=== PATIENT | male | born 1945 | race Caucasian/White ===

== ENCOUNTER 2018-08-16 18:28 | Inpatient (IN) | payer MEDICARE, BC ==
[~2018-08-16] VITALS: Ht 177.8 cm; Wt 47.7 kg
[2018-08-16 22:49] VITALS: PULSE 107
[2018-08-16 23:08] VITALS: Ht 177.8 cm; Wt 47.7 kg
[2018-08-16 23:15] VITALS: BP 132/74; PULSE 96; RESP 18
--- NOTE | 2018-08-16 23:42 | NUR ---
Direct admit from [facility], by ambulance. Pt a/a/ox3, Agitated and anxious. c/o B legs pain. VS stable, afebrile. Skin intact picture taken. call light within reach. Continue to monitor.
[2018-08-17] VITALS (10 sets, daily range): BP systolic 120–129; BP diastolic 70–77; PULSE 73–111; RESP 18–20
[2018-08-17] MEDS ORDERED: morphine SULFATE/PF (2 MG/2 ML) SYG IV PRN (00:40)
[2018-08-17] MEDS ORDERED: ONDANSETRON 4 MG INJ IV PRN (01:00)
[2018-08-17] MEDS ORDERED: MAGNESIUM HYDROXIDE 30ML CUP PO PRN (01:00)
[2018-08-17] MEDS ORDERED: SENNA TAB PO PRN (01:00)
[2018-08-17] MEDS ORDERED: POLYETHYLENE GLYCOL 17 GM PACKET PO PRN (01:00)
[2018-08-17] MEDS ORDERED: ACETAMINOPHEN 325 MG TAB PO PRN (01:00)
[2018-08-17] MEDS: SOD CHLORIDE 0.9% 1,000 ML IV SCH ×3 (01:17→21:23)
[2018-08-17] MEDS: PANTOPRAZOLE (EC) 40 MG TAB PO SCH (05:48)
--- NOTE | 2018-08-17 06:27 | NUR ---
Pt has belonging 2 bags he refused the nurse to checked them out.
--- NOTE | 2018-08-17 07:10 | NUR ---
Pt a/a/ox3 agitated, VS stable, afebrile. Hemoglobin 6.4, Dr Do was notified, awaiting he call back. Pt has BM x2 dark color, . Refused to sign the paper for belonging and did not want to be checked his bags. Report to incoming nurse Rosi. Continue to monitor.
[2018-08-17] MEDS: FERROUS SULFATE (EC) 325 MG TAB PO SCH ×3 (09:50→21:03)
[2018-08-17] MEDS: THIAMINE 100 MG TAB PO SCH (09:50)
[2018-08-17] MEDS: METOPROLOL 50 MG TAB PO SCH ×2 (09:51→21:03)
[2018-08-17] MEDS: FAMOTIDINE 20 MG TAB PO SCH (09:51)
[2018-08-17] MEDS: MULTIVITAMINS/MINERALS TAB PO SCH (09:51)
[2018-08-17] MEDS: FOLIC ACID 1 MG TAB PO SCH (09:51)
[2018-08-17] MEDS: [UNRECOGNIZED DRUG - OTHER] XX SCH ×2 (09:52→16:00)
--- NOTE | 2018-08-17 13:57 | CONS ---
Date/Time of Note Date/Time of Note DATE: 08/17/18 TIME: 13:52 Assessment/Plan Assessment/Plan Assessment/Plan 72 yo transferred from [facility] with widely metastatic disease to bones and lung as well as RP LAD at this point highest on my list is that this is met prostate ca recommend checking PSA also recommend checking AFP, bhcg and CEA. will ideally need tissue diagnosis, recommend IR to biopsy most amenable site -transfuse to keep hgb >7 Result Diagram: 08/17/18 0605 08/17/18 0605 Results 24hrs Laboratory Tests Test 08/17/18 06:05 White Blood Count 5.8 Red Blood Count 2.21 L Hemoglobin 6.4 *L Hematocrit 20.2 L Mean Corpuscular Volume 91.4 Mean Corpuscular Hemoglobin 29.0 Mean Corpuscular Hemoglobin Concent 31.7 L Red Cell Distribution Width 16.7 H Platelet Count 149 Mean Platelet Volume 10.3 Immature Granulocytes % 2.200 H Neutrophils % 64.9 Segmented Neutrophils % (Manual) 69 Band Neutrophils % (Manual) 2 Lymphocytes % 22.5 Lymphocytes % (Manual) 25 Monocytes % 9.5 Monocytes % (Manual) 3 Eosinophils % 0.7 Basophils % 0.2 Myelocytes % (Manual) 1 H Nucleated Red Blood Cells % 1 H Immature Granulocytes # 0.130 H Neutrophils # 3.8 Neutrophils # (Manual) 4.0 Band Neutrophils # 0.1 Lymphocytes (Manual) 1.4 Lymphocytes # 1.3 Monocytes # 0.6 Monocytes # (Manual) 0.1 L Eosinophils # 0.0 Basophils # 0.0 Myelocytes # 0.0 Nucleated Red Blood Cells # 0.0 Pathologist Review (Hematology) YES Platelet Estimate NORMAL Giant Platelets 1 H Polychromasia 1+ Poikilocytosis 2+ Anisocytosis 2+ Microcytosis 2+ Ovalocytes 1+ Sodium Level 138 Potassium Level 4.5 Chloride Level 106 Carbon Dioxide Level 25 Anion Gap 7 Blood Urea Nitrogen 28 H Creatinine 1.49 H Est Glomerular Filtrat Rate mL/min 47 L Glucose Level 124 Calcium Level 8.7 Total Bilirubin 0.0 L Direct Bilirubin 0.00 Indirect Bilirubin 0.0 Aspartate Amino Transf (AST/SGOT) 51 H Alanine Aminotransferase (ALT/SGPT) 9 L Alkaline Phosphatase 268 H Total Protein 6.5 Albumin 3.2 L Globulin 3.30 H Albumin/Globulin Ratio 0.96 Consultation Date/Type/Reason Admit Date/Time Aug 16, 2018 at 22:30 Hx of Present Illness 72 yo poor historian, multiple med problems including Hep C, htn, prostate ca. Transferred from [facility] to [facility] for further w/u. Presented to [facility] with weight loss and fatigue, anemic with hgb 7.5Imaging there thshowed diffuse thoracic osseous mes in spine, no cord compression.Ct AP w/o contrast: pulm mets, mild left hydro, promenent retroperitoneal and bilateral iliac LAD CT head w/o: BETH Pt is a very poor historian, unable to tell me if he has had PSA checked in the past or colonoscopy Constitutional: poor po Eyes: no complaints ENT: no complaints Respiratory: no complaints Cardiovascular: no complaints Gastrointestinal: no complaints Genitourinary: no complaints Musculoskeletal: back pain, bone/joint pain Past Medical History Medications Current Medications Pantoprazole (Protonix Tab) 40 mg DAILY@06 PO Last administered on 08/17/18at 05:48; Admin Dose 40 MG; Start 08/17/18 at 06:00 Morphine Sulfate (morphine SULFATE (PF)) 2 mg Q4H PRN IV SEVERE PAIN LEVEL 7-10 Last administered on 08/17/18at 01:18; Admin Dose 2 MG; Start 08/17/18 at 00:40 Sodium Chloride 1,000 ml @ 75 mls/hr [id number] IV Last administered on 08/17/18at 01:17; Admin Dose 75 MLS/HR; Start 08/17/18 at 00:50 Oxycodone/ Acetaminophen (Percocet (5/ 325)) 2 tab Q6H PRN PO PAIN LEVEL 6-10; Start 08/17/18 at 01:00 Oxycodone/ Acetaminophen (Percocet (5/ 325)) 1 tab Q6H PRN PO MODERATE PAIN LEVEL 4-6; Start 08/17/18 at 01:00 Folic Acid (Folic Acid) 1 mg DAILY PO Last administered on 08/17/18at 09:51; Admin Dose 1 MG; Start 08/17/18 at 09:00 Multivitamins/ Minerals (Theragran-M) 1 tab DAILY PO Last administered on 08/17/18at 09:51; Admin Dose 1 TAB; Start 08/17/18 at 09:00 Thiamine HCl (Vitamin B1) 100 mg DAILY PO Last administered on 08/17/18at 09:50; Admin Dose 100 MG; Start 08/17/18 at 09:00 Polyethylene Glycol (Miralax) 17 gm DAILY PRN PO CONSTIPATION; Start 08/17/18 at 01:00 Metoprolol Tartrate (Lopressor) 50 mg BID PO Last administered on 08/17/18at 09: 51; Admin Dose 50 MG; Start 08/17/18 at 09:00 Ferrous Sulfate (Ferrous Sulfate (Ec)) 325 mg TID PO Last administered on 08/17/18at 13:19; Admin Dose 325 MG; Start 08/17/18 at 09:00 Hydralazine HCl (Apresoline) 25 mg TID PO Last administered on 08/17/18at 09:51; Admin Dose 25 MG; Start 08/17/18 at 09:00 Tamsulosin HCl (Flomax) 0.4 mg HS PO ; Start 08/17/18 at 21:00 Famotidine (Pepcid) 20 mg DAILY PO Last administered on 08/17/18at 09:51; Admin Dose 20 MG; Start 08/17/18 at 09:00 Magnesium Hydroxide (Milk Of Mag) 30 ml DAILY PRN PO CONSTIPATION; Start 08/17/18 at 01:00 Acetaminophen (Tylenol Tab) 650 mg Q6H PRN PO MILD PAIN(1-3)OR ELEVATED TEMP; Start 08/17/18 at 01:00 Ondansetron HCl (Zofran Inj) 4 mg Q8 PRN IV NAUSEA AND/OR VOMITING; Start 08/17/18 at 01:00 Senna (Senokot) 2 tab BID PRN PO CONSTIPATION; Start 08/17/18 at 01:00 Zolpidem Tartrate (Ambien) 5 mg HS PRN PO INSOMNIA; Start 08/17/18 at 01:00 Tramadol HCl (Ultram) 50 mg TID PRN PO PAIN LEVEL 1-5; Start 08/17/18 at 01:00 Miscellaneous Information Patients own medicat... BID@1000,1600 XX ; Start 08/17/18 at 10:00 Allergies: Coded Allergies: No Known Allergy (Unverified , 08/17/18) Social History Smoking Status: Never smoker Exam/Review of Systems Vital Signs Vitals Vital Signs Date Temp Pulse Resp B/P (MAP) Pulse Ox O2 O2 Flow FiO2 Time Delivery Rate 08/17/18 98 12:02 08/17/18 98.3 20 120/70 100 11:16 (87) 08/17/18 Nasal 2.0 08:30 Cannula Intake and Output 08/16/18 08/16/18 08/17/18 1515:00 23:00 07:00 IntakeIntake Total 1100 ml OutputOutput Total 400 ml BalanceBalance 700 ml Exam Constitutional: alert, oriented, well developed, frail Head: normocephalic, atraumatic Eyes: nl conjunctiva, EOMI, nl lids, nl sclera, PERRL Musculoskeletal: nl extremities to inspection, nl gait and stance Medications Medications Current Medications Pantoprazole (Protonix Tab) 40 mg DAILY@06 PO Last administered on 08/17/18at 05:48; Admin Dose 40 MG; Start 08/17/18 at 06:00 Morphine Sulfate (morphine SULFATE (PF)) 2 mg Q4H PRN IV SEVERE PAIN LEVEL 7-10 Last administered on 08/17/18at 01:18; Admin Dose 2 MG; Start 08/17/18 at 00:40 Sodium Chloride 1,000 ml @ 75 mls/hr [id number] IV Last administered on 08/17/18at 01:17; Admin Dose 75 MLS/HR; Start 08/17/18 at 00:50 Oxycodone/ Acetaminophen (Percocet (5/ 325)) 2 tab Q6H PRN PO PAIN LEVEL 6-10; Start 08/17/18 at 01:00 Oxycodone/ Acetaminophen (Percocet (5/ 325)) 1 tab Q6H PRN PO MODERATE PAIN LEVEL 4-6; Start 08/17/18 at 01:00 Folic Acid (Folic Acid) 1 mg DAILY PO Last administered on 08/17/18at 09:51; Admin Dose 1 MG; Start 08/17/18 at 09:00 Multivitamins/ Minerals (Theragran-M) 1 tab DAILY PO Last administered on 08/17/18at 09:51; Admin Dose 1 TAB; Start 08/17/18 at 09:00 Thiamine HCl (Vitamin B1) 100 mg DAILY PO Last administered on 08/17/18at 09:50; Admin Dose 100 MG; Start 08/17/18 at 09:00 Polyethylene Glycol (Miralax) 17 gm DAILY PRN PO CONSTIPATION; Start 08/17/18 at 01:00 Metoprolol Tartrate (Lopressor) 50 mg BID PO Last administered on 08/17/18at 09:51; Admin Dose 50 MG; Start 08/17/18 at 09:00 Ferrous Sulfate (Ferrous Sulfate (Ec)) 325 mg TID PO Last administered on 08/17/18at 13:19; Admin Dose 325 MG; Start 08/17/18 at 09:00 Hydralazine HCl (Apresoline) 25 mg TID PO Last administered on 08/17/18at 09:51; Admin Dose 25 MG; Start 08/17/18 at 09:00 Tamsulosin HCl (Flomax) 0.4 mg HS PO ; Start 08/17/18 at 21:00 Famotidine (Pepcid) 20 mg DAILY PO Last administered on 08/17/18at 09:51; Admin Dose 20 MG; Start 08/17/18 at 09:00 Magnesium Hydroxide (Milk Of Mag) 30 ml DAILY PRN PO CONSTIPATION; Start 08/17/18 at 01:00 Acetaminophen (Tylenol Tab) 650 mg Q6H PRN PO MILD PAIN(1-3)OR ELEVATED TEMP; Start 08/17/18 at 01:00 Ondansetron HCl (Zofran Inj) 4 mg Q8 PRN IV NAUSEA AND/OR VOMITING; Start 08/07 08/25 at 01:00 Senna (Senokot) 2 tab BID PRN PO CONSTIPATION; Start 08/17/18 at 01:00 Zolpidem Tartrate (Ambien) 5 mg HS PRN PO INSOMNIA; Start 08/17/18 at 01:00 Tramadol HCl (Ultram) 50 mg TID PRN PO PAIN LEVEL 1-5; Start 08/17/18 at 01:00 Miscellaneous Information Patients own medicat... BID@1000,1600 XX ; Start 08/17/18 at 10:00 WENDY SIMS Aug 17, 2018 13:57
--- NOTE | 2018-08-17 16:11 | HP ---
Date/Time of Note Date/Time of Note DATE: 08/17/18 TIME: 16:06 Assessment/Plan VTE [place]axis [place] [facility] [place]: 2 [place]CD applied [place] [facility] [place] SCD contraindicated: patient refusal Pharmacological prophylaxis: NA/contraindicated Pharm contraindication: blood coag disorder Lines/Catheters IV Catheter Type (from [facility] Peripheral IV Urinary Cath still in place: No Assessment/Plan Hospital Course 1. AMS, metabolic encephalopathy 2. Lymphadenopathy concerning for malignancy unknown primary source. 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 Acute kidney injury 4. Severe anemia 5. Recent weight loss 6. Severe malnourishment 7. Thrombocytopenia 8. History of subdural hematoma 9. History of hepatitis C 10. History of alcoholism 11. Hypertension 12. Mild left hydronephrosis with obstructing distal left ureteral calculus Assessment/Plan -Blood transfusion in process -DVT prophylaxis SCD -GI prophylaxis -Dr. Pardo/Ildefonso from oncology consult is appreciated -Biopsy is pending -Palliative care - tumor markers are pending s -pt has difficulties to urinate so bladder scanner as needed -PSA -MEdsurg Result Diagram: 08/17/18 0605 08/17/18 0605 Results 24hrs Laboratory Tests Test 08/17/18 06:05 White Blood Count 5.8 Red Blood Count 2.21 L Hemoglobin 6.4 *L Hematocrit 20.2 L Mean Corpuscular Volume 91.4 Mean Corpuscular Hemoglobin 29.0 Mean Corpuscular Hemoglobin Concent 31.7 L Red Cell Distribution Width 16.7 H Platelet Count 149 Mean Platelet Volume 10.3 Immature Granulocytes % 2.200 H Neutrophils % 64.9 Segmented Neutrophils % (Manual) 69 Band Neutrophils % (Manual) 2 Lymphocytes % 22.5 Lymphocytes % (Manual) 25 Monocytes % 9.5 Monocytes % (Manual) 3 Eosinophils % 0.7 Basophils % 0.2 Myelocytes % (Manual) 1 H Nucleated Red Blood Cells % 1 H Immature Granulocytes # 0.130 H Neutrophils # 3.8 Neutrophils # (Manual) 4.0 Band Neutrophils # 0.1 Lymphocytes (Manual) 1.4 Lymphocytes # 1.3 Monocytes # 0.6 Monocytes # (Manual) 0.1 L Eosinophils # 0.0 Basophils # 0.0 Myelocytes # 0.0 Nucleated Red Blood Cells # 0.0 Pathologist Review (Hematology) YES Platelet Estimate NORMAL Giant Platelets 1 H Polychromasia 1+ Poikilocytosis 2+ Anisocytosis 2+ Microcytosis 2+ Ovalocytes 1+ Sodium Level 138 Potassium Level 4.5 Chloride Level 106 Carbon Dioxide Level 25 Anion Gap 7 Blood Urea Nitrogen 28 H Creatinine 1.49 H Est Glomerular Filtrat Rate mL/min 47 L Glucose Level 124 Calcium Level 8.7 Total Bilirubin 0.0 L Direct Bilirubin 0.00 Indirect Bilirubin 0.0 Aspartate Amino Transf (AST/SGOT) 51 H Alanine Aminotransferase (ALT/SGPT) 9 L Alkaline Phosphatase 268 H Total Protein 6.5 Albumin 3.2 L Globulin 3.30 H Albumin/Globulin Ratio 0.96 HPI/ROS Admit Date/Time Admit Date/Time Aug 16, 2018 at 22:30 Hx of Present Illness This 74-year-old frail gentleman was brought from [facility] with history of hypertension subdural hematoma alcoholism anemia with the concern of metastatic disease with metastasis to bones and lungs. He is prior to source is unknown. Patient has no capacity to make decisions for himself, his brother is making decision there will need to find for the consult but they did not sign. Dr. Fregoso oncologist for the patient. Patient is a poor historian ROS Cardiovascular: no complaints Gastrointestinal: pain Musculoskeletal: back pain, bone/joint pain PMH/Family/Social Past Medical History Medical History: hypertension Medications Current Medications Pantoprazole (Protonix Tab) 40 mg DAILY@06 PO Last administered on 08/17/18at 05:48; Admin Dose 40 MG; Start 08/17/18 at 06:00 Morphine Sulfate (morphine SULFATE (PF)) 2 mg Q4H PRN IV SEVERE PAIN LEVEL 7-10 Last administered on 08/17/18at 01:18; Admin Dose 2 MG; Start 08/17/18 at 00:40 Sodium Chloride 1,000 ml @ 75 mls/hr [id number] IV Last administered on 08/17/18at 01:17; Admin Dose 75 MLS/HR; Start 08/17/18 at 00:50 Oxycodone/ Acetaminophen (Percocet (5/ 325)) 2 tab Q6H PRN PO PAIN LEVEL 6-10; Start 08/17/18 at 01:00 Oxycodone/ Acetaminophen (Percocet (5/ 325)) 1 tab Q6H PRN PO MODERATE PAIN LEVEL 4-6; Start 08/17/18 at 01:00 Folic Acid (Folic Acid) 1 mg DAILY PO Last administered on 08/17/18 09:51; Admin Dose 1 MG; Start 08/17/18 at 09:00 Multivitamins/ Minerals (Theragran-M) 1 tab DAILY PO Last administered on 08/17/18 09:51; Admin Dose 1 TAB; Start 08/17/18 at 09:00 Thiamine HCl (Vitamin B1) 100 mg DAILY PO Last administered on 08/17/18at 09:50; Admin Dose 100 MG; Start 08/17/18 at 09:00 Polyethylene Glycol (Miralax) 17 gm DAILY PRN PO CONSTIPATION; Start 08/17/18 at 01:00 Metoprolol Tartrate (Lopressor) 50 mg BID PO Last administered on 08/17/18 09:51; Admin Dose 50 MG; Start 08/17/18 at 09:00 Ferrous Sulfate (Ferrous Sulfate (Ec)) 325 mg TID PO Last administered on 08/17/18at 13:19; Admin Dose 325 MG; Start 08/17/18 at 09:00 Hydralazine HCl (Apresoline) 25 mg TID PO Last administered on 08/17/18 09:51; Admin Dose 25 MG; Start 08/17/18 at 09:00 Tamsulosin HCl (Flomax) 0.4 mg HS PO ; Start 08/17/18 at 21:00 Famotidine (Pepcid) 20 mg DAILY PO Last administered on 08/17/18 09:51; Admin Dose 20 MG; Start 08/17/18 at 09:00 Magnesium Hydroxide (Milk Of Mag) 30 ml DAILY PRN PO CONSTIPATION; Start 08/17/18 at 01:00 Acetaminophen (Tylenol Tab) 650 mg Q6H PRN PO MILD PAIN(1-3)OR ELEVATED TEMP; Start 08/17/18 at 01:00 Ondansetron HCl (Zofran Inj) 4 mg Q8 PRN IV NAUSEA AND/OR VOMITING; Start 08/17/18 at 01:00 Senna (Senokot) 2 tab BID PRN PO CONSTIPATION; Start 08/17/18 at 01:00 Zolpidem Tartrate (Ambien) 5 mg HS PRN PO INSOMNIA; Start 08/17/18 at 01:00 Tramadol HCl (Ultram) 50 mg TID PRN PO PAIN LEVEL 1-5; Start 08/17/18 at 01:00 Miscellaneous Information Patients own medicat... BID@1000,1600 XX ; Start 08/17/18 at 10:00 Coded Allergies: No Known Allergy (Unverified , 08/17/18) Past Surgical History Past Surgical Hx: other (unknown) Social History Alcohol Use: occasionally Smoking Status: Never smoker Exam/Review of Systems Vital Signs Vitals Vital Signs Date Temp Pulse Resp B/P (MAP) Pulse Ox O2 O2 Flow FiO2 Time Delivery Rate 08/17/18 98.3 76 20 129/72 96 15:44 (91) 08/17/18 Nasal 2.0 08:30 Cannula Intake and Output 08/16/18 08/16/18 08/17/18 1515:00 23:00 07:00 IntakeIntake Total 1100 ml OutputOutput Total 400 ml BalanceBalance 700 ml Exam Head: normocephalic ENMT: nl external ears & nose Neck: supple Respiratory: crackles/rales, diminished breath sounds Cardiovascular: regular rate and rhythm Gastrointestinal: soft Musculoskeletal: muscle weakness Neurological: confused DENNIS YOON Aug 17, 2018 16:11
--- NOTE | 2018-08-17 17:00 | NUR ---
RN NOTES: Report given to Ines HUTCHINSON in 2E. Called and arranged transport as well.
--- NOTE | 2018-08-17 18:09 | QN ---
Documentation Comment SEEN AND EXAMINED WITH BLIND EYELETTER CHART REVIEWED METS TO BONE/LAD AND PULM> LIKLEY PROSTATE CA, WILL NEED TISSUE IR FO BIOPSY ? LAD 1 UNIT PRBC VALDO HERNANDEZ MD Aug 17, 2018 18:09
--- NOTE | 2018-08-17 18:40 | NUR ---
RN NOTES: EOSS Pt s/p 1 unit PRBC, labs ordered in the AM. VS stable. Pt a/o x 2-3, agitated, confused at times. Report given to 2E. Transported via bed with all personal belongings. Care relinquished.
--- NOTE | 2018-08-17 19:17 | NUR ---
RN Notes: Received pt around 1850 from [facility] via bed, pt alert and verbally responsive, breathing even and unlabored. Endorsed to next shift for skin assessment, transfer assessment and continuity of care.
[2018-08-17] MEDS: TAMSULOSIN (SR) 0.4 MG CAP PO SCH (21:03)
[2018-08-18] MEDS: traMADol 50 MG TAB PO PRN (02:30)
[2018-08-18] MEDS: PANTOPRAZOLE (EC) 40 MG TAB PO SCH ×2 (06:00→06:39)
--- NOTE | 2018-08-18 07:28 | NUR ---
pt alert,oriented x4,forgetful. no sob, w/ complaint of gen body pain one time during the shift, tramadol tab given as ordered. pt refused skin assessment, repositioning.refused 0200 vital signs.Reinforced teaching . charge nurse, alec Angulo. at 0645 pt allowed pipe and tank fabricator and nurse to change and clean him
[2018-08-18 07:30] VITALS: BP 120/68; PULSE 67; RESP 18
[2018-08-18] MEDS: MULTIVITAMINS/MINERALS TAB PO SCH (08:38)
[2018-08-18] MEDS: METOPROLOL 50 MG TAB PO SCH ×2 (08:38→21:30)
[2018-08-18] MEDS: FERROUS SULFATE (EC) 325 MG TAB PO SCH ×3 (08:38→21:29)
[2018-08-18] MEDS: THIAMINE 100 MG TAB PO SCH (08:38)
[2018-08-18] MEDS: FAMOTIDINE 20 MG TAB PO SCH (08:38)
[2018-08-18] MEDS: FOLIC ACID 1 MG TAB PO SCH (08:38)
[2018-08-18] MEDS: [UNRECOGNIZED DRUG - OTHER] XX SCH ×2 (09:51→16:00)
[2018-08-18] MEDS: SOD CHLORIDE 0.9% 1,000 ML IV SCH (10:22)
[2018-08-18 14:15] VITALS: BP 112/66; PULSE 67; RESP 16
--- NOTE | 2018-08-18 14:52 | PN ---
Date/Time of Note Date/Time of Note DATE: 08/18/18 TIME: 14:50 Assessment/Plan VTE Prophylaxis Risk [place] [facility] [place] risk: 4 SCD applied [place] [facility] [place] No SCD contraindicated: patient refusal Pharmacological prophylaxis: NA/contraindicated Pharm contraindication: bleeding Lines/Catheters IV [facility]ter Type (from [facility]): Peripheral IV Urinary Cath still in place: No Assessment/Plan Hospital Course 1. AMS, metabolic encephalopathy 2. Lymphadenopathy concerning for malignancy unknown primary source, more likely prostate cancer, PSA 1000. 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 Acute kidney injury, better 4. Severe anemia 5. Recent weight loss 6. Severe malnourishment 7. Thrombocytopenia 8. History of subdural hematoma 9. History of hepatitis C 10. History of alcoholism 11. Hypertension 12. Mild left hydronephrosis with obstructing distal left ureteral calculus Assessment/Plan -monitor H and H -DVT prophylaxis SCD, pt refused -GI prophylaxis -Dr. Pardo/Ildefonso from oncology consult is appreciated -dr Vora seen, no note is present per nursing refused colonoscopy -Biopsy is pending -advance diet -Palliative care - tumor markers are pending s -pt has difficulties to urinate so bladder scanner as needed -PSA is very high -Medsurg -Start Casodex 50 mg po daily Result Diagram: 08/18/18 0441 08/18/18 0441 Results 24hrs Laboratory Tests Test 08/18/18 04:41 White Blood Count 6.2 Red Blood Count 2.59 L Hemoglobin 7.5 L Hematocrit 23.7 L Mean Corpuscular Volume 91.5 Mean Corpuscular Hemoglobin 29.0 Mean Corpuscular Hemoglobin Concent 31.6 L Red Cell Distribution Width 15.9 H Platelet Count 154 Mean Platelet Volume 9.7 Immature Granulocytes % 2.900 H Neutrophils % 66.1 Lymphocytes % 19.7 Monocytes % 10.0 Eosinophils % 1.0 Basophils % 0.3 Nucleated Red Blood Cells % 0.3 H Immature Granulocytes # 0.180 H Neutrophils # 4.1 Lymphocytes # 1.2 Monocytes # 0.6 Eosinophils # 0.1 Basophils # 0.0 Nucleated Red Blood Cells # 0.0 Sodium Level 139 Potassium Level 4.2 Chloride Level 104 Carbon Dioxide Level 24 Anion Gap 11 Blood Urea Nitrogen 21 H Creatinine 1.27 H Est Glomerular Filtrat Rate mL/min 56 L Glucose Level 107 Calcium Level 8.6 Subjective 24 Hr Interval Summary Respiratory: no complaints Genitourinary: dysuria Exam/Review of Systems Vital Signs Vitals Vital Signs Date Temp Pulse Resp B/P (MAP) Pulse Ox O2 O2 Flow FiO2 Time Delivery Rate 08/18/18 97.8 67 18 120/68 99 Room Air 07:30 (85) 08/17/18 2.0 08:30 Intake and Output 08/17/18 08/17/18 08/18/18 1515:00 23:00 07:00 IntakeIntake Total 1450 ml 815 ml OutputOutput Total 900 ml 1000 ml BalanceBalance 550 ml -185 ml Exam Eyes: nl conjunctiva Neck: supple Cardiovascular: regular rate and rhythm Gastrointestinal: soft Medications Medications Current Medications Pantoprazole (Protonix Tab) 40 mg DAILY@06 PO Last administered on 08/18/18at 06:39; Admin Dose 40 MG; Start 08/17/18 at 06:00 Morphine Sulfate (morphine SULFATE (PF)) 2 mg Q4H PRN IV SEVERE PAIN LEVEL 7-10 Last administered on 08/17/18at 01:18; Admin Dose 2 MG; Start 08/17/18 at 00:40 Sodium Chloride 1,000 ml @ 75 mls/hr [id number] IV Last administered on 08/18/18at 10:22; Admin Dose 75 MLS/HR; Start 08/17/18 at 00:50 Oxycodone/ Acetaminophen (Percocet (5/ 325)) 2 tab Q6H PRN PO PAIN LEVEL 6-10; Start 08/17/18 at 01:00 Oxycodone/ Acetaminophen (Percocet (5/ 325)) 1 tab Q6H PRN PO MODERATE PAIN LEVEL 4-6; Start 08/17/18 at 01:00 Folic Acid (Folic Acid) 1 mg DAILY PO Last administered on 08/18/18at 08:38; Admin Dose 1 MG; Start 08/17/18 at 09:00 Multivitamins/ Minerals (Theragran-M) 1 tab DAILY PO Last administered on 08/18/18at 08:38; Admin Dose 1 TAB; Start 08/17/18 at 09:00 Thiamine HCl (Vitamin B1) 100 mg DAILY PO Last administered on 08/18/18at 08:38; Admin Dose 100 MG; Start 08/17/18 at 09:00 Polyethylene Glycol (Miralax) 17 gm DAILY PRN PO CONSTIPATION; Start 08/17/18 at 01:00 Metoprolol Tartrate (Lopressor) 50 mg BID PO Last administered on 08/18/18at 08:38; Admin Dose 50 MG; Start 08/17/18 at 09:00 Ferrous Sulfate (Ferrous Sulfate (Ec)) 325 mg TID PO Last administered on 08/18/18 12:37; Admin Dose 325 MG; Start 08/17/18 at 09:00 Hydralazine HCl (Apresoline) 25 mg TID PO Last administered on 08/18/18 12:37; Admin Dose 25 MG; Start 08/17/18 at 09:00 Tamsulosin HCl (Flomax) 0.4 mg HS PO Last administered on 08/17/18at 21:03; Admin Dose 0.4 MG; Start 08/17/18 at 21:00 Famotidine (Pepcid) 20 mg DAILY PO Last administered on 08/18/18 08:38; Admin Dose 20 MG; Start 08/17/18 at 09:00 Magnesium Hydroxide (Milk Of Mag) 30 ml DAILY PRN PO CONSTIPATION; Start 08/17/18 at 01:00 Acetaminophen (Tylenol Tab) 650 mg Q6H PRN PO MILD PAIN(1-3)OR ELEVATED TEMP; Start 08/17/18 at 01:00 Ondansetron HCl (Zofran Inj) 4 mg Q8 PRN IV NAUSEA AND/OR VOMITING; Start 08/17/18 at 01:00 Senna (Senokot) 2 tab BID PRN PO CONSTIPATION; Start 08/17/18 at 01:00 Zolpidem Tartrate (Ambien) 5 mg HS PRN PO INSOMNIA; Start 08/17/18 at 01:00 Tramadol HCl (Ultram) 50 mg TID PRN PO PAIN LEVEL 1-5 Last administered on 08/18/18at 02:30; Admin Dose 50 MG; Start 08/17/18 at 01:00 Miscellaneous Information Patients own medicat... BID@1000,1600 XX ; Start 08/17/18 at 10:00 DENNIS YOON Aug 18, 2018 14:52
--- NOTE | 2018-08-18 15:28 | NUR ---
RN Notes: Patient remains alert and oriented, afebrile, breathing even and unlabored, no c/o pain/discomfort. Pt agreed for skin assessment on his back and bilateral feet, skin clean and intact noted with skin pigmentation on both heels. Offered pt to get out of bed and to try his balance/mobility but pt refused per pt he feel weak cause it's not been eating solid food for the few days and requested to upgrade his diet and said once he started to eat regular food maybe he will have strength to try to get out of bed for mobility. Dr. Vora came and see pt per MD pt refusing to do some procedure. Anat CHIEF EXECUTIVE OFFICER came made aware regarding pt's request and upgraded pt's diet. Pt aware and happy about the order. Pt voiding well, able to use urinal with clear yellow urine output. Hourly rounding done, call light within reach, bed alarm on. Will continue to monitor until the end of the shift. Addendum: 08/18/18 at 1749 by JUAN CHISHOLM RN pt was seen by DR. Nguyen and received order for Xray of Pelvis and Spine Lumbar, NM Bone Whole Body Scan Panel and to start pt on Casodex. Noted that Casodex was Chemo med and initial dose need to be adm by chemo nurse, called 4w spoke to Jade FISH made aware regarding initial dose for Casodex said she will look onto pt's chart and will come to our unit to adm medication. Addendum: 08/18/18 at 1919 by JUAN CHISHOLM RN Anat VASQUEZ aware regarding Hemoglobin level of 7.5.
--- NOTE | 2018-08-18 16:22 | CONS ---
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 The josiah flores himself is not a good historian he is confused and sometimes agitated at the [facility] they attempted to have MRI of the spine to evaluate metastatic disease and evaluate for vertebral instability but the patient was confused and agitated and they were not able to do the MRI the patient is known to have had subdural hematoma status post evacuation at [facility] in February 2018 the patient also was found to have lymphadenopathy and bony metastases he also is known to have a history of hypertension and anemia. CT scan of the abdomen and pelvis without contrast at [facility] done on 08/13/2018 showed lung bases: Extensive pleural nodularity and pulmonary nodules bilaterally bilateral left greater than right small pleural effusions and bibasilar atelectasis liver: Unremarkable, gallbladder and bile ducts: Contracted likely containing gallstones ,spleen unremarkable,pancreas unremarkable, adrenals mildly thickened left greater than right adrenal glands, kidneys and ureters: Bilateral low-density lesions mostly fluid density but incompletely characterized measuring up to 6.2 cm on the right kidney, mild left hydronephrosis likely due to an obstructing 6 mm stone in the distal left ureter. Bowels nondilated bowel loops moderate stool burden. Bladder diffuse circumferential wall thickening. Reproductive organs: Prostatomegaly with median lobe hypertrophy. Lymph node: Likely prominent retroperitoneal and bilateral iliac chain lymph nodes although overall poorly delineated due to lack of intravenous contrast. Peritoneum: Small volume ascites. Vessels: Moderate atherosclerotic calcification. Abdominal wall: Mild body wall edema. Bones: Mixed lytic ,sclerotic bone lesions involving the entire axial and appendicular skeleton with areas of vertebral body height loss for example in the L3 vertebral body and marked areas of cortical destruction for example on the left inferior pubic ramus. Impression: Most likely this patient does have metastatic prostate cancer. Plan: Lumbosacral spine x-rays, pelvic x-rays. Bone scan and we will start him on Casodex 50 mg daily. He will need to have biopsy to confirm the diagnosis and then he will need to be placed on Lupron Depo injections. Result Diagram: 08/18/18 0441 08/18/18 0441 Results 24hrs Laboratory Tests Test 08/18/18 04:41 White Blood Count 6.2 Red Blood Count 2.59 L Hemoglobin 7.5 L Hematocrit 23.7 L Mean Corpuscular Volume 91.5 Mean Corpuscular Hemoglobin 29.0 Mean Corpuscular Hemoglobin Concent 31.6 L Red Cell Distribution Width 15.9 H Platelet Count 154 Mean Platelet Volume 9.7 Immature Granulocytes % 2.900 H Neutrophils % 66.1 Lymphocytes % 19.7 Monocytes % 10.0 Eosinophils % 1.0 Basophils % 0.3 Nucleated Red Blood Cells % 0.3 H Immature Granulocytes # 0.180 H Neutrophils # 4.1 Lymphocytes # 1.2 Monocytes # 0.6 Eosinophils # 0.1 Basophils # 0.0 Nucleated Red Blood Cells # 0.0 Sodium Level 139 Potassium Level 4.2 Chloride Level 104 Carbon Dioxide Level 24 Anion Gap 11 Blood Urea Nitrogen 21 H Creatinine 1.27 H Est Glomerular Filtrat Rate mL/min 56 L Glucose Level 107 Calcium Level 8.6 Consultation Date/Type/Reason Admit Date/Time Aug 16, 2018 at 22:30 Date of Consultation: Aug 18, 2018 Type of Consult Urology Reason for Consultation Metastatic prostate cancer Requesting Provider: MILLY LABOY of Present Illness 72-year-old -[place] male was transferred from [facility] to [facility] patient was found to have 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 The patient himself is not a good historian he is confused and sometimes agitated at the [facility] they attempted to have MRI of the spine to evaluate metastatic disease and evaluate for vertebral instability but the patient was confused and agitated and they were not able to do the MRI the patient is known to have had subdural hematoma status post evacuation at [facility] in February 2018 the patient also was found to have lymphadenopathy and bony metastases he also is known to have a history of hypertension and anemia. CT scan of the abdomen and pelvis without contrast at [facility] done on 08/13/2018 showed lung bases: Extensive pleural nodularity and pulmonary nodules bilaterally bilateral left greater than right small pleural effusions and bibasilar atelectasis liver: Unremarkable, gallbladder and bile ducts: Contracted likely containing gallstones ,spleen unremarkable,pancreas unremarkable, adrenals mildly thickened left greater than right adrenal glands, kidneys and ureters: Bilateral low-density lesions mostly fluid density but incompletely characterized measuring up to 6.2 cm on the right kidney, mild left hydronephrosis likely due to an obstructing 6 mm stone in the distal left ur eter. Bowels nondilated bowel loops moderate stool burden. Bladder diffuse circumferential wall thickening. Reproductive organs: Prostatomegaly with median lobe hypertrophy. Lymph node: Likely prominent retroperitoneal and bilateral iliac chain lymph nodes although overall poorly delineated due to lack of intravenous contrast. Peritoneum: Small volume ascites. Vessels: Moderate atherosclerotic calcification. Abdominal wall: Mild body wall edema. Bones: Mixed lytic ,sclerotic bone lesions involving the entire axial and appendicular skeleton with areas of vertebral body height loss for example in the L3 vertebral body and marked areas of cortical destruction for example on the left inferior pubic ramus. Constitutional: other (Frail) Eyes: no complaints ENT: no complaints Respiratory: No shortness of breath Cardiovascular: no complaints Gastrointestinal: no complaints Genitourinary: hematuria (He states he did have hematuria a few weeks ago but now his urine is clear. He denies any dysuria) Musculoskeletal: no complaints Skin: no complaints Neurologic: confusion Endocrine: no complaints Lymphatic: adenopathy Psychological: confusion Past Medical History Medical History: cancer (Prostatic), hypertension, other (Hepatitis C, weight loss and anemia, encephalopathy) Medications Current Medications Pantoprazole (Protonix Tab) 40 mg DAILY@06 PO Last administered on 08/18/18at 06:39; Admin Dose 40 MG; Start 08/17/18 at 06:00 Morphine Sulfate (morphine SULFATE (PF)) 2 mg Q4H PRN IV SEVERE PAIN LEVEL 7-10 Last administered on 08/17/18at 01:18; Admin Dose 2 MG; Start 08/17/18 at 00:40 Sodium Chloride 1,000 ml @ 40 mls/hr Q24H IV Last administered on 08/18/18at 10:22; Admin Dose 75 MLS/HR; Start 08/17/18 at 00:50 Oxycodone/ Acetaminophen (Percocet (5/ 325)) 2 tab Q6H PRN PO PAIN LEVEL 6-10; Start 08/17/18 at 01:00 Oxycodone/ Acetaminophen (Percocet (5/ 325)) 1 tab Q6H PRN PO MODERATE PAIN LEVEL 4-6; Start 08/17/18 at 01:00 Folic Acid (Folic Acid) 1 mg DAILY PO Last administered on 08/18/18 08:38; Admin Dose 1 MG; Start 08/17/18 at 09:00 Multivitamins/ Minerals (Theragran-M) 1 tab DAILY PO Last administered on 08/18/18 08:38; Admin Dose 1 TAB; Start 08/17/18 at 09:00 Thiamine HCl (Vitamin B1) 100 mg DAILY PO Last administered on 08/18/18 08:38; Admin Dose 100 MG; Start 08/17/18 at 09:00 Polyethylene Glycol (Miralax) 17 gm DAILY PRN PO CONSTIPATION; Start 08/17/18 at 01:00 Metoprolol Tartrate (Lopressor) 50 mg BID PO Last administered on 08/18/18 08:38; Admin Dose 50 MG; Start 08/17/18 at 09:00 Ferrous Sulfate (Ferrous Sulfate (Ec)) 325 mg TID PO Last administered on 08/18/18 12:37; Admin Dose 325 MG; Start 08/17/18 at 09:00 Hydralazine HCl (Apresoline) 25 mg TID PO Last administered on 08/18/18 12:37; Admin Dose 25 MG; Start 08/17/18 at 09:00 Tamsulosin HCl (Flomax) 0.4 mg HS PO Last administered on 08/17/18at 21:03; Admin Dose 0.4 MG; Start 08/17/18 at 21:00 Famotidine (Pepcid) 20 mg DAILY PO Last administered on 08/18/18 08:38; Admin Dose 20 MG; Start 08/17/18 at 09:00 Magnesium Hydroxide (Milk Of Mag) 30 ml DAILY PRN PO CONSTIPATION; Start 08/17/18 at 01:00 Acetaminophen (Tylenol Tab) 650 mg Q6H PRN PO MILD PAIN(1-3)OR ELEVATED TEMP; Start 08/17/18 at 01:00 Ondansetron HCl (Zofran Inj) 4 mg Q8 PRN IV NAUSEA AND/OR VOMITING; Start 08/17/18 at 01:00 Senna (Senokot) 2 tab BID PRN PO CONSTIPATION; Start 08/17/18 at 01:00 Zolpidem Tartrate (Ambien) 5 mg HS PRN PO INSOMNIA; Start 08/17/18 at 01:00 Tramadol HCl (Ultram) 50 mg TID PRN PO PAIN LEVEL 1-5 Last administered on 08/18/18at 02:30; Admin Dose 50 MG; Start 08/17/18 at 01:00 Miscellaneous Information Patients own medicat... BID@1000,1600 XX ; Start 08/17/18 at 10:00 Bicalutamide (Casodex) 50 mg DAILY PO ; Start 08/18/18 at 16:30 Allergies: Coded Allergies: No Known Allergy (Unverified , 08/17/18) Past Surgical History Past Surgical Hx: other (Evacuation of subdural hematoma he had 2 craniotomies) Social History Alcohol Use: other (History of alcoholism) Smoking Status: Never smoker Exam/Review of Systems Vital Signs Vitals Vital Signs Date Temp Pulse Resp B/P (MAP) Pulse Ox O2 O2 Flow FiO2 Time Delivery Rate 08/18/18 98.7 67 16 112/66 99 Room Air 14:15 (81) 08/17/18 2.0 08:30 Intake and Output 08/17/18 08/17/18 08/18/18 1515:00 23:00 07:00 IntakeIntake Total 1450 ml 815 ml OutputOutput Total 900 ml 1000 ml BalanceBalance 550 ml -185 ml Exam Constitutional: alert, frail Psych: confusion Head: normocephalic Eyes: nl conjunctiva ENMT: nl external ears & nose Neck: supple Respiratory: normal air movement; No wheezing Cardiovascular: No jugular venous distention (JVD) Gastrointestinal: soft Genitourinary - Male: other (Rectal exam: Prostate hard but it is not bulging into the rectum) Extremities: other (He moves all extremities); No calf tenderness Neurological: confused; No numbness Skin: nl turgor Medications Medications Current Medications Pantoprazole (Protonix Tab) 40 mg DAILY@06 PO Last administered on 08/18/18at 06:39; Admin Dose 40 MG; Start 08/17/18 at 06:00 Morphine Sulfate (morphine SULFATE (PF)) 2 mg Q4H PRN IV SEVERE PAIN LEVEL 7-10 Last administered on 1/11/19at 01:18; Admin Dose 2 MG; Start 08/17/18 at 00:40 Sodium Chloride 1,000 ml @ 40 mls/hr Q24H IV Last administered on 08/18/18 10:22; Admin Dose 75 MLS/HR; Start 08/17/18 at 00:50 Oxycodone/ Acetaminophen (Percocet (5/ 325)) 2 tab Q6H PRN PO PAIN LEVEL 6-10; Start 08/17/18 at 01:00 Oxycodone/ Acetaminophen (Percocet (5/ 325)) 1 tab Q6H PRN PO MODERATE PAIN LEVEL 4-6; Start 08/17/18 at 01:00 Folic Acid (Folic Acid) 1 mg DAILY PO Last administered on 08/18/18 08:38; Admin Dose 1 MG; Start 08/17/18 at 09:00 Multivitamins/ Minerals (Theragran-M) 1 tab DAILY PO Last administered on 08/18/18 08:38; Admin Dose 1 TAB; Start 08/17/18 at 09:00 Thiamine HCl (Vitamin B1) 100 mg DAILY PO Last administered on 08/18/18 08:38; Admin Dose 100 MG; Start 08/17/18 at 09:00 Polyethylene Glycol (Miralax) 17 gm DAILY PRN PO CONSTIPATION; Start 08/17/18 at 01:00 Metoprolol Tartrate (Lopressor) 50 mg BID PO Last administered on 08/18/18 08:38; Admin Dose 50 MG; Start 08/17/18 at 09:00 Ferrous Sulfate (Ferrous Sulfate (Ec)) 325 mg TID PO Last administered on 08/18/18 12:37; Admin Dose 325 MG; Start 08/17/18 at 09:00 Hydralazine HCl (Apresoline) 25 mg TID PO Last administered on 08/18/18 12:37; Admin Dose 25 MG; Start 08/17/18 at 09:00 Tamsulosin HCl (Flomax) 0.4 mg HS PO Last administered on 08/17/18 21:03; Admin Dose 0.4 MG; Start 08/17/18 at 21:00 Famotidine (Pepcid) 20 mg DAILY PO Last administered on 08/18/18 08:38; Admin Dose 20 MG; Start 08/17/18 at 09:00 Magnesium Hydroxide (Milk Of Mag) 30 ml DAILY PRN PO CONSTIPATION; Start 08/17/18 at 01:00 Acetaminophen (Tylenol Tab) 650 mg Q6H PRN PO MILD PAIN(1-3)OR ELEVATED TEMP; Start 08/17/18 at 01:00 Ondansetron HCl (Zofran Inj) 4 mg Q8 PRN IV NAUSEA AND/OR VOMITING; Start 08/17/18 at 01:00 Senna (Senokot) 2 tab BID PRN PO CONSTIPATION; Start 08/17/18 at 01:00 Zolpidem Tartrate (Ambien) 5 mg HS PRN PO INSOMNIA; Start 08/17/18 at 01:00 Tramadol HCl (Ultram) 50 mg TID PRN PO PAIN LEVEL 1-5 Last administered on 08/18/18at 02:30; Admin Dose 50 MG; Start 08/17/18 at 01:00 Miscellaneous Information Patients own medicat... BID@1000,1600 XX ; Start 08/17/18 at 10:00 Bicalutamide (Casodex) 50 mg DAILY PO ; Start 08/18/18 at 16:30 Imaging Imaging Renal ultrasound: The kidneys are well visualized. The right kidney measures 12.4 cm. The left kidney measures 9.2 cm. There are several simple cyst seen in the right kidney. The largest measures 6.2 x 5.4 x 4.9 cm. The adjacent cyst measures 1.7 x 1.9 x 2.7 cm. There is no evidence of right-sided hydronephrosis. There is mild left hydronephrosis. Several cysts are seen in the mid left kidney. The largest measures 1.7 cm. There is an isoechoic mass in the central bladder. This mass has some internal vascularity. This mass measures 2.4 x 1.7 cm. Bilateral ureteral jets are present I looked at the ultrasound and the reported mass is a median lobe of the prostate. MAVIS MAI MD Aug 18, 2018 16:12
--- NOTE | 2018-08-18 16:24 | DS ---
Date/Time of Note Date/Time of Note DATE: 08/18/18 TIME: 16:23 Discharge Summary Admission/Discharge Info Admit Date/Time Aug 16, 2018 at 22:30 Discharge Date/Time Patient Condition: Stable Hx of Present Illness This 74-year-old frail gentleman was brought from [facility] with history of hypertension subdural hematoma alcoholism anemia with the con cern of metastatic disease with metastasis to bones and lungs. He is prior to source is unknown. Patient has no capacity to make decisions for himself, his brother is making decision there will need to find for the consult but they did not sign. Dr. Fregoso oncologist for the patient. Patient is a poor historian Hospital Course 1. AMS, metabolic encephalopathy 2. Lymphadenopathy concerning for malignancy unknown primary source, more likely prostate cancer, PSA 1000. 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 Acute kidney injury, better 4. Severe anemia 5. Recent weight loss 6. Severe malnourishment 7. Thrombocytopenia 8. History of subdural hematoma 9. History of hepatitis C 10. History of alcoholism 11. Hypertension 12. Mild left hydronephrosis with obstructing distal left ureteral calculus Primary Care Provider Care Physician No Primary Pending Labs Laboratory Tests Test 08/18/18 04:41 White Blood Count 6.2 10^3/ul (4.8-10.8) Red Blood Count 2.59 10^6/ul (4.70-6.10) Hemoglobin 7.5 g/dl (14.0-18.0) Hematocrit 23.7 % (42.0-52.0) Mean Corpuscular Volume 91.5 fl (82.0-101.0) Mean Corpuscular Hemoglobin 29.0 pg (29.0-33.0) Mean Corpuscular Hemoglobin Concent 31.6 g/dl (32.0-37.0) Red Cell Distribution Width 15.9 % (11.5-14.5) Platelet Count 154 10^3/UL (140-415) Mean Platelet Volume 9.7 fl (7.4-10.4) Immature Granulocytes % 2.900 % (0.001-0.429) Neutrophils % 66.1 % (39.0-77.0) Lymphocytes % 19.7 % (15.0-51.0) Monocytes % 10.0 % (0.0-11.0) Eosinophils % 1.0 % (0.0-7.0) Basophils % 0.3 % (0.0-2.0) Nucleated Red Blood Cells % 0.3 /100WBC (0.0-0.0) Immature Granulocytes # 0.180 10^3/ul (0.0-0.031) Neutrophils # 4.1 10^3/ul (1.6-7.5) Lymphocytes # 1.2 10^3/ul (0.8-2.9) Monocytes # 0.6 10^3/ul (0.3-0.9) Eosinophils # 0.1 10^3/ul (0.0-0.5) Basophils # 0.0 10^3/ul (0.0-0.1) Nucleated Red Blood Cells # 0.0 10^3/ul (0.0-0.0) Sodium Level 139 mmol/L (135-144) Potassium Level 4.2 mmol/L (3.5-5.1) Chloride Level 104 mmol/L (97-110) Carbon Dioxide Level 24 mmol/L (21-31) Anion Gap 11 (5-13) Blood Urea Nitrogen 21 mg/dl (7-20) Creatinine 1.27 mg/dl (0.61-1.24) Est Glomerular Filtrat Rate mL/min 56 mL/min (>60) Glucose Level 107 mg/dl (70-220) Calcium Level 8.6 mg/dl (8.4-10.2) DENNIS YOON Aug 18, 2018 16:24
--- NOTE | 2018-08-18 16:30 | CONS ---
DATE OF ADMISSION: 08/16/2018 DATE OF CONSULTATION: HISTORY OF PRESENT ILLNESS: The patient is a 72-year-old male who was originally admitted to [facility] for hypertension, subdural hematoma, alcoholism and metastatic bone disease, sub sequently transferred to this facility for further management. The patient denies any GI bleeding. He said he had black stools two weeks ago. No nausea, no vomiting, no abdominal pain. He is hungry, he wants solid food. 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 PAST MEDICAL HISTORY: History of hypertension, history of alcoholism, hepatitis C, subdural hematoma , weight loss. ALLERGIES: None. PHYSICAL EXAMINATION: GENERAL: Alert, awake, not in distress. VITAL SIGNS: Stable. HEENT: Unremarkable. NECK: Supple, no thyromegaly, no lymphadenopathy. CARDIOVASCULAR: No murmur, gallop or click. LUNGS: Clear. EXTREMITIES: No edema. CENTRAL NERVOUS SYSTEM: Grossly within normal limits. LABORATORY DATA: His PSA is greater than 1000. Creatinine is 1.27, BUN is 21. LFTs all within norm al limits. Hematocrit was 20 and now 23.2. Platelet count is 154. He got 1 unit of packed cell RBC transfusion. IMPRESSION: 1. Anemia, which is a combination of metastasis to the bone and also gastrointestinal bleed. 2. Renal insufficiency. 3. Malnutrition. 4. Metastatic to the bone, most probably from prostate given the high PSA of greater than 1000. 5. Hypertension. 6. Hepatitis C. 7. Alcoholism. PLAN: The patient at this point has declined EGD. We will give him a regular diet. Start him on PP I. We will discuss with the family, if he agrees, then will proceed with EGD. Given the history of hepatitis C and alcoholism, esophageal varicose vein needs to be ruled out. Dictated By: ARIANA MINOR/NTS Conf#: [id number] DID#: [id number] CC: MILLY LABOY MD;*EndCC*
[2018-08-18] MEDS: BICALUTAMIDE 50 MG TAB PO SCH (18:16)
--- NOTE | 2018-08-18 18:23 | NUR ---
RN Notes: Jade, Chemo nurse came, went to pt room and explained the Casodex meds per pt Anat, PERSONAL TRAINER told him about this medication explained the indication of this medication and he agreed to take it, pt signed consent and agreed to give the medication aware and understand the possible S/E. Jade initiated the first dose of Casodex. Precaution initiated, signed post on the pt's door/room. Tried to call Nuclear Medicine regarding the NM Scan order but they only open Monday-Monday. Will continue to monitor and will endorse for continuity of care.
--- NOTE | 2018-08-18 18:23 | NUR ---
CALLED BY JUAN HUTCHINSON TO WITNESS NEW ORDER OF CHEMO MEDS CASODEX 50MG PO DAILY .PATIENT SEEN IN RM [id number] LYING IN BED AWAKE,ALERT,ORIENTED X3.HE VERBALIZES HE WAS INFORMED BY CHRISTINA GRECO ABOUT THIS NEW MEDICATION FOR HIS PROSTATE.PATIENT SIGNED CONSENT FOR THE MEDICATION AND DISCUSSED/EDUCATED PATIENT ON POSSIBLE SIDE EFFECTS AND HE WAS VERY IMPATIENT,NOT INTERESTED TO HEAR THE INFORMATION.PATIENT WAS PROVIDED WITH PRINTED DRUG INFO AND SIDE EFFECTS .PATIENT WAS ALSO INFORMED ABOUT HANDWASHING,DOUBLE FLUSHING THE TOILET TO PREVENT CONTAMINATION. HAZARDOUS CHEMO ALERTS WAS POSTED IN PATIENTS ROOM AND CHEMO YELLOW BIN TO DISPOSE CHEMO RELATED WASTE.
[2018-08-18 20:00] VITALS: BP 136/78; PULSE 68; RESP 17
--- NOTE | 2018-08-18 21:00 | NUR ---
pt alert,oriented x4, no sob, denies pain. pt appears pleasant and calm at this time but refusing skin assessment . Offered to clean the pt but according to the pt he is fine and not wet. Asked pt if ok to help reposition him every 2 hours, but pt refused stating that he could do it by himself. reinforced teaching regarding safety and prevention of wound/injury. charge nurse made aware. pt requested not to disturb him for 0200 vital signs despite explaining to pt it is for his safety.
[2018-08-18] MEDS: TAMSULOSIN (SR) 0.4 MG CAP PO SCH (21:29)
--- NOTE | 2018-08-19 04:30 | NUR ---
offered to clean pt and he agreed. primary nurse and rides attendant able to clean the pt and change the linens. skin intact. noted w/ dark skin pigmentation on perianal area. allevyn placed for protection. offered to reposition pt but he refused. allowed nurse to elevate heels using pillows. complained of gen body pain, tramadol given as prescribed,effective.
[2018-08-19 04:38] VITALS: BP 142/68; PULSE 68; RESP 17
[2018-08-19] MEDS: traMADol 50 MG TAB PO PRN (04:40)
[2018-08-19] MEDS: PANTOPRAZOLE (EC) 40 MG TAB PO SCH (05:15)
[2018-08-19 08:16] VITALS: BP 105/65; PULSE 75; RESP 20
--- NOTE | 2018-08-19 08:17 | NUR ---
Cigarettes were found in patient's jacket, instructed patient cigarettes will be kept in charge nurse desk and will be returned upon discharge.
[2018-08-19] MEDS: MULTIVITAMINS/MINERALS TAB PO SCH (08:20)
[2018-08-19] MEDS: THIAMINE 100 MG TAB PO SCH (08:20)
[2018-08-19] MEDS: FERROUS SULFATE (EC) 325 MG TAB PO SCH ×3 (08:21→21:00)
[2018-08-19] MEDS: FOLIC ACID 1 MG TAB PO SCH (08:21)
[2018-08-19] MEDS: METOPROLOL 50 MG TAB PO SCH ×2 (08:21→21:03)
[2018-08-19] MEDS: FAMOTIDINE 20 MG TAB PO SCH (08:21)
[2018-08-19] MEDS: BICALUTAMIDE 50 MG TAB PO SCH (08:23)
--- NOTE | 2018-08-19 08:28 | NUR ---
Am meds given. Ate 100% of breakfast. Went over plan of care for today and tomorrow. Pt. says he has no pain and no questions. Refusing assessment at this time. "You talk too much". Says he needs nothing else at this time. Will try to assess later.
[2018-08-19] MEDS: [UNRECOGNIZED DRUG - OTHER] XX SCH ×2 (10:00→16:00)
[2018-08-19] MEDS: SOD CHLORIDE 0.9% 1,000 ML IV SCH (10:28)
--- NOTE | 2018-08-19 13:38 | PN ---
Date/Time of Note Date/Time of Note DATE: 08/19/18 TIME: 13:37 Assessment/Plan VTE Prophylaxis Risk score (from [facility] [place])>0 risk: 6 SCD applied (from [facility] [place]): Yes SCD contraindicated: other Pharmacological prophylaxis: other Lines/Catheters IV Catheter Type (from [place]): Peripheral IV Urinary Cath still in place: No Assessment/Plan Hospital Course 1. AMS, metabolic encephalopathy better 2. Lymphadenopathy concerning for malignancy unknown primary source, more likely prostate cancer, PSA 1000. 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 Acute kidney injury, better 4. Severe anemia 5. Recent weight loss 6. Severe malnourishment 7. Thrombocytopenia 8. History of subdural hematoma 9. History of hepatitis C 10. History of alcoholism 11. Hypertension 12. Mild left hydronephrosis with obstructing distal left ureteral calculus plan per dr bermeo Result Diagram: 08/19/18 0513 08/19/18 0513 Results 24hrs Laboratory Tests Test 08/19/18 05:13 White Blood Count 5.7 Red Blood Count 2.78 L Hemoglobin 8.1 L Hematocrit 25.8 L Mean Corpuscular Volume 92.8 Mean Corpuscular Hemoglobin 29.1 Mean Corpuscular Hemoglobin Concent 31.4 L Red Cell Distribution Width 15.8 H Platelet Count 174 Mean Platelet Volume 10.5 H Immature Granulocytes % 1.800 H Neutrophils % 68.6 Lymphocytes % 19.8 Monocytes % 8.3 Eosinophils % 1.1 Basophils % 0.4 Nucleated Red Blood Cells % 0.0 Immature Granulocytes # 0.100 H Neutrophils # 3.9 Lymphocytes # 1.1 Monocytes # 0.5 Eosinophils # 0.1 Basophils # 0.0 Nucleated Red Blood Cells # 0.0 Sodium Level 141 Potassium Level 4.5 Chloride Level 106 Carbon Dioxide Level 23 Anion Gap 12 Blood Urea Nitrogen 20 Creatinine 1.28 H Est Glomerular Filtrat Rate mL/min 56 L Glucose Level 142 Calcium Level 8.7 Subjective 24 Hr Interval Summary Cardiovascular: no complaints Gastrointestinal: no complaints Genitourinary: no complaints Exam/Review of Systems Vital Signs Vitals Vital Signs Date Temp Pulse Resp B/P (MAP) Pulse Ox O2 O2 Flow FiO2 Time Delivery Rate 08/19/18 97.4 75 20 105/65 100 08:16 (78) 08/18/18 Room Air 14:15 08/17/18 2.0 08:30 Intake and Output 08/18/18 08/18/18 08/19/18 1515:00 23:00 07:00 IntakeIntake Total 1305 ml 735 ml 730 ml OutputOutput Total 680 ml 600 ml 700 ml BalanceBalance 625 ml 135 ml 30 ml Exam Neck: supple Respiratory: clear to auscultation Cardiovascular: regular rate and rhythm Gastrointestinal: soft, bowel sounds Extremities: calf tenderness Medications Medications Current Medications Pantoprazole (Protonix Tab) 40 mg DAILY@06 PO Last administered on 08/19/18 05:15; Admin Dose 40 MG; Start 08/17/18 at 06:00 Morphine Sulfate (morphine SULFATE (PF)) 2 mg Q4H PRN IV SEVERE PAIN LEVEL 7-10 Last administered on 08/17/18 01:18; Admin Dose 2 MG; Start 08/17/18 at 00:40 Sodium Chloride 1,000 ml @ 40 mls/hr Q24H IV Last administered on 08/19/18 10:28; Admin Dose 40 MLS/HR; Start 08/17/18 at 00:50 Oxycodone/ Acetaminophen (Percocet (5/ 325)) 2 tab Q6H PRN PO PAIN LEVEL 6-10; Start 08/17/18 at 01:00 Oxycodone/ Acetaminophen (Percocet (5/ 325)) 1 tab Q6H PRN PO MODERATE PAIN LEVEL 4-6; Start 08/17/18 at 01:00 Folic Acid (Folic Acid) 1 mg DAILY PO Last administered on 08/19/18 08:21; Admin Dose 1 MG; Start 08/17/18 at 09:00 Multivitamins/ Minerals (Theragran-M) 1 tab DAILY PO Last administered on 08/19/18 08:20; Admin Dose 1 TAB; Start 08/17/18 at 09:00 Thiamine HCl (Vitamin B1) 100 mg DAILY PO Last administered on 08/19/18 08:20; Admin Dose 100 MG; Start 08/17/18 at 09:00 Polyethylene Glycol (Miralax) 17 gm DAILY PRN PO CONSTIPATION; Start 08/17/18 at 01:00 Metoprolol Tartrate (Lopressor) 50 mg BID PO Last administered on 08/19/18 08:21; Admin Dose 50 MG; Start 08/17/18 at 09:00 Ferrous Sulfate (Ferrous Sulfate (Ec)) 325 mg TID PO Last administered on 08/19/18 08:21; Admin Dose 325 MG; Start 08/17/18 at 09:00 Hydralazine HCl (Apresoline) 25 mg TID PO Last administered on 08/19/18 08:21; Admin Dose 25 MG; Start 08/17/18 at 09:00 Tamsulosin HCl (Flomax) 0.4 mg HS PO Last administered on 08/18/18at 21:29; Admin Dose 0.4 MG; Start 08/17/18 at 21:00 Famotidine (Pepcid) 20 mg DAILY PO Last administered on 08/19/18 08:21; Admin Dose 20 MG; Start 08/17/18 at 09:00 Magnesium Hydroxide (Milk Of Mag) 30 ml DAILY PRN PO CONSTIPATION; Start 08/17/18 at 01:00 Acetaminophen (Tylenol Tab) 650 mg Q6H PRN PO MILD PAIN(1-3)OR ELEVATED TEMP; Start 08/17/18 at 01:00 Ondansetron HCl (Zofran Inj) 4 mg Q8 PRN IV NAUSEA AND/OR VOMITING; Start 08/17/18 at 01:00 Senna (Senokot) 2 tab BID PRN PO CONSTIPATION; Start 08/17/18 at 01:00 Zolpidem Tartrate (Ambien) 5 mg HS PRN PO INSOMNIA; Start 08/17/18 at 01:00 Tramadol HCl (Ultram) 50 mg TID PRN PO PAIN LEVEL 1-5 Last administered on 08/19/18at 04:40; Admin Dose 50 MG; Start 08/17/18 at 01:00 Miscellaneous Information Patients own medicat... BID@1000,1600 XX ; Start 08/17/18 at 10:00 Bicalutamide (Casodex) 50 mg DAILY PO Last administered on 08/19/18 08:23; Admin Dose 50 MG; Start 08/18/18 at 16:30 MILLY LABOY MD Aug 19, 2018 13:38
[2018-08-19 15:24] VITALS: BP 111/57; PULSE 74; RESP 19
--- NOTE | 2018-08-19 16:58 | CONS ---
Date/Time of Note Date/Time of Note DATE: 08/19/18 TIME: 16:53 Consult Date/Type/Reason Admit Date/Time Aug 16, 2018 at 22:30 Initial Consult Date 08/18/18 Type of Consultation: Urology Reason for Consultation Metastatic prostate cancer Requesting Provider: MILLY LABOY MD Subjective Patient denies any pain. He states he is fine and has no problems Objective Vital Signs Date Temp Pulse Resp B/P (MAP) Pulse Ox O2 O2 Flow FiO2 Time Delivery Rate 08/19/18 98.3 74 19 111/57 98 15:24 (75) 08/18/18 Room Air 14:15 08/17/18 2.0 08:30 Intake and Output 08/18/18 08/18/18 08/19/18 1515:00 23:00 07:00 IntakeIntake Total 1305 ml 735 ml 730 ml OutputOutput Total 680 ml 600 ml 700 ml BalanceBalance 625 ml 135 ml 30 ml Exam He is voiding clear urine. X-rays of the lumbosacral spine and pelvis shows metastatic osteoblastic lesions most consistent with metastatic prostate cancer Results/Medications Result Diagram: 08/19/18 0513 08/19/18 0513 Results 24 hrs Laboratory Tests Test 08/19/18 05:13 White Blood Count 5.7 Red Blood Count 2.78 L Hemoglobin 8.1 L Hematocrit 25.8 L Mean Corpuscular Volume 92.8 Mean Corpuscular Hemoglobin 29.1 Mean Corpuscular Hemoglobin Concent 31.4 L Red Cell Distribution Width 15.8 H Platelet Count 174 Mean Platelet Volume 10.5 H Immature Granulocytes % 1.800 H Neutrophils % 68.6 Lymphocytes % 19.8 Monocytes % 8.3 Eosinophils % 1.1 Basophils % 0.4 Nucleated Red Blood Cells % 0.0 Immature Granulocytes # 0.100 H Neutrophils # 3.9 Lymphocytes # 1.1 Monocytes # 0.5 Eosinophils # 0.1 Basophils # 0.0 Nucleated Red Blood Cells # 0.0 Sodium Level 141 Potassium Level 4.5 Chloride Level 106 Carbon Dioxide Level 23 Anion Gap 12 Blood Urea Nitrogen 20 Creatinine 1.28 H Est Glomerular Filtrat Rate mL/min 56 L Glucose Level 142 Calcium Level 8.7 Medications Current Medications Pantoprazole (Protonix Tab) 40 mg DAILY@06 PO Last administered on 08/19/18at 05:15; Admin Dose 40 MG; Start 08/17/18 at 06:00 Morphine Sulfate (morphine SULFATE (PF)) 2 mg Q4H PRN IV SEVERE PAIN LEVEL 7-10 Last administered on 08/17/18 01:18; Admin Dose 2 MG; Start 08/17/18 at 00:40 Sodium Chloride 1,000 ml @ 40 mls/hr Q24H IV Last administered on 08/19/18 10:28; Admin Dose 40 MLS/HR; Start 08/17/18 at 00:50 Oxycodone/ Acetaminophen (Percocet (5/ 325)) 2 tab Q6H PRN PO PAIN LEVEL 6-10; Start 08/17/18 at 01:00 Oxycodone/ Acetaminophen (Percocet (5/ 325)) 1 tab Q6H PRN PO MODERATE PAIN LEVEL 4-6; Start 08/17/18 at 01:00 Folic Acid (Folic Acid) 1 mg DAILY PO Last administered on 08/19/18 08:21; Admin Dose 1 MG; Start 08/17/18 at 09:00 Multivitamins/ Minerals (Theragran-M) 1 tab DAILY PO Last administered on 08/19/18 08:20; Admin Dose 1 TAB; Start 08/17/18 at 09:00 Thiamine HCl (Vitamin B1) 100 mg DAILY PO Last administered on 08/19/18 08:20; Admin Dose 100 MG; Start 08/17/18 at 09:00 Polyethylene Glycol (Miralax) 17 gm DAILY PRN PO CONSTIPATION; Start 08/17/18 at 01:00 Metoprolol Tartrate (Lopressor) 50 mg BID PO Last administered on 08/19/18 08:21; Admin Dose 50 MG; Start 08/17/18 at 09:00 Ferrous Sulfate (Ferrous Sulfate (Ec)) 325 mg TID PO Last administered on 08/19/18 14:46; Admin Dose 325 MG; Start 08/17/18 at 09:00 Hydralazine HCl (Apresoline) 25 mg TID PO Last administered on 08/19/18 14:46; Admin Dose 25 MG; Start 08/17/18 at 09:00 Tamsulosin HCl (Flomax) 0.4 mg HS PO Last administered on 08/18/18 21:29; Admin Dose 0.4 MG; Start 08/17/18 at 21:00 Famotidine (Pepcid) 20 mg DAILY PO Last administered on 08/19/18at 08:21; Admin Dose 20 MG; Start 08/17/18 at 09:00 Magnesium Hydroxide (Milk Of Mag) 30 ml DAILY PRN PO CONSTIPATION; Start 08/17/18 at 01:00 Acetaminophen (Tylenol Tab) 650 mg Q6H PRN PO MILD PAIN(1-3)OR ELEVATED TEMP; Start 08/17/18 at 01:00 Ondansetron HCl (Zofran Inj) 4 mg Q8 PRN IV NAUSEA AND/OR VOMITING; Start 08/17/18 at 01:00 Senna (Senokot) 2 tab BID PRN PO CONSTIPATION; Start 08/17/18 at 01:00 Zolpidem Tartrate (Ambien) 5 mg HS PRN PO INSOMNIA; Start 08/17/18 at 01:00 Tramadol HCl (Ultram) 50 mg TID PRN PO PAIN LEVEL 1-5 Last administered on 08/19/18at 04:40; Admin Dose 50 MG; Start 08/17/18 at 01:00 Miscellaneous Information Patients own medicat... BID@1000,1600 XX ; Start 08/17/18 at 10:00 Bicalutamide (Casodex) 50 mg DAILY PO Last administered on 08/19/18at 08:23; Admin Dose 50 MG; Start 08/18/18 at 16:30 Assessment/Plan Chief Complaint/Hosp Course 72-year-old -[place] male was transferred from [facility] to [facility] patient was found to have metastatic cancer to the lungs and his bones and upon admission here at [facility] his PSA was over 1000 therefore a urological consultation was requested. The patient himself is not a good historian he is confused and sometimes agitated at the [facility] [place] they attempted to have MRI of the spine to evaluate metastatic disease and evaluate for vertebral instability but the patient was confused and agitated and they were not able to do the MRI the patient is known to have had subdural hematoma status post evacuation at [facility] in February 2018 the patient also was found to have lymphadenopathy and bony metastases he also is known to have a history of hypertension and anemia. CT scan of the abdomen and pelvis without contrast at [facility] [place] done on 08/13/2018 showed lung bases: Extensive pleural nodularity and pulmonary nodules bilaterally bilateral left greater than right small pleural effusions and bibasilar atelectasis liver: Unremarkable, gallbladder and bile ducts: Contracted likely containing gallstones ,spleen unremarkable,pancreas unremarkable, adrenals mildly thickened left greater than right adrenal glands, kidneys and ureters: Bilateral low-density lesions mostly fluid density but incompletely characterized measuring up to 6.2 cm on the right kidney, mild left hydronephrosis likely due to an obstructing 6 mm stone in the distal left ureter. Bowels nondilated bowel loops moderate stool burden. Bladder diffuse circumferential wall thickening. Reproductive organs: Prostatomegaly with median lobe hypertrophy. Lymph node: Likely prominent retroperitoneal and bilateral iliac chain lymph nodes although overall poorly delineated due to lack of intravenous contrast. Peritoneum: Small volume ascites. Vessels: Moderate atherosclerotic calcification. Abdominal wall: Mild body wall edema. Bones: Mixed lytic ,sclerotic bone lesions involving the entire axial and appendicular skeleton with areas of vertebral body height loss for example in the L3 vertebral body and marked areas of cortical destruction for example on the left inferior pubic ramus The lumbosacral spine x-rays and pelvic x-rays showed osteoblastic lesions consistent with metastasis most likely from the prostate. The patient is voiding well. He also does have a distal left ureteral stone but he denies having any pain. We will strain his urine and do a KUB to see if the stone is visible and is radiopaque. Since his PSA is over his thousand I will also empirically put him on Lupron Depo injections 7.5 mg IM monthly. MAVIS MAI MD Aug 19, 2018 16:58
[2018-08-19] MEDS ORDERED: LUPRON DEPOT XX ONE (17:00)
--- NOTE | 2018-08-19 17:04 | CONS ---
Date/Time of Note Date/Time of Note DATE: 08/19/18 TIME: 17:03 Assessment/Plan Assessment/Plan Assessment/Plan 1. Anemia, which is a combination of metastasis to the bone and also gastrointestinal bleed. 2. Renal insufficiency. 3. Malnutrition. 4. Metastatic to the bone, most probably from prostate given the high PSA of greater than 1000. 5. Hypertension. 6. Hepatitis C. 7. Alcoholism. Plan Continue PPI Patient agreed for EGD to determine the cause of his GI bleeding especially given the history of hepatitis C and alcoholism Result Diagram: 08/19/1813 08/19/18512 Results 24hrs Laboratory Tests Test 08/19/18 05:13 White Blood Count 5.7 Red Blood Count 2.78 L Hemoglobin 8.1 L Hematocrit 25.8 L Mean Corpuscular Volume 92.8 Mean Corpuscular Hemoglobin 29.1 Mean Corpuscular Hemoglobin Concent 31.4 L Red Cell Distribution Width 15.8 H Platelet Count 174 Mean Platelet Volume 10.5 H Immature Granulocytes % 1.800 H Neutrophils % 68.6 Lymphocytes % 19.8 Monocytes % 8.3 Eosinophils % 1.1 Basophils % 0.4 Nucleated Red Blood Cells % 0.0 Immature Granulocytes # 0.100 H Neutrophils # 3.9 Lymphocytes # 1.1 Monocytes # 0.5 Eosinophils # 0.1 Basophils # 0.0 Nucleated Red Blood Cells # 0.0 Sodium Level 141 Potassium Level 4.5 Chloride Level 106 Carbon Dioxide Level 23 Anion Gap 12 Blood Urea Nitrogen 20 Creatinine 1.28 H Est Glomerular Filtrat Rate mL/min 56 L Glucose Level 142 Calcium Level 8.7 Consultation Date/Type/Reason Admit Date/Time Aug 16, 2018 at 22:30 Initial Consult Date 08/18/18 Requesting Provider: MILLY LABOY MD 24 HR Interval Summary Constitutional: no complaints, improved Exam/Review of Systems Vital Signs Vitals Vital Signs Date Temp Pulse Resp B/P (MAP) Pulse Ox O2 O2 Flow FiO2 Time Delivery Rate 08/19/18 98.3 74 19 111/57 98 15:24 (75) 08/18/18 Room Air 14:15 08/17/18 2.0 08:30 Intake and Output 08/18/18 08/18/18 08/19/18 1515:00 23:00 07:00 IntakeIntake Total 1305 ml 735 ml 730 ml OutputOutput Total 680 ml 600 ml 700 ml BalanceBalance 625 ml 135 ml 30 ml Exam Constitutional: alert, oriented, well developed Psych: no complaints, nl mood/affect Head: normocephalic, atraumatic Eyes: nl conjunctiva, EOMI, nl lids, nl sclera, PERRL ENMT: nl external ears & nose, nl lips & teeth, nl nasal mucosa & septum Neck: supple, non-tender Respiratory: clear to auscultation, normal air movement Cardiovascular: regular rate and rhythm, nl pulses Gastrointestinal: soft, nl liver, spleen, non-tender Musculoskeletal: nl extremities to inspection, nl gait and stance Extremities: normal pulses Neurological: BRIDGE MECHANIC II-XII intact, nl mental status, nl speech, nl strength Skin: nl turgor; No rash or lesions Lymph: nl lymph nodes Medications Medications Current Medications Pantoprazole (Protonix Tab) 40 mg DAILY@06 PO Last administered on 08/19/18at 05:15; Admin Dose 40 MG; Start 08/17/18 at 06:00 Morphine Sulfate (morphine SULFATE (PF)) 2 mg Q4H PRN IV SEVERE PAIN LEVEL 7-10 Last administered on 08/17/18at 01:18; Admin Dose 2 MG; Start 08/17/18 at 00:40 Sodium Chloride 1,000 ml @ 40 mls/hr Q24H IV Last administered on 08/19/18at 10:28; Admin Dose 40 MLS/HR; Start 08/17/18 at 00:50 Oxycodone/ Acetaminophen (Percocet (5/ 325)) 2 tab Q6H PRN PO PAIN LEVEL 6-10; Start 08/17/18 at 01:00 Oxycodone/ Acetaminophen (Percocet (5/ 325)) 1 tab Q6H PRN PO MODERATE PAIN LEVEL 4-6; Start 08/17/18 at 01:00 Folic Acid (Folic Acid) 1 mg DAILY PO Last administered on 08/19/18at 08:21; Admin Dose 1 MG; Start 08/17/18 at 09:00 Multivitamins/ Minerals (Theragran-M) 1 tab DAILY PO Last administered on 08/19/18at 08:20; Admin Dose 1 TAB; Start 08/17/18 at 09:00 Thiamine HCl (Vitamin B1) 100 mg DAILY PO Last administered on 08/19/18 08:20; Admin Dose 100 MG; Start 08/17/18 at 09:00 Polyethylene Glycol (Miralax) 17 gm DAILY PRN PO CONSTIPATION; Start 08/17/18 at 01:00 Metoprolol Tartrate (Lopressor) 50 mg BID PO Last administered on 08/19/18 08:21; Admin Dose 50 MG; Start 08/17/18 at 09:00 Ferrous Sulfate (Ferrous Sulfate (Ec)) 325 mg TID PO Last administered on 08/19/18 14:46; Admin Dose 325 MG; Start 08/17/18 at 09:00 Hydralazine HCl (Apresoline) 25 mg TID PO Last administered on 08/19/18 14:46; Admin Dose 25 MG; Start 08/17/18 at 09:00 Tamsulosin HCl (Flomax) 0.4 mg HS PO Last administered on 08/18/18 21:29; Admin Dose 0.4 MG; Start 08/17/18 at 21:00 Famotidine (Pepcid) 20 mg DAILY PO Last administered on 08/19/18 08:21; Admin Dose 20 MG; Start 08/17/18 at 09:00 Magnesium Hydroxide (Milk Of Mag) 30 ml DAILY PRN PO CONSTIPATION; Start 08/17/18 at 01:00 Acetaminophen (Tylenol Tab) 650 mg Q6H PRN PO MILD PAIN(1-3)OR ELEVATED TEMP; Start 08/17/18 at 01:00 Ondansetron HCl (Zofran Inj) 4 mg Q8 PRN IV NAUSEA AND/OR VOMITING; Start 08/17/18 at 01:00 Senna (Senokot) 2 tab BID PRN PO CONSTIPATION; Start 08/17/18 at 01:00 Zolpidem Tartrate (Ambien) 5 mg HS PRN PO INSOMNIA; Start 08/17/18 at 01:00 Tramadol HCl (Ultram) 50 mg TID PRN PO PAIN LEVEL 1-5 Last administered on 08/19at 04:40; Admin Dose 50 MG; Start 08/17/18 at 01:00 Miscellaneous Information Patients own medicat... BID@1000,1600 XX ; Start 08/17/18 at 10:00 Bicalutamide (Casodex) 50 mg DAILY PO Last administered on 1/13/19at 08:23; Admin Dose 50 MG; Start 08/18/18 at 16:30 ARIANA JORDAN MD Aug 19, 2018 17:04
--- NOTE | 2018-08-19 17:30 | NUR ---
End of shift- No active bleeding observed or complaints of pain this shift. Refused skin assessment until 1630 when I was able to talk him into it. Refused repositioning or to float his heels all shift. "I'm fine the way I am". Ate 100% of all meals.
--- NOTE | 2018-08-19 17:44 | NUR ---
Lupron is non-formulary. Dr. Culp advised and told that per Pharmacy, Elsa he needed to fill out out a specific form. Our litigation secretary retrieved the form from pharmacy and gave it to Dr. Culp on [address]- said he would take care of it.
[2018-08-19] MEDS: OXYCODONE/ACETAMINOPHEN (5/325) TAB PO PRN (18:40)
[2018-08-19 20:01] VITALS: BP 107/59; PULSE 75; RESP 20
[2018-08-19 20:55] VITALS: BP 123/63; PULSE 80
[2018-08-19] MEDS: TAMSULOSIN (SR) 0.4 MG CAP PO SCH (20:59)
[2018-08-19] MEDS: ZOLPIDEM 5 MG TAB PO PRN (21:04)
--- NOTE | 2018-08-19 23:12 | NUR ---
NURSING NOTE: PATIENT PULLED OUT HIS IV BY ACCIDENT WHEN HE GOT IT CAUGHT ON THE BED RAIL. RN ATTEMPTED TO PLACE IV BUT THE PATIENT IS REFUSING AT THIS TIME AND STATED THEY CAN DO IT IN THE MORNING. WILL ENDORSE TO AM RN, CHARGE NURSE IS AWARE.
[2018-08-20] VITALS (13 sets, daily range): BP systolic 98–133; BP diastolic 61–84; PULSE 60–75; RESP 11–29
--- NOTE | 2018-08-20 01:00 | NUR ---
NURSING NOTE: PATIENT REFUSING TO WEAR SCD'S. RISKS AND BENEFITS EXPLAINED. WILL CONTINUE TO MONITOR.
[2018-08-20] MEDS: PANTOPRAZOLE (EC) 40 MG TAB PO SCH (05:25)
--- NOTE | 2018-08-20 06:29 | NUR ---
END OF SHIFT SUMMARY: PATIENT RESTING COMFORTABLY. V/S STABLE, AFEBRILE. NO ACUTE CHANGES NOTED THIS SHIFT. PATIENT ALLOWED SCD'S TO BE PUT BACK ON. VOIDING WELL, AND URINE STRAINED THROUGHOUT SHIFT ORDERED. PATIENT ENCOURAGED TO REPOSITION THROUGHOUT SHIFT. NPO SINCE MIDNIGHT. PATIENT SCHEDULED FOR EGD TODAY, CONSENT SIGNED AND PLACED IN CHART. PATIENT TO ALSO UNDERGO KUB AND BONE SCAN TODAY. PATIENT IS CURRENTLY RECEIVING PO CHEMO DAILY, CHEMO PRECAUTIONS MAINTAINED THROUGHOUT SHIFT. PATIENT CHECKED FOR INCONTINENCE THROUGHOUT SHIFT. CALL LIGHT AND PHONE IN PLACE. INSTRUCTED PATIENT TO CALL FOR ASSISTANCE. BED ALARM SET. WILL ENDORSE PLAN OF CARE TO AM RN. Addendum: 08/20/18 at 0634 by LUCA GARCIA RN PATIENT DOES NOT HAVE IV ACCESS AT THIS TIME, AND IS REQUESTING A NEW ONE BE PLACED LATER THIS AM. CHARGE NURSE AND MD ARE BOTH AWARE. WILL ENDORSE TO AM EVANGELINA.
[2018-08-20] MEDS: MULTIVITAMINS/MINERALS TAB PO SCH (09:01)
[2018-08-20] MEDS: FOLIC ACID 1 MG TAB PO SCH (09:01)
[2018-08-20] MEDS: FERROUS SULFATE (EC) 325 MG TAB PO SCH ×3 (09:02→21:49)
[2018-08-20] MEDS: THIAMINE 100 MG TAB PO SCH (09:02)
[2018-08-20] MEDS: METOPROLOL 50 MG TAB PO SCH ×2 (09:02→21:50)
[2018-08-20] MEDS: FAMOTIDINE 20 MG TAB PO SCH (09:02)
[2018-08-20] MEDS: BICALUTAMIDE 50 MG TAB PO SCH (09:03)
--- NOTE | 2018-08-20 09:13 | NUR ---
RN Notes: Received a call from Nuclear Medicine c/o Ryan, said that they received the order and will to do the procedure around 1130 to inject the medication and will scan pt around 1430, informed Ryan that pt has EGD procedure today also but at this time no time of schedule yet, called GI lab c/o Milagros said she will coordinate with Ryan regarding this matter. Pt remains NPO keeps asking for food but explained to him that he has procedure that need to keep him Nothing by mouth until the procedure was done. Will continue to monitor. Addendum: 08/20/18 at 1150 by JUAN CHISHOLM RN Around 1115 pt off unit for EGD procedure under Dr. Vora and per Milagrso, GI, EVANGELINA Davis from Nuclear medicine will adm meds in GI lab and will do Scan around 1430.
[2018-08-20] MEDS: [UNRECOGNIZED DRUG - OTHER] XX SCH ×2 (10:00→16:00)
--- NOTE | 2018-08-20 11:52 | NUR ---
RE: non-formulary medication request Discussed with Taxation Consultant. Non-formulary request for Lupron Depot not approved for inpatient use. Discussed with Dr. Nguyen and requested MD can provide medication and we can re-label as patient's own medication
--- NOTE | 2018-08-20 12:11 | PREAC ---
Date/Time of Note Date/Time of Note DATE: 08/20/18 TIME: 12:09 Anesthesia Eval and Record Evaluation Time Pre-Procedure Interview DATE: 08/20/18 TIME: 12:09 Age 72 Sex male NPO: 8 hrs Preoperative diagnosis GI bleeding Planned procedure EGD Past Medical History Past Medical History: Includes Cardio: HTN Neuro: Other (encephalopathy) Renal: EVA Heme: Other (prostate ca) Infection(s): Hep C Surgery & Anesthesia Issues No known issue Meds Anticoagulation: No Beta Ольга within 24 hr: No Reason Beta Ольга not given: Pt. not on B-Ольга Current Medications Pantoprazole (Protonix Tab) 40 mg DAILY@06 PO Last administered on 08/19/18at 05 :15; Admin Dose 40 MG; Start 08/17/18 at 06:00 Morphine Sulfate (morphine SULFATE (PF)) 2 mg Q4H PRN IV SEVERE PAIN LEVEL 7-10 Last administered on 08/17/18at 01:18; Admin Dose 2 MG; Start 08/17/18 at 00:40 Sodium Chloride 1,000 ml @ 40 mls/hr Q24H IV Last administered on 08/19/18at 10:28; Admin Dose 40 MLS/HR; Start 08/17/18 at 00:50 Oxycodone/ Acetaminophen (Percocet (5/ 325)) 2 tab Q6H PRN PO PAIN LEVEL 6-10 Last administered on 08/19/18at 18:40; Admin Dose 2 TAB; Start 08/17/18 at 01:00 Oxycodone/ Acetaminophen (Percocet (5/ 325)) 1 tab Q6H PRN PO MODERATE PAIN LEVEL 4-6; Start 08/17/18 at 01:00 Folic Acid (Folic Acid) 1 mg DAILY PO Last administered on 08/20/18at 09:01; Admin Dose 1 MG; Start 08/17/18 at 09:00 Multivitamins/ Minerals (Theragran-M) 1 tab DAILY PO Last administered on 08/20/18at 09:01; Admin Dose 1 TAB; Start 08/17/18 at 09:00 Thiamine HCl (Vitamin B1) 100 mg DAILY PO Last administered on 08/20/18at 09:02; Admin Dose 100 MG; Start 08/17/18 at 09:00 Polyethylene Glycol (Miralax) 17 gm DAILY PRN PO CONSTIPATION; Start 08/17/18 at 01:00 Metoprolol Tartrate (Lopressor) 50 mg BID PO Last administered on 08/20/18 09:02; Admin Dose 50 MG; Start 08/17/18 at 09:00 Ferrous Sulfate (Ferrous Sulfate (Ec)) 325 mg TID PO Last administered on 08/20/18 09:02; Admin Dose 325 MG; Start 08/17/18 at 09:00 Hydralazine HCl (Apresoline) 25 mg TID PO Last administered on 08/20/18 09:02; Admin Dose 25 MG; Start 08/17/18 at 09:00 Tamsulosin HCl (Flomax) 0.4 mg HS PO Last administered on 08/19/18 20:59; Admin Dose 0.4 MG; Start 08/17/18 at 21:00 Famotidine (Pepcid) 20 mg DAILY PO Last administered on 08/20/18 09:02; Admin Dose 20 MG; Start 08/17/18 at 09:00 Magnesium Hydroxide (Milk Of Mag) 30 ml DAILY PRN PO CONSTIPATION; Start 08/17/18 at 01:00 Acetaminophen (Tylenol Tab) 650 mg Q6H PRN PO MILD PAIN(1-3)OR ELEVATED TEMP; Start 08/17/18 at 01:00 Ondansetron HCl (Zofran Inj) 4 mg Q8 PRN IV NAUSEA AND/OR VOMITING; Start 08/17/18 at 01:00 Senna (Senokot) 2 tab BID PRN PO CONSTIPATION; Start 08/17/18 at 01:00 Zolpidem Tartrate (Ambien) 5 mg HS PRN PO INSOMNIA Last administered on 08/19/18at 21:04; Admin Dose 5 MG; Start 08/17/18 at 01:00 Tramadol HCl (Ultram) 50 mg TID PRN PO PAIN LEVEL 1-5 Last administered on 08/19/18at 04:40; Admin Dose 50 MG; Start 08/17/18 at 01:00 Miscellaneous Information Patients own medicat... BID@1000,1600 XX ; Start 08/17/18 at 10:00 Bicalutamide (Casodex) 50 mg DAILY PO Last administered on 08/20/18 09:03; Admin Dose 50 MG; Start 08/18/18 at 16:30 Miscellaneous Information 7.5 mg ONCE ONCE XX ; Start 08/19/18 at 17:00; Stop 08/19/18 at 17:01; Status UNV Meds reviewed: Yes Allergies Coded Allergies: No Known Allergy (Unverified , 08/17/18) Allergies Reviewed: Yes Labs/Studies Labs Reviewed: Reviewed by anesthesiologist Result Diagram: 08/19/1851208/19/18512 test: N/A Studies: ECG (sr) Pre-procedure Exam Last vitals Vital Signs Date Temp Pulse Resp B/P (MAP) Pulse Ox O2 O2 Flow FiO2 Time Delivery Rate 08/20/18 98.0 60 11 129/79 100 Room Air 11:38 (96) 08/17/18 2.0 08:30 Airway: Adequate mouth opening Mallampati: Mallampati I Teeth: Abnormal Lung: Normal Heart: Normal ASA Physical Status ASA physical status: 2 Emergency: None Planned Anesthetic General/MAC: MAC Pre-operative Attestations Prior to commencing anesthesia and surgery, the patient was re-evaluated, there was verification of: *The patient's identity *The results of appropriate recent lab work and preoperative vital signs *The above evaluation not changing prior to induction *Anesthetic plan, risk benefits, alternative and complications discussed with patient/family; questions answered; patient/family understands, accepts and wishes to proceed. ELLIOT SANCHEZ MD Aug 20, 2018 12:11
[2018-08-20] MEDS ORDERED: PROPOFOL 20 ML ONE (12:12)
[2018-08-20] MEDS ORDERED: FENTAnyl 50 MCG/ML VIAL ONE (12:12)
[2018-08-20] MEDS ORDERED: ONDANSETRON 4 MG INJ IV PRN (12:30)
[2018-08-20] MEDS ORDERED: FENTAnyl 50 MCG/ML VIAL IV PRN (12:30)
--- NOTE | 2018-08-20 12:54 | NUR ---
AWAKE,ALERT. FOLLOWS COMMAND. COMFORTABLE. DENIES PAIN/DISCOMFORT
--- NOTE | 2018-08-20 13:17 | NUR ---
PACU PT ALERT AWKE NO ACTIVE BLEEDING VS STABLE NO RESP DISTRESS NO C/O PAIN OUT OF PACU AT 131
--- NOTE | 2018-08-20 13:34 | CONS ---
Date/Time of Note Date/Time of Note DATE: 08/20/18 TIME: 13:34 Assessment/Plan Assessment/Plan Hospital Course 72 yo transferred from [facility] with widely metastatic disease to bones and lung as well as RP LAD w/u shows PSA >1000 this is very consistent with met prostate ca at this point highest on my list is that this is met prostate ca recommend initiation of casodex- ideally would get tissue biopsy for confirmation of diagnosis, spoke to Dr Wong last week to arrange for this met prostate ca is treated with androgen deprivation therapy I recommended to start Casodex 50 mgd aily x 10 days then can start Lupron as out pt also ideally would get Xgeva or zometa for bony mets I discussed the above with the patient and he denied that he has cancer. he said " you are saying that so you can do treatments and make money like everyone else here" I tried to explain to him otherwise. At this point, pt does not seem to have mental capacity to makde decisions nor does he have understanding into his several serious health issues recommend Psych eval await psych eval before initiating any treatment Result Diagram: 08/19/1851208/19/18512 Consultation Date/Type/Reason Admit Date/Time Aug 16, 2018 at 22:30 Initial Consult Date 08/18/18 Requesting Provider: MILLY LABOY MD 24 HR Interval Summary Free Text/Dictation for EGD by Dr Vora to better eval GI bleed PSA this admission >1000 Exam/Review of Systems Vital Signs Vitals Vital Signs Date Temp Pulse Resp B/P (MAP) Pulse Ox O2 O2 Flow FiO2 Time Delivery Rate 08/20/18 15 120/71 99 Room Air 13:00 (87) 08/20/18 64 12:55 08/20/18 98.6 12:35 08/17/18 2.0 08:30 Intake and Output 08/19/18 08/19/18 08/20/18 1515:00 23:00 07:00 IntakeIntake Total 220 ml 1230 ml 600 ml OutputOutput Total 500 ml 1100 ml 1600 ml BalanceBalance -280 ml 130 ml -1000 ml Exam Constitutional: frail Psych: confusion Medications Medications Current Medications Pantoprazole (Protonix Tab) 40 mg DAILY@06 PO Last administered on 08/19/18at 05:15; Admin Dose 40 MG; Start 08/17/18 at 06:00 Morphine Sulfate (morphine SULFATE (PF)) 2 mg Q4H PRN IV SEVERE PAIN LEVEL 7-10 Last administered on 08/17/18 01:18; Admin Dose 2 MG; Start 08/17/18 at 00:40 Sodium Chloride 1,000 ml @ 40 mls/hr Q24H IV Last administered on 08/19/18 10 :28; Admin Dose 40 MLS/HR; Start 08/17/18 at 00:50 Oxycodone/ Acetaminophen (Percocet (5/ 325)) 2 tab Q6H PRN PO PAIN LEVEL 6-10 Last administered on 08/19/18 18:40; Admin Dose 2 TAB; Start 08/17/18 at 01:00 Oxycodone/ Acetaminophen (Percocet (5/ 325)) 1 tab Q6H PRN PO MODERATE PAIN LEVEL 4-6; Start 08/17/18 at 01:00 Folic Acid (Folic Acid) 1 mg DAILY PO Last administered on 08/20/18 09:01; A dmin Dose 1 MG; Start 08/17/18 at 09:00 Multivitamins/ Minerals (Theragran-M) 1 tab DAILY PO Last administered on 08/20/18 09:01; Admin Dose 1 TAB; Start 08/17/18 at 09:00 Thiamine HCl (Vitamin B1) 100 mg DAILY PO Last administered on 08/20/18 09:02; Admin Dose 100 MG; Start 08/17/18 at 09:00 Polyethylene Glycol (Miralax) 17 gm DAILY PRN PO CONSTIPATION; Start 08/17/18 at 01:00 Metoprolol Tartrate (Lopressor) 50 mg BID PO Last administered on 08/20/18 09:02; Admin Dose 50 MG; Start 08/17/18 at 09:00 Ferrous Sulfate (Ferrous Sulfate (Ec)) 325 mg TID PO Last administered on 08/20/18 09:02; Admin Dose 325 MG; Start 08/17/18 at 09:00 Hydralazine HCl (Apresoline) 25 mg TID PO Last administered on 08/20/18 09:02; Admin Dose 25 MG; Start 08/17/18 at 09:00 Tamsulosin HCl (Flomax) 0.4 mg HS PO Last administered on 1/13/19at 20:59; Admin Dose 0.4 MG; Start 08/17/18 at 21:00 Famotidine (Pepcid) 20 mg DAILY PO Last administered on 08/20/18at 09:02; Admin Dose 20 MG; Start 08/17/18 at 09:00 Magnesium Hydroxide (Milk Of Mag) 30 ml DAILY PRN PO CONSTIPATION; Start 08/17/18 at 01:00 Acetaminophen (Tylenol Tab) 650 mg Q6H PRN PO MILD PAIN(1-3)OR ELEVATED TEMP; Start 08/17/18 at 01:00 Ondansetron HCl (Zofran Inj) 4 mg Q8 PRN IV NAUSEA AND/OR VOMITING; Start 08/17/18 at 01:00 Senna (Senokot) 2 tab BID PRN PO CONSTIPATION; Start 08/17/18 at 01:00 Zolpidem Tartrate (Ambien) 5 mg HS PRN PO INSOMNIA Last administered on 08/19/18at 21:04; Admin Dose 5 MG; Start 08/17/18 at 01:00 Tramadol HCl (Ultram) 50 mg TID PRN PO PAIN LEVEL 1-5 Last administered on 08/19/18at 04:40; Admin Dose 50 MG; Start 08/17/18 at 01:00 Miscellaneous Information Patients own medicat... BID@1000,1600 XX ; Start 08/17/18 at 10:00 Bicalutamide (Casodex) 50 mg DAILY PO Last administered on 08/20/18at 09:03; Admin Dose 50 MG; Start 08/18/18 at 16:30 Fentanyl (Sublimaze) 25 mcg PACU ORDER PRN IV MILD PAIN LEVEL 1-3; Start 08/20/18 at 12:30; Stop 08/20/18 at 17:00 Ondansetron HCl (Zofran Inj) 4 mg PACU ORDER PRN IV NAUSEA AND/OR VOMITING; Start 08/20/18 at 12:30; Stop 08/20/18 at 17:00 WENDY SIMS Aug 20, 2018 13:34
--- NOTE | 2018-08-20 13:38 | PN ---
Date/Time of Note Date/Time of Note DATE: 08/20/18 TIME: 13:38 Assessment/Plan VTE Prophylaxis Risk score (from Ns)>0 risk: 8 SCD applied (from Ns): Yes Pharmacological prophylaxis: NA/contraindicated Pharm contraindication: low risk/ambulating Lines/Catheters IV [facility]ter Type (from [facility] Peripheral IV Urinary Cath still in place: No Assessment/Plan Hospital Course 72 y/o with 1. AMS, metabolic encephalopathy ? 2. Lymphadenopathy concerning for malignancy unknown primary source, more likely prostate cancer, PSA 1000. 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 Acute kidney injury, better 4. Severe anemia 5. Recent weight loss 6. Severe malnourishment 7. Thrombocytopenia 8. History of subdural hematoma 9. History of hepatitis C 10. History of alcoholism 11. Hypertension 12. Mild left hydronephrosis with obstructing distal left ureteral calculus 13 Chronic gastritis s/p EGD Plan - will call pscy to determine if pt has capacity - SW consult - started on casodex - ? bIopsy - cw PPI - s/p EGD today with chronic gastritis - CW Flomax - Bone scan pending Result Diagram: 08/19/1813 08/19/18 05 Subjective 24 Hr Interval Summary Free Text/Dictation s/p EGD today with chronic gastritis Pt was informed about possibility of prostate cance but he says that we are telling him these things as we can make money by doing things to him Exam/Review of Systems Vital Signs Vitals Vital Signs Date Temp Pulse Resp B/P (MAP) Pulse Ox O2 O2 Flow FiO2 Time Delivery Rate 08/20/18 62 14 115/71 97 Room Air 13:10 (86) 08/20/18 98.6 12:35 08/17/18 2.0 08:30 Intake and Output 08/19/18 08/19/18 08/20/18 1414:59 22:59 06:59 IntakeIntake Total 220 ml 1230 ml 600 ml OutputOutput Total 500 ml 1100 ml 1600 ml BalanceBalance -280 ml 130 ml -1000 ml Exam Neck: supple Respiratory: clear to auscultation Cardiovascular: regular rate and rhythm Gastrointestinal: soft, bowel sounds Extremities: calf tenderness Medications Medications Current Medications Pantoprazole (Protonix Tab) 40 mg DAILY@06 PO Last administered on 08/19/18at 05:15; Admin Dose 40 MG; Start 08/17/18 at 06:00 Morphine Sulfate (morphine SULFATE (PF)) 2 mg Q4H PRN IV SEVERE PAIN LEVEL 7-10 Last administered on 08/17/18 01:18; Admin Dose 2 MG; Start 08/17/18 at 00:40 Sodium Chloride 1,000 ml @ 40 mls/hr Q24H IV Last administered on 08/19/18 10:28; Admin Dose 40 MLS/HR; Start 08/17/18 at 00:50 Oxycodone/ Acetaminophen (Percocet (5/ 325)) 2 tab Q6H PRN PO PAIN LEVEL 6-10 Last administered on 08/19/18 18:40; Admin Dose 2 TAB; Start 08/17/18 at 01:00 Oxycodone/ Acetaminophen (Percocet (5/ 325)) 1 tab Q6H PRN PO MODERATE PAIN LEVEL 4-6; Start 08/17/18 at 01:00 Folic Acid (Folic Acid) 1 mg DAILY PO Last administered on 08/20/18 09:01; Admin Dose 1 MG; Start 08/17/18 at 09:00 Multivitamins/ Minerals (Theragran-M) 1 tab DAILY PO Last administered on 08/20/18 09:01; Admin Dose 1 TAB; Start 08/17/18 at 09:00 Thiamine HCl (Vitamin B1) 100 mg DAILY PO Last administered on 08/20/18 09:02; Admin Dose 100 MG; Start 08/17/18 at 09:00 Polyethylene Glycol (Miralax) 17 gm DAILY PRN PO CONSTIPATION; Start 08/17/18 at 01:00 Metoprolol Tartrate (Lopressor) 50 mg BID PO Last administered on 08/20/18 09:02; Admin Dose 50 MG; Start 08/17/18 at 09:00 Ferrous Sulfate (Ferrous Sulfate (Ec)) 325 mg TID PO Last administered on 08/20 09:02; Admin Dose 325 MG; Start 08/17/18 at 09:00 Hydralazine HCl (Apresoline) 25 mg TID PO Last administered on 08/20/18 09:02; Admin Dose 25 MG; Start 08/17/18 at 09:00 Tamsulosin HCl (Flomax) 0.4 mg HS PO Last administered on 1/13/19at 20:59; Admin Dose 0.4 MG; Start 08/17/18 at 21:00 Famotidine (Pepcid) 20 mg DAILY PO Last administered on 08/20/18at 09:02; Admin Dose 20 MG; Start 08/17/18 at 09:00 Magnesium Hydroxide (Milk Of Mag) 30 ml DAILY PRN PO CONSTIPATION; Start 08/17/18 at 01:00 Acetaminophen (Tylenol Tab) 650 mg Q6H PRN PO MILD PAIN(1-3)OR ELEVATED TEMP; Start 08/17/18 at 01:00 Ondansetron HCl (Zofran Inj) 4 mg Q8 PRN IV NAUSEA AND/OR VOMITING; Start 08/17/18 at 01:00 Senna (Senokot) 2 tab BID PRN PO CONSTIPATION; Start 08/17/18 at 01:00 Zolpidem Tartrate (Ambien) 5 mg HS PRN PO INSOMNIA Last administered on 08/19/18at 21:04; Admin Dose 5 MG; Start 08/17/18 at 01:00 Tramadol HCl (Ultram) 50 mg TID PRN PO PAIN LEVEL 1-5 Last administered on 08/19/18at 04:40; Admin Dose 50 MG; Start 08/17/18 at 01:00 Miscellaneous Information Patients own medicat... BID@1000,1600 XX ; Start 08/17/18 at 10:00 Bicalutamide (Casodex) 50 mg DAILY PO Last administered on 08/20/18at 09:03; Admin Dose 50 MG; Start 08/18/18 at 16:30 Fentanyl (Sublimaze) 25 mcg PACU ORDER PRN IV MILD PAIN LEVEL 1-3; Start 08/20/18 at 12:30; Stop 08/20/18 at 17:00 Ondansetron HCl (Zofran Inj) 4 mg PACU ORDER PRN IV NAUSEA AND/OR VOMITING; Start 08/20/18 at 12:30; Stop 08/20/18 at 17:00 VALDO HERNANDEZ MD Aug 20, 2018 13:38
--- NOTE | 2018-08-20 14:57 | NUR ---
RN Notes: Patient remains alert and oriented with period of forgetful and being grumpy with staff despite of providing and explaining the care and treatment. Had EGD procedure today under DR. Vora tolerated well, resume his diet to soft, able to eat, no n/v noted, denies abdominal pain/discomfort, breathing even and unlabored, no sob noted. Hourly rounding done, strained urine as ordered, call light within reach, bed alarm on. Will continue to monitor until the end of the shift. Addendum: 08/20/18 at 1935 by JUAN CHISHOLM RN Pt refused Bone Scan today said it's too much for procedure today and said its ok to do it tomorrow, Dr. Wendy michael and Ryan from Nuclear medicine said he will do it tomorrow. Endorse to next shift for continuity of care
[2018-08-20] MEDS: SOD CHLORIDE 0.9% 1,000 ML IV SCH ×2 (16:50→23:36)
--- NOTE | 2018-08-20 20:48 | CONS ---
Date/Time of Note Date/Time of Note DATE: 08/20/18 TIME: 20:44 Consult Date/Type/Reason Admit Date/Time Aug 16, 2018 at 22:30 Initial Consult Date 08/18/18 Type of Consultation: Urology Reason for Consultation Metastatic prostate cancer Requesting Provider: MILLY LABOY MD Subjective Patient refused a bone scan today. Objective Vital Signs Date Temp Pulse Resp B/P (MAP) Pulse Ox O2 O2 Flow FiO2 Time Delivery Rate 08/20/18 98.0 75 16 133/80 95 15:29 (97) 08/20/18 Room Air 13:10 08/17/18 2.0 08:30 Intake and Output 08/19/18 08/19/18 08/20/18 1515:00 23:00 07:00 IntakeIntake Total 220 ml 1230 ml 600 ml OutputOutput Total 500 ml 1100 ml 1600 ml BalanceBalance -280 ml 130 ml -1000 ml Exam He is resting comfortable in bed. Complains of not being able to walk. He is able to move his extremities. Results/Medications Result Diagram: 08/19/1851208/19/18 0513 Medications Current Medications Pantoprazole (Protonix Tab) 40 mg DAILY@06 PO Last administered on 08/19/18at 05:15; Admin Dose 40 MG; Start 08/17/18 at 06:00 Morphine Sulfate (morphine SULFATE (PF)) 2 mg Q4H PRN IV SEVERE PAIN LEVEL 7-10 Last administered on 08/17/18at 01:18; Admin Dose 2 MG; Start 08/17/18 at 00:40 Sodium Chloride 1,000 ml @ 40 mls/hr Q24H IV Last administered on 08/19/18at 10:28; Admin Dose 40 MLS/HR; Start 08/17/18 at 00:50 Oxycodone/ Acetaminophen (Percocet (5/ 325)) 2 tab Q6H PRN PO PAIN LEVEL 6-10 Last administered on 08/19/18at 18:40; Admin Dose 2 TAB; Start 08/17/18 at 01:00 Oxycodone/ Acetaminophen (Percocet (5/ 325)) 1 tab Q6H PRN PO MODERATE PAIN LEVEL 4-6; Start 08/17/18 at 01:00 Folic Acid (Folic Acid) 1 mg DAILY PO Last administered on 08/20/18 09:01; Admin Dose 1 MG; Start 08/17/18 at 09:00 Multivitamins/ Minerals (Theragran-M) 1 tab DAILY PO Last administered on 08/20/18 09:01; Admin Dose 1 TAB; Start 08/17/18 at 09:00 Thiamine HCl (Vitamin B1) 100 mg DAILY PO Last administered on 08/20/18 09:02; Admin Dose 100 MG; Start 08/17/18 at 09:00 Polyethylene Glycol (Miralax) 17 gm DAILY PRN PO CONSTIPATION; Start 08/17/18 at 01:00 Metoprolol Tartrate (Lopressor) 50 mg BID PO Last administered on 08/20/18 09:02; Admin Dose 50 MG; Start 08/17/18 at 09:00 Ferrous Sulfate (Ferrous Sulfate (Ec)) 325 mg TID PO Last administered on 08/20/18 14:12; Admin Dose 325 MG; Start 08/17/18 at 09:00 Hydralazine HCl (Apresoline) 25 mg TID PO Last administered on 08/20/18 14:13; Admin Dose 25 MG; Start 08/17/18 at 09:00 Tamsulosin HCl (Flomax) 0.4 mg HS PO Last administered on 08/19/18 20:59; Admin Dose 0.4 MG; Start 08/17/18 at 21:00 Famotidine (Pepcid) 20 mg DAILY PO Last administered on 08/20/18 09:02; Admin Dose 20 MG; Start 08/17/18 at 09:00 Magnesium Hydroxide (Milk Of Mag) 30 ml DAILY PRN PO CONSTIPATION; Start 08/07 08/25 at 01:00 Acetaminophen (Tylenol Tab) 650 mg Q6H PRN PO MILD PAIN(1-3)OR ELEVATED TEMP; Start 08/17/18 at 01:00 Ondansetron HCl (Zofran Inj) 4 mg Q8 PRN IV NAUSEA AND/OR VOMITING; Start 08/17/18 at 01:00 Senna (Senokot) 2 tab BID PRN PO CONSTIPATION; Start 08/17/18 at 01:00 Zolpidem Tartrate (Ambien) 5 mg HS PRN PO INSOMNIA Last administered on 08/19/18 21:04; Admin Dose 5 MG; Start 08/17/18 at 01:00 Tramadol HCl (Ultram) 50 mg TID PRN PO PAIN LEVEL 1-5 Last administered on 08/19/18at 04:40; Admin Dose 50 MG; Start 08/17/18 at 01:00 Miscellaneous Information Patients own medicat... BID@1000,1600 XX ; Start 08/17/18 at 10:00 Bicalutamide (Casodex) 50 mg DAILY PO Last administered on 08/20/18at 09:03; Admin Dose 50 MG; Start 08/18/18 at 16:30 Assessment/Plan Chief Complaint/Hosp Course 72-year-old -[place] male was transferred from [facility] to [facility] patient was found to have metastatic cancer to the lungs and his bones and upon admission here at [facility] his PSA was over 1000 therefore a urological consultation was requested. The patient himself is not a good historian he is confused and sometimes agitated at the [facility] they attempted to have MRI of the spine to evaluate m etastatic disease and evaluate for vertebral instability but the patient was confused and agitated and they were not able to do the MRI the patient is known to have had subdural hematoma status post evacuation at [facility] in February 2018 the patient also was found to have lymphadenopathy and bony metastases he also is known to have a history of hypertension and anemia. CT scan of the abdomen and pelvis without contrast at [facility] done on 08/13/2018 showed lung bases: Extensive pleural nodularity and pulmonary nodules bilaterally bilateral left greater than right small pleural effusions and bibasilar atelectasis liver: Unremarkable, gallbladder and bile ducts: Contracted likely containing gallstones ,spleen unremarkable,pancreas unremarkable, adrenals mildly thickened left greater than right adrenal glands, kidneys and ureters: Bilateral low-density lesions mostly fluid density but incompletely characterized measuring up to 6.2 cm on the right kidney, mild left hydronephrosis likely due to an obstructing 6 mm stone in the distal left ureter. Bowels nondilated bowel loops moderate stool burden. Bladder diffuse circumferential wall thickening. Reproductive organs: Prostatomegaly with median lobe hypertrophy. Lymph node: Likely prominent retroperitoneal and bila teral iliac chain lymph nodes although overall poorly delineated due to lack of intravenous contrast. Peritoneum: Small volume ascites. Vessels: Moderate atherosclerotic calcification. Abdominal wall: Mild body wall edema. Bones: Mixed lytic ,sclerotic bone lesions involving the entire axial and appendicular skeleton with areas of vertebral body height loss for example in the L3 vertebral body and marked areas of cortical destruction for example on the left inferior pubic ramus The lumbosacral spine x-rays and pelvic x-rays showed osteoblastic lesions consistent with metastasis most likely from the prostate. The patient is voiding well. He also does have a distal left ureteral stone but he denies having any pain. We will strain his urine and do a KUB to see if the stone is visible and is radiopaque. Since his PSA is over his thousand I wanted to add Lupron Depot to his treatment in addition to the Casodex. The Lupron is not on the formulary of the hospital. I requested that the certified pharmacy technician did not approve it stating that this should be done as an outpatient. My concern is this patient is not the type that we will follow-up as an outpatient and his cancer is very advanced and would benefit from at least a 1 month injection. Since he refused to have the bone scan today he will have it tomorrow then recommendation would be to discharge him and have him come to the office where he could be treated and started on Lupron Depot. He could also follow up with the oncologist for additional treatment. MAVIS MAI MD Aug 20, 2018 20:48
--- NOTE | 2018-08-20 21:40 | PAC ---
Date/Time of Note Date/Time of Note DATE: 08/20/18 TIME: 21:40 Post-Anesthesia Notes Post-Anesthesia Note Last documented vital signs Vital Signs Date Temp Pulse Resp B/P (MAP) Pulse Ox O2 O2 Flow FiO2 Time Delivery Rate 08/20/18 98.3 73 18 111/69 99 19:32 (83) 08/20/18 Room Air 13:10 08/17/18 2.0 08:30 Activity: WNL Respiratory function: WNL Cardiovascular function: WNL Mental status: Baseline Pain reasonably controlled: Yes Hydration appropriate: Yes Nausea/Vomiting absent: No ELLIOT SANCHEZ MD Aug 20, 2018 21:40
[2018-08-20] MEDS: ZOLPIDEM 5 MG TAB PO PRN (21:49)
[2018-08-20] MEDS: TAMSULOSIN (SR) 0.4 MG CAP PO SCH (21:49)
[2018-08-20] MEDS: OXYCODONE/ACETAMINOPHEN (5/325) TAB PO PRN (23:35)
[2018-08-21 02:00] VITALS: BP 107/53; PULSE 60; RESP 17
[2018-08-21] MEDS: PANTOPRAZOLE (EC) 40 MG TAB PO SCH (05:28)
[2018-08-21 08:02] VITALS: BP 113/67; PULSE 60; RESP 18
[2018-08-21] MEDS: FERROUS SULFATE (EC) 325 MG TAB PO SCH ×3 (08:50→20:31)
[2018-08-21] MEDS: FAMOTIDINE 20 MG TAB PO SCH (08:50)
[2018-08-21] MEDS: MULTIVITAMINS/MINERALS TAB PO SCH (08:50)
[2018-08-21] MEDS: FOLIC ACID 1 MG TAB PO SCH (08:50)
[2018-08-21] MEDS: THIAMINE 100 MG TAB PO SCH (08:50)
[2018-08-21] MEDS: METOPROLOL 50 MG TAB PO SCH ×2 (08:51→20:32)
[2018-08-21] MEDS: BICALUTAMIDE 50 MG TAB PO SCH (08:52)
[2018-08-21] MEDS: [UNRECOGNIZED DRUG - OTHER] XX SCH ×2 (08:53→15:02)
--- NOTE | 2018-08-21 09:46 | PN ---
Date/Time of Note Date/Time of Note DATE: 08/21/18 TIME: 09:44 Assessment/Plan VTE Prophylaxis Risk score (from Ns)>0 risk: 5 SCD applied (from Ns): Yes Pharmacological prophylaxis: NA/contraindicated Pharm contraindication: low risk/ambulating Lines/Catheters IV C[facility] Type (from [facility]): Peripheral IV Urinary Cath still in place: No Assessment/Plan Hospital Course 72 yo male 1. Anemia, which is a combination of metastasis to the bone and also gastrointestinal bleed. 2. Renal insufficiency. 3. Malnutrition. 4. Metastatic to the bone, most probably from prostate given the high PSA of greater than 1000. 5. Hypertension. 6. Hepatitis C. 7. Alcoholism. 8. Gastritis 9. S/P EGD 10. Transaminitis 11. Weight loss of 80 lbs over 3 months Plan Continue PPI Bone scan pending Monitor LFTs CEA, CA 19-9, AFP US of upper abd Pending psych eval Pt examined and plan of care discussed with Dr. Vora Result Diagram: 08/21/1843908/21/180 Results 24hrs Laboratory Tests Test 08/21/18 04:40 White Blood Count 5.8 Red Blood Count 2.60 L Hemoglobin 7.6 L Hematocrit 23.8 L Mean Corpuscular Volume 91.5 Mean Corpuscular Hemoglobin 29.2 Mean Corpuscular Hemoglobin Concent 31.9 L Red Cell Distribution Width 15.9 H Platelet Count 208 Mean Platelet Volume 10.3 Immature Granulocytes % 1.900 H Neutrophils % 59.2 Lymphocytes % 27.7 Monocytes % 9.0 Eosinophils % 1.9 Basophils % 0.3 Nucleated Red Blood Cells % 0.0 Immature Granulocytes # 0.110 H Neutrophils # 3.4 Lymphocytes # 1.6 Monocytes # 0.5 Eosinophils # 0.1 Basophils # 0.0 Nucleated Red Blood Cells # 0.0 Sodium Level 138 Potassium Level 4.2 Chloride Level 108 Carbon Dioxide Level 22 Anion Gap 8 Blood Urea Nitrogen 26 H Creatinine 1.46 H Est Glomerular Filtrat Rate mL/min 48 L Glucose Level 101 # Calcium Level 8.8 Phosphorus Level 4.3 Magnesium Level 1.9 Subjective 24 Hr Interval Summary Free Text/Dictation Pt c/o bone aches in lower back and BLE. No N/V. No abd pain. NO evidence of GI bleeding noted by RN or patient. HGb dropped from 8.1->7.6 Exam/Review of Systems Vital Signs Vitals Vital Signs Date Temp Pulse Resp B/P (MAP) Pulse Ox O2 O2 Flow FiO2 Time Delivery Rate 08/21/18 97.8 60 18 113/67 99 Room Air 08:02 (82) 08/17/18 2.0 08:30 Intake and Output 08/20/18 08/20/18 08/21/18 1515:00 23:00 07:00 IntakeIntake Total 240 ml 640 ml 830 ml OutputOutput Total 350 ml 350 ml 600 ml BalanceBalance -110 ml 290 ml 230 ml Exam Constitutional: alert, oriented Psych: no complaints Head: normocephalic Eyes: nl sclera, PERRL ENMT: mucosa pink and moist Respiratory: clear to auscultation Cardiovascular: regular rate and rhythm Gastrointestinal: soft, non-tender Musculoskeletal: nl extremities to inspection Extremities: normal pulses Neurological: nl mental status Medications Medications Current Medications Pantoprazole (Protonix Tab) 40 mg DAILY@06 PO Last administered on 08/21/18at 05:28; Admin Dose 40 MG; Start 08/17/18 at 06:00 Morphine Sulfate (morphine SULFATE (PF)) 2 mg Q4H PRN IV SEVERE PAIN LEVEL 7-10 Last administered on 08/17/18at 01:18; Admin Dose 2 MG; Start 08/17/18 at 00:40 Sodium Chloride 1,000 ml @ 40 mls/hr Q24H IV Last administered on 08/20/18at 23:36; Admin Dose 40 MLS/HR; Start 08/17/18 at 00:50 Oxycodone/ Acetaminophen (Percocet (5/ 325)) 2 tab Q6H PRN PO PAIN LEVEL 6-10 Last administered on 08/20/18at 23:35; Admin Dose 2 TAB; Start 08/17/18 at 01:00 Oxycodone/ Acetaminophen (Percocet (5/ 325)) 1 tab Q6H PRN PO MODERATE PAIN LEVEL 4-6; Start 08/17/18 at 01:00 Folic Acid (Folic Acid) 1 mg DAILY PO Last administered on 08/21/18at 08:50; Admin Dose 1 MG; Start 08/17/18 at 09:00 Multivitamins/ Minerals (Theragran-M) 1 tab DAILY PO Last administered on 08/21/18 08:50; Admin Dose 1 TAB; Start 08/17/18 at 09:00 Thiamine HCl (Vitamin B1) 100 mg DAILY PO Last administered on 08/21/18 08:50; Admin Dose 100 MG; Start 08/17/18 at 09:00 Polyethylene Glycol (Miralax) 17 gm DAILY PRN PO CONSTIPATION; Start 08/17/18 at 01:00 Metoprolol Tartrate (Lopressor) 50 mg BID PO Last administered on 08/21/18 08:51; Admin Dose 50 MG; Start 08/17/18 at 09:00 Ferrous Sulfate (Ferrous Sulfate (Ec)) 325 mg TID PO Last administered on 08/21/18 08:50; Admin Dose 325 MG; Start 08/17/18 at 09:00 Hydralazine HCl (Apresoline) 25 mg TID PO Last administered on 08/21/18 08:51; Admin Dose 25 MG; Start 08/17/18 at 09:00 Tamsulosin HCl (Flomax) 0.4 mg HS PO Last administered on 08/20/18 21:49; Admin Dose 0.4 MG; Start 08/17/18 at 21:00 Famotidine (Pepcid) 20 mg DAILY PO Last administered on 08/21/18 08:50; Admin Dose 20 MG; Start 08/17/18 at 09:00 Magnesium Hydroxide (Milk Of Mag) 30 ml DAILY PRN PO CONSTIPATION; Start 08/17/18 at 01:00 Acetaminophen (Tylenol Tab) 650 mg Q6H PRN PO MILD PAIN(1-3)OR ELEVATED TEMP; Start 08/17/18 at 01:00 Ondansetron HCl (Zofran Inj) 4 mg Q8 PRN IV NAUSEA AND/OR VOMITING; Start 08/17/18 at 01:00 Senna (Senokot) 2 tab BID PRN PO CONSTIPATION; Start 08/17/18 at 01:00 Zolpidem Tartrate (Ambien) 5 mg HS PRN PO INSOMNIA Last administered on 08/20/18 21:49; Admin Dose 5 MG; Start 08/17/18 at 01:00 Tramadol HCl (Ultram) 50 mg TID PRN PO PAIN LEVEL 1-5 Last administered on 08/19/18 04:40; Admin Dose 50 MG; Start 08/17/18 at 01:00 Miscellaneous Information Patients own medicat... BID@1000,1600 XX ; Start 08/17/18 at 10:00 Bicalutamide (Casodex) 50 mg DAILY PO Last administered on 08/21/18at 08:52; Admin Dose 50 MG; Start 08/18/18 at 16:30 DAXA BURCH Aug 21, 2018 09:46
[2018-08-21 14:00] VITALS: BP 118/62; PULSE 66; RESP 18
[2018-08-21 14:07] VITALS: BP 126/70; PULSE 71
--- NOTE | 2018-08-21 14:52 | PN ---
Date/Time of Note Date/Time of Note DATE: 08/21/18 TIME: 14:52 Assessment/Plan VTE Prophylaxis Risk score (from Ns)>0 risk: 5 SCD applied (from Ns): Yes Pharmacological prophylaxis: NA/contraindicated Pharm contraindication: low risk/ambulating Lines/Catheters IV C[facility] Type (from [facility]): Peripheral IV Urinary Cath still in place: No Assessment/Plan Hospital Course 72 y/o with 1. AMS, metabolic encephalopathy ? 2. Lymphadenopathy concerning for malignancy unknown primary source, more likely prostate cancer, PSA 1000. 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 Acute kidney injury, better 4. Severe anemia 5. Recent weight loss 6. Severe malnourishment 7. Thrombocytopenia 8. History of subdural hematoma 9. History of hepatitis C 10. History of alcoholism 11. Hypertension 12. Mild left hydronephrosis with obstructing distal left ureteral calculus 13 Chronic gastritis s/p EGD Plan - will call pscy to determine if pt has capacity - SW consult - started on casodex ? available - ? bIopsy , will ask Dr Fregoso - cw PPI - s/p EGD today with chronic gastritis - CW Flomax - Bone scan pending Result Diagram: 08/21/18 0440 08/21/18 0440 Results 24hrs Laboratory Tests Test 08/21/18 04:36 08/21/18 04:40 Alpha Fetoprotein 1.97 Carcinoembryonic Antigen 7.0 H CA 19-9 Antigen < 1.4 White Blood Count 5.8 Red Blood Count 2.60 L Hemoglobin 7.6 L Hematocrit 23.8 L Mean Corpuscular Volume 91.5 Mean Corpuscular Hemoglobin 29.2 Mean Corpuscular Hemoglobin Concent 31.9 L Red Cell Distribution Width 15.9 H Platelet Count 208 Mean Platelet Volume 10.3 Immature Granulocytes % 1.900 H Neutrophils % 59.2 Lymphocytes % 27.7 Monocytes % 9.0 Eosinophils % 1.9 Basophils % 0.3 Nucleated Red Blood Cells % 0.0 Immature Granulocytes # 0.110 H Neutrophils # 3.4 Lymphocytes # 1.6 Monocytes # 0.5 Eosinophils # 0.1 Basophils # 0.0 Nucleated Red Blood Cells # 0.0 Sodium Level 138 Potassium Level 4.2 Chloride Level 108 Carbon Dioxide Level 22 Anion Gap 8 Blood Urea Nitrogen 26 H Creatinine 1.46 H Est Glomerular Filtrat Rate mL/min 48 L Glucose Level 101 # Calcium Level 8.8 Phosphorus Level 4.3 Magnesium Level 1.9 Subjective 24 Hr Interval Summary Free Text/Dictation Pt was seen in nuclear scan Wants me to but frito for him bone scan today Exam/Review of Systems Vital Signs Vitals Vital Signs Date Temp Pulse Resp B/P (MAP) Pulse Ox O2 O2 Flow FiO2 Time Delivery Rate 08/21/18 71 126/70 14:07 (88) 08/21/18 97.8 18 99 Room Air 08:02 08/17/18 2.0 08:30 Intake and Output 08/20/18 08/20/18 08/21/18 1414:59 22:59 06:59 IntakeIntake Total 240 ml 640 ml 830 ml OutputOutput Total 350 ml 350 ml 600 ml BalanceBalance -110 ml 290 ml 230 ml Exam Exam Neck: supple Respiratory: clear to auscultation Cardiovascular: regular rate and rhythm Gastrointestinal: soft, bowel sounds Extremities: calf tenderness Medications Medications Current Medications Pantoprazole (Protonix Tab) 40 mg DAILY@06 PO Last administered on 08/21/18at 05:28; Admin Dose 40 MG; Start 08/17/18 at 06:00 Morphine Sulfate (morphine SULFATE (PF)) 2 mg Q4H PRN IV SEVERE PAIN LEVEL 7-10 Last administered on 08/17/18at 01:18; Admin Dose 2 MG; Start 08/17/18 at 00:40 Sodium Chloride 1,000 ml @ 40 mls/hr Q24H IV Last administered on 08/20/18at 23:36; Admin Dose 40 MLS/HR; Start 08/17/18 at 00:50 Oxycodone/ Acetaminophen (Percocet (5/ 325)) 2 tab Q6H PRN PO PAIN LEVEL 6-10 Last administered on 08/20/18at 23:35; Admin Dose 2 TAB; Start 08/17/18 at 01:00 Oxycodone/ Acetaminophen (Percocet (5/ 325)) 1 tab Q6H PRN PO MODERATE PAIN LEVEL 4-6; Start 08/17/18 at 01:00 Folic Acid (Folic Acid) 1 mg DAILY PO Last administered on 08/21/18at 08:50; Admin Dose 1 MG; Start 08/17/18 at 09:00 Multivitamins/ Minerals (Theragran-M) 1 tab DAILY PO Last administered on 08/21/18 08:50; Admin Dose 1 TAB; Start 08/17/18 at 09:00 Thiamine HCl (Vitamin B1) 100 mg DAILY PO Last administered on 08/21/18 08:50; Admin Dose 100 MG; Start 08/17/18 at 09:00 Polyethylene Glycol (Miralax) 17 gm DAILY PRN PO CONSTIPATION; Start 08/17/18 at 01:00 Metoprolol Tartrate (Lopressor) 50 mg BID PO Last administered on 08/21/18 08:51; Admin Dose 50 MG; Start 08/17/18 at 09:00 Ferrous Sulfate (Ferrous Sulfate (Ec)) 325 mg TID PO Last administered on 08/21/18 14:04; Admin Dose 325 MG; Start 08/17/18 at 09:00 Hydralazine HCl (Apresoline) 25 mg TID PO Last administered on 08/21/18 14:04; Admin Dose 25 MG; Start 08/17/18 at 09:00 Tamsulosin HCl (Flomax) 0.4 mg HS PO Last administered on 08/20/18 21:49; Admin Dose 0.4 MG; Start 08/17/18 at 21:00 Famotidine (Pepcid) 20 mg DAILY PO Last administered on 08/21/18 08:50; Admin Dose 20 MG; Start 08/17/18 at 09:00 Magnesium Hydroxide (Milk Of Mag) 30 ml DAILY PRN PO CONSTIPATION; Start 08/17/18 at 01:00 Acetaminophen (Tylenol Tab) 650 mg Q6H PRN PO MILD PAIN(1-3)OR ELEVATED TEMP; Start 08/17/18 at 01:00 Ondansetron HCl (Zofran Inj) 4 mg Q8 PRN IV NAUSEA AND/OR VOMITING; Start 08/17/18 at 01:00 Senna (Senokot) 2 tab BID PRN PO CONSTIPATION; Start 08/17/18 at 01:00 Zolpidem Tartrate (Ambien) 5 mg HS PRN PO INSOMNIA Last administered on 08/20/18 21:49; Admin Dose 5 MG; Start 08/17/18 at 01:00 Tramadol HCl (Ultram) 50 mg TID PRN PO PAIN LEVEL 1-5 Last administered on 08/19/18 04:40; Admin Dose 50 MG; Start 08/17/18 at 01:00 Miscellaneous Information Patients own medicat... BID@1000,1600 XX ; Start 08/17/18 at 10:00 Bicalutamide (Casodex) 50 mg DAILY PO Last administered on 08/21/18at 08:52; Admin Dose 50 MG; Start 08/18/18 at 16:30 VALDO HERNANDEZ MD Aug 21, 2018 14:52
--- NOTE | 2018-08-21 15:00 | CONS ---
Date/Time of Note Date/Time of Note DATE: 08/21/18 TIME: 13:06 Assessment/Plan Assessment/Plan Assessment/Plan A 72 yo transferred from [facility] hospital with #1 Prostate Cancer - presumed given bPSA >1000 - scans from [facility] demonstrates widely metastatic disease to bones and lung as well as RP LAD - continue Casodex 50 mgd aily x 10 days then can start Lupron as out pt - met prostate ca is treated with androgen deprivation therapy - will start Xgeva or zometa for bony mets as an outpatient -08/20/18- Bone Scan - will fu result and perform biopsy appropriately # 3 Anemia -- Hg 7.6 -likely anemia of chronic inflammation. iron studies are ok but elevated ferritin noted -hold on transfusion for now - s/p EGD - with chronic gastritis # 4 Acute Kidney injury- trended up today Cr 1.46 - management per PMD A total of 50 minutes of face to face time was spent speaking with the patient of which greater than 50% was spent in counseling and coordination of care and the detailed question and answer session. Dw staff Patient seen in collaboration with Dr Pardo Result Diagram: 08/21/18 0440 08/21/18 0440 Results 24hrs Laboratory Tests Test 08/21/18 04:40 White Blood Count 5.8 Red Blood Count 2.60 L Hemoglobin 7.6 L Hematocrit 23.8 L Mean Corpuscular Volume 91.5 Mean Corpuscular Hemoglobin 29.2 Mean Corpuscular Hemoglobin Concent 31.9 L Red Cell Distribution Width 15.9 H Platelet Count 208 Mean Platelet Volume 10.3 Immature Granulocytes % 1.900 H Neutrophils % 59.2 Lymphocytes % 27.7 Monocytes % 9.0 Eosinophils % 1.9 Basophils % 0.3 Nucleated Red Blood Cells % 0.0 Immature Granulocytes # 0.110 H Neutrophils # 3.4 Lymphocytes # 1.6 Monocytes # 0.5 Eosinophils # 0.1 Basophils # 0.0 Nucleated Red Blood Cells # 0.0 Sodium Level 138 Potassium Level 4.2 Chloride Level 108 Carbon Dioxide Level 22 Anion Gap 8 Blood Urea Nitrogen 26 H Creatinine 1.46 H Est Glomerular Filtrat Rate mL/min 48 L Glucose Level 101 # Calcium Level 8.8 Phosphorus Level 4.3 Magnesium Level 1.9 Consultation Date/Type/Reason Admit Date/Time Aug 16, 2018 at 10:30 pm Initial Consult Date 08/18/18 Requesting Provider: MILLY LABOY MD 24 HR Interval Summary Free Text/Dictation Afebrile 08/20/18- Bone Scan - will fu result and perform biopsy appropriately Exam/Review of Systems Vital Signs Vitals Vital Signs Date Temp Pulse Resp B/P (MAP) Pulse Ox O2 O2 Flow FiO2 Time Delivery Rate 08/21/18 97.8 60 18 113/67 99 Room Air 08:02 (82) 08/17/18 2.0 08:30 Intake and Output 08/20/18 08/20/18 08/21/18 1515:00 23:00 07:00 IntakeIntake Total 240 ml 640 ml 830 ml OutputOutput Total 350 ml 350 ml 600 ml BalanceBalance -110 ml 290 ml 230 ml Exam Constitutional: alert, well developed Psych: nl mood/affect Head: atraumatic Eyes: nl conjunctiva, EOMI, nl lids ENMT: nl external ears & nose Neck: non-tender Respiratory: diminished breath sounds (at bases bilaterally) Cardiovascular: nl pulses Gastrointestinal: soft, non-tender Musculoskeletal: nl extremities to inspection Extremities: normal pulses Neurological: nl speech, other (alert/awake) Skin: nl turgor Medications Medications Current Medications Pantoprazole (Protonix Tab) 40 mg DAILY@06 PO Last administered on 08/21/18at 05:28; Admin Dose 40 MG; Start 08/17/18 at 06:00 Morphine Sulfate (morphine SULFATE (PF)) 2 mg Q4H PRN IV SEVERE PAIN LEVEL 7-10 Last administered on 08/17/18at 01:18; Admin Dose 2 MG; Start 08/17/18 at 00:40 Sodium Chloride 1,000 ml @ 40 mls/hr Q24H IV Last administered on 08/20/18at 23:36; Admin Dose 40 MLS/HR; Start 08/17/18 at 00:50 Oxycodone/ Acetaminophen (Percocet (5/ 325)) 2 tab Q6H PRN PO PAIN LEVEL 6-10 Last administered on 08/20/18at 23:35; Admin Dose 2 TAB; Start 08/17/18 at 01:00 Oxycodone/ Acetaminophen (Percocet (5/ 325)) 1 tab Q6H PRN PO MODERATE PAIN LEVEL 4-6; Start 08/17/18 at 01:00 Folic Acid (Folic Acid) 1 mg DAILY PO Last administered on 08/21/18 08:50; Admin Dose 1 MG; Start 08/17/18 at 09:00 Multivitamins/ Minerals (Theragran-M) 1 tab DAILY PO Last administered on 08/21/18 08:50; Admin Dose 1 TAB; Start 08/17/18 at 09:00 Thiamine HCl (Vitamin B1) 100 mg DAILY PO Last administered on 08/21/18 08:50; Admin Dose 100 MG; Start 08/17/18 at 09:00 Polyethylene Glycol (Miralax) 17 gm DAILY PRN PO CONSTIPATION; Start 08/17/18 at 01:00 Metoprolol Tartrate (Lopressor) 50 mg BID PO Last administered on 08/21/18 08:51; Admin Dose 50 MG; Start 08/17/18 at 09:00 Ferrous Sulfate (Ferrous Sulfate (Ec)) 325 mg TID PO Last administered on 08/21/18 08:50; Admin Dose 325 MG; Start 08/17/18 at 09:00 Hydralazine HCl (Apresoline) 25 mg TID PO Last administered on 08/21/18 08:51; Admin Dose 25 MG; Start 08/17/18 at 09:00 Tamsulosin HCl (Flomax) 0.4 mg HS PO Last administered on 08/20/18 21:49; Admin Dose 0.4 MG; Start 08/17/18 at 21:00 Famotidine (Pepcid) 20 mg DAILY PO Last administered on 08/21/18 08:50; Admin Dose 20 MG; Start 08/17/18 at 09:00 Magnesium Hydroxide (Milk Of Mag) 30 ml DAILY PRN PO CONSTIPATION; Start 08/17/18 at 01:00 Acetaminophen (Tylenol Tab) 650 mg Q6H PRN PO MILD PAIN(1-3)OR ELEVATED TEMP; Start 08/17/18 at 01:00 Ondansetron HCl (Zofran Inj) 4 mg Q8 PRN IV NAUSEA AND/OR VOMITING; Start 08/17/18 at 01:00 Senna (Senokot) 2 tab BID PRN PO CONSTIPATION; Start 08/17/18 at 01:00 Zolpidem Tartrate (Ambien) 5 mg HS PRN PO INSOMNIA Last administered on 1/14/19at 21:49; Admin Dose 5 MG; Start 08/17/18 at 01:00 Tramadol HCl (Ultram) 50 mg TID PRN PO PAIN LEVEL 1-5 Last administered on 08/19/18at 04:40; Admin Dose 50 MG; Start 08/17/18 at 01:00 Miscellaneous Information Patients own medicat... BID@1000,1600 XX ; Start 08/17/18 at 10:00 Bicalutamide (Casodex) 50 mg DAILY PO Last administered on 08/21/18at 08:52; Ad min Dose 50 MG; Start 08/18/18 at 16:30 JOSE CHUN Aug 21, 2018 1:20 pm
--- NOTE | 2018-08-21 17:49 | NUR ---
rn notes patient remains afebrile, no s/s of pain and discomfort, all due medicine given, bone scan done and pending ultrasound and patient needs to be NPO for 6 hours for ultrasound, will endorse night nurse. urine strained and no stoned noted. call light placed within reach and fall precautions observed well, will continue to monitor.
--- NOTE | 2018-08-21 18:32 | PSY ---
Date/Time of Note Date/Time of Note DATE: 08/21/18 TIME: 18:25 Psychiatric Subjective Eval Consent Pt consented to telemedicine: No Subjective Evaluation Patient location: inpatient History of present illness Patient is a 72 year old -L[place] male admitted to [facility] for metastatic disease to bones and lung . On a [id number] evaluation patient states that he does not need psychiatry, but after much persuasion patient was able to answer interviewer's questions . Mini-Mental status exam done and patient scored 22/30. He has periods of forgetfulness but has a capacity to make his own decisions. Past psychiatric history Denies Hospitalization: other Allergies: Coded Allergies: No Known Allergy (Unverified , 08/17/18) Substance Abuse Substance use: other Substance abuse history: No Prior substance abuse treatmen: No Social History Marital status: other DPA/Conservatorship: No Psychiatric Objective Eval Review of Systems: Review of Systems: Not Applicable Physical Examination: Physical Examination: Not Applicable Appetite: Adequate Energy: Adequate Interest: Adequate Mental Status Examination: Appearance: Groomed Eye Contact: Good Psychomotor Activity: Normal Behavior: Cooperative Speech: Clear AFFECT: Appropriate Mood: Appropriate/Full Though Process: Linear Orientation: x3 Cognition: Alert Insight: Mild Judgement: Mild Attention Span: Distractible Laboratory Results Laboratory Tests Test 08/21/18 04:36 08/21/18 04:40 Alpha Fetoprotein 1.97 IU/L Carcinoembryonic Antigen 7.0 ng/ml CA 19-9 Antigen < 1.4 U/ml White Blood Count 5.8 10^3/ul Red Blood Count 2.60 10^6/ul Hemoglobin 7.6 g/dl Hematocrit 23.8 % Mean Corpuscular Volume 91.5 fl Mean Corpuscular Hemoglobin 29.2 pg Mean Corpuscular Hemoglobin Concent 31.9 g/dl Red Cell Distribution Width 15.9 % Platelet Count 208 10^3/UL Mean Platelet Volume 10.3 fl Immature Granulocytes % 1.900 % Neutrophils % 59.2 % Lymphocytes % 27.7 % Monocytes % 9.0 % Eosinophils % 1.9 % Basophils % 0.3 % Nucleated Red Blood Cells % 0.0 /100WBC Immature Granulocytes # 0.110 10^3/ul Neutrophils # 3.4 10^3/ul Lymphocytes # 1.6 10^3/ul Monocytes # 0.5 10^3/ul Eosinophils # 0.1 10^3/ul Basophils # 0.0 10^3/ul Nucleated Red Blood Cells # 0.0 10^3/ul Sodium Level 138 mmol/L Potassium Level 4.2 mmol/L Chloride Level 108 mmol/L Carbon Dioxide Level 22 mmol/L Anion Gap 8 Blood Urea Nitrogen 26 mg/dl Creatinine 1.46 mg/dl Est Glomerular Filtrat Rate mL/min 48 mL/min Glucose Level 101 mg/dl Calcium Level 8.8 mg/dl Phosphorus Level 4.3 mg/dl Magnesium Level 1.9 mg/dl Assessment and Plan Recommendation/Plan Medication Management No medication Multiple antipsychotics: No Discharge Disposition: Other Legal Status: Voluntary (Does not meets criteria for 5150 hold) GARLAND RODRÍGUEZ NP Aug 21, 2018 18:32
[2018-08-21 19:40] VITALS: BP 106/56; PULSE 70; RESP 17
--- NOTE | 2018-08-21 20:11 | CONS ---
Date/Time of Note Date/Time of Note DATE: 08/21/18 TIME: 20:07 Consult Date/Type/Reason Admit Date/Time Aug 16, 2018 at 22:30 Initial Consult Date 08/18/18 Type of Consultation: Urology Reason for Consultation Metastatic prostate cancer Requesting Provider: MILLY LABOY MD Subjective Patient condition is unchanged. He denies any pain. And is voiding well. Objective Vital Signs Date Temp Pulse Resp B/P (MAP) Pulse Ox O2 O2 Flow FiO2 Time Delivery Rate 08/21/18 71 126/70 14:07 (88) 08/21/18 98.0 18 99 Room Air 14:00 08/17/18 2.0 08:30 Intake and Output 08/20/18 08/20/18 08/21/18 1515:00 23:00 07:00 IntakeIntake Total 240 ml 640 ml 830 ml OutputOutput Total 350 ml 350 ml 600 ml BalanceBalance -110 ml 290 ml 230 ml Exam Abdomen is soft and there is no abdominal mass palpable. Results/Medications Result Diagram: 08/21/18 0440 08/21/18 0440 Results 24 hrs Laboratory Tests Test 08/21/18 04:36 08/21/18 04:40 Alpha Fetoprotein 1.97 Carcinoembryonic Antigen 7.0 H CA 19-9 Antigen < 1.4 White Blood Count 5.8 Red Blood Count 2.60 L Hemoglobin 7.6 L Hematocrit 23.8 L Mean Corpuscular Volume 91.5 Mean Corpuscular Hemoglobin 29.2 Mean Corpuscular Hemoglobin Concent 31.9 L Red Cell Distribution Width 15.9 H Platelet Count 208 Mean Platelet Volume 10.3 Immature Granulocytes % 1.900 H Neutrophils % 59.2 Lymphocytes % 27.7 Monocytes % 9.0 Eosinophils % 1.9 Basophils % 0.3 Nucleated Red Blood Cells % 0.0 Immature Granulocytes # 0.110 H Neutrophils # 3.4 Lymphocytes # 1.6 Monocytes # 0.5 Eosinophils # 0.1 Basophils # 0.0 Nucleated Red Blood Cells # 0.0 Sodium Level 138 Potassium Level 4.2 Chloride Level 108 Carbon Dioxide Level 22 Anion Gap 8 Blood Urea Nitrogen 26 H Creatinine 1.46 H Est Glomerular Filtrat Rate mL/min 48 L Glucose Level 101 # Calcium Level 8.8 Phosphorus Level 4.3 Magnesium Level 1.9 Medications Current Medications Pantoprazole (Protonix Tab) 40 mg DAILY@06 PO Last administered on 08/21/18 05:28; Admin Dose 40 MG; Start 08/17/18 at 06:00 Sodium Chloride 1,000 ml @ 40 mls/hr Q24H IV Last administered on 08/20/18 23:36; Admin Dose 40 MLS/HR; Start 08/17/18 at 00:50 Oxycodone/ Acetaminophen (Percocet (5/ 325)) 2 tab Q6H PRN PO PAIN LEVEL 6-10 Last administered on 08/20/18 23:35; Admin Dose 2 TAB; Start 08/17/18 at 01:00 Oxycodone/ Acetaminophen (Percocet (5/ 325)) 1 tab Q6H PRN PO MODERATE PAIN LEVEL 4-6; Start 08/17/18 at 01:00 Folic Acid (Folic Acid) 1 mg DAILY PO Last administered on 08/21/18 08:50; Admin Dose 1 MG; Start 08/17/18 at 09:00 Multivitamins/ Minerals (Theragran-M) 1 tab DAILY PO Last administered on 08/21/18 08:50; Admin Dose 1 TAB; Start 08/17/18 at 09:00 Thiamine HCl (Vitamin B1) 100 mg DAILY PO Last administered on 08/21/18 08:50; Admin Dose 100 MG; Start 08/17/18 at 09:00 Polyethylene Glycol (Miralax) 17 gm DAILY PRN PO CONSTIPATION; Start 08/17/18 at 01:00 Metoprolol Tartrate (Lopressor) 50 mg BID PO Last administered on 08/21/18 08:51; Admin Dose 50 MG; Start 08/17/18 at 09:00 Ferrous Sulfate (Ferrous Sulfate (Ec)) 325 mg TID PO Last administered on 08/21/18 14:04; Admin Dose 325 MG; Start 08/17/18 at 09:00 Hydralazine HCl (Apresoline) 25 mg TID PO Last administered on 08/21/18 14:04; Admin Dose 25 MG; Start 08/17/18 at 09:00 Tamsulosin HCl (Flomax) 0.4 mg HS PO Last administered on 08/20/18 21:49; Admin Dose 0.4 MG; Start 08/17/18 at 21:00 Famotidine (Pepcid) 20 mg DAILY PO Last administered on 08/21/18at 08:50; Admin Dose 20 MG; Start 08/17/18 at 09:00 Magnesium Hydroxide (Milk Of Mag) 30 ml DAILY PRN PO CONSTIPATION; Start 08/17/18 at 01:00 Acetaminophen (Tylenol Tab) 650 mg Q6H PRN PO MILD PAIN(1-3)OR ELEVATED TEMP; Start 08/17/18 at 01:00 Ondansetron HCl (Zofran Inj) 4 mg Q8 PRN IV NAUSEA AND/OR VOMITING; Start 08/17/18 at 01:00 Senna (Senokot) 2 tab BID PRN PO CONSTIPATION; Start 08/17/18 at 01:00 Zolpidem Tartrate (Ambien) 5 mg HS PRN PO INSOMNIA Last administered on 08/20/18at 21:49; Admin Dose 5 MG; Start 08/17/18 at 01:00 Tramadol HCl (Ultram) 50 mg TID PRN PO PAIN LEVEL 1-5 Last administered on 08/19/18at 04:40; Admin Dose 50 MG; Start 08/17/18 at 01:00 Miscellaneous Information Patients own medicat... BID@1000,1600 XX ; Start 08/17/18 at 10:00 Bicalutamide (Casodex) 50 mg DAILY PO Last administered on 08/21/18at 08:52; Admin Dose 50 MG; Start 08/18/18 at 16:30 Morphine Sulfate (morphine) 6 mg Q4H PRN PO SEVERE PAIN LEVEL 7-10; Start 08/21/18 at 17:30 Assessment/Plan Chief Complaint/Hosp Course 72-year-old -Mal[place] male was transferred from [facility] to [facility] patient was found to have metastatic cancer to the lungs and his bones and upon admission here at [facility] his PSA was over 1000 therefore a urological consultation was requested. The patient himself is not a good historian he is confused and sometimes agitated at the [facility] they attempted to have MRI of the spine to evaluate metastatic disease and evaluate for vertebral instability but the patient was confused and agitated and they were not able to do the MRI the patient is known to have had subdural hematoma status post evacuation at [facility] in February 2018 the patient also was found to have lymphadenopathy and bony metastases he also is known to have a history of hypertension and anemia. CT scan of the abdomen and pelvis without contrast at [facility] done on 08/13/2018 showed lung bases: Extensive pleural nodularity and pulmonary nodules bilaterally bilateral left greater than right small pleural effusions and bibasilar atelectasis liver: Unremarkable, gallbladder and bile ducts: Contracted likely containing gallstones ,spleen unremarkable,pancreas unremarkable, adrenals mildly thickened left greater than right adrenal glands, kidneys and ureters: Bilateral low-density lesions mostly fluid density but incompletely characterized measuring up to 6.2 cm on the right kidney, mild left hydronephrosis likely due to an obstructing 6 mm stone in the distal left ureter. Bowels nondilated bowel loops moderate stool burden. Bladder diffuse circumferential wall thickening. Reproductive organs: Prostatomegaly with median lobe hypertrophy. Lymph node: Likely prominent retroperitoneal and bilateral iliac chain lymph nodes although overall poorly delineated due to lack of intravenous contrast. Peritoneum: Small volume ascites. Vessels: Moderate atherosclerotic calcification. Abdominal wall: Mild body wall edema. Bones: Mixed lytic ,sclerotic bone lesions involving the entire axial and appendicular skeleton with areas of vertebral body height loss for example in the L3 v ertebral body and marked areas of cortical destruction for example on the left inferior pubic ramus The lumbosacral spine x-rays and pelvic x-rays showed osteoblastic lesions consistent with metastasis most likely from the prostate. The patient is voiding well. He also does have a distal left ureteral stone but he denies having any pain. We will strain his urine and do a KUB to see if the stone is visible and is radiopaque. Since his PSA is over his thousand I wanted to add Lupron Depot to his treatment in addition to the Casodex. The Lupron is not on the formulary of the hospital. I requested that the pharmacy teacher did not approve it stating that this should be done as an outpatient. My concern is this patient is not the type that we will follow-up as an outpatient and his cancer is very advanced and would benefit from at least a 1 month injection. He did have the bone scan done today and that showed: Multiple foci of increased activity are seen in the calvarium, sternum, rib cages bilaterally, sternum, pelvic bones bilaterally and both hips. No other definite abnormal areas of increased activity or asymmetries are visualized in the study and distribution of radionuclide is homogeneous in the skull, spine, rib cages, sternum, pelvis and visualized portions of the upper and lower extremities. Of incidental note, there is a poor visualization of the kidneys. Area of increased activity seen within the right pelvis. The finding may be related to physiologic bladder activity; also query right pelvic transplanted kidney. Urologically continue the Casodex and once he is out of the hospital start him on Lupron Depot as well MAVIS MAI MD Aug 21, 2018 20:11
[2018-08-21] MEDS: TAMSULOSIN (SR) 0.4 MG CAP PO SCH (20:31)
[2018-08-22] MEDS: OXYCODONE/ACETAMINOPHEN (5/325) TAB PO PRN ×2 (02:01→20:31)
[2018-08-22 02:04] VITALS: BP 120/64; PULSE 77; RESP 18
--- NOTE | 2018-08-22 05:34 | NUR ---
191 Pt received aaox4, vitals stable, no s/s of distress. Pt oriented to night warehouse selector nurse and [facility] safety protocol including hourly rounding and an active bed alarm. Pt verbalized understanding. 2100 Medications administered w/o difficulty. Pt educated on medications and their purpose and frequency. Pt verbalized understanding. 0000 Pt NPO after midnight, pt aware. Nursing will continue to monitor. 0300 Pt resting comfortably, denies needs at this time. 0600 Pt had uneventful night. Nursing will continue to monitor and endorse to morning shift. Pt remains NPO for abdominal ultrasound this morning. Addendum: 08/22/18 at 0753 by ALVAREZ BORGES RN 0600 No significant changes occurred throughout the shift, nursing report endorsed to [facility] RN to ensure continued quality of care.
[2018-08-22] MEDS: PANTOPRAZOLE (EC) 40 MG TAB PO SCH (06:21)
[2018-08-22 08:34] VITALS: BP 108/66; PULSE 64; RESP 18
[2018-08-22] MEDS: MULTIVITAMINS/MINERALS TAB PO SCH (08:47)
[2018-08-22] MEDS: FERROUS SULFATE (EC) 325 MG TAB PO SCH ×3 (08:47→20:34)
[2018-08-22] MEDS: FAMOTIDINE 20 MG TAB PO SCH (08:47)
[2018-08-22] MEDS: THIAMINE 100 MG TAB PO SCH (08:47)
[2018-08-22] MEDS: FOLIC ACID 1 MG TAB PO SCH (08:47)
[2018-08-22] MEDS: METOPROLOL 50 MG TAB PO SCH ×2 (08:48→20:32)
[2018-08-22] MEDS: BICALUTAMIDE 50 MG TAB PO SCH (08:48)
[2018-08-22] MEDS: [UNRECOGNIZED DRUG - OTHER] XX SCH ×2 (08:49→14:48)
[2018-08-22] MEDS: SOD CHLORIDE 0.9% 1,000 ML IV SCH (08:57)
--- NOTE | 2018-08-22 12:28 | PN ---
Date/Time of Note Date/Time of Note DATE: 08/22/18 TIME: 12:16 Assessment/Plan VTE Prophylaxis Risk score (from Ns)>0 risk: 5 SCD applied (from Ns): Yes Pharmacological prophylaxis: NA/contraindicated Pharm contraindication: low risk/ambulating Lines/Catheters IV [facility]ter Type (from [facility]): Peripheral IV Urinary Cath still in place: No Assessment/Plan Hospital Course 72 yo male 1. Anemia, which is a combination of metastasis to the bone and also gastrointestinal bleed. 2. Renal insufficiency. 3. Malnutrition. 4. Prostate cancer with mets to the bone noted in bone scan 5. Hypertension. 6. Hepatitis C. 7. Alcoholism. 8. Gastritis 9. S/P EGD 10. Transaminitis 11. Weight loss of 80 lbs over 3 months 12. Elevated alk phos secondary to bone mets 13. Fatty liver 14. Cholelithiasis 15. Dilated CBD at 10mm 16. Elevated CEA (AFP and CA 19-9 wnl) US of abd: Fatty infiltration of the liver.. Cholelithiasis. Dilated CBD. 10mm Multiple simple cysts in the right kidne Plan FOB MRCP Continue PPI Bone scan shows multiple skeletal metastasis Monitor LFTs Pending psych eval Pt examined and plan of care discussed with Dr. Vora Result Diagram: 08/21/18 0440 08/21/18 0440 Results 24hrs Laboratory Tests Test 08/22/18 05:30 Total Bilirubin 0.0 L Direct Bilirubin 0.00 Indirect Bilirubin 0.0 Aspartate Amino Transf (AST/SGOT) 24 Alanine Aminotransferase (ALT/SGPT) 15 Alkaline Phosphatase 242 H Total Protein 6.2 Albumin 3.1 L Subjective 24 Hr Interval Summary Free Text/Dictation No evidence of GI bleeding per pt and RN. No N/V. Denies abd pain. Exam/Review of Systems Vital Signs Vitals Vital Signs Date Temp Pulse Resp B/P (MAP) Pulse Ox O2 O2 Flow FiO2 Time Delivery Rate 08/22/18 97.9 64 18 108/66 100 Room Air 08:34 (80) Intake and Output 08/21/18 08/21/18 08/22/18 1515:00 23:00 07:00 IntakeIntake Total 920 ml 720 ml OutputOutput Total 1300 ml 300 ml 400 ml BalanceBalance -380 ml 420 ml -400 ml Medications Medications Current Medications Pantoprazole (Protonix Tab) 40 mg DAILY@06 PO Last administered on 08/22/18 06:21; Admin Dose 40 MG; Start 08/17/18 at 06:00 Sodium Chloride 1,000 ml @ 40 mls/hr Q24H IV Last administered on 08/22/18 08:57; Admin Dose 40 MLS/HR; Start 08/17/18 at 00:50 Oxycodone/ Acetaminophen (Percocet (5/ 325)) 2 tab Q6H PRN PO PAIN LEVEL 6-10 Last administered on 08/22/18at 02:01; Admin Dose 2 TAB; Start 08/17/18 at 01:00 Oxycodone/ Acetaminophen (Percocet (5/ 325)) 1 tab Q6H PRN PO MODERATE PAIN LEVEL 4-6; Start 08/17/18 at 01:00 Folic Acid (Folic Acid) 1 mg DAILY PO Last administered on 08/22/18 08:47; Admin Dose 1 MG; Start 08/17/18 at 09:00 Multivitamins/ Minerals (Theragran-M) 1 tab DAILY PO Last administered on 08/22/18 08:47; Admin Dose 1 TAB; Start 08/17/18 at 09:00 Thiamine HCl (Vitamin B1) 100 mg DAILY PO Last administered on 08/22/18 08:47; Admin Dose 100 MG; Start 08/17/18 at 09:00 Polyethylene Glycol (Miralax) 17 gm DAILY PRN PO CONSTIPATION; Start 08/17/18 at 01:00 Metoprolol Tartrate (Lopressor) 50 mg BID PO Last administered on 08/22/18 08:48; Admin Dose 50 MG; Start 08/17/18 at 09:00 Ferrous Sulfate (Ferrous Sulfate (Ec)) 325 mg TID PO Last administered on 08/22/18 08:47; Admin Dose 325 MG; Start 08/17/18 at 09:00 Hydralazine HCl (Apresoline) 25 mg TID PO Last administered on 08/22/18 08:51; Admin Dose 25 MG; Start 08/17/18 at 09:00 Tamsulosin HCl (Flomax) 0.4 mg HS PO Last administered on 08/21/18 20:31; Admin Dose 0.4 MG; Start 08/17/18 at 21:00 Famotidine (Pepcid) 20 mg DAILY PO Last administered on 08/22/18at 08:47; Admin Dose 20 MG; Start 08/17/18 at 09:00 Magnesium Hydroxide (Milk Of Mag) 30 ml DAILY PRN PO CONSTIPATION; Start 08/17/18 at 01:00 Acetaminophen (Tylenol Tab) 650 mg Q6H PRN PO MILD PAIN(1-3)OR ELEVATED TEMP; Start 08/17/18 at 01:00 Ondansetron HCl (Zofran Inj) 4 mg Q8 PRN IV NAUSEA AND/OR VOMITING; Start 08/17/18 at 01:00 Senna (Senokot) 2 tab BID PRN PO CONSTIPATION; Start 08/17/18 at 01:00 Zolpidem Tartrate (Ambien) 5 mg HS PRN PO INSOMNIA Last administered on 08/20/18at 21:49; Admin Dose 5 MG; Start 08/17/18 at 01:00 Tramadol HCl (Ultram) 50 mg TID PRN PO PAIN LEVEL 1-5 Last administered on 08/19/18at 04:40; Admin Dose 50 MG; Start 08/17/18 at 01:00 Miscellaneous Information Patients own medicat... BID@1000,1600 XX ; Start 08/17/18 at 10:00 Bicalutamide (Casodex) 50 mg DAILY PO Last administered on 08/22/18at 08:48; Admin Dose 50 MG; Start 08/18/18 at 16:30 Morphine Sulfate (morphine) 6 mg Q4H PRN PO SEVERE PAIN LEVEL 7-10; Start 08/21/18 at 17:30 DAXA BURCH Aug 22, 2018 12:26
--- NOTE | 2018-08-22 13:02 | CONS ---
Date/Time of Note Date/Time of Note DATE: 08/22/18 TIME: 12:55 Assessment/Plan Assessment/Plan Hospital Course 72 yo transferred from [facility] with widely metastatic disease to bones (confirmed by bone scan) and lung as well as RP LAD w/u shows PSA >1000 this is very consistent with met prostate ca at this point highest on my list is that this is met prostate ca ideally would get tissue biopsy for confirmation of diagnosis, cont Casodex 50 mg daily x 10 days then can start Lupron as out pt also ideally would get Xgeva or zometa for bony mets, given renal failure bisphosphonate will not be given Earlier this week I discussed the above with the patient and he denied that he has cancer. he said " you are saying that so you can do treatments and make money like everyone else here" I tried to explain to him otherwise. At this point, pt does not seem to have mental capacity to make decisions nor does he have understanding into his several serious health issues had Psych eval and felt that pt able to make own decisions. I spoke to him again today and discussed that he has met prostate ca to bone and he seemed to accept this and is willing to continue with androgen deprivation therapy he is ok with continuation of casodex, after 10 days of this will start Lupron Result Diagram: 08/21/18 0440 08/21/18 0440 Results 24hrs Laboratory Tests Test 08/22/18 05:30 Total Bilirubin 0.0 L Direct Bilirubin 0.00 Indirect Bilirubin 0.0 Aspartate Amino Transf (AST/SGOT) 24 Alanine Aminotransferase (ALT/SGPT) 15 Alkaline Phosphatase 242 H Total Protein 6.2 Albumin 3.1 L Consultation Date/Type/Reason Admit Date/Time Aug 16, 2018 at 22:30 Initial Consult Date 08/18/18 Requesting Provider: MILLY LABOY MD Exam/Review of Systems Vital Signs Vitals Vital Signs Date Temp Pulse Resp B/P (MAP) Pulse Ox O2 O2 Flow FiO2 Time Delivery Rate 08/22/18 97.9 64 18 108/66 100 Room Air 08:34 (80) Intake and Output 08/21/18 08/21/18 08/22/18 1515:00 23:00 07:00 IntakeIntake Total 920 ml 720 ml OutputOutput Total 1300 ml 300 ml 400 ml BalanceBalance -380 ml 420 ml -400 ml Medications Medications Current Medications Pantoprazole (Protonix Tab) 40 mg DAILY@06 PO Last administered on 08/22/18 06:21; Admin Dose 40 MG; Start 08/17/18 at 06:00 Sodium Chloride 1,000 ml @ 40 mls/hr Q24H IV Last administered on 08/22/18 08:57; Admin Dose 40 MLS/HR; Start 08/17/18 at 00:50 Oxycodone/ Acetaminophen (Percocet (5/ 325)) 2 tab Q6H PRN PO PAIN LEVEL 6-10 Last administered on 08/22/18 02:01; Admin Dose 2 TAB; Start 08/17/18 at 01:00 Oxycodone/ Acetaminophen (Percocet (5/ 325)) 1 tab Q6H PRN PO MODERATE PAIN [place] MON[place] 4-6; Start 08/17/18 at 01:00 Folic Acid (Folic Acid) 1 mg DAILY PO Last administered on 08/22/18 08:47; Admin Dose 1 MG; Start 08/17/18 at 09:00 Multivitamins/ Minerals (Theragran-M) 1 tab DAILY PO Last administered on 08/22/18 08:47; Admin Dose 1 TAB; Start 08/17/18 at 09:00 Thiamine HCl (Vitamin B1) 100 mg DAILY PO Last administered on 08/22/18 08:47; Admin Dose 100 MG; Start 08/17/18 at 09:00 Polyethylene Glycol (Miralax) 17 gm DAILY PRN PO CONSTIPATION; Start 08/17/18 at 01:00 Metoprolol Tartrate (Lopressor) 50 mg BID PO Last administered on 08/22/18 08:48; Admin Dose 50 MG; Start 08/17/18 at 09:00 Ferrous Sulfate (Ferrous Sulfate (Ec)) 325 mg TID PO Last administered on 08:47; Admin Dose 325 MG; Start 08/17/18 at 09:00 Hydralazine HCl (Apresoline) 25 mg TID PO Last administered on 08/22/18 08:51; Admin Dose 25 MG; Start 08/17/18 at 09:00 Tamsulosin HCl (Flomax) 0.4 mg HS PO Last administered on 08/21/18 20:31; Admin Dose 0.4 MG; Start 08/17/18 at 21:00 Famotidine (Pepcid) 20 mg DAILY PO Last administered on 08/22/18at 08:47; Admin Dose 20 MG; Start 08/17/18 at 09:00 Magnesium Hydroxide (Milk Of Mag) 30 ml DAILY PRN PO CONSTIPATION; Start 08/17/18 at 01:00 Acetaminophen (Tylenol Tab) 650 mg Q6H PRN PO MILD PAIN(1-3)OR ELEVATED TEMP; Start 08/17/18 at 01:00 Ondansetron HCl (Zofran Inj) 4 mg Q8 PRN IV NAUSEA AND/OR VOMITING; Start 08/17/18 at 01:00 Senna (Senokot) 2 tab BID PRN PO CONSTIPATION; Start 08/17/18 at 01:00 Zolpidem Tartrate (Ambien) 5 mg HS PRN PO INSOMNIA Last administered on 08/20/18at 21:49; Admin Dose 5 MG; Start 08/17/18 at 01:00 Tramadol HCl (Ultram) 50 mg TID PRN PO PAIN LEVEL 1-5 Last administered on 08/19/18at 04:40; Admin Dose 50 MG; Start 08/17/18 at 01:00 Miscellaneous Information Patients own medicat... BID@1000,1600 XX ; Start 08/17/18 at 10:00 Bicalutamide (Casodex) 50 mg DAILY PO Last administered on 08/22/18at 08:48; Admin Dose 50 MG; Start 08/18/18 at 16:30 Morphine Sulfate (morphine) 6 mg Q4H PRN PO SEVERE PAIN LEVEL 7-10; Start 08/21/18 at 17:30 WENDY SIMS Aug 22, 2018 13:02
[2018-08-22 14:24] VITALS: BP 122/58; PULSE 60; RESP 18
[2018-08-22 14:40] VITALS: BP 99/56; PULSE 70; RESP 18
--- NOTE | 2018-08-22 15:25 | PN ---
Date/Time of Note Date/Time of Note DATE: 08/22/18 TIME: 15:23 Assessment/Plan VTE Prophylaxis Risk score (from Nsg)>0 risk: 5 SCD applied (from Ns): Yes Pharmacological prophylaxis: NA/contraindicated Pharm contraindication: low risk/ambulating Lines/Catheters IV Catheter Type (from Nrsg): Peripheral IV Urinary Cath still in place: No Assessment/Plan Hospital Course 72 y/o with 1. AMS, metabolic encephalopathy ? per pscy has [place] 2. Lymphadenopathy concerning for malignancy unknown primary source, more likely prostate cancer, PSA 1000. 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 Acute kidney injury, better 4. Severe anemia 5. Recent weight loss 6. Severe malnourishment 7. Thrombocytopenia 8. History of subdural hematoma 9. History of hepatitis C 10. History of alcoholism 11. Hypertension 12. Mild left hydronephrosis with obstructing distal left ureteral calculus 13 Chronic gastritis s/p EGD Plan -pt has capacity per pscy - dc fluids - MRCP today - cw casodex/flomax - spoke to Dr Nguyen will do biopsy as OPD in office - cw PPI - Bone scan +multiple mets - PT eval Result Diagram: 08/21/18 0440 08/21/18 0440 Results 24hrs Laboratory Tests Test 08/22/18 05:30 Total Bilirubin 0.0 L Direct Bilirubin 0.00 Indirect Bilirubin 0.0 Aspartate Amino Transf (AST/SGOT) 24 Alanine Aminotransferase (ALT/SGPT) 15 Alkaline Phosphatase 242 H Total Protein 6.2 Albumin 3.1 L Subjective 24 Hr Interval Summary Free Text/Dictation Pt is going for MRCP today due to dilated CBD Spoke to patient at bedside, says he knows about his disease Exam/Review of Systems Vital Signs Vitals Vital Signs Date Temp Pulse Resp B/P (MAP) Pulse Ox O2 O2 Flow FiO2 Time Delivery Rate 08/22/18 98.0 70 18 99/56 (70) 99 Room Air 14:40 Intake and Output 08/21/18 08/21/18 08/22/18 1414:59 22:59 06:59 IntakeIntake Total 920 ml 720 ml OutputOutput Total 1300 ml 300 ml 400 ml BalanceBalance -380 ml 420 ml -400 ml Exam Neck: supple Respiratory: clear to auscultation Cardiovascular: regular rate and rhythm Gastrointestinal: soft, bowel sounds Extremities: calf tenderness Medications Medications Current Medications Pantoprazole (Protonix Tab) 40 mg DAILY@06 PO Last administered on 08/22/18 06:21; Admin Dose 40 MG; Start 08/17/18 at 06:00 Sodium Chloride 1,000 ml @ 40 mls/hr Q24H IV Last administered on 08/22/18 08:57; Admin Dose 40 MLS/HR; Start 08/17/18 at 00:50 Oxycodone/ Acetaminophen (Percocet (5/ 325)) 2 tab Q6H PRN PO PAIN LEVEL 6-10 Last administered on 08/22/18 02:01; Admin Dose 2 TAB; Start 08/17/18 at 01:00 Oxycodone/ Acetaminophen (Percocet (5/ 325)) 1 tab Q6H PRN PO MODERATE PAIN LEVEL 4-6; Start 08/17/18 at 01:00 Folic Acid (Folic Acid) 1 mg DAILY PO Last administered on 08/22/18 08:47; Admin Dose 1 MG; Start 08/17/18 at 09:00 Multivitamins/ Minerals (Theragran-M) 1 tab DAILY PO Last administered on 08/22/18 08:47; Admin Dose 1 TAB; Start 08/17/18 at 09:00 Thiamine HCl (Vitamin B1) 100 mg DAILY PO Last administered on 08/22/18 08:47; Admin Dose 100 MG; Start 08/17/18 at 09:00 Polyethylene Glycol (Miralax) 17 gm DAILY PRN PO CONSTIPATION; Start 08/17/18 at 01:00 Metoprolol Tartrate (Lopressor) 50 mg BID PO Last administered on 08/22/18 08:48; Admin Dose 50 MG; Start 08/17/18 at 09:00 Ferrous Sulfate (Ferrous Sulfate (Ec)) 325 mg TID PO Last administered on 08/22/18 13:44; Admin Dose 325 MG; Start 08/17/18 at 09:00 Hydralazine HCl (Apresoline) 25 mg TID PO Last administered on 08/22/18 08:51; Admin Dose 25 MG; Start 08/17/18 at 09:00 Tamsulosin HCl (Flomax) 0.4 mg HS PO Last administered on 08/21/18 20:31; Admin Dose 0.4 MG; Start 08/17/18 at 21:00 Famotidine (Pepcid) 20 mg DAILY PO Last administered on 08/22/18at 08:47; Admin Dose 20 MG; Start 08/17/18 at 09:00 Magnesium Hydroxide (Milk Of Mag) 30 ml DAILY PRN PO CONSTIPATION; Start 08/17/18 at 01:00 Acetaminophen (Tylenol Tab) 650 mg Q6H PRN PO MILD PAIN(1-3)OR ELEVATED TEMP; Start 08/17/18 at 01:00 Ondansetron HCl (Zofran Inj) 4 mg Q8 PRN IV NAUSEA AND/OR VOMITING; Start 08/17/18 at 01:00 Senna (Senokot) 2 tab BID PRN PO CONSTIPATION; Start 08/17/18 at 01:00 Zolpidem Tartrate (Ambien) 5 mg HS PRN PO INSOMNIA Last administered on at 21:49; Admin Dose 5 MG; Start 08/17/18 at 01:00 Tramadol HCl (Ultram) 50 mg TID PRN PO PAIN LEVEL 1-5 Last administered on 08/19/18at 04:40; Admin Dose 50 MG; Start 08/17/18 at 01:00 Miscellaneous Information Patients own medicat... BID@1000,1600 XX ; Start 08/17/18 at 10:00 Bicalutamide (Casodex) 50 mg DAILY PO Last administered on 08/22/18at 08:48; Admin Dose 50 MG; Start 08/18/18 at 16:30 Morphine Sulfate (morphine) 6 mg Q4H PRN PO SEVERE PAIN LEVEL 7-10; Start 08/21/18 at 17:30 VALDO HERNANDEZ MD Aug 22, 2018 15:25
--- NOTE | 2018-08-22 18:02 | NUR ---
rn notes patient remains afebrile, no s/s of pain and discomfort, all due medicine given, ultrasound and MRI abdomen done. hours for ultrasound. urine strained and no stoned noted. all due medicine given and all needs attended to. chemo precautions observed well. pending stool OB sample, will endorse next shift. call light placed within reach and fall precautions observed well, will continue to monitor.
--- NOTE | 2018-08-22 19:04 | CONS ---
Date/Time of Note Date/Time of Note DATE: 08/22/18 TIME: 18:56 Consult Date/Type/Reason Admit Date/Time Aug 16, 2018 at 22:30 Initial Consult Date 08/18/18 Type of Consultation: Urology Reason for Consultation Metastatic prostate cancer Requesting Provider: MILLY LABOY MD Subjective The patient complains of pain in his legs. And he is trying to massage his legs because of the pain. Objective Vital Signs Date Temp Pulse Resp B/P (MAP) Pulse Ox O2 O2 Flow FiO2 Time Delivery Rate 08/22/18 98.0 70 18 99/56 (70) 99 Room Air 14:40 Intake and Output 08/21/18 08/21/18 08/22/18 1515:00 23:00 07:00 IntakeIntake Total 920 ml 720 ml OutputOutput Total 1300 ml 300 ml 400 ml BalanceBalance -380 ml 420 ml -400 ml Exam Patient is voiding clear urine. He had abdomen MRI today and that showed: 1. Limited evaluation due to motion artifact. 2. Cholelithiasis. 3. Common bile duct dilatation up to 10 mm. No large stones seen within the common bile duct, however evaluation is severely limited by motion artifact. 4. Mild left hydronephrosis, as seen on prior ultrasound. 5. Heterogeneous signal of the visualized bones. Correlate with recent nuclear medicine bone scan. Results/Medications Result Diagram: 08/21/18 0440 08/21/18 0440 Results 24 hrs Laboratory Tests Test 08/22/18 05:30 Total Bilirubin 0.0 L Direct Bilirubin 0.00 Indirect Bilirubin 0.0 Aspartate Amino Transf (AST/SGOT) 24 Alanine Aminotransferase (ALT/SGPT) 15 Alkaline Phosphatase 242 H Total Protein 6.2 Albumin 3.1 L Medications Current Medications Pantoprazole (Protonix Tab) 40 mg DAILY@06 PO Last administered on 08/22/18at 06:21; Admin Dose 40 MG; Start 08/17/18 at 06:00 Oxycodone/ Acetaminophen (Percocet (5/ 325)) 2 tab Q6H PRN PO PAIN LEVEL 6-10 Last administered on 08/22/18at 02:01; Admin Dose 2 TAB; Start 08/17/18 at 01:00 Oxycodone/ Acetaminophen (Percocet (5/ 325)) 1 tab Q6H PRN PO MODERATE PAIN LEVEL 4-6; Start 08/17/18 at 01:00 Folic Acid (Folic Acid) 1 mg DAILY PO Last administered on 08/22/18 08:47; Admin Dose 1 MG; Start 08/17/18 at 09:00 Multivitamins/ Minerals (Theragran-M) 1 tab DAILY PO Last administered on 08/22/18 08:47; Admin Dose 1 TAB; Start 08/17/18 at 09:00 Thiamine HCl (Vitamin B1) 100 mg DAILY PO Last administered on 08/22/18 08:47; Admin Dose 100 MG; Start 08/17/18 at 09:00 Polyethylene Glycol (Miralax) 17 gm DAILY PRN PO CONSTIPATION; Start 08/17/18 at 01:00 Metoprolol Tartrate (Lopressor) 50 mg BID PO Last administered on 08/22/18 08:48; Admin Dose 50 MG; Start 08/17/18 at 09:00 Ferrous Sulfate (Ferrous Sulfate (Ec)) 325 mg TID PO Last administered on 08/22/18 13:44; Admin Dose 325 MG; Start 08/17/18 at 09:00 Hydralazine HCl (Apresoline) 25 mg TID PO Last administered on 08/22/18 08:51; Admin Dose 25 MG; Start 08/17/18 at 09:00 Tamsulosin HCl (Flomax) 0.4 mg HS PO Last administered on 08/21/18 20:31; Admin Dose 0.4 MG; Start 08/17/18 at 21:00 Famotidine (Pepcid) 20 mg DAILY PO Last administered on 08/22/18 08:47; Admin Dose 20 MG; Start 08/17/18 at 09:00 Magnesium Hydroxide (Milk Of Mag) 30 ml DAILY PRN PO CONSTIPATION; Start at 01:00 Acetaminophen (Tylenol Tab) 650 mg Q6H PRN PO MILD PAIN(1-3)OR ELEVATED TEMP; Start 08/17/18 at 01:00 Ondansetron HCl (Zofran Inj) 4 mg Q8 PRN IV NAUSEA AND/OR VOMITING; Start 08/17/18 at 01:00 Senna (Senokot) 2 tab BID PRN PO CONSTIPATION; Start 08/17/18 at 01:00 Zolpidem Tartrate (Ambien) 5 mg HS PRN PO INSOMNIA Last administered on 08/20/18at 21:49; Admin Dose 5 MG; Start 08/17/18 at 01:00 Tramadol HCl (Ultram) 50 mg TID PRN PO PAIN LEVEL 1-5 Last administered on 08/19/18at 04:40; Admin Dose 50 MG; Start 08/17/18 at 01:00 Miscellaneous Information Patients own medicat... BID@1000,1600 XX ; Start 08/17/18 at 10:00 Bicalutamide (Casodex) 50 mg DAILY PO Last administered on 08/22/18at 08:48; Admin Dose 50 MG; Start 08/18/18 at 16:30 Morphine Sulfate (morphine) 6 mg Q4H PRN PO SEVERE PAIN LEVEL 7-10; Start 08/21/18 at 17:30 Assessment/Plan Chief Complaint/Hosp Course 72-year-old -[place] male was transferred from [facility] to [facility] patient was found to have metastatic cancer to the lungs and his bones and upon admission here at [facility] his PSA was over 1000 therefore a urological consultation was requested. The patient himself is not a good historian he is confused and sometimes agitated at the [facility] they attempted to have MRI of the spine to evaluate metastatic disease and evaluate for vertebral instability but the patient was confused and agitated and they were not able to do the MRI the patient is known to have had subdural hematoma status post evacuation at [facility] in February 2018 the patient also was found to have lymphadenopathy and bony metastases he also is known to have a history of hypertension and anemia. CT scan of the abdomen and pelvis without contrast at [facility] done on 08/13/2018 showed lung bases: Extensive pleural nodularity and pulmonary nodules bilaterally bilateral left greater than right small pleural effusions and bibasilar atelectasis liver: Unremarkable, gallbladder and bile ducts: Contracted likely containing gallstones ,spleen unremarkable,pancreas unremarkable, adrenals mildly thickened left greater than right adrenal glands, kidneys and ureters: Bilateral low-density lesions mostly fluid density but incompletely characterized measuring up to 6.2 cm on the right kidney, mild left hydronephrosis likely due to an obstructing 6 mm stone in the distal left ureter. Bowels nondilated bowel loops moderate stool burden. Bladder diffuse circumferential wall thickening. Reproductive organs: Prostatomegaly with median lobe hypertrophy. Lymph node: Likely prominent retroperitoneal and bilateral iliac chain lymph nodes although overall poorly delineated due to lack of intravenous contrast. Peritoneum: Small volume ascites. Vessels: Moderate atherosclerotic calcification. Abdominal wall: Mild body wall edema. Bones: Mixed lytic ,sclerotic bone lesions involving the entire axial and appendicular skeleton with areas of vertebral body height loss for example in the L3 vertebral body and marked areas of cortical destruction for example on the left inferior pubic ramus The lumbosacral spine x-rays and pelvic x-rays showed osteoblastic lesions consistent with metastasis most likely from the prostate. The patient is voiding well. He also does have a distal left ureteral stone but he denies having any pain. We will strain his urine and do a KUB to see if the stone is visible and is radiopaque. Since his PSA is over his thousand I wanted to add Lupron Depot to his treatment in addition to the Casodex. The Lupron is not on the formulary of the hospital. I requested that the pharmacy specialist did not approve it stating that this should be done as an outpatient. My concern is thi s patient is not the type that we will follow-up as an outpatient and his cancer is very advanced and would benefit from at least a 1 month injection. He did have the bone scan done today and that showed: Multiple foci of increased activity are seen in the calvarium, sternum, rib cages bilaterally, sternum, pelvic bones bilaterally and both hips. No other definite abnormal areas of increased activity or asymmetries are visualized in the study and distribution of radionuclide is homogeneous in the skull, spine, rib cages, sternum, pelvis and visualized portions of the upper and lower extremities. Of incidental note, there is a poor visualization of the kidneys. Area of increased activity seen within the right pelvis. The finding may be related to physiologic bladder activity; also query right pelvic transplanted kidney. Urologically continue the Casodex and once he is out of the hospital start him on Lupron Depot as well I had a discussion with the patient about him coming to the office to undergo transrectal ultrasound and ultrasound-guided biopsy of the prostate. Patient lives in [place]. He uses [employer] for his travel. He cannot walk. He has pain in his legs and his legs are very weak. Therefore he will not be able to make it to the office especially that [place] Therefore it will be difficult to obtain a tissue diagnosis from prostate biopsy. He also may have difficulty coming to the office to give him Lupron Depo for his prostate cancer. If he is sent to a assisted facility then the assisted facility will become a responsible for his Lupron injections and also I was to do an ultrasound-guided biopsy of his prostate the [facility] has to authorize it and be financially responsible for it. If however there is any lesion that could be biopsied while he is in the hospital then that may be a better option to establish a pathological diagnosis. MAVIS MAI MD Aug 22, 2018 19:04
[2018-08-22 20:00] VITALS: BP 102/57; PULSE 75; RESP 18
[2018-08-22] MEDS: TAMSULOSIN (SR) 0.4 MG CAP PO SCH (20:30)
[2018-08-22] MEDS: morphine LIQ (10 MG/5 ML) CUP PO PRN (22:16)
--- NOTE | 2018-08-23 03:27 | NUR ---
1914 1914 Pt received aaox3, vitals stable, respirations regular and even, no s/s of distress noted. Pt oriented to hourly shift nurse and [facility] safety protocol including hourly rounding and an active bed alarm. Pt denies questions at this time. 2100 Scheduled medications administered w/o difficulty. Medication administered for pain. Urinal strained & emptied, no products noted. 0 Linen change provided. 0000 Pt resting comfortably, nursing will continue to monitor and ensure pt safety. Addendum: 08/23/18 at 0645 by ALVAREZ BORGES RN 0600 No significant change in pt status occurred throughout the shift. Pt remained stable and all needs were anticipated and met. Nursing will continue to monitor and endorse to morning shift to ensure continuity of care and pt safety.
[2018-08-23] MEDS: PANTOPRAZOLE (EC) 40 MG TAB PO SCH (05:45)
[2018-08-23] MEDS: OXYCODONE/ACETAMINOPHEN (5/325) TAB PO PRN ×2 (05:46→17:47)
[2018-08-23 07:45] VITALS: BP 110/63; PULSE 72; RESP 18
--- NOTE | 2018-08-23 08:35 | NUR ---
PT evaluation received, patient cleared for activity per RN. patient in bed, complains of significant pain in BLE with associated numbness and tingling following fall Sep 2017. Patient states using a walker at home and has substantial family support however does not want to attempt PT evaluation at this time due to "i usually do it EARLY in the morning" PT unable to encourage patient, Spoke to RN regarding pt refusal.
[2018-08-23] MEDS: [UNRECOGNIZED DRUG - OTHER] XX SCH ×2 (09:16→16:00)
[2018-08-23] MEDS: THIAMINE 100 MG TAB PO SCH (09:25)
[2018-08-23] MEDS: FOLIC ACID 1 MG TAB PO SCH (09:25)
[2018-08-23] MEDS: MULTIVITAMINS/MINERALS TAB PO SCH (09:25)
[2018-08-23] MEDS: FERROUS SULFATE (EC) 325 MG TAB PO SCH ×3 (09:25→20:42)
[2018-08-23] MEDS: FAMOTIDINE 20 MG TAB PO SCH (09:25)
[2018-08-23] MEDS: BICALUTAMIDE 50 MG TAB PO SCH (09:27)
[2018-08-23] MEDS: METOPROLOL 50 MG TAB PO SCH ×2 (11:07→20:43)
--- NOTE | 2018-08-23 13:27 | CONS ---
Date/Time of Note Date/Time of Note DATE: 08/23/18 TIME: 13:20 Assessment/Plan Assessment/Plan Assessment/Plan A 72 yo transferred from [facility] with #1 Prostate Cancer - presumed given PSA >1000 - scans from [facility] demonstrates widely metastatic disease to bones and lung as well as RP LAD - continue Casodex 50 mgd aily x 10 days then can start Lupron as out pt - met prostate ca is treated with androgen deprivation therapy - will start Xgeva or zometa for bony mets as an outpatient also ideally would get Xgeva or zometa for bony mets, given renal failure bisphosphonate will not be given -08/20/18- Bone Scan - will fu result and perform biopsy appropriately # 3 Anemia -- Hg 7.6 -likely anemia of chronic inflammation. iron studies are ok but elevated ferritin noted -hold on transfusion for now - s/p EGD - with chronic gastritis # Common Bile Duct Dilation - 08/22/2018- US abdomen showed Common Bile Duct Dilation - 08/22/2018- US MRI showed- Common bile duct dilatation up to 10 mm. No l arge stones seen within the common bile duct - management per GI Acute Transaminitis - Management Per GI # Acute Kidney injury- trended up today Cr 1.46 - management per PMD # Mild left hydronephrosis - shown on MRI abdomen - managements per PMD # SP Psych evaluation- that pt able to make own decisions. A total of 50 minutes of face to face time was spent speaking with the patient of which greater than 50% was spent in counseling and coordination of care and the detailed question and answer session. Dw staff.Patient is willing to continue with androgen deprivation therapy; he is ok wit to continue casodex, after 10 days of this will start Lupron Patient seen in collaboration with Dr Pardo Result Diagram: 08/23/18 1013 08/23/18 1013 Results 24hrs Laboratory Tests Test 08/23/18 10:13 White Blood Count 5.0 Red Blood Count 2.68 L Hemoglobin 7.8 L Hematocrit 25.6 L Mean Corpuscular Volume 95.5 Mean Corpuscular Hemoglobin 29.1 Mean Corpuscular Hemoglobin Concent 30.5 L Red Cell Distribution Width 16.5 H Platelet Count 234 Mean Platelet Volume 10.3 Immature Granulocytes % 2.600 H Neutrophils % 58.1 Lymphocytes % 27.8 Monocytes % 9.7 Eosinophils % 1.6 Basophils % 0.2 Nucleated Red Blood Cells % 0.0 Immature Granulocytes # 0.130 H Neutrophils # 2.9 Lymphocytes # 1.4 Monocytes # 0.5 Eosinophils # 0.1 Basophils # 0.0 Nucleated Red Blood Cells # 0.0 Sodium Level 141 Potassium Level 3.8 Chloride Level 110 Carbon Dioxide Level 22 Anion Gap 9 Blood Urea Nitrogen 24 H Creatinine 1.23 Est Glomerular Filtrat Rate mL/min 58 L Glucose Level 126 Calcium Level 9.2 Consultation Date/Type/Reason Admit Date/Time Aug 16, 2018 at 10:30 pm Initial Consult Date 08/18/18 Type of Consult oncology Reason for Consultation Prostate Cancer Requesting Provider: MILLY LABOY MD 24 HR Interval Summary Free Text/Dictation - denies any pain - 08/22/2018- US abdomen showed Common Bile Duct Dilation - 08/22/2018- US MRI showed- Common bile duct dilatation up to 10 mm. No large stones seen within the common bile duct No New events reported last night Detailed Summary Eyes: no complaints ENT: no complaints Respiratory: no complaints Cardiovascular: no complaints Gastrointestinal: no complaints Genitourinary: no complaints Musculoskeletal: restricted range of motion Skin: no complaints Neurologic: no complaints Endocrine: no complaints Exam/Review of Systems Vital Signs Vitals Vital Signs Date Temp Pulse Resp B/P (MAP) Pulse Ox O2 O2 Flow FiO2 Time Delivery Rate 08/23/18 97.6 72 18 110/63 96 Room Air 07:45 (79) Intake and Output 08/22/18 08/22/18 08/23/18 1414:59 22:59 06:59 IntakeIntake Total 820 ml 240 ml 300 ml OutputOutput Total 600 ml 200 ml 800 ml BalanceBalance 220 ml 40 ml -500 ml Exam Constitutional: alert, well developed Psych: nl mood/affect Head: atraumatic Eyes: nl conjunctiva, EOMI, nl lids, nl sclera ENMT: nl external ears & nose Neck: non-tender Respiratory: clear to auscultation (bilaterally) Cardiovascular: nl pulses, other Gastrointestinal: soft, non-tender Musculoskeletal: muscle weakness Extremities: normal pulses Neurological: nl speech, other (alert/responsive) Skin: nl turgor Medications Medications Current Medications Pantoprazole (Protonix Tab) 40 mg DAILY@06 PO Last administered on 08/23/18at 05:45; Admin Dose 40 MG; Start 08/17/18 at 06:00 Oxycodone/ Acetaminophen (Percocet (5/ 325)) 2 tab Q6H PRN PO PAIN LEVEL 6-10 Last administered on 08/23/18 05:46; Admin Dose 2 TAB; Start 08/17/18 at 01:00 Oxycodone/ Acetaminophen (Percocet (5/ 325)) 1 tab Q6H PRN PO MODERATE PAIN LEVEL 4-6; Start 08/17/18 at 01:00 Folic Acid (Folic Acid) 1 mg DAILY PO Last administered on 08/23/18 09:25; Admin Dose 1 MG; Start 08/17/18 at 09:00 Multivitamins/ Minerals (Theragran-M) 1 tab DAILY PO Last administered on 08/23/18 09:25; Admin Dose 1 TAB; Start 08/17/18 at 09:00 Thiamine HCl (Vitamin B1) 100 mg DAILY PO Last administered on 08/23/18 09:25; Admin Dose 100 MG; Start 08/17/18 at 09:00 Polyethylene Glycol (Miralax) 17 gm DAILY PRN PO CONSTIPATION; Start 08/17/18 at 01:00 Metoprolol Tartrate (Lopressor) 50 mg BID PO Last administered on 08/22/18 20:32; Admin Dose 50 MG; Start 08/17/18 at 09:00 Ferrous Sulfate (Ferrous Sulfate (Ec)) 325 mg TID PO Last administered on 08/23/18 09:25; Admin Dose 325 MG; Start 08/17/18 at 09:00 Hydralazine HCl (Apresoline) 25 mg TID PO Last administered on 08/22/18 20:32; Admin Dose 25 MG; Start 08/17/18 at 09:00 Tamsulosin HCl (Flomax) 0.4 mg HS PO Last administered on 08/22/18 20:30; Admin Dose 0.4 MG; Start 08/17/18 at 21:00 Famotidine (Pepcid) 20 mg DAILY PO Last administered on 08/23/18 09:25; Admin Dose 20 MG; Start 08/17/18 at 09:00 Magnesium Hydroxide (Milk Of Mag) 30 ml DAILY PRN PO CONSTIPATION; Start 08/17/18 at 01:00 Acetaminophen (Tylenol Tab) 650 mg Q6H PRN PO MILD PAIN(1-3)OR ELEVATED TEMP; Start 08/17/18 at 01:00 Ondansetron HCl (Zofran Inj) 4 mg Q8 PRN IV NAUSEA AND/OR VOMITING; Start 08/17/18 at 01:00 Senna (Senokot) 2 tab BID PRN PO CONSTIPATION; Start 08/17/18 at 01:00 Zolpidem Tartrate (Ambien) 5 mg HS PRN PO INSOMNIA Last administered on at 21:49; Admin Dose 5 MG; Start 08/17/18 at 01:00 Tramadol HCl (Ultram) 50 mg TID PRN PO PAIN LEVEL 1-5 Last administered on 08/19/18 04:40; Admin Dose 50 MG; Start 08/17/18 at 01:00 Miscellaneous Information Patients own medicat... BID@1000,1600 XX ; Start 08/17/18 at 10:00 Bicalutamide (Casodex) 50 mg DAILY PO Last administered on 08/23/18at 09:27; Admin Dose 50 MG; Start 08/18/18 at 16:30 Morphine Sulfate (morphine) 6 mg Q4H PRN PO SEVERE PAIN LEVEL 7-10 Last administered on 08/22/18at 22:16; Admin Dose 6 MG; Start 08/21/18 at 17:30 JOSE CHUN Aug 23, 2018 1:27 pm
[2018-08-23 14:29] VITALS: BP 100/59; PULSE 73; RESP 16
--- NOTE | 2018-08-23 15:47 | NUR ---
MD ORDER TO FF UP WITH DR. MAI AND BETHANY FAXED TO OFFICES OF THE [facility]. Addendum: 08/23/18 at 1548 by THUY MOURA CM Amended: Links added.
--- NOTE | 2018-08-23 15:53 | PN ---
Date/Time of Note Date/Time of Note DATE: 08/23/18 TIME: 15:51 Assessment/Plan VTE Prophylaxis Risk score (from Ns)>0 risk: 8 SCD applied (from Ns): Yes Pharmacological prophylaxis: NA/contraindicated Pharm contraindication: low risk/ambulating Lines/Catheters IV [facility]ter [facility]from [facility] Peripheral IV Urinary Cath still in place: No Assessment/Plan Hospital Course 72 y/o with 1. AMS, metabolic encephalopathy ? per pscy has capcity 2. Lymphadenopathy concerning for malignancy unknown primary source, more likely prostate cancer, PSA 1000. 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 Acute kidney injury, better 4. Severe anemia 5. Recent weight loss 6. Severe malnourishment 7. Thrombocytopenia 8. History of subdural hematoma 9. History of hepatitis C 10. History of alcoholism 11. Hypertension 12. Mild left hydronephrosis with obstructing distal left ureteral calculus 13 Chronic gastritis s/p EGD Plan -pt has capacity per pscy - MRCP neg - decrease BP meds - cw casodex/flomax - spoke to Dr Nguyen will do biopsy as OPD in office - cw PPI - Bone scan +multiple mets - PT eval If cleared by PT> WILL dc home tmw> pt refusing SNIF Result Diagram: 08/23/18 1013 08/23/18 1013 Results 24hrs Laboratory Tests Test 08/23/18 10:13 White Blood Count 5.0 Red Blood Count 2.68 L Hemoglobin 7.8 L Hematocrit 25.6 L Mean Corpuscular Volume 95.5 Mean Corpuscular Hemoglobin 29.1 Mean Corpuscular Hemoglobin Concent 30.5 L Red Cell Distribution Width 16.5 H Platelet Count 234 Mean Platelet Volume 10.3 Immature Granulocytes % 2.600 H Neutrophils % 58.1 Lymphocytes % 27.8 Monocytes % 9.7 Eosinophils % 1.6 Basophils % 0.2 Nucleated Red Blood Cells % 0.0 Immature Granulocytes # 0.130 H Neutrophils # 2.9 Lymphocytes # 1.4 Monocytes # 0.5 Eosinophils # 0.1 Basophils # 0.0 Nucleated Red Blood Cells # 0.0 Sodium Level 141 Potassium Level 3.8 Chloride Level 110 Carbon Dioxide Level 22 Anion Gap 9 Blood Urea Nitrogen 24 H Creatinine 1.23 Est Glomerular Filtrat Rate mL/min 58 L Glucose Level 126 Calcium Level 9.2 Subjective 24 Hr Interval Summary Free Text/Dictation MRCP negative pain in rt leg refused PT today Exam/Review of Systems Vital Signs Vitals Vital Signs Date Temp Pulse Resp B/P (MAP) Pulse Ox O2 O2 Flow FiO2 Time Delivery Rate 08/23/18 98.0 73 16 100/59 100 Room Air 14:29 (73) Intake and Output 08/22/18 08/22/18 08/23/18 1414:59 22:59 06:59 IntakeIntake Total 820 ml 240 ml 300 ml OutputOutput Total 600 ml 200 ml 800 ml BalanceBalance 220 ml 40 ml -500 ml Exam Neck: supple Respiratory: clear to auscultation Cardiovascular: regular rate and rhythm Gastrointestinal: soft, bowel sounds Extremities: calf tenderness Medications Medications Current Medications Pantoprazole (Protonix Tab) 40 mg DAILY@06 PO Last administered on 08/23/18at 05:45; Admin Dose 40 MG; Start 08/17/18 at 06:00 Oxycodone/ Acetaminophen (Percocet (5/ 325)) 2 tab Q6H PRN PO PAIN LEVEL 6-10 Last administered on 08/23/18at 05:46; Admin Dose 2 TAB; Start 08/17/18 at 01:00 Oxycodone/ Acetaminophen (Percocet (5/ 325)) 1 tab Q6H PRN PO MODERATE PAIN LEVEL 4-6; Start 08/17/18 at 01:00 Folic Acid (Folic Acid) 1 mg DAILY PO Last administered on 08/23/18at 09:25; Admin Dose 1 MG; Start 08/17/18 at 09:00 Multivitamins/ Minerals (Theragran-M) 1 tab DAILY PO Last administered on 08/23/18at 09:25; Admin Dose 1 TAB; Start 08/17/18 at 09:00 Thiamine HCl (Vitamin B1) 100 mg DAILY PO Last administered on 08/23/18at 09:25; Admin Dose 100 MG; Start 08/17/18 at 09:00 Polyethylene Glycol (Miralax) 17 gm DAILY PRN PO CONSTIPATION; Start 08/17/18 at 01:00 Metoprolol Tartrate (Lopressor) 50 mg BID PO Last administered on 08/22/18at 20:32; Admin Dose 50 MG; Start 08/17/18 at 09:00 Ferrous Sulfate (Ferrous Sulfate (Ec)) 325 mg TID PO Last administered on 08/23/18 14:15; Admin Dose 325 MG; Start 08/17/18 at 09:00 Tamsulosin HCl (Flomax) 0.4 mg HS PO Last administered on 08/22/18 20:30; Admin Dose 0.4 MG; Start 08/17/18 at 21:00 Famotidine (Pepcid) 20 mg DAILY PO Last administered on 08/23/18 09:25; Admin Dose 20 MG; Start 08/17/18 at 09:00 Magnesium Hydroxide (Milk Of Mag) 30 ml DAILY PRN PO CONSTIPATION; Start 08/17/18 at 01:00 Acetaminophen (Tylenol Tab) 650 mg Q6H PRN PO MILD PAIN(1-3)OR ELEVATED TEMP; Start 08/17/18 at 01:00 Ondansetron HCl (Zofran Inj) 4 mg Q8 PRN IV NAUSEA AND/OR VOMITING; Start 08/17/18 at 01:00 Senna (Senokot) 2 tab BID PRN PO CONSTIPATION; Start 08/17/18 at 01:00 Zolpidem Tartrate (Ambien) 5 mg HS PRN PO INSOMNIA Last administered on 08/20/18at 21:49; Admin Dose 5 MG; Start 08/17/18 at 01:00 Tramadol HCl (Ultram) 50 mg TID PRN PO PAIN LEVEL 1-5 Last administered on 08/19/18at 04:40; Admin Dose 50 MG; Start 08/17/18 at 01:00 Miscellaneous Information Patients own medicat... BID@1000,1600 XX ; Start 08/17/18 at 10:00 Bicalutamide (Casodex) 50 mg DAILY PO Last administered on 08/23/18at 09:27; Admin Dose 50 MG; Start 08/18/18 at 16:30 Morphine Sulfate (morphine) 6 mg Q4H PRN PO SEVERE PAIN LEVEL 7-10 Last a dministered on 08/22/18at 22:16; Admin Dose 6 MG; Start 08/21/18 at 17:30 VALDO HERNANDEZ MD Aug 23, 2018 15:53
--- NOTE | 2018-08-23 18:44 | NUR ---
ON ORAL CASODEX CHEMO PRECAUTIONS FOR PROSTATE CA PPE USED AND NO ASE. NOTED AT TIMES PT. NON COMPLIANT OF CARE REGARDING PHYSICAL THERAPY REFUSED 3X. WITH GOOD APPETITE NOTED EXTRA FLUIDS ENCOURAGED, NO SOB, NO ACUTE DISTRESS AND VS WITHIN RANGE. POSSIBLE D/C HOME TOMORROW, REFUSED LONGTERM FACILITY AND ALL NEEDS MET.
[2018-08-23 20:00] VITALS: BP 123/62; PULSE 74; RESP 18
[2018-08-23] MEDS: TAMSULOSIN (SR) 0.4 MG CAP PO SCH (20:42)
[2018-08-24 02:00] VITALS: BP 117/62; PULSE 71; RESP 18
[2018-08-24] MEDS: OXYCODONE/ACETAMINOPHEN (5/325) TAB PO PRN ×4 (02:49→21:06)
[2018-08-24] MEDS: PANTOPRAZOLE (EC) 40 MG TAB PO SCH (06:03)
--- NOTE | 2018-08-24 06:17 | NUR ---
Pt alert and oriented, however is forgetful. All needs attended to. No sign of distress noted. Fall precautions maintained. Call light within reach
[2018-08-24 08:17] VITALS: BP 126/70; PULSE 70; RESP 18
--- NOTE | 2018-08-24 08:30 | NUR ---
Pt cleared for activity per RN, patient in bed, refused PT evaluation due to just finished eating breakfast. Requests PT to follow up after lunch "that will be a good time" To follow up as time permits
[2018-08-24] MEDS: FOLIC ACID 1 MG TAB PO SCH (09:15)
[2018-08-24] MEDS: FERROUS SULFATE (EC) 325 MG TAB PO SCH ×3 (09:15→20:47)
[2018-08-24] MEDS: MULTIVITAMINS/MINERALS TAB PO SCH (09:15)
[2018-08-24] MEDS: THIAMINE 100 MG TAB PO SCH (09:15)
[2018-08-24] MEDS: FAMOTIDINE 20 MG TAB PO SCH (09:15)
[2018-08-24] MEDS: METOPROLOL 50 MG TAB PO SCH ×2 (09:16→20:46)
[2018-08-24] MEDS: BICALUTAMIDE 50 MG TAB PO SCH (09:16)
[2018-08-24] MEDS: [UNRECOGNIZED DRUG - OTHER] XX SCH ×2 (10:00→16:00)
--- NOTE | 2018-08-24 10:00 | NUR ---
SS Note: Consult Pt referred to SW to assess living situation. The patient is a 72-year-old male admitted due to kidney failure. SW met with pt at bedside for assessment. Pt awake, alert, and oriented x4. Pt irritable and somewhat cooperative with SW. Pt reported he is single and has adult children, but they are not involved but has good support from his siblings. Pt verbally appointed his brother, Perez Griffith , as surrogate decision maker. Per pt, address on facesheet is his ex-'s address. Pt lives in a different address with his brother and sister. Normally, pt is independent with ADL's and ambulates with a FWW or cane as needed. SW explored pt's wishes regarding rehab placement. Pt refusing SNF and prefers Home with HH. Pt provided consent for SW to speak with his brother to find out if they will be able to assist pt if d/c home. SW spoke with brother, Perez, and he did confirm pt lives with them at Address: [address] [place] [address]. Per brother, they can help pt with basic needs but he will need pt to be able to get up and go to the restroom on his own. Brother would like for pt to go to rehabilitation. Per brother, pt was previously d/c from a SNF Jun 2018. Per brother, it is common behavior for pt to refuse SNF. Brother willing to speak with pt and encourage him to accept rehab. JAMIE spoke with CM and recommended ARU. Possibility pt will be more accepting if rehab can be provided at the hospital. Addendum: 08/24/18 at 1607 by WYATT MONTIEL Attending not recommending ARU and stated pt will be better qualified for SNF. SW had a meeting with pt and pt's brother who participated over the phone. SW encouraged SNF placement and explained [facility] contracted SNFs. Pt was agreeable to SNF after speaking with his brother. Pt and his brother requesting placement closer to [place] so brother can easily visit. Brother and pt chose [facility] from list of [facility] contracted SNFs. CM aware.
--- NOTE | 2018-08-24 10:23 | CONS ---
Date/Time of Note Date/Time of Note DATE: 08/24/18 TIME: 10:20 Assessment/Plan Assessment/Plan Hospital Course 72 yo male 1. Anemia, which is a combination of metastasis to the bone and also gastrointestinal bleed. 2. Renal insufficiency. 3. Malnutrition. 4. Prostate cancer with mets to the bone noted in bone scan 5. Hypertension. 6. Hepatitis C. 7. Alcoholism. 8. Gastritis 9. S/P EGD 10. Transaminitis -alk phos elevated likely due to bone mets 11. Weight loss of 80 lbs over 3 months 12. Elevated alk phos secondary to bone mets 13. Fatty liver 14. Cholelithiasis 15. Dilated CBD at 10mm 16. Elevated CEA (AFP and CA 19-9 wnl) US of abd: Fatty infiltration of the liver.. Cholelithiasis. Dilated CBD. 10mm Multiple simple cysts in the right kidney MRCP 08/22: 1. Limited evaluation due to motion artifact. 2. Cholelithiasis. 3. Common bile duct dilatation up to 10 mm. No large stones seen within the common bile duct, however evaluation is severely limited by motion artifact. 4. Mild left hydronephrosis, as seen on prior ultrasound. 5. Heterogeneous signal of the visualized bones. Correlate with recent nuclear medicine bone scan. Plan FOB pending Continue PPI WE will monitor LFTs and for clinical indication of bile duct obstruction, currently total bili wnl and pt denies abd pain and neg Tracey's sign Pt examined and plan of care discussed with Dr. Vora Result Diagram: 08/23/18 1013 08/23/18 1013 Consultation Date/Type/Reason Admit Date/Time Aug 16, 2018 at 22:30 Initial Consult Date 08/18/18 Requesting Provider: MILLY LABOY MD 24 HR Interval Summary Free Text/Dictation Denies abd pain, neg tracey's sign. NO n/v. Exam/Review of Systems Vital Signs Vitals Vital Signs Date Temp Pulse Resp B/P (MAP) Pulse Ox O2 O2 Flow FiO2 Time Delivery Rate 08/24/18 98.1 70 18 126/70 99 08:17 (88) 08/23/18 Room Air 14:29 Intake and Output 08/23/18 08/23/18 08/24/18 1414:59 22:59 06:59 IntakeIntake Total 600 ml 300 ml OutputOutput Total 750 ml 150 ml 700 ml BalanceBalance -150 ml 150 ml -700 ml Exam Constitutional: alert, oriented Psych: no complaints Head: normocephalic Eyes: PERRL Respiratory: clear to auscultation Gastrointestinal: soft, non-tender Musculoskeletal: muscle weakness Neurological: nl mental status Medications Medications Current Medications Pantoprazole (Protonix Tab) 40 mg DAILY@06 PO Last administered on 08/24/18 06:03; Admin Dose 40 MG; Start 08/17/18 at 06:00 Oxycodone/ Acetaminophen (Percocet (5/ 325)) 2 tab Q6H PRN PO PAIN LEVEL 6-10 Last administered on 08/24/18 09:14; Admin Dose 2 TAB; Start 08/17/18 at 01:00 Oxycodone/ Acetaminophen (Percocet (5/ 325)) 1 tab Q6H PRN PO MODERATE PAIN LEVEL 4-6 Last administered on 08/24/18at 02:49; Admin Dose 1 TAB; Start 08/17/18 at 01:00 Folic Acid (Folic Acid) 1 mg DAILY PO Last administered on 08/24/18 09:15; Admin Dose 1 MG; Start 08/17/18 at 09:00 Multivitamins/ Minerals (Theragran-M) 1 tab DAILY PO Last administered on 08/24/18 09:15; Admin Dose 1 TAB; Start 08/17/18 at 09:00 Thiamine HCl (Vitamin B1) 100 mg DAILY PO Last administered on 08/24/18 09:15; Admin Dose 100 MG; Start 08/17/18 at 09:00 Polyethylene Glycol (Miralax) 17 gm DAILY PRN PO CONSTIPATION; Start 08/17/18 at 01:00 Metoprolol Tartrate (Lopressor) 50 mg BID PO Last administered on 08/24/18 09:16; Admin Dose 50 MG; Start 08/17/18 at 09:00 Ferrous Sulfate (Ferrous Sulfate (Ec)) 325 mg TID PO Last administered on 08/24/18 09:15; Admin Dose 325 MG; Start 08/17/18 at 09:00 Tamsulosin HCl (Flomax) 0.4 mg HS PO Last administered on 08/23/18at 20:42; Admin Dose 0.4 MG; Start 08/17/18 at 21:00 Famotidine (Pepcid) 20 mg DAILY PO Last administered on 08/24/18 09:15; Admin Dose 20 MG; Start 08/17/18 at 09:00 Magnesium Hydroxide (Milk Of Mag) 30 ml DAILY PRN PO CONSTIPATION; Start 08/17/18 at 01:00 Acetaminophen (Tylenol Tab) 650 mg Q6H PRN PO MILD PAIN(1-3)OR ELEVATED TEMP; Start 08/17/18 at 01:00 Ondansetron HCl (Zofran Inj) 4 mg Q8 PRN IV NAUSEA AND/OR VOMITING; Start 08/17/18 at 01:00 Senna (Senokot) 2 tab BID PRN PO CONSTIPATION Last administered on 08/24/18 06:03; Admin Dose 2 TAB; Start 08/17/18 at 01:00 Zolpidem Tartrate (Ambien) 5 mg HS PRN PO INSOMNIA Last administered on 08/20/18 21:49; Admin Dose 5 MG; Start 08/17/18 at 01:00 Tramadol HCl (Ultram) 50 mg TID PRN PO PAIN LEVEL 1-5 Last administered on 08/19/18 04:40; Admin Dose 50 MG; Start 08/17/18 at 01:00 Miscellaneous Information Patients own medicat... BID@1000,1600 XX ; Start 08/17/18 at 10:00 Bicalutamide (Casodex) 50 mg DAILY PO Last administered on 08/24/18 09:16; Admin Dose 50 MG; Start 08/18/18 at 16:30 Morphine Sulfate (morphine) 6 mg Q4H PRN PO SEVERE PAIN LEVEL 7-10 Last administered on 08/22/18at 22:16; Admin Dose 6 MG; Start 08/21/18 at 17:30 DAXA BURCH Aug 24, 2018 10:23
--- NOTE | 2018-08-24 11:30 | NUR ---
PT evaluation Therapy day number 1 Evaluation Start Time 11:30 Evaluation End Time 12:00 Evaluation Total Time 30 min Subjective Current complaint of pain Pain Scale FLACC Pain Intensity 5 (0-10) Patient Stated Goal for Pain Relief 0 (0-10) Pain Level Comment low back pain, unspecified LE pain Pre Treatment Vital Signs Stable Yes Supine to Sit Modified Independent Transfer Sit to Stand Ability Modified Independent Bed Mobility Sit to Supine Modified Independent Bed Transfer Ability Modified Independent Chair Transfer Ability Modified Independent Gait Assist Levels Minimum Assist Assistive Devices None Ambulation Distance 25 feet Additional Gait Comments CLOTHES DRIER REPAIRER min A requires UE support Static Sitting Balance Good Dynamic Sitting Balance Good Standing Static Balance Fair Dynamic Standing Balance Poor Safety Judgement Fair Activity Tolerance Fair Equipment Present A pump IV pump Post Treatment Pain Intensity 5 0-10 Additional Post Treatment Comment See note Total Minutes 30 Total Units 2 PT Technical Record Comment 72 yo male transferred from [facility], found to have metastatic disease with metastasis to bone and lungs. Abdominal MRI indicates cholelithiasis, Lumbar Xray indicates extensive sclerotic metastases, mild anterolisthesis at L4-L5, probable mild anterior height loss of L1-L2, mild appearing lower lumbar spine facet hypertrophy PMH: hypertension PLOF: Patient previous reported living in [facility] with unknown number of stairs to enter, Lives with family who are able to assist as necessary. Pt ambulates with FWW and 4WW within home Precaution: fall risk S: Pt in bed, agreeable to evaluation with encouragement O: PT evaluation completed, pt returned back to bed following therapy intervention with call light within reach and bed alarm activated. Pt agitated throughout PT evaluation, verbally abusive to this PT and noncompliant with instruction despite education. Spoke to RN regarding pt response to activity and PT plan of care A: Patient presents with fair mobility throughout and would benefit from use of FWW due to poor standing dynamic balance. Patient presents with non-compliance throughout with poor receptiveness to education and instruction. Patient verbally abusive to this PT with constant expletives throughout. Due to poor compliance, receptiveness, and limited potential for functional improvement, patient not a candidate for skilled inpatient PT at this time. P: Discharge physical therapy Recommend: home with family assistance when medically cleared by MD. No DME required as patient reported owning FWW.
--- NOTE | 2018-08-24 11:45 | PN ---
Date/Time of Note Date/Time of Note DATE: 08/24/18 TIME: 11:45 Assessment/Plan VTE Prophylaxis Risk score (from Ns)>0 risk: 2 SCD applied (from [facility] [place] Yes Pharmacological prophylaxis: NA/contraindicated Pharm contraindication: bleeding Lines/Catheters IV C[facility]ter Type (from [facility] Saline Lock Urinary Cath still in place: No Assessment/Plan Hospital Course 1. AMS, metabolic encephalopathy 2. Lymphadenopathy concerning for malignancy unknown primary source, more likely prostate cancer, PSA 1000. 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 Acute kidney injury, better 4. Severe anemia 5. Recent weight loss 6. Severe malnourishment 7. Thrombocytopenia 8. History of subdural hematoma 9. History of hepatitis C 10. History of alcoholism 11. Hypertension 12. Mild left hydronephrosis with obstructing distal left ureteral calculus Assessment/Plan -pt has capacity per pscy - MRCP neg - decrease BP meds - cw casodex/flomax - spoke to Dr Nguyen will do biopsy as OPD in office - cw PPI - Bone scan +multiple mets - PT eval pt need SNF -social. service -spoke to brother Demetrius, they cannot help Result Diagram: 08/23/18 1013 08/23/18 1013 Subjective 24 Hr Interval Summary Respiratory: no complaints Musculoskeletal: bone/joint pain, restricted range of motion (lower leg) Exam/Review of Systems Vital Signs Vitals Vital Signs Date Temp Pulse Resp B/P (MAP) Pulse Ox O2 O2 Flow FiO2 Time Delivery Rate 08/24/18 98.1 70 18 126/70 99 08:17 (88) 08/23/18 Room Air 14:29 Intake and Output 08/23/18 08/23/18 08/24/18 1414:59 22:59 06:59 IntakeIntake Total 600 ml 300 ml OutputOutput Total 750 ml 150 ml 700 ml BalanceBalance -150 ml 150 ml -700 ml Exam Constitutional: alert Respiratory: diminished breath sounds Cardiovascular: regular rate and rhythm Musculoskeletal: muscle weakness Medications Medications Current Medications Pantoprazole (Protonix Tab) 40 mg DAILY@06 PO Last administered on 08/24/18at 06:03; Admin Dose 40 MG; Start 08/17/18 at 06:00 Oxycodone/ Acetaminophen (Percocet (5/ 325)) 2 tab Q6H PRN PO PAIN LEVEL 6-10 Last administered on 08/24/18 09:14; Admin Dose 2 TAB; Start 08/17/18 at 01:00 Oxycodone/ Acetaminophen (Percocet (5/ 325)) 1 tab Q6H PRN PO MODERATE PAIN LEVEL 4-6 Last administered on 08/24/18 02:49; Admin Dose 1 TAB; Start 08/17/18 at 01:00 Folic Acid (Folic Acid) 1 mg DAILY PO Last administered on 08/24/18 09:15; Admin Dose 1 MG; Start 08/17/18 at 09:00 Multivitamins/ Minerals (Theragran-M) 1 tab DAILY PO Last administered on 08/24/18 09:15; Admin Dose 1 TAB; Start 08/17/18 at 09:00 Thiamine HCl (Vitamin B1) 100 mg DAILY PO Last administered on 08/24/18 09:15; Admin Dose 100 MG; Start 08/17/18 at 09:00 Polyethylene Glycol (Miralax) 17 gm DAILY PRN PO CONSTIPATION; Start 08/17/18 at 01:00 Metoprolol Tartrate (Lopressor) 50 mg BID PO Last administered on 08/24/18 09:16; Admin Dose 50 MG; Start 08/17/18 at 09:00 Ferrous Sulfate (Ferrous Sulfate (Ec)) 325 mg TID PO Last administered on 08/24/18 09:15; Admin Dose 325 MG; Start 08/17/18 at 09:00 Tamsulosin HCl (Flomax) 0.4 mg HS PO Last administered on 08/23/18 20:42; Admin Dose 0.4 MG; Start 08/17/18 at 21:00 Famotidine (Pepcid) 20 mg DAILY PO Last administered on 08/24/18 09:15; Admin Dose 20 MG; Start 08/17/18 at 09:00 Magnesium Hydroxide (Milk Of Mag) 30 ml DAILY PRN PO CONSTIPATION; Start 08/17/18 at 01:00 Acetaminophen (Tylenol Tab) 650 mg Q6H PRN PO MILD PAIN(1-3)OR ELEVATED TEMP; Start 08/17/18 at 01:00 Ondansetron HCl (Zofran Inj) 4 mg Q8 PRN IV NAUSEA AND/OR VOMITING; Start 08/17/18 at 01:00 Senna (Senokot) 2 tab BID PRN PO CONSTIPATION Last administered on 08/24/18 06:03; Admin Dose 2 TAB; Start 08/17/18 at 01:00 Zolpidem Tartrate (Ambien) 5 mg HS PRN PO INSOMNIA Last administered on 08/20/18 21:49; Admin Dose 5 MG; Start 08/17/18 at 01:00 Tramadol HCl (Ultram) 50 mg TID PRN PO PAIN LEVEL 1-5 Last administered on 08/19/18 04:40; Admin Dose 50 MG; Start 08/17/18 at 01:00 Miscellaneous Information Patients own medicat... BID@1000,1600 XX ; Start 06/25 at 10:00 Bicalutamide (Casodex) 50 mg DAILY PO Last administered on 08/24/18 09:16; Admin Dose 50 MG; Start 08/18/18 at 16:30 Morphine Sulfate (morphine) 6 mg Q4H PRN PO SEVERE PAIN LEVEL 7-10 Last administered on 08/22/18 22:16; Admin Dose 6 MG; Start 08/21/18 at 17:30 DENNIS YOON Aug 24, 2018 11:45
--- NOTE | 2018-08-24 12:00 | NUR ---
janessa Gudino is here and ask her to call patient's brother regarding his reqest.she said''ok i will talk to him''
--- NOTE | 2018-08-24 12:12 | NUR ---
SPOKE TO CHRISTINA COLLINS, PATIENT NEEDS TO GO TO SNF, GUSTAV[facility] SILVER REFUSED BY PATIENT, REFERRED TO [facility] PENDING ACCEPTANCE. Addendum: 08/24/18 at 1213 by THUY MOURA Amended: Links added. Addendum: 08/24/18 at 1357 by THUY MOURA PER DINESH WYATT WANTS TO GO TO SNF NEAR HIS HOUSE IN [place]
--- NOTE | 2018-08-24 12:38 | CONS ---
Date/Time of Note Date/Time of Note DATE: 08/24/18 TIME: 12:36 Assessment/Plan Assessment/Plan Hospital Course 72 yo transferred from [facility] with widely metastatic disease to bones (confirmed by bone scan) and lung as well as RP LAD #prostate ca -w/u shows PSA >1000 -this is very consistent with met prostate ca at this point highest on my list is that this is met prostate ca ideally would get tissue biopsy for confirmation of diagnosis, however pt has not been very compliant with our recommendations for work-up and at times has denied that he has prostate ca, therefore in order not to delay treatment he has been started on casodex as of 08/18/18 -cont Casodex 50 mg daily x 10 days then can start Lupron as out pt also ideally would get Xgeva or zometa for bony mets, given renal failure bisphosphonate will not be given Earlier this week I discussed the above with the patient and he denied that he has cancer. he said " you are saying that so you can do treatments and make money like everyone else here" I tried to explain to him otherwise. At this point, pt does not seem to have mental capacity to make decisions nor does he have understanding into his several serious health issues had Psych eval and felt that pt able to make own decisions. 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 and he seemed to accept this and is willing to continue with androgen deprivation therapy he is ok with continuation of casodex, after 10 days of this will start Lupron, if he is still hospitalized will see if we can administer in house #anemia multifactorial--CRI, chronic disease from underlying malignancy Result Diagram: 08/23/18 1013 08/23/18 1013 Consultation Date/Type/Reason Admit Date/Time Aug 16, 2018 at 22:30 Initial Consult Date 08/18/18 Requesting Provider: MILLY LABOY MD 24 HR Interval Summary Free Text/Dictation pt resting Exam/Review of Systems Vital Signs Vitals Vital Signs Date Temp Pulse Resp B/P (MAP) Pulse Ox O2 O2 Flow FiO2 Time Delivery Rate 08/24/18 98.1 70 18 126/70 99 08:17 (88) 08/23/18 Room Air 14:29 Intake and Output 08/23/18 08/23/18 08/24/18 1515:00 23:00 07:00 IntakeIntake Total 600 ml 300 ml OutputOutput Total 750 ml 150 ml 700 ml BalanceBalance -150 ml 150 ml -700 ml Exam Constitutional: frail Psych: no complaints, nl mood/affect Head: normocephalic, atraumatic Eyes: nl conjunctiva, EOMI, nl lids, nl sclera, PERRL Respiratory: clear to auscultation, normal air movement Musculoskeletal: nl extremities to inspection, nl gait and stance Neurological: BRACE MAKER II-XII intact, nl mental status, nl speech, nl strength Medications Medications Current Medications Pantoprazole (Protonix Tab) 40 mg DAILY@06 PO Last administered on 08/24/18 06:03; Admin Dose 40 MG; Start 08/17/18 at 06:00 Oxycodone/ Acetaminophen (Percocet (5/ 325)) 2 tab Q6H PRN PO PAIN LEVEL 6-10 Last administered on 08/24/18 09:14; Admin Dose 2 TAB; Start 08/17/18 at 01:00 Oxycodone/ Acetaminophen (Percocet (5/ 325)) 1 tab Q6H PRN PO MODERATE PAIN LEVEL 4-6 Last administered on 08/24/18 02:49; Admin Dose 1 TAB; Start 08/17/18 at 01:00 Folic Acid (Folic Acid) 1 mg DAILY PO Last administered on 08/24/18 09:15; Admin Dose 1 MG; Start 08/17/18 at 09:00 Multivitamins/ Minerals (Theragran-M) 1 tab DAILY PO Last administered on 08/24/18 09:15; Admin Dose 1 TAB; Start 08/17/18 at 09:00 Thiamine HCl (Vitamin B1) 100 mg DAILY PO Last administered on 08/24/18 09:15; Admin Dose 100 MG; Start 08/17/18 at 09:00 Polyethylene Glycol (Miralax) 17 gm DAILY PRN PO CONSTIPATION; Start 08/17/18 at 01:00 Metoprolol Tartrate (Lopressor) 50 mg BID PO Last administered on 08/24/18 09:16; Admin Dose 50 MG; Start 08/17/18 at 09:00 Ferrous Sulfate (Ferrous Sulfate (Ec)) 325 mg TID PO Last administered on 08/24/18 09:15; Admin Dose 325 MG; Start 08/17/18 at 09:00 Tamsulosin HCl (Flomax) 0.4 mg HS PO Last administered on 08/23/18 20:42; Admin Dose 0.4 MG; Start 08/17/18 at 21:00 Famotidine (Pepcid) 20 mg DAILY PO Last administered on 08/24/18 09:15; Admin Dose 20 MG; Start 08/17/18 at 09:00 Magnesium Hydroxide (Milk Of Mag) 30 ml DAILY PRN PO CONSTIPATION; Start 08/17/18 at 01:00 Acetaminophen (Tylenol Tab) 650 mg Q6H PRN PO MILD PAIN(1-3)OR ELEVATED TEMP; Start 08/17/18 at 01:00 Ondansetron HCl (Zofran Inj) 4 mg Q8 PRN IV NAUSEA AND/OR VOMITING; Start 08/17/18 at 01:00 Senna (Senokot) 2 tab BID PRN PO CONSTIPATION Last administered on 08/24/18 06:03; Admin Dose 2 TAB; Start 08/17/18 at 01:00 Zolpidem Tartrate (Ambien) 5 mg HS PRN PO INSOMNIA Last administered on 08/20/18 21:49; Admin Dose 5 MG; Start 08/17/18 at 01:00 Tramadol HCl (Ultram) 50 mg TID PRN PO PAIN LEVEL 1-5 Last administered on 08/19/18 04:40; Admin Dose 50 MG; Start 08/17/18 at 01:00 Miscellaneous Information Patients own medicat... BID@1000,1600 XX ; Start 08/17/18 at 10:00 Bicalutamide (Casodex) 50 mg DAILY PO Last administered on 08/24/18 09:16; Admin Dose 50 MG; Start 08/18/18 at 16:30 Morphine Sulfate (morphine) 6 mg Q4H PRN PO SEVERE PAIN LEVEL 7-10 Last administered on 08/22/18 22:16; Admin Dose 6 MG; Start 08/21/18 at 17:30 WENDY SIMS Aug 24, 2018 12:38
--- NOTE | 2018-08-24 14:07 | NUR ---
DC PLANS: SNF PLACEMENT; PATIENT IS CAPITATED,: WILL REFER TO [facility] CONTRACTED SNFS; [facility],. [facility] [phone], WILL MAKE AN EXCLUSION. Addendum: 08/24/18 at 1409 by THUY MOURA CM Amended: Links added. Addendum: 08/24/18 at 1451 by THUY MOURA CM SNF REFERRAL TO [facility], [facility]
[2018-08-24 14:25] VITALS: BP 96/65; PULSE 62; RESP 18
[2018-08-24 16:03] VITALS: BP 102/56; PULSE 62
--- NOTE | 2018-08-24 18:30 | NUR ---
all needs met.no acute events.gave pain medication as reqested.call light within reach.bed alarm on.he is resting comfortably in bed.encouraged him to turn q 2 hours.
[2018-08-24 20:00] VITALS: BP 97/59; PULSE 66; RESP 18
[2018-08-24] MEDS: TAMSULOSIN (SR) 0.4 MG CAP PO SCH (20:47)
--- NOTE | 2018-08-24 20:54 | NUR ---
Pt refused night time medications. Dr Wong paged. Will continue w/ plan of care
[2018-08-25 02:00] VITALS: BP 114/67; PULSE 72; RESP 18
[2018-08-25] MEDS: PANTOPRAZOLE (EC) 40 MG TAB PO SCH (06:38)
--- NOTE | 2018-08-25 07:56 | CONS ---
Date/Time of Note Date/Time of Note DATE: 08/25/18 TIME: 07:55 Assessment/Plan Assessment/Plan Assessment/Plan 1. Anemia, which is a combination of metastasis to the bone and also gastrointestinal bleed. 2. Renal insufficiency. 3. Malnutrition. 4. Prostate cancer with mets to the bone noted in bone scan 5. Hypertension. 6. Hepatitis C. 7. Alcoholism. 8. Gastritis 9. S/P EGD 10. Transaminitis -alk phos elevated likely due to bone mets 11. Weight loss of 80 lbs over 3 months 12. Elevated alk phos secondary to bone mets 13. Fatty liver 14. Cholelithiasis 15. Dilated CBD at 10mm 16. Elevated CEA (AFP and CA 19-9 wnl) US of abd: Fatty infiltration of the liver.. Cholelithiasis. Dilated CBD. 10mm Multiple simple cysts in the right kidney MRCP 08/22: 1. Limited evaluation due to motion artifact. 2. Cholelithiasis. 3. Common bile duct dilatation up to 10 mm. No large stones seen within the common bile duct, however evaluation is severely limited by motion artifact. 4. Mild left hydronephrosis, as seen on prior ultrasound. 5. Heterogeneous signal of the visualized bones. Correlate with recent nuclear medicine bone scan. Plan FOB negative Continue PPI WE will monitor LFTs and for clinical indication of bile duct obstruction, currently total bili wnl and pt denies abd pain and neg Tracey's sign Oncology and follow-up Result Diagram: 08/25/18 0538 08/25/18 0538 Results 24hrs Laboratory Tests Test 08/24/18 22:30 08/25/18 05:38 Stool Occult Blood NEGATIVE White Blood Count 4.4 L Red Blood Count 2.54 L Hemoglobin 7.5 L Hematocrit 23.9 L Mean Corpuscular Volume 94.1 Mean Corpuscular Hemoglobin 29.5 Mean Corpuscular Hemoglobin Concent 31.4 L Red Cell Distribution Width 16.3 H Platelet Count 218 Mean Platelet Volume 10.2 Immature Granulocytes % 1.600 H Neutrophils % 58.9 Lymphocytes % 27.6 Monocytes % 9.6 Eosinophils % 2.1 Basophils % 0.2 Nucleated Red Blood Cells % 0.0 Immature Granulocytes # 0.070 H Neutrophils # 2.6 Lymphocytes # 1.2 Monocytes # 0.4 Eosinophils # 0.1 Basophils # 0.0 Nucleated Red Blood Cells # 0.0 Sodium Level 138 Potassium Level 4.3 Chloride Level 105 Carbon Dioxide Level 25 Anion Gap 8 Blood Urea Nitrogen 23 H Creatinine 1.22 Est Glomerular Filtrat Rate mL/min 59 L Glucose Level 115 Calcium Level 8.9 Consultation Date/Type/Reason Admit Date/Time Aug 16, 2018 at 22:30 Initial Consult Date 08/18/18 Requesting Provider: MILLY LABOY MD 24 HR Interval Summary Free Text/Dictation Complains of pain in the lower extremity Exam/Review of Systems Vital Signs Vitals Vital Signs Date Temp Pulse Resp B/P (MAP) Pulse Ox O2 O2 Flow FiO2 Time Delivery Rate 08/25/18 98.2 72 18 114/67 100 02:00 (83) 08/23/18 Room Air 14:29 Intake and Output 08/24/18 08/24/18 08/25/18 1515:00 23:00 07:00 IntakeIntake Total 720 ml 360 ml OutputOutput Total 600 ml 300 ml 800 ml BalanceBalance 120 ml 60 ml -800 ml Exam Constitutional: alert, oriented, well developed Psych: no complaints, nl mood/affect Head: normocephalic, atraumatic Eyes: nl conjunctiva, EOMI, nl lids, nl sclera, PERRL ENMT: nl external ears & nose, nl lips & teeth, nl nasal mucosa & septum Neck: supple, non-tender Respiratory: clear to auscultation, normal air movement Cardiovascular: regular rate and rhythm, nl pulses Gastrointestinal: soft, nl liver, spleen, non-tender Musculoskeletal: nl extremities to inspection, nl gait and stance Extremities: normal pulses Neurological: RADIOLOGY ASSISTANT II-XII intact, nl mental status, nl speech, nl strength Skin: nl turgor; No rash or lesions Lymph: nl lymph nodes Medications Medications Current Medications Pantoprazole (Protonix Tab) 40 mg DAILY@06 PO Last administered on 08/25/18at 06:38; Admin Dose 40 MG; Start 08/17/18 at 06:00 Oxycodone/ Acetaminophen (Percocet (5/ 325)) 2 tab Q6H PRN PO PAIN LEVEL 6-10 Last administered on 08/24/18at 15:47; Admin Dose 2 TAB; Start 08/17/18 at 01:00 Oxycodone/ Acetaminophen (Percocet (5/ 325)) 1 tab Q6H PRN PO MODERATE PAIN LEVEL 4-6 Last administered on 08/24/18 21:06; Admin Dose 1 TAB; Start 08/17/18 at 01:00 Folic Acid (Folic Acid) 1 mg DAILY PO Last administered on 08/24/18 09:15; Admin Dose 1 MG; Start 08/17/18 at 09:00 Multivitamins/ Minerals (Theragran-M) 1 tab DAILY PO Last administered on 09:15; Admin Dose 1 TAB; Start 08/17/18 at 09:00 Thiamine HCl (Vitamin B1) 100 mg DAILY PO Last administered on 08/24/18 09:15; Admin Dose 100 MG; Start 08/17/18 at 09:00 Polyethylene Glycol (Miralax) 17 gm DAILY PRN PO CONSTIPATION; Start 08/17/18 at 01:00 Metoprolol Tartrate (Lopressor) 50 mg BID PO Last administered on 08/24/18 09:16; Admin Dose 50 MG; Start 08/17/18 at 09:00 Ferrous Sulfate (Ferrous Sulfate (Ec)) 325 mg TID PO Last administered on 08/24/18 09:15; Admin Dose 325 MG; Start 08/17/18 at 09:00 Tamsulosin HCl (Flomax) 0.4 mg HS PO Last administered on 08/23/18 20:42; Admin Dose 0.4 MG; Start 08/17/18 at 21:00 Famotidine (Pepcid) 20 mg DAILY PO Last administered on 08/24/18 09:15; Admin Dose 20 MG; Start 08/17/18 at 09:00 Magnesium Hydroxide (Milk Of Mag) 30 ml DAILY PRN PO CONSTIPATION; Start 08/17/18 at 01:00 Acetaminophen (Tylenol Tab) 650 mg Q6H PRN PO MILD PAIN(1-3)OR ELEVATED TEMP; Start 08/17/18 at 01:00 Ondansetron HCl (Zofran Inj) 4 mg Q8 PRN IV NAUSEA AND/OR VOMITING; Start 08/17/18 at 01:00 Senna (Senokot) 2 tab BID PRN PO CONSTIPATION Last administered on 08/24/18 06:03; Admin Dose 2 TAB; Start 08/17/18 at 01:00 Zolpidem Tartrate (Ambien) 5 mg HS PRN PO INSOMNIA Last administered on 08/20/18at 21:49; Admin Dose 5 MG; Start 08/17/18 at 01:00 Tramadol HCl (Ultram) 50 mg TID PRN PO PAIN LEVEL 1-5 Last administered on 08/19/18 04:40; Admin Dose 50 MG; Start 08/17/18 at 01:00 Miscellaneous Information Patients own medicat... BID@1000,1600 XX ; Start 08/17/18 at 10:00 Bicalutamide (Casodex) 50 mg DAILY PO Last administered on 08/24/18 09:16; Admin Dose 50 MG; Start 08/18/18 at 16:30 Morphine Sulfate (morphine) 6 mg Q4H PRN PO SEVERE PAIN LEVEL 7-10 Last administered on 08/22/18at 22:16; Admin Dose 6 MG; Start 08/21/18 at 17:30 ARIANA JORDAN MD Aug 25, 2018 07:56
[2018-08-25 08:43] VITALS: BP 121/74; PULSE 72; RESP 17
[2018-08-25] MEDS: THIAMINE 100 MG TAB PO SCH (09:15)
[2018-08-25] MEDS: OXYCODONE/ACETAMINOPHEN (5/325) TAB PO PRN ×2 (09:15→17:49)
[2018-08-25] MEDS: FOLIC ACID 1 MG TAB PO SCH (09:15)
[2018-08-25] MEDS: FERROUS SULFATE (EC) 325 MG TAB PO SCH ×3 (09:16→20:34)
[2018-08-25] MEDS: BICALUTAMIDE 50 MG TAB PO SCH (09:16)
[2018-08-25] MEDS: MULTIVITAMINS/MINERALS TAB PO SCH (09:16)
[2018-08-25] MEDS: METOPROLOL 50 MG TAB PO SCH (09:16)
[2018-08-25] MEDS: FAMOTIDINE 20 MG TAB PO SCH (09:17)
[2018-08-25] MEDS: [UNRECOGNIZED DRUG - OTHER] XX SCH ×2 (09:21→14:27)
--- NOTE | 2018-08-25 11:33 | PN ---
Date/Time of Note Date/Time of Note DATE: 08/25/18 TIME: 11:31 Assessment/Plan VTE [place] [facility] [place]: 8 [place] [facility] [place] SCD contraindicated: patient refusal Pharmacological prophylaxis: LMWH Pharm contraindication: bleeding Lines/Catheters IV Catheter Type (from [facility] [place]): Saline Lock Urinary Cath still in place: No Assessment/Plan Hospital Course 1. AMS, metabolic encephalopathy 2. Lymphadenopathy concerning for malignancy unknown primary source, more likely prostate cancer, PSA 1000. 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 Acute kidney injury, better 4. Severe anemia 5. Recent weight loss 6. Severe malnourishment 7. Thrombocytopenia 8. History of subdural hematoma 9. History of hepatitis C 10. History of alcoholism 11. Hypertension 12. Mild left hydronephrosis with obstructing distal left ureteral calculus Assessment/Plan -pt nurse reported periodic confusion -family conference is pending -pt has capacity per pscy - MRCP neg - decrease BP meds - cw casodex/flomax - spoke to Dr Nguyen will do biopsy as OPD in office - cw PPI - Bone scan +multiple mets - PT eval pt need SNF -social. service -spoke to brother Demetrius, they cannot help Result Diagram: 08/25/18 0538 08/25/18 0538 Results 24hrs Laboratory Tests Test 08/24/18 22:30 08/25/18 05:38 Stool Occult Blood NEGATIVE White Blood Count 4.4 L Red Blood Count 2.54 L Hemoglobin 7.5 L Hematocrit 23.9 L Mean Corpuscular Volume 94.1 Mean Corpuscular Hemoglobin 29.5 Mean Corpuscular Hemoglobin Concent 31.4 L Red Cell Distribution Width 16.3 H Platelet Count 218 Mean Platelet Volume 10.2 Immature Granulocytes % 1.600 H Neutrophils % 58.9 Lymphocytes % 27.6 Monocytes % 9.6 Eosinophils % 2.1 Basophils % 0.2 Nucleated Red Blood Cells % 0.0 Immature Granulocytes # 0.070 H Neutrophils # 2.6 Lymphocytes # 1.2 Monocytes # 0.4 Eosinophils # 0.1 Basophils # 0.0 Nucleated Red Blood Cells # 0.0 Sodium Level 138 Potassium Level 4.3 Chloride Level 105 Carbon Dioxide Level 25 Anion Gap 8 Blood Urea Nitrogen 23 H Creatinine 1.22 Est Glomerular Filtrat Rate mL/min 59 L Glucose Level 115 Calcium Level 8.9 Subjective 24 Hr Interval Summary Musculoskeletal: restricted range of motion (lower extremities) Exam/Review of Systems Vital Signs Vitals Vital Signs Date Temp Pulse Resp B/P (MAP) Pulse Ox O2 O2 Flow FiO2 Time Delivery Rate 08/25/18 98.0 72 17 121/74 100 Room Air 08:43 (90) Intake and Output 08/24/18 08/24/18 08/25/18 1515:00 23:00 07:00 IntakeIntake Total 720 ml 360 ml OutputOutput Total 600 ml 300 ml 800 ml BalanceBalance 120 ml 60 ml -800 ml Exam Constitutional: alert, oriented Respiratory: diminished breath sounds Cardiovascular: regular rate and rhythm Gastrointestinal: soft Medications Medications Current Medications Pantoprazole (Protonix Tab) 40 mg DAILY@06 PO Last administered on 08/25/18 06:38; Admin Dose 40 MG; Start 08/17/18 at 06:00 Oxycodone/ Acetaminophen (Percocet (5/ 325)) 2 tab Q6H PRN PO PAIN LEVEL 6-10 Last administered on 08/24/18at 15:47; Admin Dose 2 TAB; Start 08/17/18 at 01:00 Oxycodone/ Acetaminophen (Percocet (5/ 325)) 1 tab Q6H PRN PO MODERATE PAIN LEVEL 4-6 Last administered on 08/25/18 09:15; Admin Dose 1 TAB; Start 08/17/18 at 01:00 Folic Acid (Folic Acid) 1 mg DAILY PO Last administered on 08/25/18 09:15; Admin Dose 1 MG; Start 08/17/18 at 09:00 Multivitamins/ Minerals (Theragran-M) 1 tab DAILY PO Last administered on 08/25/18 09:16; Admin Dose 1 TAB; Start 08/17/18 at 09:00 Thiamine HCl (Vitamin B1) 100 mg DAILY PO Last administered on 08/25/18 09:15; Admin Dose 100 MG; Start 08/17/18 at 09:00 Polyethylene Glycol (Miralax) 17 gm DAILY PRN PO CONSTIPATION; Start 08/17/18 at 01:00 Metoprolol Tartrate (Lopressor) 50 mg BID PO Last administered on 08/25/18 09:16; Admin Dose 50 MG; Start 08/17/18 at 09:00 Ferrous Sulfate (Ferrous Sulfate (Ec)) 325 mg TID PO Last administered on 08/25/18 09:16; Admin Dose 325 MG; Start 08/17/18 at 09:00 Tamsulosin HCl (Flomax) 0.4 mg HS PO Last administered on 08/23/18at 20:42; A dmin Dose 0.4 MG; Start 08/17/18 at 21:00 Famotidine (Pepcid) 20 mg DAILY PO Last administered on 08/25/18 09:17; Admin Dose 20 MG; Start 08/17/18 at 09:00 Magnesium Hydroxide (Milk Of Mag) 30 ml DAILY PRN PO CONSTIPATION; Start 08/17/18 at 01:00 Acetaminophen (Tylenol Tab) 650 mg Q6H PRN PO MILD PAIN(1-3)OR ELEVATED TEMP; Start 08/17/18 at 01:00 Ondansetron HCl (Zofran Inj) 4 mg Q8 PRN IV NAUSEA AND/OR VOMITING; Start 08/17/18 at 01:00 Senna (Senokot) 2 tab BID PRN PO CONSTIPATION Last administered on 08/24/18at 06:03; Admin Dose 2 TAB; Start 08/17/18 at 01:00 Zolpidem Tartrate (Ambien) 5 mg HS PRN PO INSOMNIA Last administered on 08/20/18 21:49; Admin Dose 5 MG; Start 08/17/18 at 01:00 Tramadol HCl (Ultram) 50 mg TID PRN PO PAIN LEVEL 1-5 Last administered on 08/19/18 04:40; Admin Dose 50 MG; Start 08/17/18 at 01:00 Miscellaneous Information Patients own medicat... BID@1000,1600 XX ; Start 08/17/18 at 10:00 Bicalutamide (Casodex) 50 mg DAILY PO Last administered on 08/25/18 09:16; Admin Dose 50 MG; Start 08/18/18 at 16:30 Morphine Sulfate (morphine) 6 mg Q4H PRN PO SEVERE PAIN LEVEL 7-10 Last administered on 08/22/18 22:16; Admin Dose 6 MG; Start 08/21/18 at 17:30 DENNIS YOON Aug 25, 2018 11:33
--- NOTE | 2018-08-25 12:07 | CONS ---
Date/Time of Note Date/Time of Note DATE: 08/25/18 TIME: 11:38 Consult Date/Type/Reason Admit Date/Time Aug 16, 2018 at 22:30 Initial Consult Date 08/18/18 Type of Consultation: Urology Reason for Consultation Metastatic prostate cancer Requesting Provider: MILLY LABOY MD Subjective Patient complains that he cannot walk too far. He can move his lower extremities without a problem but when he stands to walk he gets tired fast. He is very irritable. Objective Vital Signs Date Temp Pulse Resp B/P (MAP) Pulse Ox O2 O2 Flow FiO2 Time Delivery Rate 08/25/18 98.0 72 17 121/74 100 Room Air 08:43 (90) Intake and Output 08/24/18 08/24/18 08/25/18 1515:00 23:00 07:00 IntakeIntake Total 720 ml 360 ml OutputOutput Total 600 ml 300 ml 800 ml BalanceBalance 120 ml 60 ml -800 ml Exam He is voiding and his urine is clear. Results/Medications Result Diagram: 08/25/18 0538 08/25/18 0538 Results 24 hrs Laboratory Tests Test 08/24/18 22:30 08/25/18 05:38 Stool Occult Blood NEGATIVE White Blood Count 4.4 L Red Blood Count 2.54 L Hemoglobin 7.5 L Hematocrit 23.9 L Mean Corpuscular Volume 94.1 Mean Corpuscular Hemoglobin 29.5 Mean Corpuscular Hemoglobin Concent 31.4 L Red Cell Distribution Width 16.3 H Platelet Count 218 Mean Platelet Volume 10.2 Immature Granulocytes % 1.600 H Neutrophils % 58.9 Lymphocytes % 27.6 Monocytes % 9.6 Eosinophils % 2.1 Basophils % 0.2 Nucleated Red Blood Cells % 0.0 Immature Granulocytes # 0.070 H Neutrophils # 2.6 Lymphocytes # 1.2 Monocytes # 0.4 Eosinophils # 0.1 Basophils # 0.0 Nucleated Red Blood Cells # 0.0 Sodium Level 138 Potassium Level 4.3 Chloride Level 105 Carbon Dioxide Level 25 Anion Gap 8 Blood Urea Nitrogen 23 H Creatinine 1.22 Est Glomerular Filtrat Rate mL/min 59 L Glucose Level 115 Calcium Level 8.9 Medications Current Medications Pantoprazole (Protonix Tab) 40 mg DAILY@06 PO Last administered on 08/25/18at 06:38; Admin Dose 40 MG; Start 08/17/18 at 06:00 Oxycodone/ Acetaminophen (Percocet (5/ 325)) 2 tab Q6H PRN PO PAIN LEVEL 6-10 Last administered on 08/24/18at 15:47; Admin Dose 2 TAB; Start 08/17/18 at 01:00 Oxycodone/ Acetaminophen (Percocet (5/ 325)) 1 tab Q6H PRN PO MODERATE PAIN LEVEL 4-6 Last administered on 08/25/18 09:15; Admin Dose 1 TAB; Start 08/17/18 at 01:00 Folic Acid (Folic Acid) 1 mg DAILY PO Last administered on 08/25/18 09:15; Admin Dose 1 MG; Start 08/17/18 at 09:00 Multivitamins/ Minerals (Theragran-M) 1 tab DAILY PO Last administered on 08/25/18 09:16; Admin Dose 1 TAB; Start 08/17/18 at 09:00 Thiamine HCl (Vitamin B1) 100 mg DAILY PO Last administered on 08/25/18 09:15; Admin Dose 100 MG; Start 08/17/18 at 09:00 Polyethylene Glycol (Miralax) 17 gm DAILY PRN PO CONSTIPATION; Start 08/17/18 at 01:00 Metoprolol Tartrate (Lopressor) 50 mg BID PO Last administered on 08/25/18 09:16; Admin Dose 50 MG; Start 08/17/18 at 09:00 Ferrous Sulfate (Ferrous Sulfate (Ec)) 325 mg TID PO Last administered on 08/25/18 09:16; Admin Dose 325 MG; Start 08/17/18 at 09:00 Tamsulosin HCl (Flomax) 0.4 mg HS PO Last administered on 08/23/18at 20:42; Admin Dose 0.4 MG; Start 08/17/18 at 21:00 Famotidine (Pepcid) 20 mg DAILY PO Last administered on 08/25/18 09:17; Admin Dose 20 MG; Start 08/17/18 at 09:00 Magnesium Hydroxide (Milk Of Mag) 30 ml DAILY PRN PO CONSTIPATION; Start 08/17/18 at 01:00 Acetaminophen (Tylenol Tab) 650 mg Q6H PRN PO MILD PAIN(1-3)OR ELEVATED TEMP; Start 08/17/18 at 01:00 Ondansetron HCl (Zofran Inj) 4 mg Q8 PRN IV NAUSEA AND/OR VOMITING; Start 08/17/18 at 01:00 Senna (Senokot) 2 tab BID PRN PO CONSTIPATION Last administered on 08/24/18at 06:03; Admin Dose 2 TAB; Start 08/17/18 at 01:00 Zolpidem Tartrate (Ambien) 5 mg HS PRN PO INSOMNIA Last administered on 08/20/18 21:49; Admin Dose 5 MG; Start 08/17/18 at 01:00 Tramadol HCl (Ultram) 50 mg TID PRN PO PAIN LEVEL 1-5 Last administered on 08/19/18 04:40; Admin Dose 50 MG; Start 08/17/18 at 01:00 Miscellaneous Information Patients own medicat... BID@1000,1600 XX ; Start 08/17/18 at 10:00 Bicalutamide (Casodex) 50 mg DAILY PO Last administered on 08/25/18 09:16; Admin Dose 50 MG; Start 08/18/18 at 16:30 Morphine Sulfate (morphine) 6 mg Q4H PRN PO SEVERE PAIN LEVEL 7-10 Last administered on 08/22/18at 22:16; Admin Dose 6 MG; Start 08/21/18 at 17:30 Assessment/Plan Chief Complaint/Hosp Course 72-year-old -Congol[place] male was transferred from [facility] to [facility]. Patient was found to have metastatic cancer to the lungs and his bones and upon admission here at [facility] his PSA was over 1000 therefore a urological consultation was requested. The patient himself is not a good historian. He is confused and sometimes agitated. At the [facility] they attempted to have MRI of the spine to evaluate metastatic disease and evaluate for vertebral instability but the patient was confused and agitated and they were not able to do the MRI. The patient is known to have had subdural hematoma status post evacuation at [facility] in February 2018. The patient also was found to have lymphadenopathy and bony metastases. He also is known to have a history of hypertension and anemia. CT scan of the abdomen and pelvis without contrast at [facility] done on 08/13/2018 showed lung bases: Extensive pleural nodularity and pulmonary nodules bilaterally bilateral left greater than right small pleural effusions and bibasilar atelectasis liver: Unremarkable, gallbladder and bile ducts: Contracted likely containing gallstones ,spleen unremarkable,pancreas unremarkable, adrenals mildly thickened left greater than right adrenal glands, kidneys and ureters: Bilateral low-density lesions mostly fluid density but incompletely characterized measuring up to 6.2 cm on the right kidney, mild left hydronephrosis likely due to an obstructing 6 mm stone in the distal left ureter. Bowels nondilated bowel loops moderate stool burden. Bladder diffuse c ircumferential wall thickening. Reproductive organs: Prostatomegaly with median lobe hypertrophy. Lymph node: Likely prominent retroperitoneal and bilateral iliac chain lymph nodes although overall poorly delineated due to lack of intravenous contrast. Peritoneum: Small volume ascites. Vessels: Moderate atherosclerotic calcification. Abdominal wall: Mild body wall edema. Bones: Mixed lytic ,sclerotic bone lesions involving the entire axial and appendicular skeleton with areas of vertebral body height loss for example in the L3 vertebral body and marked areas of cortical destruction for example on the left inferior pubic ramus The lumbosacral spine x-rays and pelvic x-rays showed osteoblastic lesions consistent with metastasis most likely from the prostate. The patient is voiding well. He also does have a distal left ureteral stone but he denies having any pain. We will strain his urine and do a KUB to see if the stone is visible and is radiopaque. Since his PSA is over thousand I wanted to add Lupron Depot to his treatment in addition to the Casodex. The Lupron is not on the formulary of the hospital. I requested that but the retail pharmacy manager did not approve it stating that this should be done as an outpatient. My concern is this patient is not the type that we will follow-up as an outpatient and his cancer is very advanced and would benefit from at least a 1 month injection. He did have the bone scan done today and that showed: Multiple foci of increased activity are seen in the calvarium, sternum, rib cages bilaterally, sternum, pelvic bones bilaterally and both hips. No other definite abnormal areas of increased activity or asymmetries are visualized in the study and distribution of radionuclide is homogeneous in the skull, spine, rib cages, sternum, pelvis and visualized portions of the upper and lower extremities. Of incidental note, there is a poor visualization of the kidneys. Area of increased activity seen within the right pelvis. The finding may be related to physiologic bladder activity; also query right pelvic transplanted kidney. Urologically continue the Casodex and once he is out of the hospital start him on Lupron Depot as well I had a discussion with the patient about him coming to the office to undergo transrectal ultrasound and ultrasound-guided biopsy of the prostate. He did not seem to be able to do it. Patient lives in [place] . His address is [address] [place] [address].. He uses [employer] for his travel. He cannot walk. He has pain in his legs and his legs are very weak. Therefore he will not be able to make it to the office especially that he lives in [facility]. Therefore it will be difficult to obtain a tissue diagnosis from prostate biopsy. He also may have difficulty coming to the office to give him Lupron Depo for his prostate cancer. If he is sent to a snf facility then the snf facility will become a responsible for his Lupron injections and also I was to do an ultrasound-guided biopsy of his prostate the [facility]p has to authorize it and be financially responsible for it. If however there is any lesion that could be biopsied while he is in the hospital then that may be a better option to establish a pathological diagnosis. MAVIS MAI MD Aug 25, 2018 11:48
[2018-08-25 14:00] VITALS: BP 94/51; PULSE 74; RESP 18
--- NOTE | 2018-08-25 18:10 | NUR ---
rn notes patient is awake, alert and oriented X4, verbally responsive, able to make needs known, complains of pain and medicated as ordered. all due medicine given and all needs attended to. pending placement. call light placed within reach and fall precautions observed well. remains afebrile and will continue to monitor.
[2018-08-25 20:00] VITALS: BP 98/64; PULSE 71; RESP 18
[2018-08-25] MEDS: traMADol 50 MG TAB PO PRN (20:33)
[2018-08-25] MEDS: TAMSULOSIN (SR) 0.4 MG CAP PO SCH (20:33)
[2018-08-25] MEDS: METOPROLOL 25 MG TAB PO SCH (20:33)
[2018-08-25] MEDS: morphine LIQ (10 MG/5 ML) CUP PO PRN (23:36)
[2018-08-26 02:00] VITALS: BP 101/57; PULSE 69; RESP 17
[2018-08-26] MEDS: OXYCODONE/ACETAMINOPHEN (5/325) TAB PO PRN ×2 (03:17→23:39)
--- NOTE | 2018-08-26 05:44 | NUR ---
End of Shift RN Note: No acute changes occurred during my shift. Pts vital signs remained stable through the night. Pt verbalized pain relief with medication administration. Pt gets flustered when you disagree with him. Pt forgetful. No s/s of acute distress noted, pt denies SOB. Will continue to monitor. Chemo precautions remain in place.
[2018-08-26] MEDS: PANTOPRAZOLE (EC) 40 MG TAB PO SCH (06:17)
[2018-08-26] MEDS: MULTIVITAMINS/MINERALS TAB PO SCH (08:40)
[2018-08-26] MEDS: FERROUS SULFATE (EC) 325 MG TAB PO SCH ×3 (08:40→19:45)
[2018-08-26] MEDS: THIAMINE 100 MG TAB PO SCH (08:40)
[2018-08-26] MEDS: FAMOTIDINE 20 MG TAB PO SCH (08:40)
[2018-08-26] MEDS: FOLIC ACID 1 MG TAB PO SCH (08:40)
[2018-08-26] MEDS: BICALUTAMIDE 50 MG TAB PO SCH (08:41)
[2018-08-26 08:55] VITALS: BP 103/65; PULSE 65; RESP 18
[2018-08-26] MEDS: METOPROLOL 25 MG TAB PO SCH (09:00)
[2018-08-26] MEDS: [UNRECOGNIZED DRUG - OTHER] XX SCH ×2 (09:10→15:00)
--- NOTE | 2018-08-26 10:33 | PN ---
Date/Time of Note Date/Time of Note DATE: 08/26/18 TIME: 10:33 Assessment/Plan VTE Prophylaxis Risk score (from Ns)>0 risk: 8 [place] [facility] [place] Pharmacological prophylaxis: NA/contraindicated Pharm contraindication: bleeding Lines/Catheters IV Catheter Type (from [facility]): [place] Lock Urinary Cath still in place: No Assessment/Plan Hospital Course 1. AMS, metabolic encephalopathy 2. Lymphadenopathy concerning for malignancy unknown primary source, more likely prostate cancer, PSA 1000. 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 Acute kidney injury, better 4. Severe anemia 5. Recent weight loss 6. Severe malnourishment 7. Thrombocytopenia 8. History of subdural hematoma 9. History of hepatitis C 10. History of alcoholism 11. Hypertension 12. Mild left hydronephrosis with obstructing distal left ureteral calculus Assessment/Plan -pt nurse reported periodic confusion -family conference is pending -pt has capacity per pscy - MRCP neg - decrease BP meds - cw casodex/flomax - spoke to Dr Nguyen will do biopsy as OPD in office - cw PPI - Bone scan +multiple mets - PT eval pt need SNF -social. service -spoke to brother Demetrius, they cannot help pt in house -placement pending Result Diagram: 08/25/18 0538 08/25/18 0538 Subjective 24 Hr Interval Summary Musculoskeletal: bone/joint pain, restricted range of motion Exam/Review of Systems Vital Signs Vitals Vital Signs Date Temp Pulse Resp B/P (MAP) Pulse Ox O2 O2 Flow FiO2 Time Delivery Rate 08/26/18 98.0 65 18 103/65 99 Room Air 08:55 (78) Intake and Output 08/25/18 08/25/18 08/26/18 1515:00 23:00 07:00 IntakeIntake Total 1220 ml 720 ml 400 ml OutputOutput Total 800 ml 400 ml 300 ml BalanceBalance 420 ml 320 ml 100 ml Exam Constitutional: alert, oriented ENMT: nl external ears & nose Respiratory: clear to auscultation Cardiovascular: regular rate and rhythm Gastrointestinal: soft Musculoskeletal: muscle weakness Medications Medications Current Medications Pantoprazole (Protonix Tab) 40 mg DAILY@06 PO Last administered on 08/26/18at 06:17; Admin Dose 40 MG; Start 08/17/18 at 06:00 Oxycodone/ Acetaminophen (Percocet (5/ 325)) 2 tab Q6H PRN PO PAIN LEVEL 6-10 Last administered on 08/24/18 15:47; Admin Dose 2 TAB; Start 08/17/18 at 01:00 Oxycodone/ Acetaminophen (Percocet (5/ 325)) 1 tab Q6H PRN PO MODERATE PAIN LEVEL 4-6 Last administered on 08/26/18 03:17; Admin Dose 1 TAB; Start 08/17/18 at 01:00 Folic Acid (Folic Acid) 1 mg DAILY PO Last administered on 08/26/18 08:40; Admin Dose 1 MG; Start 08/17/18 at 09:00 Multivitamins/ Minerals (Theragran-M) 1 tab DAILY PO Last administered on 08/08 08:40; Admin Dose 1 TAB; Start 08/17/18 at 09:00 Thiamine HCl (Vitamin B1) 100 mg DAILY PO Last administered on 08/26/18 08:40; Admin Dose 100 MG; Start 08/17/18 at 09:00 Polyethylene Glycol (Miralax) 17 gm DAILY PRN PO CONSTIPATION; Start 08/17/18 at 01:00 Ferrous Sulfate (Ferrous Sulfate (Ec)) 325 mg TID PO Last administered on 08/26/18 08:40; Admin Dose 325 MG; Start 08/17/18 at 09:00 Tamsulosin HCl (Flomax) 0.4 mg HS PO Last administered on 08/25/18 20:33; Admin Dose 0.4 MG; Start 08/17/18 at 21:00 Famotidine (Pepcid) 20 mg DAILY PO Last administered on 08/26/18 08:40; Admin Dose 20 MG; Start 08/17/18 at 09:00 Magnesium Hydroxide (Milk Of Mag) 30 ml DAILY PRN PO CONSTIPATION; Start 08/17/18 at 01:00 Acetaminophen (Tylenol Tab) 650 mg Q6H PRN PO MILD PAIN(1-3)OR ELEVATED TEMP; Start 08/17/18 at 01:00 Ondansetron HCl (Zofran Inj) 4 mg Q8 PRN IV NAUSEA AND/OR VOMITING; Start 08/17/18 at 01:00 Senna (Senokot) 2 tab BID PRN PO CONSTIPATION Last administered on 1/18/19at 06:03; Admin Dose 2 TAB; Start 08/17/18 at 01:00 Zolpidem Tartrate (Ambien) 5 mg HS PRN PO INSOMNIA Last administered on 08/20/18at 21:49; Admin Dose 5 MG; Start 08/17/18 at 01:00 Tramadol HCl (Ultram) 50 mg TID PRN PO PAIN LEVEL 1-5 Last administered on 08/25/18at 20:33; Admin Dose 50 MG; Start 08/17/18 at 01:00 Miscellaneous Information Patients own medicat... BID@1000,1600 XX ; Start 08/17/18 at 10:00 Bicalutamide (Casodex) 50 mg DAILY PO Last administered on 08/26/18at 08:41; Admin Dose 50 MG; Start 08/18/18 at 16:30 Morphine Sulfate (morphine) 6 mg Q4H PRN PO SEVERE PAIN LEVEL 7-10 Last administered on 08/25/18at 23:36; Admin Dose 6 MG; Start 08/21/18 at 17:30 Metoprolol Tartrate (Lopressor) 25 mg BID PO ; Start 08/25/18 at 21:00 DENNIS YOON Aug 26, 2018 10:33
--- NOTE | 2018-08-26 12:00 | CONS ---
Date/Time of Note Date/Time of Note DATE: 08/26/18 TIME: 11:59 Assessment/Plan Assessment/Plan Hospital Course 72 yo male 1. Anemia, which is a combination of metastasis to the bone and also gastrointestinal bleed. 2. Renal insufficiency. 3. Malnutrition. 4. Prostate cancer with mets to the bone noted in bone scan 5. Hypertension. 6. Hepatitis C. 7. Alcoholism. 8. Gastritis 9. S/P EGD 10. Transaminitis -alk phos elevated likely due to bone mets 11. Weight loss of 80 lbs over 3 months 12. Elevated alk phos secondary to bone mets 13. Fatty liver 14. Cholelithiasis 15. Dilated CBD at 10mm 16. Elevated CEA (AFP and CA 19-9 wnl) US of abd: Fatty infiltration of the liver. Cholelithiasis. Dilated CBD. 10mm Multiple simple cysts in the right kidney MRCP 08/22: 1. Limited evaluation due to motion artifact. 2. Cholelithiasis. 3. Common bile duct dilatation up to 10 mm. No large stones seen within the common bile duct, however evaluation is severely limited by motion artifact. 4. Mild left hydronephrosis, as seen on prior ultrasound. 5. Heterogeneous signal of the visualized bones. Correlate with recent nuclear medicine bone scan. Plan FOB negative Continue PPI WE will monitor LFTs and for clinical indication of bile duct obstruction, currently total bili wnl and pt denies abd pain and neg Tracey's sign Pt examined and plan of care discussed with Dr. Vora Result Diagram: 08/25/18 0538 08/25/18 0538 Consultation Date/Type/Reason Admit Date/Time Aug 16, 2018 at 22:30 Initial Consult Date 08/18/18 Requesting Provider: MILLY LABOY MD 24 HR Interval Summary Free Text/Dictation No N/V, denies abd pain. Exam/Review of Systems Vital Signs Vitals Vital Signs Date Temp Pulse Resp B/P (MAP) Pulse Ox O2 O2 Flow FiO2 Time Delivery Rate 08/26/18 98.0 65 18 103/65 99 Room Air 08:55 (78) Intake and Output 08/25/18 08/25/18 08/26/18 1515:00 23:00 07:00 IntakeIntake Total 1220 ml 720 ml 400 ml OutputOutput Total 800 ml 400 ml 300 ml BalanceBalance 420 ml 320 ml 100 ml Exam Constitutional: alert, oriented Eyes: PERRL Respiratory: clear to auscultation Cardiovascular: regular rate and rhythm Gastrointestinal: soft, non-tender, other (neg muprhy's) Musculoskeletal: muscle weakness Neurological: nl mental status, nl speech Medications Medications Current Medications Pantoprazole (Protonix Tab) 40 mg DAILY@06 PO Last administered on 08/26/18at 06:17; Admin Dose 40 MG; Start 08/17/18 at 06:00 Oxycodone/ Acetaminophen (Percocet (5/ 325)) 2 tab Q6H PRN PO PAIN LEVEL 6-10 Last administered on 08/24/18at 15:47; Admin Dose 2 TAB; Start 08/17/18 at 01:00 Oxycodone/ Acetaminophen (Percocet (5/ 325)) 1 tab Q6H PRN PO MODERATE PAIN LEVEL 4-6 Last administered on 08/26/18at 03:17; Admin Dose 1 TAB; Start 08/17/18 at 01:00 Folic Acid (Folic Acid) 1 mg DAILY PO Last administered on 08/26/18at 08:40; Admin Dose 1 MG; Start 08/17/18 at 09:00 Multivitamins/ Minerals (Theragran-M) 1 tab DAILY PO Last administered on 08/26/18 08:40; Admin Dose 1 TAB; Start 08/17/18 at 09:00 Thiamine HCl (Vitamin B1) 100 mg DAILY PO Last administered on 08/26/18at 08:40; Admin Dose 100 MG; Start 08/17/18 at 09:00 Polyethylene Glycol (Miralax) 17 gm DAILY PRN PO CONSTIPATION; Start 08/17/18 at 01:00 Ferrous Sulfate (Ferrous Sulfate (Ec)) 325 mg TID PO Last administered on 08:40; Admin Dose 325 MG; Start 08/17/18 at 09:00 Tamsulosin HCl (Flomax) 0.4 mg HS PO Last administered on 08/25/18at 20:33; Admin Dose 0.4 MG; Start 08/17/18 at 21:00 Famotidine (Pepcid) 20 mg DAILY PO Last administered on 08/26/18 08:40; Admin Dose 20 MG; Start 08/17/18 at 09:00 Magnesium Hydroxide (Milk Of Mag) 30 ml DAILY PRN PO CONSTIPATION; Start 08/17/18 at 01:00 Acetaminophen (Tylenol Tab) 650 mg Q6H PRN PO MILD PAIN(1-3)OR ELEVATED TEMP; Start 08/17/18 at 01:00 Ondansetron HCl (Zofran Inj) 4 mg Q8 PRN IV NAUSEA AND/OR VOMITING; Start 08/17/18 at 01:00 Senna (Senokot) 2 tab BID PRN PO CONSTIPATION Last administered on 08/24/18 06:03; Admin Dose 2 TAB; Start 08/17/18 at 01:00 Zolpidem Tartrate (Ambien) 5 mg HS PRN PO INSOMNIA Last administered on 08/20/18 21:49; Admin Dose 5 MG; Start 08/17/18 at 01:00 Tramadol HCl (Ultram) 50 mg TID PRN PO PAIN LEVEL 1-5 Last administered on 08/25/18at 20:33; Admin Dose 50 MG; Start 08/17/18 at 01:00 Miscellaneous Information Patients own medicat... BID@1000,1600 XX ; Start 08/17/18 at 10:00 Bicalutamide (Casodex) 50 mg DAILY PO Last administered on 08/26/18at 08:41; Admin Dose 50 MG; Start 08/18/18 at 16:30 Morphine Sulfate (morphine) 6 mg Q4H PRN PO SEVERE PAIN LEVEL 7-10 Last administered on 08/25/18at 23:36; Admin Dose 6 MG; Start 08/21/18 at 17:30 Metoprolol Tartrate (Lopressor) 25 mg BID PO ; Start 08/25/18 at 21:00 DAXA BURCH Aug 26, 2018 12:00
[2018-08-26 14:27] VITALS: BP 124/60; PULSE 68; RESP 18
--- NOTE | 2018-08-26 18:07 | NUR ---
rn notes patient is awake, alert and oriented X4, verbally responsive, able to make needs known, denies pain and discomfort at this time. all due medicine given and all needs attended to. pending placement. call light placed within reach and fall precautions observed well. remains afebrile and will continue to monitor.
--- NOTE | 2018-08-26 19:19 | NUR ---
rn notes strained urine no stones noted
[2018-08-26 19:40] VITALS: BP 109/64; PULSE 83; RESP 18
[2018-08-26] MEDS: TAMSULOSIN (SR) 0.4 MG CAP PO SCH (19:46)
--- NOTE | 2018-08-26 20:20 | CONS ---
Date/Time of Note Date/Time of Note DATE: 08/26/18 TIME: 20:14 Consult Date/Type/Reason Admit Date/Time Aug 16, 2018 at 22:30 Initial Consult Date 08/18/18 Type of Consultation: Urology Reason for Consultation Metastatic prostate cancer Requesting Provider: MILLY LABOY MD Subjective Patient keeps stating he should not be having cancer as he does not feel anything and nobody in his family has it. He wants it out of his body. When I explained to him that it is metastatic and we hope to slow it down but we cannot cure it he does not seem to accept that stating he wants it out of his body and that he knows people who had cancer like that and were cured. Objective Vital Signs Date Temp Pulse Resp B/P (MAP) Pulse Ox O2 O2 Flow FiO2 Time Delivery Rate 08/26/18 98.2 68 18 124/60 96 Room Air 14:27 (81) Intake and Output 08/25/18 08/25/18 08/26/18 1515:00 23:00 07:00 IntakeIntake Total 1220 ml 720 ml 400 ml OutputOutput Total 800 ml 400 ml 300 ml BalanceBalance 420 ml 320 ml 100 ml Exam He moves his extremities well. Denies any dysuria. His urine is clear Results/Medications Result Diagram: 08/25/18 0538 08/25/18 0538 Medications Current Medications Pantoprazole (Protonix Tab) 40 mg DAILY@06 PO Last administered on 08/26/18at 06:17; Admin Dose 40 MG; Start 08/17/18 at 06:00 Oxycodone/ Acetaminophen (Percocet (5/ 325)) 2 tab Q6H PRN PO PAIN LEVEL 6-10 Last administered on 08/24/18at 15:47; Admin Dose 2 TAB; Start 08/17/18 at 01:00 Oxycodone/ Acetaminophen (Percocet (5/ 325)) 1 tab Q6H PRN PO MODERATE PAIN LEVEL 4-6 Last administered on 08/26/18at 03:17; Admin Dose 1 TAB; Start 08/17/18 at 01:00 Folic Acid (Folic Acid) 1 mg DAILY PO Last administered on 08/26/18at 08:40; Admin Dose 1 MG; Start 08/17/18 at 09:00 Multivitamins/ Minerals (Theragran-M) 1 tab DAILY PO Last administered on 08/26/18 08:40; Admin Dose 1 TAB; Start 08/17/18 at 09:00 Thiamine HCl (Vitamin B1) 100 mg DAILY PO Last administered on 08/26/18 08:40; Admin Dose 100 MG; Start 08/17/18 at 09:00 Polyethylene Glycol (Miralax) 17 gm DAILY PRN PO CONSTIPATION; Start 08/17/18 at 01:00 Ferrous Sulfate (Ferrous Sulfate (Ec)) 325 mg TID PO Last administered on 08/26/18 19:45; Admin Dose 325 MG; Start 08/17/18 at 09:00 Tamsulosin HCl (Flomax) 0.4 mg HS PO Last administered on 08/26/18 19:46; Admin Dose 0.4 MG; Start 08/17/18 at 21:00 Famotidine (Pepcid) 20 mg DAILY PO Last administered on 08/26/18 08:40; Admin Dose 20 MG; Start 08/17/18 at 09:00 Magnesium Hydroxide (Milk Of Mag) 30 ml DAILY PRN PO CONSTIPATION; Start 08/17/18 at 01:00 Acetaminophen (Tylenol Tab) 650 mg Q6H PRN PO MILD PAIN(1-3)OR ELEVATED TEMP; Start 08/17/18 at 01:00 Ondansetron HCl (Zofran Inj) 4 mg Q8 PRN IV NAUSEA AND/OR VOMITING; Start 08/17/18 at 01:00 Senna (Senokot) 2 tab BID PRN PO CONSTIPATION Last administered on 08/24/18 06:03; Admin Dose 2 TAB; Start 08/17/18 at 01:00 Zolpidem Tartrate (Ambien) 5 mg HS PRN PO INSOMNIA Last administered on 08/20/18 21:49; Admin Dose 5 MG; Start 08/17/18 at 01:00 Tramadol HCl (Ultram) 50 mg TID PRN PO PAIN LEVEL 1-5 Last administered on 08/25/18 20:33; Admin Dose 50 MG; Start 08/17/18 at 01:00 Miscellaneous Information Patients own medicat... BID@1000,1600 XX ; Start 08/17/18 at 10:00 Bicalutamide (Casodex) 50 mg DAILY PO Last administered on 1/20/19at 08:41; Admin Dose 50 MG; Start 08/18/18 at 16:30 Morphine Sulfate (morphine) 6 mg Q4H PRN PO SEVERE PAIN LEVEL 7-10 Last administered on 08/25/18at 23:36; Admin Dose 6 MG; Start 08/21/18 at 17:30 Assessment/Plan Chief Complaint/Hosp Course 72-year-old -[place] male was transferred from [facility] to [facility]. Patient was found to have metastatic cancer to the lungs and his bones and upon admission here at [facility] his PSA was over 1000 therefore a urological consultation was requested. The patient himself is not a good historian. He is confused and sometimes agitated. At the [facility] they attempted to have MRI of the spine to evaluate metastatic disease and evaluate for vertebral instability but the patient was confused and agitated and they were not able to do the MRI. The patient is known to have had subdural hematoma status post evacuation at [facility] in February 2018. The patient also was found to have lymphadenopathy and bony metastases. He also is known to have a history of hypertension and anemia. CT scan of the abdomen and pelvis without contrast at [facility] done on 08/13/2018 showed lung bases: Extensive pleural nodularity and pulmonary nodules bilaterally bilateral left greater than right small pleural effusions and bibasilar atelectasis liver: Unremarkable, gallbladder and bile ducts: Contracted likely containing gallstones ,spleen unremarkable,pancreas unremarkable, adrenals mildly thickened left greater than right adrenal glands, kidneys and ureters: Bilateral low-density lesions mostly fluid density but in completely characterized measuring up to 6.2 cm on the right kidney, mild left hydronephrosis likely due to an obstructing 6 mm stone in the distal left ureter. Bowels nondilated bowel loops moderate stool burden. Bladder diffuse circumferential wall thickening. Reproductive organs: Prostatomegaly with median lobe hypertrophy. Lymph node: Likely prominent retroperitoneal and bilateral iliac chain lymph nodes although overall poorly delineated due to lack of intravenous contrast. Peritoneum: Small volume ascites. Vessels: Moderate atherosclerotic calcification. Abdominal wall: Mild body wall edema. Bones: Mixed lytic ,sclerotic bone lesions involving the entire axial and appendicular skeleton with areas of vertebral body height loss for example in the L3 vertebral body and marked areas of cortical destruction for example on the left inferior pubic ramus The lumbosacral spine x-rays and pelvic x-rays showed osteoblastic lesions consistent with metastasis most likely from the prostate. The patient is voiding well. He also does have a distal left ureteral stone but he denies hav ing any pain. We will strain his urine and do a KUB to see if the stone is visible and is radiopaque. Since his PSA is over thousand I wanted to add Lupron Depot to his treatment in addition to the Casodex. The Lupron is not on the formulary of the hospital. I requested that but the pharmacy salesperson did not approve it stating that this should be done as an outpatient. My concern is this patient is not the type that will follow-up as an outpatient because of where he lives and lack of transportation. And his cancer is very advanced and would benefit from at least a 1 month injection. He did have the bone scan done today and that showed: Multiple foci of increased activity are seen in the calvarium, sternum, rib cages bilaterally, sternum, pelvic bones bilaterally and both hips. No other definite abnormal areas of increased activity or asymmetries are visualized in the study and distribution of radionuclide is homogeneous in the skull, spine, rib cages, sternum, pelvis and visualized portions of the upper and lower extremities. Of incidental note, there is a poor visualization of the kidneys. Area of increased activity seen within the right pelvis. The finding may be related to physiologic bladder activity; also query right pelvic transplanted kidney. Urologically continue the Casodex and once he is out of the hospital start him on Lupron Depot as well I had a discussion with the patient about him coming to the office to undergo transrectal ultrasound and ultrasound-guided biopsy of the prostate. He did not seem to be able to do it. Patient lives in [place] . His address is [address] [place] [id number] He uses [employer] for his travel. He cannot walk. He has pain in his legs and his legs are very weak. Therefore he will not be able to make it to the office especially that [place] Therefore it will be difficult to obtain a tissue diagnosis from prostate biopsy. He also may have difficulty coming to the office to give him Lupron Depo for his prostate cancer. If he is sent to a assisted facility then the assisted facility will become responsible for his Lupron injections and also if I am to do an ultrasound-guided biopsy of his prostate the detention has to authorize it and be financially responsible for it. If however there is any lesion that could be biopsied while he is in the hospital then that may be a better option to establish a pathological diagnosis. MAVIS MAI MD Aug 26, 2018 20:20
[2018-08-27 01:58] VITALS: BP 117/61; PULSE 88; RESP 18
[2018-08-27] MEDS: traMADol 50 MG TAB PO PRN (02:01)
[2018-08-27] MEDS: PANTOPRAZOLE (EC) 40 MG TAB PO SCH (05:22)
--- NOTE | 2018-08-27 06:41 | NUR ---
Shift summary: Patient is stable overnight, leg pain was controlled with [place] and Ultram. urine strained, no stones noted. No new skin breakdown noted. continue to monitor.
[2018-08-27 08:00] VITALS: BP 112/80; PULSE 83; RESP 18
--- NOTE | 2018-08-27 08:03 | CONS ---
Date/Time of Note Date/Time of Note DATE: 08/27/18 TIME: 07:59 Assessment/Plan Assessment/Plan Hospital Course 72 yo male 1. Anemia, likely due to cancer -FOB negative 2. Renal insufficiency. 3. Malnutrition. 4. Prostate cancer with mets to the bone noted in bone scan 5. Hypertension. 6. Hepatitis C. 7. Alcoholism. 8. Gastritis 9. S/P EGD 10. Transaminitis -alk phos elevated likely due to bone mets 11. Weight loss of 80 lbs over 3 months 12. Elevated alk phos secondary to bone mets 13. Fatty liver 14. Cholelithiasis 15. Dilated CBD at 10mm with no obstruction noted on imaging, total bili and alk wnl, and no abd pain, neg tracey's 16. Elevated CEA (AFP and CA 19-9 wnl) -FOB negative US of abd: Fatty infiltration of the liver. Cholelithiasis. Dilated CBD. 10mm Multiple simple cysts in the right kidney MRCP 08/22: 1. Limited evaluation due to motion artifact. 2. Cholelithiasis. 3. Common bile duct dilatation up to 10 mm. No large stones seen within the common bile duct, however evaluation is severely limited by motion artifact. 4. Mild left hydronephrosis, as seen on prior ultrasound. 5. Heterogeneous signal of the visualized bones. Correlate with recent nuclear medicine bone scan. Plan Continue PPI WE will monitor LFTs and for clinical indication of bile duct obstruction, currently total bili wnl and pt denies abd pain and neg Tracey's sign Pt examined and plan of care discussed with Dr. Vora Result Diagram: 08/27/18 0609 08/27/18 0609 Results 24hrs Laboratory Tests Test 08/27/18 06:09 White Blood Count 4.5 L Red Blood Count 2.51 L Hemoglobin 7.5 L Hematocrit 24.1 L Mean Corpuscular Volume 96.0 Mean Corpuscular Hemoglobin 29.9 Mean Corpuscular Hemoglobin Concent 31.1 L Red Cell Distribution Width 16.8 H Platelet Count 217 Mean Platelet Volume 10.5 H Immature Granulocytes % 1.800 H Neutrophils % 60.0 Lymphocytes % 26.4 Monocytes % 9.4 Eosinophils % 2.2 Basophils % 0.2 Nucleated Red Blood Cells % 0.0 Immature Granulocytes # 0.080 H Neutrophils # 2.7 Lymphocytes # 1.2 Monocytes # 0.4 Eosinophils # 0.1 Basophils # 0.0 Nucleated Red Blood Cells # 0.0 Sodium Level 138 Potassium Level 4.1 Chloride Level 103 Carbon Dioxide Level 26 Anion Gap 9 Blood Urea Nitrogen 23 H Creatinine 1.23 Est Glomerular Filtrat Rate mL/min 58 L Glucose Level 117 Calcium Level 9.3 Consultation Date/Type/Reason Admit Date/Time Aug 16, 2018 at 22:30 Initial Consult Date 08/18/18 Requesting Provider: MILLY LABOY MD 24 HR Interval Summary Free Text/Dictation Denies abd pain, neg tracey's. Denies N/V. BM yesterday, no evidence of GI bleeding. Exam/Review of Systems Vital Signs Vitals Vital Signs Date Temp Pulse Resp B/P (MAP) Pulse Ox O2 O2 Flow FiO2 Time Delivery Rate 08/27/18 98.1 88 18 117/61 98 01:58 (79) 08/26/18 Room Air 14:27 Intake and Output 08/26/18 08/26/18 08/27/18 1515:00 23:00 07:00 IntakeIntake Total 900 ml 240 ml 250 ml OutputOutput Total 850 ml 200 ml 150 ml BalanceBalance 50 ml 40 ml 100 ml Exam Constitutional: alert, oriented Psych: no complaints Head: normocephalic Eyes: PERRL Respiratory: other (non labored) Gastrointestinal: soft, non-tender, bowel sounds Extremities: normal pulses Neurological: nl mental status Medications Medications Current Medications Pantoprazole (Protonix Tab) 40 mg DAILY@06 PO Last administered on 08/27/18at 05:22; Admin Dose 40 MG; Start 08/17/18 at 06:00 Oxycodone/ Acetaminophen (Percocet (5/ 325)) 2 tab Q6H PRN PO PAIN LEVEL 6-10 Last administered on 08/26/18at 23:39; Admin Dose 2 TAB; Start 08/17/18 at 01:00 Oxycodone/ Acetaminophen (Percocet (5/ 325)) 1 tab Q6H PRN PO MODERATE PAIN LEVEL 4-6 Last administered on 08/26/18at 03:17; Admin Dose 1 TAB; Start 08/17/18 at 01:00 Folic Acid (Folic Acid) 1 mg DAILY PO Last administered on 08/26/18at 08:40; Admin Dose 1 MG; Start 08/17/18 at 09:00 Multivitamins/ Minerals (Theragran-M) 1 tab DAILY PO Last administered on 08/26/18 08:40; Admin Dose 1 TAB; Start 08/17/18 at 09:00 Thiamine HCl (Vitamin B1) 100 mg DAILY PO Last administered on 08/26/18 08:40; Admin Dose 100 MG; Start 08/17/18 at 09:00 Polyethylene Glycol (Miralax) 17 gm DAILY PRN PO CONSTIPATION; Start 08/17/18 at 01:00 Ferrous Sulfate (Ferrous Sulfate (Ec)) 325 mg TID PO Last administered on 08/26/18 19:45; Admin Dose 325 MG; Start 08/17/18 at 09:00 Tamsulosin HCl (Flomax) 0.4 mg HS PO Last administered on 08/26/18 19:46; Admin Dose 0.4 MG; Start 08/17/18 at 21:00 Famotidine (Pepcid) 20 mg DAILY PO Last administered on 08/26/18 08:40; Admin Dose 20 MG; Start 08/17/18 at 09:00 Magnesium Hydroxide (Milk Of Mag) 30 ml DAILY PRN PO CONSTIPATION; Start 08/17/18 at 01:00 Acetaminophen (Tylenol Tab) 650 mg Q6H PRN PO MILD PAIN(1-3)OR ELEVATED TEMP; Start 08/17/18 at 01:00 Ondansetron HCl (Zofran Inj) 4 mg Q8 PRN IV NAUSEA AND/OR VOMITING; Start 08/17 at 01:00 Senna (Senokot) 2 tab BID PRN PO CONSTIPATION Last administered on 08/24/18at 06:03; Admin Dose 2 TAB; Start 08/17/18 at 01:00 Zolpidem Tartrate (Ambien) 5 mg HS PRN PO INSOMNIA Last administered on 08/20/18 21:49; Admin Dose 5 MG; Start 08/17/18 at 01:00 Tramadol HCl (Ultram) 50 mg TID PRN PO PAIN LEVEL 1-5 Last administered on 08/27/18 02:01; Admin Dose 50 MG; Start 08/17/18 at 01:00 Miscellaneous Information Patients own medicat... BID@1000,1600 XX ; Start 08/17/18 at 10:00 Bicalutamide (Casodex) 50 mg DAILY PO Last administered on 08/26/18 08:41; Admin Dose 50 MG; Start 08/18/18 at 16:30 Morphine Sulfate (morphine) 6 mg Q4H PRN PO SEVERE PAIN LEVEL 7-10 Last administered on 08/25/18at 23:36; Admin Dose 6 MG; Start 08/21/18 at 17:30 DAXA BURCH Aug 27, 2018 08:03
[2018-08-27] MEDS: THIAMINE 100 MG TAB PO SCH (08:34)
[2018-08-27] MEDS: FAMOTIDINE 20 MG TAB PO SCH (08:34)
[2018-08-27] MEDS: MULTIVITAMINS/MINERALS TAB PO SCH (08:34)
[2018-08-27] MEDS: FERROUS SULFATE (EC) 325 MG TAB PO SCH ×3 (08:34→21:00)
[2018-08-27] MEDS: FOLIC ACID 1 MG TAB PO SCH (08:34)
[2018-08-27] MEDS: BICALUTAMIDE 50 MG TAB PO SCH (08:35)
--- NOTE | 2018-08-27 09:48 | CONS ---
Date/Time of Note Date/Time of Note DATE: 08/27/18 TIME: 09:46 Assessment/Plan Assessment/Plan Hospital Course 72 yo transferred from [facility] with widely metastatic disease to bones (confirmed by bone scan) and lung as well as RP LAD #prostate ca -w/u shows PSA >1000 -this is very consistent with met prostate ca at this point highest on my list is that this is met prostate ca ideally would get tissue biopsy for confirmation of diagnosis, modesto score, etc however pt has not been very compliant with our recommendations for work-up and at times has denied that he has prostate ca, therefore in order not to delay treatment he has been started on casodex as of 08/18/18 -cont Casodex 50 mg daily x 10 days then can start Lupron as out pt also ideally would get Xgeva or zometa for bony mets, given renal failure bisphosphonate will not be given Earlier this week I discussed the above with the patient and he denied that he has cancer. he said " you are saying that so you can do treatments and make money like everyone else here" I tried to explain to him otherwise. At this point, pt does not seem to have mental capacity to make decisions nor does he have understanding into his several serious health issues had Psych eval and felt that pt able to make own decisions. 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 and he seemed to accept this and is willing to continue with androgen deprivation therapy he is ok with continuation of casodex, after 10 days of this will start Lupron, if he is still hospitalized will see if we can administer in house #anemia multifactorial--CRI, chronic disease from underlying malignancy can start procrit monitor iron studies periodically Result Diagram: 08/27/18 0609 08/27/18 0609 Results 24hrs Laboratory Tests Test 08/27/18 06:09 White Blood Count 4.5 L Red Blood Count 2.51 L Hemoglobin 7.5 L Hematocrit 24.1 L Mean Corpuscular Volume 96.0 Mean Corpuscular Hemoglobin 29.9 Mean Corpuscular Hemoglobin Concent 31.1 L Red Cell Distribution Width 16.8 H Platelet Count 217 Mean Platelet Volume 10.5 H Immature Granulocytes % 1.800 H Neutrophils % 60.0 Lymphocytes % 26.4 Monocytes % 9.4 Eosinophils % 2.2 Basophils % 0.2 Nucleated Red Blood Cells % 0.0 Immature Granulocytes # 0.080 H Neutrophils # 2.7 Lymphocytes # 1.2 Monocytes # 0.4 Eosinophils # 0.1 Basophils # 0.0 Nucleated Red Blood Cells # 0.0 Sodium Level 138 Potassium Level 4.1 Chloride Level 103 Carbon Dioxide Level 26 Anion Gap 9 Blood Urea Nitrogen 23 H Creatinine 1.23 Est Glomerular Filtrat Rate mL/min 58 L Glucose Level 117 Calcium Level 9.3 Consultation Date/Type/Reason Admit Date/Time Aug 16, 2018 at 22:30 Initial Consult Date 08/18/18 Requesting Provider: MILLY LABOY MD 24 HR Interval Summary Free Text/Dictation notes indicated intermittent confusion family meeting pending Exam/Review of Systems Vital Signs Vitals Vital Signs Date Temp Pulse Resp B/P (MAP) Pulse Ox O2 O2 Flow FiO2 Time Delivery Rate 08/27/18 97.9 83 18 112/80 98 Room Air 08:00 (91) Intake and Output 08/26/18 08/26/18 08/27/18 1515:00 23:00 07:00 IntakeIntake Total 900 ml 240 ml 250 ml OutputOutput Total 850 ml 200 ml 150 ml BalanceBalance 50 ml 40 ml 100 ml Medications Medications Current Medications Pantoprazole (Protonix Tab) 40 mg DAILY@06 PO Last administered on 08/27/18at 05:22; Admin Dose 40 MG; Start 08/17/18 at 06:00 Oxycodone/ Acetaminophen (Percocet (5/ 325)) 2 tab Q6H PRN PO PAIN LEVEL 6-10 Last administered on 08/26/18at 23:39; Admin Dose 2 TAB; Start 08/17/18 at 01:00 Oxycodone/ Acetaminophen (Percocet (5/ 325)) 1 tab Q6H PRN PO MODERATE PAIN LEVEL 4-6 Last administered on 08/26/18at 03:17; Admin Dose 1 TAB; Start 08/17/18 at 01:00 Folic Acid (Folic Acid) 1 mg DAILY PO Last administered on 08/27/18at 08:34; A dmin Dose 1 MG; Start 08/17/18 at 09:00 Multivitamins/ Minerals (Theragran-M) 1 tab DAILY PO Last administered on 08/27/18at 08:34; Admin Dose 1 TAB; Start 08/17/18 at 09:00 Thiamine HCl (Vitamin B1) 100 mg DAILY PO Last administered on 08/27/18at 08:34; Admin Dose 100 MG; Start 08/17/18 at 09:00 Polyethylene Glycol (Miralax) 17 gm DAILY PRN PO CONSTIPATION; Start 08/17/18 at 01:00 Ferrous Sulfate (Ferrous Sulfate (Ec)) 325 mg TID PO Last administered on 08/27/18at 08:34; Admin Dose 325 MG; Start 08/17/18 at 09:00 Tamsulosin HCl (Flomax) 0.4 mg HS PO Last administered on 08/26/18at 19:46; Adm in Dose 0.4 MG; Start 08/17/18 at 21:00 Famotidine (Pepcid) 20 mg DAILY PO Last administered on 08/27/18at 08:34; Admin Dose 20 MG; Start 08/17/18 at 09:00 Magnesium Hydroxide (Milk Of Mag) 30 ml DAILY PRN PO CONSTIPATION; Start 08/17/18 at 01:00 Acetaminophen (Tylenol Tab) 650 mg Q6H PRN PO MILD PAIN(1-3)OR ELEVATED TEMP; Start 08/17/18 at 01:00 Ondansetron HCl (Zofran Inj) 4 mg Q8 PRN IV NAUSEA AND/OR VOMITING; Start 08/17/18 at 01:00 Senna (Senokot) 2 tab BID PRN PO CONSTIPATION Last administered on 08/24/18at 06:03; Admin Dose 2 TAB; Start 08/17/18 at 01:00 Zolpidem Tartrate (Ambien) 5 mg HS PRN PO INSOMNIA Last administered on 08/20/18at 21:49; Admin Dose 5 MG; Start 08/17/18 at 01:00 Tramadol HCl (Ultram) 50 mg TID PRN PO PAIN LEVEL 1-5 Last administered on 08/27/18at 02:01; Admin Dose 50 MG; Start 08/17/18 at 01:00 Miscellaneous Information Patients own medicat... BID@1000,1600 XX ; Start 08/17/18 at 10:00 Bicalutamide (Casodex) 50 mg DAILY PO Last administered on 08/27/18at 08:35; Admin Dose 50 MG; Start 08/18/18 at 16:30 Morphine Sulfate (morphine) 6 mg Q4H PRN PO SEVERE PAIN LEVEL 7-10 Last administered on 08/25/18at 23:36; Admin Dose 6 MG; Start 08/21/18 at 17:30 WENDY SIMS Aug 27, 2018 09:48
[2018-08-27] MEDS: [UNRECOGNIZED DRUG - OTHER] XX SCH ×2 (10:00→15:31)
[2018-08-27] MEDS: OXYCODONE/ACETAMINOPHEN (5/325) TAB PO PRN ×2 (13:34→21:01)
--- NOTE | 2018-08-27 14:00 | NUR ---
SS Note: F/U Discussed case with Dr. Wong. Informed her pt's brother unable to accept pt back home if he is unable to get out of bed and walk to restroom on his own. SW also informed her SW had conference with pt and his brother over the phone on Monday and pt had agreed to SNF placement. Pt also has hx of noncompliance and uncooperative behavior. SW recommended for Dr. Wong to speak with brother.
[2018-08-27 14:09] VITALS: BP 114/66; PULSE 98; RESP 18
--- NOTE | 2018-08-27 14:14 | PN ---
Date/Time of Note Date/Time of Note DATE: 08/27/18 TIME: 14:11 Assessment/Plan VTE Prophylaxis Risk score (from Ns)>0 risk: 5 SCD applied (from Ns): Yes Pharmacological prophylaxis: NA/contraindicated Pharm contraindication: low risk/ambulating Lines/Catheters IV Catheter Type (from Nrsg): Saline Lock Urinary Cath still in place: No Assessment/Plan Hospital Course 72 y/o with 1. AMS, metabolic encephalopathy ? per pscy has capcity 2. Lymphadenopathy concerning for malignancy unknown primary source, more likely prostate cancer, PSA 1000. 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 Acute kidney injury, better 4. Severe anemia 5. Recent weight loss 6. Severe malnourishment 7. Thrombocytopenia 8. History of subdural hematoma 9. History of hepatitis C 10. History of alcoholism 11. Hypertension 12. Mild left hydronephrosis with obstructing distal left ureteral calculus 13 Chronic gastritis s/p EGD Plan -pt has capacity per pscy - MRCP neg - HOLD BP MEDS due to hypotension - cw casodex/flomax - spoke to Dr Nguyen will do biopsy as OPD in office - cw PPI - Bone scan +multiple mets - PT eval , refused, will call again Pt will need fu oncology and urology as OPD dc to SN[facility] Result Diagram: 08/27/18 0609 08/27/18 0609 Results 24hrs Laboratory Tests Test 08/27/18 06:09 White Blood Count 4.5 L Red Blood Count 2.51 L Hemoglobin 7.5 L Hematocrit 24.1 L Mean Corpuscular Volume 96.0 Mean Corpuscular Hemoglobin 29.9 Mean Corpuscular Hemoglobin Concent 31.1 L Red Cell Distribution Width 16.8 H Platelet Count 217 Mean Platelet Volume 10.5 H Immature Granulocytes % 1.800 H Neutrophils % 60.0 Lymphocytes % 26.4 Monocytes % 9.4 Eosinophils % 2.2 Basophils % 0.2 Nucleated Red Blood Cells % 0.0 Immature Granulocytes # 0.080 H Neutrophils # 2.7 Lymphocytes # 1.2 Monocytes # 0.4 Eosinophils # 0.1 Basophils # 0.0 Nucleated Red Blood Cells # 0.0 Sodium Level 138 Potassium Level 4.1 Chloride Level 103 Carbon Dioxide Level 26 Anion Gap 9 Blood Urea Nitrogen 23 H Creatinine 1.23 Est Glomerular Filtrat Rate mL/min 58 L Glucose Level 117 Calcium Level 9.3 Subjective 24 Hr Interval Summary Free Text/Dictation Pt is willing to participate in Physical therapy now spoke to brother who want felicia to go to [facility] Exam/Review of Systems Vital Signs Vitals Vital Signs Date Temp Pulse Resp B/P (MAP) Pulse Ox O2 O2 Flow FiO2 Time Delivery Rate 08/27/18 97.9 83 18 112/80 98 Room Air 08:00 (91) Intake and Output 08/26/18 08/26/18 08/27/18 1515:00 23:00 07:00 IntakeIntake Total 900 ml 240 ml 250 ml OutputOutput Total 850 ml 200 ml 150 ml BalanceBalance 50 ml 40 ml 100 ml Exam Constitutional: alert, oriented ENMT: nl external ears & nose Respiratory: clear to auscultation Cardiovascular: regular rate and rhythm Gastrointestinal: soft Musculoskeletal: muscle weakness Medications Medications Current Medications Pantoprazole (Protonix Tab) 40 mg DAILY@06 PO Last administered on 08/27/18at 05:22; Admin Dose 40 MG; Start 08/17/18 at 06:00 Oxycodone/ Acetaminophen (Percocet (5/ 325)) 2 tab Q6H PRN PO PAIN LEVEL 6-10 Last administered on 08/26/18at 23:39; Admin Dose 2 TAB; Start 08/17/18 at 01:00 Oxycodone/ Acetaminophen (Percocet (5/ 325)) 1 tab Q6H PRN PO MODERATE PAIN LEVEL 4-6 Last administered on 08/27/18at 13:34; Admin Dose 1 TAB; Start 08/17/18 at 01:00 Folic Acid (Folic Acid) 1 mg DAILY PO Last administered on 08/27/18at 08:34; Admin Dose 1 MG; Start 08/17/18 at 09:00 Multivitamins/ Minerals (Theragran-M) 1 tab DAILY PO Last administered on 08/27/18at 08:34; Admin Dose 1 TAB; Start 08/17/18 at 09:00 Thiamine HCl (Vitamin B1) 100 mg DAILY PO Last administered on 08/27/18at 08:34; Admin Dose 100 MG; Start 08/17/18 at 09:00 Polyethylene Glycol (Miralax) 17 gm DAILY PRN PO CONSTIPATION; Start 08/17/18 at 01:00 Ferrous Sulfate (Ferrous Sulfate (Ec)) 325 mg TID PO Last administered on 08/27/18 13:34; Admin Dose 325 MG; Start 08/17/18 at 09:00 Tamsulosin HCl (Flomax) 0.4 mg HS PO Last administered on 08/26/18at 19:46; Admin Dose 0.4 MG; Start 08/17/18 at 21:00 Famotidine (Pepcid) 20 mg DAILY PO Last administered on 08/27/18 08:34; Admin Dose 20 MG; Start 08/17/18 at 09:00 Magnesium Hydroxide (Milk Of Mag) 30 ml DAILY PRN PO CONSTIPATION; Start 08/17/18 at 01:00 Acetaminophen (Tylenol Tab) 650 mg Q6H PRN PO MILD PAIN(1-3)OR ELEVATED TEMP; Start 08/17/18 at 01:00 Ondansetron HCl (Zofran Inj) 4 mg Q8 PRN IV NAUSEA AND/OR VOMITING; Start 08/17/18 at 01:00 Senna (Senokot) 2 tab BID PRN PO CONSTIPATION Last administered on 08/24/18at 06:03; Admin Dose 2 TAB; Start 08/17/18 at 01:00 Zolpidem Tartrate (Ambien) 5 mg HS PRN PO INSOMNIA Last administered on 08/20/18 21:49; Admin Dose 5 MG; Start 08/17/18 at 01:00 Tramadol HCl (Ultram) 50 mg TID PRN PO PAIN LEVEL 1-5 Last administered on 08/27/18 02:01; Admin Dose 50 MG; Start 08/17/18 at 01:00 Miscellaneous Information Patients own medicat... BID@1000,1600 XX ; Start 08/17/18 at 10:00 Bicalutamide (Casodex) 50 mg DAILY PO Last administered on 08/27/18 08:35; Admin Dose 50 MG; Start 08/18/18 at 16:30 Morphine Sulfate (morphine) 6 mg Q4H PRN PO SEVERE PAIN LEVEL 7-10 Last administered on 08/25/18at 23:36; Admin Dose 6 MG; Start 08/21/18 at 17:30 VALDO HERNANDEZ MD Aug 27, 2018 14:14
--- NOTE | 2018-08-27 14:16 | PDOCDIS ---
Discharge Instructions DIAGNOSIS Discharge Diagnosis Mestatic prostate cancer to bones CONDITION [id number] Patient Condition: [id number] Fair HOME CARE INSTRUCTIONS: [id number] Special Diet: [id number] soft diet ACTIVITY: [id number] Activity Restrictions: [id number] Slowly Increase Activity Rest between Activity Avoid heavy lifting FOLLOW UP/APPOINTMENTS Follow-up Plan f/u dr bennett in 3-4 days f/u Dr Culp in 3-4 days VALDO HERNANDEZ MD Aug 27, 2018 14:16
--- NOTE | 2018-08-27 15:45 | NUR ---
RN Notes: Patient remains alert and oriented with period of forgetful, reoriented as needed. Afebrile, no sob noted, breathing even and unlabored, no acute distress noted. Still c/o intermittent pain medicated with pain med as ordered with some relief. DR. Wong ordered for casey saw operator consult and transfer to [facility], Maria Luz casey saw operator aware and said will inform us once [facility] accepted pt, Dr. Wong aware that at this time still waiting for SNIF acceptance. PT made aware regarding MD's order per PT Trey they discharge pt already. Hourly rounding done, call light within reach, bed alarm on. Will continue to monitor until the end of the shift. Addendum: 08/27/18 at 1732 by JUAN CHISHOLM RN Per Maria Luz casey saw operator still waiting for acceptance at [facility]. Will endorse to next shift for continuity of care. Addendum: 08/27/18 at 1805 by JUAN CHISHOLM RN pt able to void freely, denies pain when urinating noted with yellow urine output, no hematuria noted, strained urine, no visible stone noted. Kept clean and comfortable.
--- NOTE | 2018-08-27 18:16 | CONS ---
Date/Time of Note Date/Time of Note DATE: 08/27/18 TIME: 18:13 Consult Date/Type/Reason Admit Date/Time Aug 16, 2018 at 22:30 Initial Consult Date 08/18/18 Type of Consultation: Urology Reason for Consultation Metastatic prostate cancer Requesting Provider: MILLY LABOY MD Subjective This patient is comfortable, he denies any pain at the present time Objective Vital Signs Date Temp Pulse Resp B/P (MAP) Pulse Ox O2 O2 Flow FiO2 Time Delivery Rate 08/27/18 97.9 98 18 114/66 100 Room Air 14:09 (82) Intake and Output 08/26/18 08/26/18 08/27/18 1515:00 23:00 07:00 IntakeIntake Total 900 ml 240 ml 250 ml OutputOutput Total 850 ml 200 ml 150 ml BalanceBalance 50 ml 40 ml 100 ml Exam Abdomen is soft, there is no abdominal mass palpable. He is capable of moving all extremities. Results/Medications Result Diagram: 08/27/18 0609 08/27/18 0609 Results 24 hrs Laboratory Tests Test 08/27/18 06:09 White Blood Count 4.5 L Red Blood Count 2.51 L Hemoglobin 7.5 L Hematocrit 24.1 L Mean Corpuscular Volume 96.0 Mean Corpuscular Hemoglobin 29.9 Mean Corpuscular Hemoglobin Concent 31.1 L Red Cell Distribution Width 16.8 H Platelet Count 217 Mean Platelet Volume 10.5 H Immature Granulocytes % 1.800 H Neutrophils % 60.0 Lymphocytes % 26.4 Monocytes % 9.4 Eosinophils % 2.2 Basophils % 0.2 Nucleated Red Blood Cells % 0.0 Immature Granulocytes # 0.080 H Neutrophils # 2.7 Lymphocytes # 1.2 Monocytes # 0.4 Eosinophils # 0.1 Basophils # 0.0 Nucleated Red Blood Cells # 0.0 Sodium Level 138 Potassium Level 4.1 Chloride Level 103 Carbon Dioxide Level 26 Anion Gap 9 Blood Urea Nitrogen 23 H Creatinine 1.23 Est Glomerular Filtrat Rate mL/min 58 L Glucose Level 117 Calcium Level 9.3 Medications Current Medications Pantoprazole (Protonix Tab) 40 mg DAILY@06 PO Last administered on 08/27/18at 05:22; Admin Dose 40 MG; Start 08/17/18 at 06:00 Oxycodone/ Acetaminophen (Percocet (5/ 325)) 2 tab Q6H PRN PO PAIN LEVEL 6-10 Last administered on 08/26/18 23:39; Admin Dose 2 TAB; Start 08/17/18 at 01:00 Oxycodone/ Acetaminophen (Percocet (5/ 325)) 1 tab Q6H PRN PO MODERATE PAIN LEVEL 4-6 Last administered on 08/27/18 13:34; Admin Dose 1 TAB; Start 08/17/18 at 01:00 Folic Acid (Folic Acid) 1 mg DAILY PO Last administered on 08/27/18 08:34; Admin Dose 1 MG; Start 08/17/18 at 09:00 Multivitamins/ Minerals (Theragran-M) 1 tab DAILY PO Last administered on 08/27/18 08:34; Admin Dose 1 TAB; Start 08/17/18 at 09:00 Thiamine HCl (Vitamin B1) 100 mg DAILY PO Last administered on 08/27/18 08:34; Admin Dose 100 MG; Start 08/17/18 at 09:00 Polyethylene Glycol (Miralax) 17 gm DAILY PRN PO CONSTIPATION; Start 08/17/18 at 01:00 Ferrous Sulfate (Ferrous Sulfate (Ec)) 325 mg TID PO Last administered on 08/27/18 13:34; Admin Dose 325 MG; Start 08/17/18 at 09:00 Tamsulosin HCl (Flomax) 0.4 mg HS PO Last administered on 08/26/18 19:46; Admin Dose 0.4 MG; Start 08/17/18 at 21:00 Famotidine (Pepcid) 20 mg DAILY PO Last administered on 08/27/18 08:34; Admin Dose 20 MG; Start 08/17/18 at 09:00 Magnesium Hydroxide (Milk Of Mag) 30 ml DAILY PRN PO CONSTIPATION; Start 08/17/18 at 01:00 Acetaminophen (Tylenol Tab) 650 mg Q6H PRN PO MILD PAIN(1-3)OR ELEVATED TEMP; Start 08/17/18 at 01:00 Ondansetron HCl (Zofran Inj) 4 mg Q8 PRN IV NAUSEA AND/OR VOMITING; Start 08/17/18 at 01:00 Senna (Senokot) 2 tab BID PRN PO CONSTIPATION Last administered on 08/24/18at 06:03; Admin Dose 2 TAB; Start 08/17/18 at 01:00 Zolpidem Tartrate (Ambien) 5 mg HS PRN PO INSOMNIA Last administered on 08/20/18 at 21:49; Admin Dose 5 MG; Start 08/17/18 at 01:00 Tramadol HCl (Ultram) 50 mg TID PRN PO PAIN LEVEL 1-5 Last administered on 08/27/18at 02:01; Admin Dose 50 MG; Start 08/17/18 at 01:00 Miscellaneous Information Patients own medicat... BID@1000,1600 XX ; Start 08/17/18 at 10:00 Bicalutamide (Casodex) 50 mg DAILY PO Last administered on 08/27/18at 08:35; Admin Dose 50 MG; Start 08/18/18 at 16:30 Morphine Sulfate (morphine) 6 mg Q4H PRN PO SEVERE PAIN LEVEL 7-10 Last administered on 08/25/18at 23:36; Admin Dose 6 MG; Start 08/21/18 at 17:30 Assessment/Plan Chief Complaint/Hosp Course 72-year-old -[place] male was transferred from [facility] to [facility]. Patient was found to have metastatic cancer to the lungs and his bones and upon admission here at [facility] his PSA was over 1000 therefore a urological consultation was requested. The patient himself is not a good historian. He is confused and sometimes agitated. At the [facility] they attempted to have MRI of the spine to evaluate metastatic disease and evaluate for vertebral instability but the patient was confused and agitated and they were not able to do the MRI. The patient is known to have had subdural hematoma status post evacuation at [facility] in February 2018. The patient also was found to have lymphadenopathy and bony metastases. He also is known to have a history of hypertension and anemia. CT scan of the abdomen and pelvis without contrast at [facility] done on 08/13/2018 showed lung bases: Extensive pleural nodularity and pulmonary nodules bilaterally bilateral left greater than right small pleural effusions and bibasilar atelectasis liver: Unremarkable, gallbladder and bile ducts: Contract ed likely containing gallstones ,spleen unremarkable,pancreas unremarkable, adrenals mildly thickened left greater than right adrenal glands, kidneys and ureters: Bilateral low-density lesions mostly fluid density but incompletely characterized measuring up to 6.2 cm on the right kidney, mild left h ydronephrosis likely due to an obstructing 6 mm stone in the distal left ureter. Bowels nondilated bowel loops moderate stool burden. Bladder diffuse circumferential wall thickening. Reproductive organs: Prostatomegaly with median lobe hypertrophy. Lymph node: Likely prominent retroperitoneal and bilateral iliac chain lymph nodes although overall poorly delineated due to lack of intravenous contrast. Peritoneum: Small volume ascites. Vessels: Moderate atherosclerotic calcification. Abdominal wall: Mild body wall edema. Bones: Mixed lytic ,sclerotic bone lesions involving the entire axial and appendicular skeleton with areas of vertebral body height loss for example in the L3 vertebral body and marked areas of cortical destruction for example on the left inferior pubic ramus The lumbosacral spine x-rays and pelvic x-rays showed osteoblastic lesions consistent with metastasis most likely from the prostate. The patient is voiding well. He also does have a distal left ureteral stone but he denies having any pain. We will strain his urine and do a KUB to see if the stone is visible and is radiopaque. Since his PSA is over thousand I wanted to add Lupron Depot to his treatment in addition to the Casodex. The Lupron is not on the formulary of the hospital. I requested that but the pharmacy operations specialist did not approve it stating that this should be done as an outpatient. My concern is this patient is not the type that will follow-up as an outpatient because of where he lives and lack of transportation. And his cancer is very advanced and would benefit from at least a 1 month injection. He did have the bone scan done today and that showed: Multiple foci of increased activity are seen in the calvarium, sternum, rib cages bilaterally, sternum, pelvic bones bilaterally and both hips. No other definite abnormal areas of increased activity or asymmetries are visualized in the study and distribution of radionuclide is homogeneous in the skull, spine, rib cages, sternum, pelvis and visualized portions of the upper and lower extremities. Of incidental note, there is a poor visualization of the kidneys. Area of increased activity seen within the right pelvis. The finding may be related to physiologic bladder activity; also query right pelvic transplanted kidney. Urologically continue the Casodex and once he is out of the hospital start him on Lupron Depot as well I had a discussion with the patient about him coming to the office to undergo transrectal ultrasound and ultrasound-guided biopsy of the prostate. He did not seem to be able to do it. Patient lives in [place] . His address is [address] [place] [address], [place] [id number].. He uses [employer] for his travel. He cannot walk. He has pain in his legs and his legs are very weak. Therefore he will not be able to make it to the office especially that he lives in [place]. Therefore it will be difficult to obtain a tissue diagnosis from prostate biopsy. He also may have difficulty coming to the office to give him Lupron Depo for his prostate cancer. If he is sent to a shelter facility then the shelter facility will become responsible for his Lupron injections and also if I am to do an ultrasound-guided biopsy of his prostate the longterm has to authorize it and be financially responsible for it. If however there is any lesion that could be biopsied while he is in the hospital then that may be a better option to establish a pathological diagnosis. For now continue present treatment MAVIS MAI MD Aug 27, 2018 18:15
[2018-08-27 20:21] VITALS: BP 113/68; PULSE 96; RESP 20
[2018-08-27] MEDS: TAMSULOSIN (SR) 0.4 MG CAP PO SCH (21:00)
--- NOTE | 2018-08-27 22:58 | NUR ---
Pt with DC order today 08-27-18 to transfer pt to SNF, per CM as endorsed by am shift nurse still waiting for SNF acceptance, aware. Will endorse in am to clarify DC order.
[2018-08-28 02:18] VITALS: BP 113/70; PULSE 87; RESP 18
[2018-08-28] MEDS: PANTOPRAZOLE (EC) 40 MG TAB PO SCH (05:52)
[2018-08-28] MEDS: OXYCODONE/ACETAMINOPHEN (5/325) TAB PO PRN ×3 (05:52→21:04)
--- NOTE | 2018-08-28 06:30 | NUR ---
End of shift Report: Pt medicated for bilateral leg pain 2x well-shobha and effective. Refused medication last night, explained importance, still pt refused. No changes overnight. Needs attended and anticipated. Fall precaution rendered. Needs attended and anticipated. Call light with reach. Will continue to monitor pt.Pending SNF placement c/o CM. Will endorse accordingly. Addendum: 08/28/18 at 0635 by ÁNGEL BARILLAS RN strained urine no stones noted
[2018-08-28 08:00] VITALS: BP 118/68; PULSE 88; RESP 18
[2018-08-28] MEDS: FOLIC ACID 1 MG TAB PO SCH (08:50)
[2018-08-28] MEDS: FAMOTIDINE 20 MG TAB PO SCH (08:50)
[2018-08-28] MEDS: THIAMINE 100 MG TAB PO SCH (08:50)
[2018-08-28] MEDS: FERROUS SULFATE (EC) 325 MG TAB PO SCH ×3 (08:50→21:04)
[2018-08-28] MEDS: MULTIVITAMINS/MINERALS TAB PO SCH (08:50)
[2018-08-28] MEDS: BICALUTAMIDE 50 MG TAB PO SCH (08:51)
[2018-08-28] MEDS: [UNRECOGNIZED DRUG - OTHER] XX SCH ×2 (08:55→15:03)
--- NOTE | 2018-08-28 10:33 | CONS ---
Date/Time of Note Date/Time of Note DATE: 08/28/18 TIME: 10:11 Assessment/Plan Assessment/Plan Assessment/Plan A 72 yo transferred from [facility] with #1 Prostate Cancer - presumed given PSA >1000 - scans from [facility] demonstrates widely metastatic disease to bones and lung as well as RP LAD - continue Casodex 50 mgd aily x 10 days then can start Lupron as out pt - met prostate ca is treated with androgen deprivation therapy - will start Xgeva or zometa for bony mets as an outpatient also ideally would get Xgeva or zometa for bony mets, given renal failure bisphosphonate will not be given -08/20/18- Bone Scan - will fu result and perform biopsy appropriately # 3 Anemia -- Hg 7.5 - chronic disease from underlying malignancy -likely anemia of chronic inflammation. iron studies are ok but elevated fe rritin noted -hold on transfusion for now - s/p EGD - with chronic gastritis - cont procrit - monitor iron studies periodically # Common Bile Duct Dilation - 08/22/2018- US abdomen showed Common Bile Duct Dilation - 08/22/2018- US MRI showed- Common bile duct dilatation up to 10 mm. No la rge stones seen within the common bile duct - management per GI # Acute Transaminitis - Management Per GI # Acute Kidney injury- trended up today Cr 1.46 - management per PMD # Mild left hydronephrosis - shown on MRI abdomen - managements per PMD # SP Psych evaluation- that pt able to make own decisions. A total of 50 minutes of face to face time was spent speaking with the patient of which greater than 50% was spent in counseling and coordination of care and the detailed question and answer session. Dw staff.Patient is willing to continue with androgen deprivation therapy; he is ok wit to continue casodex, after 10 days of this will start Lupron Patient seen in collaboration with Dr Pardo Result Diagram: 08/27/18 0609 08/28/18 0637 Results 24hrs Laboratory Tests Test 08/28/18 06:37 Sodium Level 138 Potassium Level 4.9 Chloride Level 101 Carbon Dioxide Level 29 Anion Gap 8 Blood Urea Nitrogen 26 H Creatinine 1.30 H Est Glomerular Filtrat Rate mL/min 55 L Glucose Level 92 Calcium Level 9.4 Total Bilirubin 0.0 L Direct Bilirubin 0.00 Indirect Bilirubin 0.0 Aspartate Amino Transf (AST/SGOT) 34 Alanine Aminotransferase (ALT/SGPT) 18 Alkaline Phosphatase 356 H Total Protein 6.9 Albumin 3.6 Globulin 3.30 H Albumin/Globulin Ratio 1.09 Consultation Date/Type/Reason Admit Date/Time Aug 16, 2018 at 10:30 pm Initial Consult Date 08/18/18 Type of Consult oncology Requesting Provider: MILLY LABOY MD Exam/Review of Systems Vital Signs Vitals Vital Signs Date Temp Pulse Resp B/P (MAP) Pulse Ox O2 O2 Flow FiO2 Time Delivery Rate 08/28/18 98.8 88 18 118/68 98 08:00 (85) 08/27/18 Room Air 14:09 Intake and Output 08/27/18 08/27/18 08/28/18 1515:00 23:00 07:00 IntakeIntake Total 240 ml 960 ml 700 ml OutputOutput Total 200 ml 600 ml 1150 ml BalanceBalance 40 ml 360 ml -450 ml Medications Medications Current Medications Pantoprazole (Protonix Tab) 40 mg DAILY@06 PO Last administered on 08/28/18at 05:52; Admin Dose 40 MG; Start 08/17/18 at 06:00 Oxycodone/ Acetaminophen (Percocet (5/ 325)) 2 tab Q6H PRN PO PAIN LEVEL 6-10 Last administered on 08/27/18at 21:01; Admin Dose 2 TAB; Start 08/17/18 at 01:00 Oxycodone/ Acetaminophen (Percocet (5/ 325)) 1 tab Q6H PRN PO MODERATE PAIN LEVEL 4-6 Last administered on 08/28/18at 05:52; Admin Dose 1 TAB; Start 08/17/18 at 01:00 Folic Acid (Folic Acid) 1 mg DAILY PO Last administered on 08/28/18at 08:50; Admin Dose 1 MG; Start 08/17/18 at 09:00 Multivitamins/ Minerals (Theragran-M) 1 tab DAILY PO Last administered on 08/28/18at 08:50; Admin Dose 1 TAB; Start 08/17/18 at 09:00 Thiamine HCl (Vitamin B1) 100 mg DAILY PO Last administered on 08/28/18at 08:50; Admin Dose 100 MG; Start 08/17/18 at 09:00 Polyethylene Glycol (Miralax) 17 gm DAILY PRN PO CONSTIPATION; Start 08/17/18 at 01:00 Ferrous Sulfate (Ferrous Sulfate (Ec)) 325 mg TID PO Last administered on 08/28/18 08:50; Admin Dose 325 MG; Start 08/17/18 at 09:00 Tamsulosin HCl (Flomax) 0.4 mg HS PO Last administered on 08/26/18 19:46; Admin Dose 0.4 MG; Start 08/17/18 at 21:00 Famotidine (Pepcid) 20 mg DAILY PO Last administered on 08/28/18 08:50; Admin Dose 20 MG; Start 08/17/18 at 09:00 Magnesium Hydroxide (Milk Of Mag) 30 ml DAILY PRN PO CONSTIPATION; Start 08/17/18 at 01:00 Acetaminophen (Tylenol Tab) 650 mg Q6H PRN PO MILD PAIN(1-3)OR ELEVATED TEMP; Start 08/17/18 at 01:00 Ondansetron HCl (Zofran Inj) 4 mg Q8 PRN IV NAUSEA AND/OR VOMITING; Start 08/17/18 at 01:00 Senna (Senokot) 2 tab BID PRN PO CONSTIPATION Last administered on 08/24/18 06:03; Admin Dose 2 TAB; Start 08/17/18 at 01:00 Zolpidem Tartrate (Ambien) 5 mg HS PRN PO INSOMNIA Last administered on 08/20/18 21:49; Admin Dose 5 MG; Start 08/17/18 at 01:00 Tramadol HCl (Ultram) 50 mg TID PRN PO PAIN LEVEL 1-5 Last administered on 08/27/18 02:01; Admin Dose 50 MG; Start 08/17/18 at 01:00 Miscellaneous Information Patients own medicat... BID@1000,1600 XX ; Start 08/17/18 at 10:00 Bicalutamide (Casodex) 50 mg DAILY PO Last administered on 08/28/18 08:51; Admin Dose 50 MG; Start 08/18/18 at 16:30 Morphine Sulfate (morphine) 6 mg Q4H PRN PO SEVERE PAIN LEVEL 7-10 Last administered on 08/25/18 23:36; Admin Dose 6 MG; Start 08/21/18 at 17:30 JOSE CHUN Aug 28, 2018 10:33 am
--- NOTE | 2018-08-28 13:48 | CONS ---
Date/Time of Note Date/Time of Note DATE: 08/28/18 TIME: 13:46 Consult Date/Type/Reason Admit Date/Time Aug 16, 2018 at 22:30 Initial Consult Date 08/18/18 Type of Consultation: Urology Reason for Consultation Metastatic prostate cancer Requesting Provider: MILLY LABOY MD Subjective Patient states that he is feeling better and is ambulating more. He denies any dysuria and he is voiding well and the urine is clear Objective Vital Signs Date Temp Pulse Resp B/P (MAP) Pulse Ox O2 O2 Flow FiO2 Time Delivery Rate 08/28/18 98.8 88 18 118/68 98 08:00 (85) 08/27/18 Room Air 14:09 Intake and Output 08/27/18 08/27/18 08/28/18 1414:59 22:59 06:59 IntakeIntake Total 240 ml 960 ml 700 ml OutputOutput Total 200 ml 600 ml 1150 ml BalanceBalance 40 ml 360 ml -450 ml Exam The urine is clear. The abdomen is soft and he indeed does move his lower extremities better Results/Medications Result Diagram: 08/27/18 0609 08/28/18 0637 Results 24 hrs Laboratory Tests Test 08/28/18 06:37 Sodium Level 138 Potassium Level 4.9 Chloride Level 101 Carbon Dioxide Level 29 Anion Gap 8 Blood Urea Nitrogen 26 H Creatinine 1.30 H Est Glomerular Filtrat Rate mL/min 55 L Glucose Level 92 Calcium Level 9.4 Total Bilirubin 0.0 L Direct Bilirubin 0.00 Indirect Bilirubin 0.0 Aspartate Amino Transf (AST/SGOT) 34 Alanine Aminotransferase (ALT/SGPT) 18 Alkaline Phosphatase 356 H Total Protein 6.9 Albumin 3.6 Globulin 3.30 H Albumin/Globulin Ratio 1.09 Medications Current Medications Pantoprazole (Protonix Tab) 40 mg DAILY@06 PO Last administered on 08/28/18at 05:52; Admin Dose 40 MG; Start 08/17/18 at 06:00 Oxycodone/ Acetaminophen (Percocet (5/ 325)) 2 tab Q6H PRN PO PAIN LEVEL 6-10 Last administered on 08/27/18at 21:01; Admin Dose 2 TAB; Start 08/17/18 at 01:00 Oxycodone/ Acetaminophen (Percocet (5/ 325)) 1 tab Q6H PRN PO MODERATE PAIN LEVEL 4-6 Last administered on 08/28/18 13:35; Admin Dose 1 TAB; Start 08/17/18 at 01:00 Folic Acid (Folic Acid) 1 mg DAILY PO Last administered on 08/28/18 08:50; Admin Dose 1 MG; Start 08/17/18 at 09:00 Multivitamins/ Minerals (Theragran-M) 1 tab DAILY PO Last administered on 08/28/18 08:50; Admin Dose 1 TAB; Start 08/17/18 at 09:00 Thiamine HCl (Vitamin B1) 100 mg DAILY PO Last administered on 08/28/18 08:50; Admin Dose 100 MG; Start 08/17/18 at 09:00 Polyethylene Glycol (Miralax) 17 gm DAILY PRN PO CONSTIPATION; Start 08/17/18 at 01:00 Ferrous Sulfate (Ferrous Sulfate (Ec)) 325 mg TID PO Last administered on 08/28/18 13:34; Admin Dose 325 MG; Start 08/17/18 at 09:00 Tamsulosin HCl (Flomax) 0.4 mg HS PO Last administered on 08/26/18 19:46; Admin Dose 0.4 MG; Start 08/17/18 at 21:00 Famotidine (Pepcid) 20 mg DAILY PO Last administered on 08/28/18 08:50; Admin Dose 20 MG; Start 08/17/18 at 09:00 Magnesium Hydroxide (Milk Of Mag) 30 ml DAILY PRN PO CONSTIPATION; Start 08/17/18 at 01:00 Acetaminophen (Tylenol Tab) 650 mg Q6H PRN PO MILD PAIN(1-3)OR ELEVATED TEMP; Start 08/17/18 at 01:00 Ondansetron HCl (Zofran Inj) 4 mg Q8 PRN IV NAUSEA AND/OR VOMITING; Start 08/17/18 at 01:00 Senna (Senokot) 2 tab BID PRN PO CONSTIPATION Last administered on 08/24/18 06:03; Admin Dose 2 TAB; Start 08/17/18 at 01:00 Zolpidem Tartrate (Ambien) 5 mg HS PRN PO INSOMNIA Last administered on 08/20/18 21:49; Admin Dose 5 MG; Start 08/17/18 at 01:00 Tramadol HCl (Ultram) 50 mg TID PRN PO PAIN LEVEL 1-5 Last administered on 08/27/18at 02:01; Admin Dose 50 MG; Start 08/17/18 at 01:00 Miscellaneous Information Patients own medicat... BID@1000,1600 XX ; Start 08/17/18 at 10:00 Bicalutamide (Casodex) 50 mg DAILY PO Last administered on 08/28/18at 08:51; Admin Dose 50 MG; Start 08/18/18 at 16:30 Morphine Sulfate (morphine) 6 mg Q4H PRN PO SEVERE PAIN LEVEL 7-10 Last administered on 08/25/18at 23:36; Admin Dose 6 MG; Start 08/21/18 at 17:30 Assessment/Plan Chief Complaint/Hosp Course 72-year-old -Russian male was transferred from [facility] to [facility]. Patient was found to have metastatic cancer to the lungs and his bones and upon admission here at [facility] his PSA was over 1000 therefore a urological consultation was requested. The patient himself is not a good historian. He is confused and sometimes agitated. At the [facility] they attempted to have MRI of the spine to evaluate metastatic disease and evaluate for vertebral instability but the patient was confused and agitated and they were not able to do the MRI. The patient is known to have had subdural hematoma status post evacuation at [facility] in February 2018. The patient also was found to have ly mphadenopathy and bony metastases. He also is known to have a history of hypertension and anemia. CT scan of the abdomen and pelvis without contrast at [facility] done on 08/13/2018 showed lung bases: Extensive pleural nodularity and pulmonary nodules bilaterally bilateral left greater than right small pleural effusions and bibasilar atelectasis liver: Unremarkable, gallbladder and bile ducts: Contracted likely containing gallstones ,spleen unremarkable,pancreas unremarkable, adrenals mildly thickened left greater than right adrenal glands, kidneys and ureters: Bilateral low-density lesions mostly fluid density but incompletely characterized measuring up to 6.2 cm on the right kidney, mild left hydronephrosis likely due to an obstructing 6 mm stone in the distal left ureter. Bowels nondilated bowel loops moderate stool burden. Bladder diffuse circumferential wall thickening. Reproductive organs: Prostatomegaly with median lobe hypertrophy. Lymph node: Likely prominent retroperitoneal and bilateral iliac chain lymph nodes although overall poorly delineated due to lack of intravenous contrast. Peritoneum: Small volume ascites. Vessels: Moderate atherosclerotic calcification. Abdominal wall: Mild body wall edema. Bones: Mixed lytic ,sclerotic bone lesions involving the entire axial and appendicular skeleton with areas of vertebral body height loss for example in the L3 vertebral body and marked areas of cortical destruction for example on the left inferior pubic ramus The lumbosacral spine x-rays and pelvic x-rays showed osteoblastic lesions consistent with metastasis most likely from the prostate. The patient is voiding well. He also does have a distal left ureteral stone but he denies having any pain. We will strain his urine and do a KUB to see if the stone is visible and is radiopaque. Since his PSA is over thousand I wanted to add Guerline pron Depot to his treatment in addition to the Casodex. The Lupron is not on the formulary of the hospital. I requested that but the pharmacy laboratory technician did not approve it stating that this should be done as an outpatient. My concern is this patient is not the type that will follow-up as an outpatient because of where he lives and lack of transportation. And his cancer is very advanced and would benefit from at least a 1 month injection. He did have the bone scan done and that showed: Multiple foci of increased activity are seen in the calvarium, sternum, rib cages bilaterally, sternum, pelvic bones bilaterally and both hips. No other definite abnormal areas of increased activity or asymmetries are visualized in the study and distribution of radionuclide is homogeneous in the skull, spine, rib cages, sternum, pelvis and visualized portions of the upper and lower extremities. Of incidental note, there is a poor visualization of the kidneys. Area of increased activity seen within the right pelvis. The finding may be related to physiologic bladder activity; also query right pelvic transplanted kidney. Urologically continue the Casodex and once he is out of the hospital start him on Lupron Depot as well MAVIS MAI MD Aug 28, 2018 13:48
[2018-08-28 14:00] VITALS: BP 120/77; PULSE 76; RESP 18
--- NOTE | 2018-08-28 15:09 | PN ---
Date/Time of Note Date/Time of Note DATE: 08/28/18 TIME: 15:07 Assessment/Plan VTE Prophylaxis Risk score (from Nsg)>0 risk: 5 SCD applied (from Nsg): Yes Pharmacological prophylaxis: NA/contraindicated Pharm contraindication: low risk/ambulating Lines/Catheters IV Catheter Type (from Nrsg): Saline Lock Urinary Cath still in place: No Assessment/Plan Hospital Course 72 y/o with 1. AMS, metabolic encephalopathy ? per pscy has capcity 2. Lymphadenopathy concerning for malignancy unknown primary source, more likely prostate cancer, PSA 1000. 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 Acute kidney injury, better 4. Severe anemia 5. Recent weight loss 6. Severe malnourishment 7. Thrombocytopenia 8. History of subdural hematoma 9. History of hepatitis C 10. History of alcoholism 11. Hypertension 12. Mild left hydronephrosis with obstructing distal left ureteral calculus 13 Chronic gastritis s/p EGD Plan -pt has capacity per pscy - MRCP neg - HOLD BP MEDS due to hypotension - cw casodex/flomax, will need leupron - spoke to Dr Nguyen will do biopsy as OPD in office - cw PPI - Bone scan +multiple mets -f/u PT Pt will need fu oncology and urology as OPD dc to SNIF, pending placement Result Diagram: 08/27/18 0609 08/28/18 0637 Results 24hrs Laboratory Tests Test 08/28/18 06:37 Sodium Level 138 Potassium Level 4.9 Chloride Level 101 Carbon Dioxide Level 29 Anion Gap 8 Blood Urea Nitrogen 26 H Creatinine 1.30 H Est Glomerular Filtrat Rate mL/min 55 L Glucose Level 92 Calcium Level 9.4 Total Bilirubin 0.0 L Direct Bilirubin 0.00 Indirect Bilirubin 0.0 Aspartate Amino Transf (AST/SGOT) 34 Alanine Aminotransferase (ALT/SGPT) 18 Alkaline Phosphatase 356 H Total Protein 6.9 Albumin 3.6 Globulin 3.30 H Albumin/Globulin Ratio 1.09 Subjective 24 Hr Interval Summary Free Text/Dictation waiting for SNIF Placement Exam/Review of Systems Vital Signs Vitals Vital Signs Date Temp Pulse Resp B/P (MAP) Pulse Ox O2 O2 Flow FiO2 Time Delivery Rate 08/28/18 98.8 88 18 118/68 98 08:00 (85) 08/27/18 Room Air 14:09 Intake and Output 08/27/18 08/27/18 08/28/18 1515:00 23:00 07:00 IntakeIntake Total 240 ml 960 ml 700 ml OutputOutput Total 200 ml 600 ml 1150 ml BalanceBalance 40 ml 360 ml -450 ml Exam Exam Constitutional: alert, oriented ENMT: nl external ears & nose Respiratory: clear to auscultation Cardiovascular: regular rate and rhythm Gastrointestinal: soft Musculoskeletal: muscle weakness Medications Medications Current Medications Pantoprazole (Protonix Tab) 40 mg DAILY@06 PO Last administered on 08/28/18 05:52; Admin Dose 40 MG; Start 08/17/18 at 06:00 Oxycodone/ Acetaminophen (Percocet (5/ 325)) 2 tab Q6H PRN PO PAIN LEVEL 6-10 Last administered on 08/27/18at 21:01; Admin Dose 2 TAB; Start 08/17/18 at 01:00 Oxycodone/ Acetaminophen (Percocet (5/ 325)) 1 tab Q6H PRN PO MODERATE PAIN LEVEL 4-6 Last administered on 08/28/18 13:35; Admin Dose 1 TAB; Start 08/17/18 at 01:00 Folic Acid (Folic Acid) 1 mg DAILY PO Last administered on 08/28/18 08:50; Admin Dose 1 MG; Start 08/17/18 at 09:00 Multivitamins/ Minerals (Theragran-M) 1 tab DAILY PO Last administered on 08/28/18 08:50; Admin Dose 1 TAB; Start 08/17/18 at 09:00 Thiamine HCl (Vitamin B1) 100 mg DAILY PO Last administered on 08/28/18 08:50; Admin Dose 100 MG; Start 08/17/18 at 09:00 Polyethylene Glycol (Miralax) 17 gm DAILY PRN PO CONSTIPATION; Start 08/17/18 at 01:00 Ferrous Sulfate (Ferrous Sulfate (Ec)) 325 mg TID PO Last administered on 08/28/18 13:34; Admin Dose 325 MG; Start 08/17/18 at 09:00 Tamsulosin HCl (Flomax) 0.4 mg HS PO Last administered on 08/26/18 19:46; Admin Dose 0.4 MG; Start 08/17/18 at 21:00 Famotidine (Pepcid) 20 mg DAILY PO Last administered on 08/28/18 08:50; Admin Dose 20 MG; Start 08/17/18 at 09:00 Magnesium Hydroxide (Milk Of Mag) 30 ml DAILY PRN PO CONSTIPATION; Start 08/17/18 at 01:00 Acetaminophen (Tylenol Tab) 650 mg Q6H PRN PO MILD PAIN(1-3)OR ELEVATED TEMP; Start 08/17/18 at 01:00 Ondansetron HCl (Zofran Inj) 4 mg Q8 PRN IV NAUSEA AND/OR VOMITING; Start 08/17/18 at 01:00 Senna (Senokot) 2 tab BID PRN PO CONSTIPATION Last administered on 08/24/18 06:03; Admin Dose 2 TAB; Start 08/17/18 at 01:00 Zolpidem Tartrate (Ambien) 5 mg HS PRN PO INSOMNIA Last administered on 08/20/18at 21:49; Admin Dose 5 MG; Start 08/17/18 at 01:00 Tramadol HCl (Ultram) 50 mg TID PRN PO PAIN LEVEL 1-5 Last administered on 08/27/18at 02:01; Admin Dose 50 MG; Start 08/17/18 at 01:00 Miscellaneous Information Patients own medicat... BID@1000,1600 XX ; Start 08/17/18 at 10:00 Bicalutamide (Casodex) 50 mg DAILY PO Last administered on 08/28/18 08:51; Admin Dose 50 MG; Start 08/18/18 at 16:30 Morphine Sulfate (morphine) 6 mg Q4H PRN PO SEVERE PAIN LEVEL 7-10 Last administered on 08/25/18at 23:36; Admin Dose 6 MG; Start 08/21/18 at 17:30 VALDO HERNANDEZ MD Aug 28, 2018 15:09
--- NOTE | 2018-08-28 15:21 | NUR ---
DC PLANS UPDATE: NO ACCEPTANCE TO 3 PREVIOUS REFERRED SNFS. [facility] CANNOT GET AUTHORIZATION FORM [facility] REFERRED TO [facility] TODAY. Addendum: 08/28/18 at 1523 by THUY MOURA CM Amended: Links added. Addendum: 08/29/18 at 1633 by THUY RELEASEIF MARTELL CM ACCEPTED [facility], TRANSFERRED VIA AMBULANCE, TRIP # [id number]
--- NOTE | 2018-08-28 18:06 | NUR ---
rn notes patient is alert and oriented X4, with periods of forgetful. complains of pain and medicated as ordered and effective. pending placement. strain urine, no stoned noted. all due medicine given and all needs attended to. call light placed within reach. fall precautions and chemo precautions observed well. remains afebrile and will continue to monitor.
--- NOTE | 2018-08-28 18:49 | CONS ---
Assessment/Plan Assessment/Plan Assessment/Plan Assessment/Plan Hospital Course 72 yo male 1. Anemia, likely due to cancer -FOB negative 2. Renal insufficiency. 3. Malnutrition. 4. Prostate cancer with mets to the bone noted in bone scan 5. Hypertension. 6. Hepatitis C. 7. Alcoholism. 8. Gastritis 9. S/P EGD 10. Transaminitis -alk phos elevated likely due to bone mets 11. Weight loss of 80 lbs over 3 months 12. Elevated alk phos secondary to bone mets 13. Fatty liver 14. Cholelithiasis 15. Dilated CBD at 10mm with no obstruction noted on imaging, total bili and alk wnl, and no abd pain, neg tracey's 16. Elevated CEA (AFP and CA 19-9 wnl) CEA level is 7 -FOB negative US of abd: Fatty infiltration of the liver. Cholelithiasis. Dilated CBD. 10mm Multiple simple cysts in the right kidney MRCP 08/22: 1. Limited evaluation due to motion artifact. 2. Cholelithiasis. 3. Common bile duct dilatation up to 10 mm. No large stones seen within the common bile duct, however evaluation is severely limited by motion artifact. Patient has no abdominal pain 4. Mild left hydronephrosis, as seen on prior ultrasound. 5. Heterogeneous signal of the visualized bones. Correlate with recent nuclear medicine bone scan. Plan Continue PPI WE will monitor LFTs and for clinical indication of bile duct obstruction, currently total bili wnl and pt denies abd pain and neg Tracey's sign Result Diagram: 08/27/18 0609 08/28/18 0637 Results 24hrs Laboratory Tests Test 08/28/18 06:37 Sodium Level 138 Potassium Level 4.9 Chloride Level 101 Carbon Dioxide Level 29 Anion Gap 8 Blood Urea Nitrogen 26 H Creatinine 1.30 H Est Glomerular Filtrat Rate mL/min 55 L Glucose Level 92 Calcium Level 9.4 Total Bilirubin 0.0 L Direct Bilirubin 0.00 Indirect Bilirubin 0.0 Aspartate Amino Transf (AST/SGOT) 34 Alanine Aminotransferase (ALT/SGPT) 18 Alkaline Phosphatase 356 H Total Protein 6.9 Albumin 3.6 Globulin 3.30 H Albumin/Globulin Ratio 1.09 Consultation Date/Type/Reason Admit Date/Time Aug 16, 2018 at 22:30 Initial Consult Date 08/18/18 Requesting Provider: MILLY LABOY MD 24 HR Interval Summary Free Text/Dictation Pain in the lower extremity Exam/Review of Systems Vital Signs Vitals Vital Signs Date Temp Pulse Resp B/P (MAP) Pulse Ox O2 O2 Flow FiO2 Time Delivery Rate 08/28/18 98.6 76 18 120/77 96 14:00 (91) 08/27/18 Room Air 14:09 Intake and Output 08/27/18 08/27/18 08/28/18 1515:00 23:00 07:00 IntakeIntake Total 240 ml 960 ml 700 ml OutputOutput Total 200 ml 600 ml 1150 ml BalanceBalance 40 ml 360 ml -450 ml Exam Constitutional: alert, oriented, well developed Psych: no complaints, nl mood/affect Head: normocephalic, atraumatic Eyes: nl conjunctiva, EOMI, nl lids, nl sclera, PERRL ENMT: nl external ears & nose, nl lips & teeth, nl nasal mucosa & septum Neck: supple, non-tender Respiratory: clear to auscultation, normal air movement Cardiovascular: regular rate and rhythm, nl pulses Gastrointestinal: soft, nl liver, spleen, non-tender Musculoskeletal: nl extremities to inspection, nl gait and stance Extremities: normal pulses Neurological: LOAD MANAGER II-XII intact, nl mental status, nl speech, nl strength Skin: nl turgor; No rash or lesions Lymph: nl lymph nodes Medications Medications Current Medications Pantoprazole (Protonix Tab) 40 mg DAILY@06 PO Last administered on 08/28/18at 05:52; Admin Dose 40 MG; Start 08/17/18 at 06:00 Oxycodone/ Acetaminophen (Percocet (5/ 325)) 2 tab Q6H PRN PO PAIN LEVEL 6-10 Last administered on 08/27/18at 21:01; Admin Dose 2 TAB; Start 08/17/18 at 01:00 Oxycodone/ Acetaminophen (Percocet (5/ 325)) 1 tab Q6H PRN PO MODERATE PAIN LEVEL 4-6 Last administered on 08/28/18at 13:35; Admin Dose 1 TAB; Start 08/17/18 at 01:00 Folic Acid (Folic Acid) 1 mg DAILY PO Last administered on 08/28/18at 08:50; Admin Dose 1 MG; Start 08/17/18 at 09:00 Multivitamins/ Minerals (Theragran-M) 1 tab DAILY PO Last administered on 08/28/18 08:50; Admin Dose 1 TAB; Start 08/17/18 at 09:00 Thiamine HCl (Vitamin B1) 100 mg DAILY PO Last administered on 08/28/18 08:50; Admin Dose 100 MG; Start 08/17/18 at 09:00 Polyethylene Glycol (Miralax) 17 gm DAILY PRN PO CONSTIPATION; Start 08/17/18 at 01:00 Ferrous Sulfate (Ferrous Sulfate (Ec)) 325 mg TID PO Last administered on 08/28/18at 13:34; Admin Dose 325 MG; Start 08/17/18 at 09:00 Tamsulosin HCl (Flomax) 0.4 mg HS PO Last administered on 08/26/18 19:46; Admin Dose 0.4 MG; Start 08/17/18 at 21:00 Famotidine (Pepcid) 20 mg DAILY PO Last administered on 08/28/18 08:50; Admin Dose 20 MG; Start 08/17/18 at 09:00 Magnesium Hydroxide (Milk Of Mag) 30 ml DAILY PRN PO CONSTIPATION; Start 08/17/18 at 01:00 Acetaminophen (Tylenol Tab) 650 mg Q6H PRN PO MILD PAIN(1-3)OR ELEVATED TEMP; Start 08/17/18 at 01:00 Ondansetron HCl (Zofran Inj) 4 mg Q8 PRN IV NAUSEA AND/OR VOMITING; Start 08/17/18 at 01:00 Senna (Senokot) 2 tab BID PRN PO CONSTIPATION Last administered on 08/24/18 06:03; Admin Dose 2 TAB; Start 08/17/18 at 01:00 Zolpidem Tartrate (Ambien) 5 mg HS PRN PO INSOMNIA Last administered on 08/20/18 21:49; Admin Dose 5 MG; Start 08/17/18 at 01:00 Tramadol HCl (Ultram) 50 mg TID PRN PO PAIN LEVEL 1-5 Last administered on 08/27/18 02:01; Admin Dose 50 MG; Start 08/17/18 at 01:00 Miscellaneous Information Patients own medicat... BID@1000,1600 XX ; Start 08/17/18 at 10:00 Bicalutamide (Casodex) 50 mg DAILY PO Last administered on 1/22/19at 08:51; Admin Dose 50 MG; Start 08/18/18 at 16:30 Morphine Sulfate (morphine) 6 mg Q4H PRN PO SEVERE PAIN LEVEL 7-10 Last administered on 08/25/18at 23:36; Admin Dose 6 MG; Start 08/21/18 at 17:30 Date/Time of Note Date/Time of Note DATE: 08/28/18 TIME: 18:47 ARIANA JORDAN MD Aug 28, 2018 18:49
[2018-08-28 19:52] VITALS: BP 137/74; PULSE 74; RESP 20
[2018-08-28] MEDS: TAMSULOSIN (SR) 0.4 MG CAP PO SCH (21:04)
[2018-08-29 01:35] VITALS: BP 115/73; PULSE 78; RESP 18
[2018-08-29] MEDS: OXYCODONE/ACETAMINOPHEN (5/325) TAB PO PRN (06:23)
[2018-08-29] MEDS: PANTOPRAZOLE (EC) 40 MG TAB PO SCH (06:23)
--- NOTE | 2018-08-29 07:00 | NUR ---
End of shift Report: Awake on bed in comfortable position. No sob. No resp distress. Afebrile. Medicated for bilateral leg pain. well-shobha and effective. Strained urine , no stone. no calculi noted. Needs attended and anticipated. No significant changes overnight. Pending SNF placement. Call light within reach. Will endorse accordingly.
[2018-08-29 07:40] VITALS: BP 133/69; PULSE 78; RESP 16
[2018-08-29] MEDS: FAMOTIDINE 20 MG TAB PO SCH (08:40)
[2018-08-29] MEDS: THIAMINE 100 MG TAB PO SCH (08:40)
[2018-08-29] MEDS: FOLIC ACID 1 MG TAB PO SCH (08:40)
[2018-08-29] MEDS: MULTIVITAMINS/MINERALS TAB PO SCH (08:40)
[2018-08-29] MEDS: FERROUS SULFATE (EC) 325 MG TAB PO SCH ×2 (08:40→14:23)
[2018-08-29] MEDS: [UNRECOGNIZED DRUG - OTHER] XX SCH ×2 (08:40→15:28)
[2018-08-29] MEDS: BICALUTAMIDE 50 MG TAB PO SCH (08:43)
--- NOTE | 2018-08-29 09:27 | CONS ---
Assessment/Plan Assessment/Plan Assessment/Plan abd soft nt multiple tatoos 1. Anemia, likely due to cancer -FOB negative 2. Renal insufficiency. 3. Malnutrition. 4. Prostate cancer with mets to the bone noted in bone scan 5. Hypertension. 6. Hepatitis C.(multiple risk factors( remote IVDA, cocaine, incarceration,tatoos) 7. Alcoholism. 8. Gastritis 9. S/P EGD 10. Transaminitis -alk phos elevated likely due to bone mets 11. Weight loss of 80 lbs over 3 months 12. Elevated alk phos secondary to bone mets 13. Fatty liver 14. Cholelithiasis 15. Dilated CBD at 10mm with no obstruction noted on imaging, total bili and alk wnl, and no abd pain, neg burgess's 16. Elevated CEA (AFP and CA 19-9 wnl) CEA level is 7 -FOB negative repeat lfts, alk phos isoenzymes Result Diagram: 08/27/18 0609 08/28/18 0637 Consultation Date/Type/Reason Admit Date/Time Aug 16, 2018 at 22:30 Initial Consult Date 08/18/18 Requesting Provider: MILLY LABOY MD Exam/Review of Systems Vital Signs Vitals Vital Signs Date Temp Pulse Resp B/P (MAP) Pulse Ox O2 O2 Flow FiO2 Time Delivery Rate 08/29/18 97.7 78 16 133/69 100 Room Air 07:40 (90) Intake and Output 08/28/18 08/28/18 08/29/18 1515:00 23:00 07:00 IntakeIntake Total 360 ml 240 ml 350 ml OutputOutput Total 400 ml 300 ml 900 ml BalanceBalance -40 ml -60 ml -550 ml Medications Medications Current Medications Pantoprazole (Protonix Tab) 40 mg DAILY@06 PO Last administered on 08/29/18at 06:23; Admin Dose 40 MG; Start 08/17/18 at 06:00 Oxycodone/ Acetaminophen (Percocet (5/ 325)) 2 tab Q6H PRN PO PAIN LEVEL 6-10 Last administered on 08/28/18at 21:04; Admin Dose 2 TAB; Start 08/17/18 at 01:00 Oxycodone/ Acetaminophen (Percocet (5/ 325)) 1 tab Q6H PRN PO MODERATE PAIN LEVEL 4-6 Last administered on 1/23/19at 06:23; Admin Dose 1 TAB; Start 08/17/18 at 01:00 Folic Acid (Folic Acid) 1 mg DAILY PO Last administered on 08/29/18 08:40; Admin Dose 1 MG; Start 08/17/18 at 09:00 Multivitamins/ Minerals (Theragran-M) 1 tab DAILY PO Last administered on 08/29/18 08:40; Admin Dose 1 TAB; Start 08/17/18 at 09:00 Thiamine HCl (Vitamin B1) 100 mg DAILY PO Last administered on 08/29/18 08:40; Admin Dose 100 MG; Start 08/17/18 at 09:00 Polyethylene Glycol (Miralax) 17 gm DAILY PRN PO CONSTIPATION; Start 08/17/18 at 01:00 Ferrous Sulfate (Ferrous Sulfate (Ec)) 325 mg TID PO Last administered on 08/29/18 08:40; Admin Dose 325 MG; Start 08/17/18 at 09:00 Tamsulosin HCl (Flomax) 0.4 mg HS PO Last administered on 08/28/18 21:04; Admin Dose 0.4 MG; Start 08/17/18 at 21:00 Famotidine (Pepcid) 20 mg DAILY PO Last administered on 08/29/18 08:40; Admin Dose 20 MG; Start 08/17/18 at 09:00 Magnesium Hydroxide (Milk Of Mag) 30 ml DAILY PRN PO CONSTIPATION; Start 08/17/18 at 01:00 Acetaminophen (Tylenol Tab) 650 mg Q6H PRN PO MILD PAIN(1-3)OR ELEVATED TEMP; Start 08/17/18 at 01:00 Ondansetron HCl (Zofran Inj) 4 mg Q8 PRN IV NAUSEA AND/OR VOMITING; Start 08/17 at 01:00 Senna (Senokot) 2 tab BID PRN PO CONSTIPATION Last administered on 08/24/18 06:03; Admin Dose 2 TAB; Start 08/17/18 at 01:00 Zolpidem Tartrate (Ambien) 5 mg HS PRN PO INSOMNIA Last administered on 08/20/18 21:49; Admin Dose 5 MG; Start 08/17/18 at 01:00 Tramadol HCl (Ultram) 50 mg TID PRN PO PAIN LEVEL 1-5 Last administered on 1/21/19at 02:01; Admin Dose 50 MG; Start 08/17/18 at 01:00 Miscellaneous Information Patients own medicat... BID@1000,1600 XX ; Start 08/17/18 at 10:00 Bicalutamide (Casodex) 50 mg DAILY PO Last administered on 08/29/18at 08:43; Admin Dose 50 MG; Start 08/18/18 at 16:30 Morphine Sulfate (morphine) 6 mg Q4H PRN PO SEVERE PAIN LEVEL 7-10 Last administered on 08/25/18at 23:36; Admin Dose 6 MG; Start 08/21/18 at 17:30 Date/Time of Note Date/Time of Note DATE: 08/29/18 TIME: 09:22 DIONISIO SMITH MD Aug 29, 2018 09:27
--- NOTE | 2018-08-29 09:40 | NUR ---
Patient refusing blood draw for AST/ALT/Bilirubin and alkaline Phosphatase. Patient states he does not want to be poked and we cannot be poking him everyday. Asked manager corporate strategy to come back and try after lunch and patient stated not to come back because he is not going to be poked today. Informed patient that this test was ordered by his MD and he stated I said no.
--- NOTE | 2018-08-29 10:34 | PN ---
Date/Time of Note Date/Time of Note DATE: 08/29/18 TIME: 10:32 Assessment/Plan VTE Prophylaxis Risk [place] [facility] [place] risk: 5 SCD applied (from [facility] [place] Yes SCD contraindicated: patient refusal Pharmacological prophylaxis: fondaparinux Pharm contraindication: blood coag disorder Lines/Catheters IV Catheter Type (from [facility]): Saline Lock Urinary Cath still in place: No Assessment/Plan Hospital Course 1. AMS, metabolic encephalopathy 2. Lymphadenopathy concerning for malignancy unknown primary source, more likely prostate cancer, PSA 1000. 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 Acute kidney injury, better 4. Severe anemia 5. Recent weight loss 6. Severe malnourishment 7. Thrombocytopenia 8. History of subdural hematoma 9. History of hepatitis C 10. History of alcoholism 11. Hypertension 12. Mild left hydronephrosis with obstructing distal left ureteral calculus Assessment/Plan -palliative care consult dr Puentes. -pt has capacity per -decides on DNR/DNI -refused SNF - MRCP neg - HOLD BP MEDS due to hypotension - cw casodex/flomax, will need Lupron - spoke to Dr Nguyen will do biopsy as OPD in office - cw PPI - Bone scan +multiple mets -f/u PT -Pt will need fu oncology and urology as OPD - SNF, pending placement, spoke to case management Result Diagram: 08/27/18 0609 08/28/18 0637 Subjective 24 Hr Interval Summary Gastrointestinal: no complaints Exam/Review of Systems Vital Signs Vitals Vital Signs Date Temp Pulse Resp B/P (MAP) Pulse Ox O2 O2 Flow FiO2 Time Delivery Rate 08/29/18 97.7 78 16 133/69 100 Room Air 07:40 (90) Intake and Output 08/28/18 08/28/18 08/29/18 1515:00 23:00 07:00 IntakeIntake Total 360 ml 240 ml 350 ml OutputOutput Total 400 ml 300 ml 900 ml BalanceBalance -40 ml -60 ml -550 ml Exam Constitutional: alert, oriented Neck: supple Respiratory: diminished breath sounds Cardiovascular: regular rate and rhythm Gastrointestinal: soft Genitourinary - Male: CVA tenderness; No nl penis, No nl scrotum, No discharge, No other Medications Medications Current Medications Pantoprazole (Protonix Tab) 40 mg DAILY@06 PO Last administered on 08/29/18 06:23; Admin Dose 40 MG; Start 08/17/18 at 06:00 Oxycodone/ Acetaminophen (Percocet (5/ 325)) 2 tab Q6H PRN PO PAIN LEVEL 6-10 Last administered on 08/28/18 21:04; Admin Dose 2 TAB; Start 08/17/18 at 01:00 Oxycodone/ Acetaminophen (Percocet (5/ 325)) 1 tab Q6H PRN PO MODERATE PAIN LEVEL 4-6 Last administered on 08/29/18 06:23; Admin Dose 1 TAB; Start 08/17/18 at 01:00 Folic Acid (Folic Acid) 1 mg DAILY PO Last administered on 08/29/18 08:40; Admin Dose 1 MG; Start 08/17/18 at 09:00 Multivitamins/ Minerals (Theragran-M) 1 tab DAILY PO Last administered on 08:40; Admin Dose 1 TAB; Start 08/17/18 at 09:00 Thiamine HCl (Vitamin B1) 100 mg DAILY PO Last administered on 08/29/18 08:40; Admin Dose 100 MG; Start 08/17/18 at 09:00 Polyethylene Glycol (Miralax) 17 gm DAILY PRN PO CONSTIPATION; Start 08/17/18 at 01:00 Ferrous Sulfate (Ferrous Sulfate (Ec)) 325 mg TID PO Last administered on 08/29/18 08:40; Admin Dose 325 MG; Start 08/17/18 at 09:00 Tamsulosin HCl (Flomax) 0.4 mg HS PO Last administered on 08/28/18 21:04; Admin Dose 0.4 MG; Start 08/17/18 at 21:00 Famotidine (Pepcid) 20 mg DAILY PO Last administered on 08/29/18 08:40; Admin Dose 20 MG; Start 08/17/18 at 09:00 Magnesium Hydroxide (Milk Of Mag) 30 ml DAILY PRN PO CONSTIPATION; Start 08/17/18 at 01:00 Acetaminophen (Tylenol Tab) 650 mg Q6H PRN PO MILD PAIN(1-3)OR ELEVATED TEMP; Start 08/17/18 at 01:00 Ondansetron HCl (Zofran Inj) 4 mg Q8 PRN IV NAUSEA AND/OR VOMITING; Start 08/17/18 at 01:00 Senna (Senokot) 2 tab BID PRN PO CONSTIPATION Last administered on 08/24/18 06:03; Admin Dose 2 TAB; Start 08/17/18 at 01:00 Zolpidem Tartrate (Ambien) 5 mg HS PRN PO INSOMNIA Last administered on 08/20/18at 21:49; Admin Dose 5 MG; Start 08/17/18 at 01:00 Tramadol HCl (Ultram) 50 mg TID PRN PO PAIN LEVEL 1-5 Last administered on 08/27/18at 02:01; Admin Dose 50 MG; Start 08/17/18 at 01:00 Miscellaneous Information Patients own medicat... BID@1000,1600 XX ; Start 08/07 08/25 at 10:00 Bicalutamide (Casodex) 50 mg DAILY PO Last administered on 08/29/18at 08:43; Admin Dose 50 MG; Start 08/18/18 at 16:30 Morphine Sulfate (morphine) 6 mg Q4H PRN PO SEVERE PAIN LEVEL 7-10 Last administered on 08/25/18at 23:36; Admin Dose 6 MG; Start 08/21/18 at 17:30 DENNIS YOON Aug 29, 2018 10:34
[2018-08-29 14:15] VITALS: BP 125/74; PULSE 82; RESP 16
--- NOTE | 2018-08-29 15:44 | NUR ---
Patient being discharged and transferred to [facility]. Patient in stable condition, no signs of distress, no shortness of breath and denies pain at this time. IV removed. Report given to Fatimah and going to room 62A. Patients own medication Tylenol 500 mg sent with patient and Fatimah aware. Patient taken by ambulance with all personal belongings and brother at side.
--- NOTE | 2018-08-29 18:57 | DS ---
DENNIS YOON 08/29/18 1857: Date/Time of Note Date/Time of Note DATE: 08/29/18 TIME: 18:56 Discharge Summary Admission/Discharge Info Admit Date/Time Aug 16, 2018 at 22:30 Discharge Date/Time Aug 29, 2018 at 15:43 Discharge Diagnosis Mestatic prostate cancer to bones Patient Condition: Serious Consults DR Bennett, oncology, Dr Nguyen, urology, dr Vora GI Procedures MRCP Hospital Course This 74-year-old frail gentleman was brought from [facility] with history of hypertension subdural hematoma alcoholism anemia with the co ncern of metastatic disease with metastasis to bones and lungs. He is prior to source is unknown. Patient has no capacity to make decisions for himself, his brother is making decision there will need to find for the consult but they did not sign. Dr. Bennett oncologist for the patient. Patient is a poor historian 1. AMS, metabolic encephalopathy 2. Lymphadenopathy concerning for malignancy unknown primary source, more likely prostate cancer, PSA 1000. 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 Acute kidney injury, better 4. Severe anemia 5. Recent weight loss 6. Severe malnourishment 7. Thrombocytopenia 8. History of subdural hematoma 9. History of hepatitis C 10. History of alcoholism 11. Hypertension 12. Mild left hydronephrosis with obstructing distal left ureteral calculus Psychiatric consult determined that patient has full capacity. He is diagnosed with prostate cancer and placed on Casodex by dr Nguyen, urology. He opt out surgery due to mets to lungs and bones. Dr Bennett is maintained oncological treatment for the patient. PT determined that he needs to be trained longer, there is a bilateral leg weakness present and patient need to c/w PT . His brother reported that he is unable to care for patient and requested place pt in a shelter. fabric lay out worker was called to help in a hard situation. Dr Vora , gastroenterology performed MRCP, it was negative. Pt had adequate pain control during hospitalization. He had regular PT sessions. After d/c pt will need fu oncology and urology as OPD. Home Meds No Active Prescriptions or Reported Meds Follow-up Plan f/u dr bennett in 3-4 days f/u Dr Culp in 3-4 days Primary Care Provider Care Physician No Primary Time spent on discharge: < 30 minutes Pending Labs Laboratory Tests Test 08/29/18 09:43 Total Bilirubin 0.0 mg/dl (0.2-1.3) Aspartate Amino Transf (AST/SGOT) 27 IU/L (15-46) Alanine Aminotransferase (ALT/SGPT) 24 IU/L (13-69) VALDO HERNANDEZ MD 09/13/18 1039: Discharge Summary Admission/Discharge Info Hospital Course DIFFICULT PATIENT pscy was called, cleared him but he had issues with compliance spoke to brother who could not take care of him at home, pt didnt want to got to SNIF then agreed f/u urology as OPD in 1 week Home Meds No Active Prescriptions or Reported Meds DENNIS YOON Aug 29, 2018 18:57 VALDO HERNANDEZ MD Sep 13, 2018 10:39
== END 2018-08-29 15:43 | DRG 542 ==
LOC: TEL 22:30 → PP2 08-17 18:54
PROVIDERS: ADMIT Internal Medicine Nephrology; ATTEND Internal Medicine Nephrology
PROC: 30233N1 Transfusion of Nonautologous Red Blood Cells into Peripheral Vein, Percutaneous Approach (ICD-10-PCS; principal; 2018-08-17)
PROC: 0DB68ZX Excision of Stomach, Via Natural or Artificial Opening Endoscopic, Diagnostic (ICD-10-PCS; 2018-08-20)
DX: C79.51 Secondary malignant neoplasm of bone (principal); G93.41 Metabolic encephalopathy; D63.8 Anemia in other chronic diseases classified elsewhere; E43 Unspecified severe protein-calorie malnutrition; N17.9 Acute kidney failure, unspecified; Z68.1 Body mass index [BMI] 19.9 or less, adult; C78.00 Secondary malignant neoplasm of unspecified lung; N13.1 Hydronephrosis with ureteral stricture, not elsewhere classified; K92.2 Gastrointestinal hemorrhage, unspecified; R59.1 Generalized enlarged lymph nodes; D69.6 Thrombocytopenia, unspecified; F10.21 Alcohol dependence, in remission; Z86.19 Personal history of other infectious and parasitic diseases; C61 Malignant neoplasm of prostate; K29.00 Acute gastritis without bleeding
CPT/HCPCS: 36430; 72100; 72170; 74018; 74181; 76705; 76775; 78306; 80048; 80053; 80076; 82105; 82247; 82270; 82378; 82728; 83540; 83735; 84080; 84100; 84153; 84154; 84450; 84460; 85025; 86301; 86850; 86900; 86901; 86920; 88305; 88312; 97161; A9503; J2274; J3010; J7030; P9016

== ENCOUNTER 2019-02-28 03:05 | Inpatient (IN) | payer MEDICARE, BC ==
[~2019-02-28] VITALS: Ht 180.3 cm; Wt 42.6 kg
[2019-02-28 05:29] VITALS: Ht 180.3 cm; Wt 42.6 kg
[2019-02-28 05:52] VITALS: BP 109/70; PULSE 87; RESP 20
[2019-02-28] MEDS ORDERED: PENDING SANTYL ORDER FOR WOUND CARE XX PRN (06:00)
[2019-02-28] MEDS ORDERED: ALBUTEROL/IPRATROPIUM (NEB) 3 ML AMP HHN PRN (06:00)
[2019-02-28] MEDS ORDERED: BISACODYL (EC) 5 MG TAB PO PRN (06:00)
[2019-02-28] MEDS: PANTOPRAZOLE (EC) 40 MG TAB PO SCH (06:35)
[2019-02-28] MEDS: ACETAMINOPHEN 325 MG TAB PO PRN ×2 (06:35→10:45)
[2019-02-28] MEDS ORDERED: SOD CHLORIDE 0.9% 1,000 ML IV ONE (07:00)
[2019-02-28 07:10] VITALS: BP 112/69; PULSE 88; RESP 22
[2019-02-28 11:04] VITALS: BP 116/69; PULSE 89; RESP 16
[2019-02-28 15:03] VITALS: BP 142/81; PULSE 107; RESP 18
--- NOTE | 2019-02-28 15:45 | QN ---
Documentation Comment pt seen and examined h and p VALDO Strong MD Feb 28, 2019 15:44
[2019-02-28] MEDS: CEFTRIAXONE 1 GM/50 ML (PMX) 50 ML IVPB SCH (16:00)
--- NOTE | 2019-02-28 18:34 | HP ---
DATE OF ADMISSION: 02/28/2019 REASON FOR ADMISSION: The patient is transferred from [facility] with left leg lalo n, falls and weakness. HISTORY OF PRESENTING ILLNESS: This is a 73-year-old male who was initially admitted here in August 2018 secondary to AMS, lymphadenopathy with elevated PSA. The patient also had severe anemia, recen t weight loss. Also had history of subdural hematoma and history of hepatitis C. The patient was, a t that time, seen by urology consultation by Dr. Nguyen and was thought to have prostate cancer and also was seen by Dr. Fregoso at that time. Urologically the plan was initially to send to [facility]; however, the patient refused. Urologically, plan was to continue with Casodex and once out of [facility] to start him on Lupron. The patient was also seen by Dr. Fregoso and was recommended to follow up as an outpatient; however, the patient said that after he went home and he never really fo llowed up with anybody. According to him, he got a new PCP. He does not believe that he had cancer. According to the patient, he has been living with his brother. He has been feeling increasingly we ak, has been having weight loss. He has fallen also a couple of times. When the patient went to [facility], temperature was 36.9, blood pressure was 99/73, afebrile, heart rate 86. W sarahi count was 4.9, hemoglobin 9.0, platelet count was 212, albumin was 3, ALT 10, total bilirubin 0. 7. Had a CT of the brain that showed left frontotemporal and left frontal isodense subdural collecti ons are new since the prior study, likely represents subacute subdural hematomas. Also had a chest x -ray that showed normal, slight appearance of cardiomegaly, ____. Redemonstrated nodular densities i n the bilateral lungs consistent with metastatic disease. The patient also had a CT of the cervical, thoracic, and lumbar spine that showed patient had diffuse permeative process of the visualized osse ous structures concerning for metastatic disease and the patient was transferred here due to insuranc e reasons. PAST MEDICAL HISTORY: 1. Likely metastatic prostate cancer. 2. Severe anemia. 3. History of subdural hematoma. 4. History of hepatitis C. 5. History of alcoholism. 6. Hypertension. 7. History of chronic gastritis. PAST SURGICAL HISTORY: Status post EGD. ALLERGIES: NONE. MEDICATIONS TAKING AT HOME: None. SOCIAL HISTORY: Occasionally smokes cigarettes and also uses alcohol. Lives with his brother and si ster at home. FAMILY HISTORY: Significant for no history of cancer. REVIEW OF SYSTEMS: The patient complains of generalized body ache pain. Also, some dysuria, history of falls, weight loss. Denies any abdominal pain, nausea, vomiting, diarrhea, sometimes feels short of breath. Denies any chest pain. PHYSICAL EXAMINATION: VITAL SIGNS: Currently temperature 97.7, pulse 89, respirations 16, blood pressure 116/69. GENERAL: The patient is awake, alert, oriented, follows all commands. HEENT: The patient is a very thin, frail male. NECK: Supple, no JVD. HEART: Regular rate and rhythm. LUNGS: Clear to auscultate bilaterally. ABDOMEN: Scaphoid. Positive bowel sounds. EXTREMITIES: Thin extremities, thin long legs, 2+ edema at the ankles. DIAGNOSTIC DATA: Shows BUN of 25, creatinine 1.21. AST 49, ALT 13, alkaline phosphatase 442. Album in is 2.4. White count 4.9, hemoglobin 7.5, platelet count 104. IMAGING: CT of the head there shows left frontotemporal and left frontal isodense subdural collectio ns as above, new since the prior studies. CT of the thoracic, lumbar spine shows patient has diffuse lesions permeative sclerosis of the visualized osseous structure concerning for metastatic disease, lucency through the spinous process of C4, represents mildly displaced section, compression deformity of T6, mild anterior wedging of the vertebral body, degenerative; a 2 mm nodule in the right lung, m ay represent metastasis; nodular opacities and prominence of interstitium in the right upper lobe, ma y represent pneumonia versus lymphangitic carcinomatosis. ASSESSMENT AND PLAN: This is a 73-year-old male who presented with: 1. Recurrent falls, failure to thrive, weight loss, generalized body aches, likely secondary to meta static prostate cancer. The patient was here in August 2018. The patient was seen by multiple cons ultants including urology and oncology. The patient had a prostate specific antigen over 1000. The patient was deemed that he had capacity to make decisions. The patient was offered group home; how ever, he left and went home. He never followed up with any appointments and likely has progression o f disease. 2. History of falls with subdural hematomas. 3. Severe anemia. 4. Pancytopenia with a history of hepatitis C. 5. Alcoholism. 6. History of smoking. 7. Elevated alkaline phosphatase could be secondary to bony metastases. 8. Edema with hypoalbuminemia. 9. Likely urinary tract infection. The patient is admitted to tele. We will give the patient gentle IV fluids, nutrition. Will also ch garrison for PSA. Pain control. Calcium is within normal limits. Oncology consultation has been request ed. We will also get PT eval. Will likely have discussion with the patient regarding the terms of h is disease. Rest of the treatment will depend on the patient's hospitalization course. Dictated By: VALDO WHEELER/ELDER Conf#: [id number] DID#: [id number] CC: MILLY LABOY MD;*EndCC*
--- NOTE | 2019-02-28 19:04 | CONS ---
Assessment/Plan Assessment/Plan Hospital Course (Demo Recall) 73-year-old -Hungarian male was admitted here in August 2018. At that time his PSA was over at thousand and patient was assumed to have prostate cancer he was started on bicalutamide and at the time of discharge he was instructed to follow-up in the office for biopsy of the prostate to confirm the diagnosis of prostate cancer. However the patient did not follow up with any doctor and he went to [facility] because of increased back pain and weakness in addition to lower extremity pain and was transferred to [facility]. Patient underwent CT of the cervical thoracic and lumbar spine and was found to have metastatic disease. Patient states he does urinate 5-6 times at night and same during the day. He voids a small amount. He denies any gross hematuria. The impression is metastatic prostate cancer. However this is not proven by biopsy. It is assumed that this is prostate cancer as his PSA was over a thousand in August of this year. An order for repeat PSA was done. I will order also to repeat the CT scan of the abdomen and pelvis to check for lymphadenopathy and bony mets. I will also restart him on bicalutamide. Consultation Date/Type/Reason Admit Date/Time Feb 28, 2019 at 05:11 Date of Consultation: Feb 28, 2019 Type of Consult Urology Reason for Consultation Metastatic prostate cancer Requesting Provider: VALDO HERNANDEZ MD Date/Time of Note DATE: 02/28/19 TIME: 18:44 Hx of Present Illness 73-year-old -Hungarian male was admitted here in August 2018. At that time his PSA was over at thousand and patient was assumed to have prostate cancer he was started on bicalutamide and at the time of discharge he was in structed to follow-up in the office for biopsy of the prostate to confirm the diagnosis of prostate cancer. However the patient did not follow up with any doctor and he went to [facility] because of increased back pain and weakness in addition to lower extremity pain and was transferred to [facility]. Patient underwent CT of the cervical thoracic and lumbar spine and was found to have metastatic disease. Patient states he does urinate 5-6 times at night and same during the day. He voids a small amount. He denies any gross hematuria. Constitutional: other (Weight loss and weakness) Eyes: no complaints ENT: no complaints Respiratory: No shortness of breath Cardiovascular: No chest pain Gastrointestinal: No nausea, No vomiting Genitourinary: other (Urinary frequency, nocturia and slow urinary stream) Musculoskeletal: back pain Skin: other (Decubitus ulcer in the sacral area) Neurologic: no complaints Endocrine: no complaints Lymphatic: no complaints Psychological: no complaints Immunologic: no complaints Past Medical History Medical History: cancer (Of prostate based on the PSA. Has not been confirmed by biopsy), hepatitis (C), hypertension, other (Anemia, hepatitis C, weight loss, history of falls and gastritis, history of subdural hematoma) Home Meds No Active Prescriptions or Reported Meds Medications Current Medications Sodium Chloride 1,000 ml @ 40 mls/hr Q24H ONCE IV Last administered on 02/28/19at 06:36; Admin Dose 40 MLS/HR; Start 02/28/19 at 07:00; Stop 03/01/19 at 06:59 Pantoprazole (Protonix Tab) 40 mg DAILY@06 PO Last administered on 02/28/19at 06:35; Admin Dose 40 MG; Start 02/28/19 at 06:00 Albuterol/ Ipratropium (Duoneb) 3 ml Q6H RESP THERAPY PRN HHN SHORTNESS OF BREATH; Start 02/28/19 at 06:00 Acetaminophen (Tylenol Tab) 650 mg Q6H PRN PO MILD PAIN(1-3)OR ELEVATED TEMP Last administered on 02/28/19at 10:45; Admin Dose 650 MG; Start 02/28/19 at 06:00 Bisacodyl (Dulcolax) 10 mg DAILY PRN PO CONSTIPATION; Start 02/28/19 at 06:00 Acetaminophen/ Hydrocodone Bitart ([place] (5/325)) 1 tab Q6H PRN PO MODERATE PAIN LEVEL 4-6; Start 02/28/19 at 06:00 [facility]isc[facility] This patient lopez... PRN PRN XX WOUND CARE; Start 02/28/19 at 06:00 Calcium Carbonate (Ca Carbonate) 1,250 mg BID PO ; Start 02/28/19 at 21:00 Ceftriaxone Sodium 50 ml @ 100 mls/hr Q24H IVPB ; Start 02/28/19 at 16:00 Allergies: Coded Allergies: No Known Allergy (Unverified , 1/11/19) Social History Alcohol Use: occasionally Smoking Status: Former smoker Exam/Review of Systems Exam Vitals Vital Signs Date Temp Pulse Resp B/P (MAP) Pulse Ox O2 O2 Flow FiO2 Time Delivery Rate 02/28/19 97.7 107 18 142/81 98 Room Air 15:03 (101) Intake and Output 02/27/19 02/27/19 02/28/19 1515:00 23:00 07:00 IntakeIntake Total 250 ml BalanceBalance 250 ml Constitutional: alert Psych: confusion Head: normocephalic Eyes: nl conjunctiva ENMT: nl external ears & nose Neck: supple, non-tender Respiratory: normal air movement; No wheezing Cardiovascular: regular rate and rhythm; No jugular venous distention (JVD) Gastrointestinal: soft Genitourinary - Male: nl penis, nl scrotum, other (Flat and firm prostate) Musculoskeletal: muscle weakness Extremities: No calf tenderness Neurological: nl mental status Skin: nl turgor Results Result Diagram: 02/28/19 0915 02/28/19 0915 Results 24hrs Laboratory Tests Test 02/28/19 09:15 White Blood Count 4.1 L Red Blood Count 2.88 L Hemoglobin 7.5 L Hematocrit 26.1 L Mean Corpuscular Volume 90.6 Mean Corpuscular Hemoglobin 26.0 L Mean Corpuscular Hemoglobin Concent 28.7 L Red Cell Distribution Width 16.6 H Platelet Count 104 #L Mean Platelet Volume 10.2 Immature Granulocytes % 0.500 H Neutrophils % 75.5 Lymphocytes % 17.0 Monocytes % 6.3 Eosinophils % 0.5 Basophils % 0.2 Nucleated Red Blood Cells % 0.0 Immature Granulocytes # 0.020 Neutrophils # 3.1 Lymphocytes # 0.7 L Monocytes # 0.3 Eosinophils # 0.0 Basophils # 0.0 Nucleated Red Blood Cells # 0.0 Sodium Level 136 Potassium Level 3.8 Chloride Level 109 Carbon Dioxide Level 20 L Anion Gap 7 Blood Urea Nitrogen 25 H Creatinine 1.21 Est Glomerular Filtrat Rate mL/min Glucose Level 104 Calcium Level 7.1 L Total Bilirubin 0.2 Direct Bilirubin 0.00 Indirect Bilirubin 0.2 Aspartate Amino Transf (AST/SGOT) 49 H Alanine Aminotransferase (ALT/SGPT) 13 Alkaline Phosphatase 442 H Total Protein 5.7 L Albumin 2.4 L Globulin 3.30 H Albumin/Globulin Ratio 0.72 Prostate Specific Antigen 652.0 H Medications Medication Current Medications Sodium Chloride 1,000 ml @ 40 mls/hr Q24H ONCE IV Last administered on 02/28/19at 06:36; Admin Dose 40 MLS/HR; Start 02/28/19 at 07:00; Stop 03/01/19 at 06:59 Pantoprazole (Protonix Tab) 40 mg DAILY@06 PO Last administered on 02/28/19at 06:35; Admin Dose 40 MG; Start 02/28/19 at 06:00 Albuterol/ Ipratropium (Duoneb) 3 ml Q6H RESP THERAPY PRN HHN SHORTNESS OF BREATH; Start 02/28/19 at 06:00 Acetaminophen (Tylenol Tab) 650 mg Q6H PRN PO MILD PAIN(1-3)OR ELEVATED TEMP Last administered on 02/28/19at 10:45; Admin Dose 650 MG; Start 02/28/19 at 06:00 Bisacodyl (Dulcolax) 10 mg DAILY PRN PO CONSTIPATION; Start 02/28/19 at 06:00 Acetaminophen/ Hydrocodone Bitart ([place] (5/325)) 1 tab Q6H PRN PO MODERATE PAIN LEVEL 4-6; Start 02/28/19 at 06:00 Miscellaneous Information ([facility] This patient lopez... PRN PRN XX WOUND CARE; Start 02/28/19 at 06:00 Calcium Carbonate (Ca Carbonate) 1,250 mg BID PO ; Start 02/28/19 at 21:00 Ceftriaxone Sodium 50 ml @ 100 mls/hr Q24H IVPB ; Start 02/28/19 at 16:00 MAVIS MAI MD Feb 28, 2019 18:54
[2019-02-28 20:00] VITALS: BP 120/71; PULSE 71; RESP 18
[2019-02-28] MEDS: CA CARBONATE (250 MG/ML) 5ML CUP PO SCH (20:48)
[2019-02-28 21:35] VITALS: BP 124/64; PULSE 77; RESP 20
[2019-03-01 02:48] VITALS: BP 127/60; PULSE 78; RESP 17
[2019-03-01] MEDS: HYDROCODONE/APAP (5/325) TAB PO PRN ×2 (03:46→10:11)
[2019-03-01] MEDS: PANTOPRAZOLE (EC) 40 MG TAB PO SCH (08:51)
[2019-03-01] MEDS: BICALUTAMIDE 50 MG TAB PO SCH (08:52)
[2019-03-01] MEDS: CA CARBONATE (250 MG/ML) 5ML CUP PO SCH ×2 (09:00→20:39)
[2019-03-01] MEDS ORDERED: HYDROCODONE/APAP (5/325) TAB PO PRN ×2 (10:35→11:00)
--- NOTE | 2019-03-01 10:57 | CONS ---
Assessment/Plan Assessment/Plan Hospital Course (Demo Recall) #Metastatic prostate cancer -pt has disease diffusely throughout the liver, bones and lymph nodes -PSA is currently> 600 -I do believe pt should have a confirmatory prostate bx but given the high likelihood of prostate cancer and heavy disease burden, ideally patient should be started on upfront Taxotere chemotherapy with Casodex and Lupron -This was discussed with the patient who states he needs to "think about" starting any type of therapy -he could also be evaluated by radiation oncology as an out patient for his back pain as palliative XRT may help this issue -at the very least he should continue casodex for now -if he refuses all treatment, he should be referred for hospice francois Thank you for the opportunity to participate in this patients care A total of 40 minutes of face to face time was spent speaking with the patient, of which greater than 50% was spent in counseling and coordination of care and the detailed question and answer session. Consultation Date/Type/Reason Admit Date/Time Feb 28, 2019 at 05:11 Date of Consultation: Mar 01, 2019 Type of Consult oncology Reason for Consultation metastatic prostate cancer Requesting Provider: MILLY LABOY Date/Time of Note DATE: 03/01/19 TIME: 10:52 Hx of Present Illness 73-year-old -Macanese male with multiple medical problems including Hep C, HTN and metastatic prostate cancer. PT was initially seen at [facility] in Aug 2018 when he was noted to have diffuse osseous mets in spine, pulmonary mets, prominent RP and bilateral LAD. was admitted here in August 2018. At that time his PSA was over at thousand and patient was assumed to have prostate cancer he was started on bicalutamide and was to follow up with urology for prostate bx and oncology to continue treatment. He unforutenly did not follow up with either. Pt recently presented to [facility] with increased back pain , presumably secondary to his prostate cancer, and was transferred to [facility] on 02/28. 03/01/19 CT demonstrates diffuse liver mets, pathologic LAD to RP, the gasrohepatic ligament, mid abdominal mass and diffuse blastic and lytic skeletal mets. PT does not have signs of cord compression. We have been consulted for further workup and treatment of his metastatic prostate cancer. In speaking with the patient, he states he needs to think about it as to whether or not he wants to start or accept any kind of therapy. Constitutional: poor po Eyes: no complaints ENT: no complaints Respiratory: shortness of breath Cardiovascular: lightheadedness Gastrointestinal: decreased appetite, nausea Genitourinary: dysuria Musculoskeletal: back pain, bone/joint pain Skin: no complaints Neurologic: no complaints Endocrine: no complaints Lymphatic: no complaints Psychological: no complaints, nl mood/affect Immunologic: no complaints Past Medical History Medical History: cancer (Of prostate based on the PSA. Has not been confirmed by biopsy), hepatitis (C), hypertension, other (Anemia, hepatitis C, weight loss, history of falls and gastritis, history of subdural hematoma) Home Meds No Active Prescriptions or Reported Meds Medications Current Medications Pantoprazole (Protonix Tab) 40 mg DAILY@06 PO Last administered on 03/01/19at 08:51; Admin Dose 40 MG; Start 02/28/19 at 06:00 Albuterol/ Ipratropium (Duoneb) 3 ml Q6H RESP THERAPY PRN HHN SHORTNESS OF BREATH; Start 02/28/19 at 06:00 Acetaminophen (Tylenol Tab) 650 mg Q6H PRN PO MILD PAIN(1-3)OR ELEVATED TEMP Last administered on 02/28/19at 10:45; Admin Dose 650 MG; Start 02/28/19 at 06:00 Bisacodyl (Dulcolax) 10 mg DAILY PRN PO CONSTIPATION; Start 02/28/19 at 06:00 Miscellaneous Information (Pending [facility] Order For Wound Care) This patient lopez... PRN PRN XX WOUND CARE; Start 02/28/19 at 06:00 Calcium Carbonate (Ca Carbonate) 1,250 mg BID PO Last administered on 02/28/19at 20:48; Admin Dose 1,250 MG; Start 02/28/19 at 21:00 Ceftriaxone Sodium 50 ml @ 100 mls/hr Q24H IVPB ; Start 02/28/19 at 16:00 Bicalutamide (Casodex) 50 mg DAILY PO Last administered on 03/01/19at 08:52; Admin Dose 50 MG; Start 03/01/19 at 09:00 Acetaminophen/ Hydrocodone Bitart ([place] (5/325)) 1 tab Q4H PRN PO MODERATE PAIN LEVEL 4-6; Start 03/01/19 at 11:00 Acetaminophen/ Hydrocodone Bitart ([place] (5/325)) 2 tab Q4H PRN PO PAIN LEVEL 7-10; Start 03/01/19 at 10:35 Allergies: Coded Allergies: No Known Allergy (Unverified , 08/17/18) Past Surgical History Past Surgical Hx: no surgical history Family History Significant Family History: no pertinent family hx Social History Alcohol Use: occasionally Smoking Status: Former smoker Drug Use: none Exam/Review of Systems Exam Vitals Vital Signs Date Temp Pulse Resp B/P (MAP) Pulse Ox O2 O2 Flow FiO2 Time Delivery Rate 03/01/19 98.0 78 17 127/60 95 Room Air 02:48 (82) Intake and Output 02/28/19 02/28/19 03/01/19 1515:00 23:00 07:00 IntakeIntake Total 480 ml 1180 ml 200 ml OutputOutput Total 200 ml 1300 ml 330 ml BalanceBalance 280 ml -120 ml -130 ml Constitutional: alert, frail Psych: anxiety, depression Head: normocephalic Eyes: nl conjunctiva ENMT: nl external ears & nose Neck: supple Respiratory: clear to auscultation Cardiovascular: regular rate and rhythm Gastrointestinal: soft Musculoskeletal: joint tenderness, muscle weakness Extremities: normal pulses Results Result Diagram: 03/01/19 0945 03/01/19 0945 Results 24hrs Laboratory Tests Test 03/01/19 09:45 White Blood Count 6.1 # Red Blood Count 3.20 L Hemoglobin 8.4 L Hematocrit 27.2 L Mean Corpuscular Volume 85.0 Mean Corpuscular Hemoglobin 26.3 L Mean Corpuscular Hemoglobin Concent 30.9 L Red Cell Distribution Width 16.5 H Platelet Count 136 #L Mean Platelet Volume 8.7 Immature Granulocytes % 0.800 H Neutrophils % 80.0 H Lymphocytes % 14.6 L Monocytes % 4.4 Eosinophils % 0.2 Basophils % 0.0 Nucleated Red Blood Cells % 0.0 Immature Granulocytes # 0.050 H Neutrophils # 4.9 Lymphocytes # 0.9 Monocytes # 0.3 Eosinophils # 0.0 Basophils # 0.0 Nucleated Red Blood Cells # 0.0 Sodium Level 137 Potassium Level 4.6 Chloride Level 105 Carbon Dioxide Level 27 Anion Gap 5 Blood Urea Nitrogen 25 H Creatinine 1.19 Est Glomerular Filtrat Rate mL/min Glucose Level 143 Calcium Level 8.1 L Phosphorus Level 2.5 Magnesium Level 1.8 Medications Medication Current Medications Pantoprazole (Protonix Tab) 40 mg DAILY@06 PO Last administered on 03/01/19at 08:51; Admin Dose 40 MG; Start 02/28/19 at 06:00 Albuterol/ Ipratropium (Duoneb) 3 ml Q6H RESP THERAPY PRN HHN SHORTNESS OF BREATH; Start 02/28/19 at 06:00 Acetaminophen (Tylenol Tab) 650 mg Q6H PRN PO MILD PAIN(1-3)OR ELEVATED TEMP Last administered on 02/28/19at 10:45; Admin Dose 650 MG; Start 02/28/19 at 06:00 Bisacodyl (Dulcolax) 10 mg DAILY PRN PO CONSTIPATION; Start 02/28/19 at 06:00 Miscellaneous Information (Pending [facility] Order For Wound Care) This patient lopez... PRN PRN XX WOUND CARE; Start 02/28/19 at 06:00 Calcium Carbonate (Ca Carbonate) 1,250 mg BID PO Last administered on 02/28/19at 20:48; Admin Dose 1,250 MG; Start 02/28/19 at 21:00 Ceftriaxone Sodium 50 ml @ 100 mls/hr Q24H IVPB ; Start 02/28/19 at 16:00 Bicalutamide (Casodex) 50 mg DAILY PO Last administered on 03/01/19at 08:52; Admin Dose 50 MG; Start 03/01/19 at 09:00 Acetaminophen/ Hydrocodone Bitart ([place] (5/325)) 1 tab Q4H PRN PO MODERATE PAIN LEVEL 4-6; Start 03/01/19 at 11:00 Acetaminophen/ Hydrocodone Bitart ([place] (5/325)) 2 tab Q4H PRN PO PAIN LEVEL 7-10; Start 03/01/19 at 10:35 [place] M.D. Mar 01, 2019 10:57
[2019-03-01] MEDS: KETOROLAC 30 MG INJ IV SCH ×2 (15:30→21:30)
[2019-03-01] MEDS: CEFTRIAXONE 1 GM/50 ML (PMX) 50 ML IVPB SCH (16:00)
[2019-03-01] MEDS: HYDROmorphONE 2 MG/ML SYG IV PRN ×2 (16:25→20:40)
--- NOTE | 2019-03-01 18:11 | PN ---
Date/Time of Note Date/Time of Note DATE: 03/01/19 TIME: 18:07 Assessment/Plan VTE Prophylaxis Risk score (from Ns)>0 risk: 5 SCD applied (from [facility] [place] No SCD contraindicated: other Pharmacological prophylaxis: NA/contraindicated Pharm contraindication: patient refusal Lines/Catheters IV [facility] Type (from [facility] Peripheral IV Urinary Cath still in place: No Assessment/Plan Hospital Course 1. Recurrent falls, failure to thrive, weight loss, generalized body aches, likely secondary to metastatic prostate cancer. The patient was here in August 2018. The patient was seen by multiple consultants including urology and oncology. The patient had a prostate specific antigen over 1000. The patient was deemed that he had capacity to make decisions. The patient was offered chcf; however, he left and went home. He never followed up with any appointments and likely has progression of disease. 2. History of falls with subdural hematomas. 3. Severe anemia. 4. Pancytopenia with a history of hepatitis C. 5. Alcoholism. 6. History of smoking. 7. Elevated alkaline phosphatase could be secondary to bony metastases. Metast atic disease. He is on Casodex 8. Edema with hypoalbuminemia. 9. Likely urinary tract infection. 10. cachexia. Malnourishment 11.Chronic pain and anxiety Assessment/Plan - gentle IV fluids, nutrition. -GI prophylaxis Protonix -code status is DNR/DNI, pt expressed idea to be comfortable. Agreed for facility. [facility]", ok with Dr Wong -confirmed by nursing - PSA is above 600. -Pain control. - Oncology consultation was seen. pt refused needle biopsy. He screamed , he does not want any "Schit to be given to him, only pain medication - consultation, seen -ordered PT eval. Result Diagram: 03/01/19 0945 03/01/19 0945 Results 24hrs Laboratory Tests Test 03/01/19 09:45 White Blood Count 6.1 # Red Blood Count 3.20 L Hemoglobin 8.4 L Hematocrit 27.2 L Mean Corpuscular Volume 85.0 Mean Corpuscular Hemoglobin 26.3 L Mean Corpuscular Hemoglobin Concent 30.9 L Red Cell Distribution Width 16.5 H Platelet Count 136 #L Mean Platelet Volume 8.7 Immature Granulocytes % 0.800 H Neutrophils % 80.0 H Lymphocytes % 14.6 L Monocytes % 4.4 Eosinophils % 0.2 Basophils % 0.0 Nucleated Red Blood Cells % 0.0 Immature Granulocytes # 0.050 H Neutrophils # 4.9 Lymphocytes # 0.9 Monocytes # 0.3 Eosinophils # 0.0 Basophils # 0.0 Nucleated Red Blood Cells # 0.0 Sodium Level 137 Potassium Level 4.6 Chloride Level 105 Carbon Dioxide Level 27 Anion Gap 5 Blood Urea Nitrogen 25 H Creatinine 1.19 Est Glomerular Filtrat Rate mL/min Glucose Level 143 Calcium Level 8.1 L Phosphorus Level 2.5 Magnesium Level 1.8 Subjective 24 Hr Interval Summary Free Text/Dictation Constitutional: No fever, has cough , no chills. does not feel well EYE: No eye disease. Visual problems. CARDIOVASCULAR: No chest pain. No tachycardia. No Palpitation. RESPIRATORY: No breathing problems. No COPD or disease of respiration. GASTROINTESTINAL: No Nausea. No Vomiting. No constipation. Endocrine: No excessive thirst, No polyuria, No hot intolerance. No cold intolerance. MUSCULO-SKELETAL:pain in all bones, all joints NEUROLOGICAL: Alert oriented in person, place, time and situation. Exam/Review of Systems Exam Vitals Vital Signs Date Temp Pulse Resp B/P (MAP) Pulse Ox O2 O2 Flow FiO2 Time Delivery Rate 03/01/19 98.0 78 17 127/60 95 Room Air 02:48 (82) Intake and Output 02/28/19 02/28/19 03/01/19 1515:00 23:00 07:00 IntakeIntake Total 480 ml 1180 ml 200 ml OutputOutput Total 200 ml 1300 ml 330 ml BalanceBalance 280 ml -120 ml -130 ml Exam cahectic Constitutional: alert, oriented, frail Psych: anxiety, depression Head: normocephalic, atraumatic Eyes: nl conjunctiva, EOMI Neck: supple, non-tender, jvd; No bruits, No masses, No thyromegaly, No nuchal rigidity, No other Respiratory: clear to auscultation, normal air movement, congested cough, crackles/rales, diminished breath sounds, intercostal retraction, labored breathing, respirations, tactile fremitus, wheezing, other Cardiovascular: regular rate and rhythm, jugular venous distention (JVD); No nl pulses, No bruits, No diastolic murmur, No edema, No gallop, No irregular rhythm, No murmurs/extra sounds, No rub, No systolic murmur, No S3, No S4, No other Gastrointestinal: bowel sounds; No nl liver, spleen, No non-tender, No ascites, No distended, No firm, No hepatomegaly, No mass, No splenomegaly, No surgical scars, No tender, No other Genitourinary - Male: nl penis, nl scrotum, CVA tenderness; No discharge, No other Musculoskeletal: swelling (BLE) Extremities: edema; No normal pulses, No calf tenderness, No cyanosis, No clubbing, No pitting pedal edema, No palpable cord, No tenderness, No other Neurological: nl speech Skin: other (poor ) Results Results 24hrs Laboratory Tests Test 03/01/19 09:45 White Blood Count 6.1 # Red Blood Count 3.20 L Hemoglobin 8.4 L Hematocrit 27.2 L Mean Corpuscular Volume 85.0 Mean Corpuscular Hemoglobin 26.3 L Mean Corpuscular Hemoglobin Concent 30.9 L Red Cell Distribution Width 16.5 H Platelet Count 136 #L Mean Platelet Volume 8.7 Immature Granulocytes % 0.800 H Neutrophils % 80.0 H Lymphocytes % 14.6 L Monocytes % 4.4 Eosinophils % 0.2 Basophils % 0.0 Nucleated Red Blood Cells % 0.0 Immature Granulocytes # 0.050 H Neutrophils # 4.9 Lymphocytes # 0.9 Monocytes # 0.3 Eosinophils # 0.0 Basophils # 0.0 Nucleated Red Blood Cells # 0.0 Sodium Level 137 Potassium Level 4.6 Chloride Level 105 Carbon Dioxide Level 27 Anion Gap 5 Blood Urea Nitrogen 25 H Creatinine 1.19 Est Glomerular Filtrat Rate mL/min Glucose Level 143 Calcium Level 8.1 L Phosphorus Level 2.5 Magnesium Level 1.8 Medications Medication Current Medications Pantoprazole (Protonix Tab) 40 mg DAILY@06 PO Last administered on 03/01/19at 08:51; Admin Dose 40 MG; Start 02/28/19 at 06:00 Albuterol/ Ipratropium (Duoneb) 3 ml Q6H RESP THERAPY PRN HHN SHORTNESS OF BREATH; Start 02/28/19 at 06:00 Acetaminophen (Tylenol Tab) 650 mg Q6H PRN PO MILD PAIN(1-3)OR ELEVATED TEMP Last administered on 02/28/19at 10:45; Admin Dose 650 MG; Start 02/28/19 at 06:00 Bisacodyl (Dulcolax) 10 mg DAILY PRN PO CONSTIPATION; Start 02/28/19 at 06:00 Miscellaneous Information (Pending [facility] Order For Wound Care) This patient lopze... PRN PRN XX WOUND CARE; Start 02/28/19 at 06:00 Calcium Carbonate (Ca Carbonate) 1,250 mg BID PO Last administered on 02/28/19at 20:48; Admin Dose 1,250 MG; Start 02/28/19 at 21:00 Ceftriaxone Sodium 50 ml @ 100 mls/hr Q24H IVPB ; Start 02/28/19 at 16:00 Bicalutamide (Casodex) 50 mg DAILY PO Last administered on 03/01/19at 08:52; Admin Dose 50 MG; Start 03/01/19 at 09:00 Hydromorphone HCl (Dilaudid) 1.5 mg Q4H PRN IV SEVERE PAIN LEVEL 7-10 Last administered on 03/01/19at 16:25; Admin Dose 1.5 MG; Start 03/01/19 at 15:30 Methadone HCl (Methadone Liq) 2 mg Q4 PO ; Start 03/01/19 at 17:00 Ketorolac Tromethamine (Toradol) 30 mg Q6H IV ; Start 03/01/19 at 15:30; Stop 03/04/19 at 15:29 DENNIS YOON NP Mar 01, 2019 18:11
[2019-03-01] MEDS: METHADONE (1 MG/ML 5 ML PO UD SYG) PO SCH ×2 (18:31→21:40)
[2019-03-01 19:58] VITALS: BP 124/70; PULSE 64; RESP 18
[2019-03-01] MEDS: LORAZEPAM 2 MG INJ IV PRN (23:04)
[2019-03-02] MEDS: METHADONE (1 MG/ML 5 ML PO UD SYG) PO SCH ×7 (01:00→23:28)
[2019-03-02] MEDS: KETOROLAC 30 MG INJ IV SCH ×4 (03:30→21:01)
[2019-03-02] MEDS: PANTOPRAZOLE (EC) 40 MG TAB PO SCH (05:33)
[2019-03-02 08:22] VITALS: BP 124/66; PULSE 71; RESP 18
--- NOTE | 2019-03-02 08:38 | CONS ---
Assessment/Plan Assessment/Plan Assessment/Plan (Daily) Metastatic prostate cancer Metastasis to bones excruciating pain secondary to the above Lumbosacral spine pain secondary to metastasis Noncompliant with prior recommendations for treatment Multiple falls at home secondary to weakness weight loss Failure to thrive Malnutrition Hypertension At this time I would suggest a IV Dilaudid and methadone until is more stable and pain is controlled. I do not believe that patient will be compliant with ongoing level of care and he does not have the support at home to watch him 24 hours seven days a week nor transport him to physicians appointments. Therefore I believe the only viable recommendation is [facility] with adequate pain control and hospice care. Initially patient is in agreement with this plan. Consultation Date/Type/Reason Admit Date/Time Feb 28, 2019 at 05:11 Date/Time of Note DATE: 03/02/19 TIME: 08:32 Hx of Present Illness This is a 73-year-old gentleman who is very pleasant into able to make of his own decision for ongoing level of care. Essentially this time was diagnosed with metastatic prostate cancer with a recent history of major weight loss anemia failure to thrive who was recently discharged and was seen by neurology and oncology consultations was given recommendation for ongoing treatment but never followed up after discharge. At home patient lives with brother and sister but they are not available 24 hours seven days a week, and he is taken multiple falls at home. He represents to [facility] in extreme pain out of control. Patient states he was not taking pain control medications at home however I believe this story is suspect based upon review of medical records workup during the last hospitalization showed CT scan consistent with cervical, thoracic and lumbar spine diffuse osseous metastatic disease. Other major medical problems include severe anemia history of subdural hematoma, history of hepatitis C, history of alcoholism. At this time patient states he has diffuse pain worse in his lumbar sacral spine not responding to current pain control medications. I am asked to speak to patient and family members concerning ongoing level of care. I've reviewed medical records from our hospitalization Constitutional: no complaints, improved Eyes: no complaints ENT: no complaints Respiratory: no complaints Cardiovascular: no complaints Gastrointestinal: no complaints Genitourinary: no complaints, bleeding, dysuria, discharge, flank pain, hematuria, other (refer to HPI) Musculoskeletal: no complaints Skin: no complaints Neurologic: no complaints Endocrine: no complaints Lymphatic: no complaints Psychological: no complaints, nl mood/affect Immunologic: no complaints Past Medical History Medical History: cancer (Of prostate based on the PSA. Has not been confirmed by biopsy), hepatitis (C), hypertension, other (Anemia, hepatitis C, weight loss, history of falls and gastritis, history of subdural hematoma) Home Meds No Active Prescriptions or Reported Meds Medications Current Medications Pantoprazole (Protonix Tab) 40 mg DAILY@06 PO Last administered on 03/01/19at 08:51; Admin Dose 40 MG; Start 02/28/19 at 06:00 Albuterol/ Ipratropium (Duoneb) 3 ml Q6H RESP THERAPY PRN HHN SHORTNESS OF BREATH; Start 02/28/19 at 06:00 Acetaminophen (Tylenol Tab) 650 mg Q6H PRN PO MILD PAIN(1-3)OR ELEVATED TEMP Last administered on 02/28/19at 10:45; Admin Dose 650 MG; Start 02/28/19 at 06:00 Bisacodyl (Dulcolax) 10 mg DAILY PRN PO CONSTIPATION; Start 02/28/19 at 06:00 [facility]isc[facility] This patient lopez... PRN PRN XX WOUND CARE; Start 02/28/19 at 06:00 Calcium Carbonate (Ca Carbonate) 1,250 mg BID PO Last administered on 03/01/19at 20:39; Admin Dose 1,250 MG; Start 02/28/19 at 21:00 Ceftriaxone Sodium 50 ml @ 100 mls/hr Q24H IVPB ; Start 02/28/19 at 16:00 Bicalutamide (Casodex) 50 mg DAILY PO Last administered on 03/01/19at 08:52; A dmin Dose 50 MG; Start 03/01/19 at 09:00 Hydromorphone HCl (Dilaudid) 1.5 mg Q4H PRN IV SEVERE PAIN LEVEL 7-10 Last administered on 03/01/19at 20:40; Admin Dose 1.5 MG; Start 03/01/19 at 15:30 Methadone HCl (Methadone Liq) 2 mg Q4 PO Last administered on 03/02/19at 06:22; Admin Dose 2 MG; Start 03/01/19 at 17:00 Ketorolac Tromethamine (Toradol) 30 mg Q6H IV ; Start 03/01/19 at 15:30; Stop 03/04/19 at 15:29 Lorazepam (Ativan) 0.5 mg Q6H PRN IV ANXIETY Last administered on 03/01/19at 23:04; Admin Dose 0.5 MG; Start 03/01/19 at 19:00 Allergies: Coded Allergies: No Known Allergy (Unverified , 08/17/18) Past Surgical History Past Surgical Hx: no surgical history Social History Alcohol Use: occasionally Smoking Status: Former smoker Drug Use: none, other (unknown) Exam/Review of Systems Exam Vitals Vital Signs Date Temp Pulse Resp B/P (MAP) Pulse Ox O2 O2 Flow FiO2 Time Delivery Rate 03/02/19 98.4 71 18 124/66 95 Room Air 08:22 (85) Intake and Output 03/01/19 03/01/19 03/02/19 1515:00 23:00 07:00 IntakeIntake Total 480 ml 100 ml 100 ml OutputOutput Total 50 ml BalanceBalance 430 ml 100 ml 100 ml Constitutional: alert, distress, frail Psych: anxiety Head: normocephalic, atraumatic Eyes: nl conjunctiva, EOMI, nl lids, nl sclera, PERRL ENMT: nl external ears & nose, nl lips & teeth, nl nasal mucosa & septum Neck: supple, non-tender Respiratory: clear to auscultation, normal air movement; No congested cough, No crackles/rales, No diminished breath sounds, No intercostal retraction, No labored breathing, No respirations, No tactile fremitus, No wheezing, No other Cardiovascular: regular rate and rhythm, nl pulses; No bruits, No diastolic murmur, No edema, No gallop, No irregular rhythm, No jugular venous distention (JVD), No murmurs/extra sounds, No rub, No systolic murmur, No S3, No S4, No other Gastrointestinal: soft, nl liver, spleen, non-tender; No ascites, No bowel sounds, No distended, No firm, No hepatomegaly, No mass, No rebound or guarding, No splenomegaly, No surgical scars, No tender, No other Musculoskeletal: nl extremities to inspection, nl gait and stance Neurological: METAL HANGER II-XII intact, nl mental status, nl speech, nl strength Results Result Diagram: 03/01/1945 7/26/19 0945 Results 24hrs Laboratory Tests Test 03/01/19 09:45 White Blood Count 6.1 # Red Blood Count 3.20 L Hemoglobin 8.4 L Hematocrit 27.2 L Mean Corpuscular Volume 85.0 Mean Corpuscular Hemoglobin 26.3 L Mean Corpuscular Hemoglobin Concent 30.9 L Red Cell Distribution Width 16.5 H Platelet Count 136 #L Mean Platelet Volume 8.7 Immature Granulocytes % 0.800 H Neutrophils % 80.0 H Lymphocytes % 14.6 L Monocytes % 4.4 Eosinophils % 0.2 Basophils % 0.0 Nucleated Red Blood Cells % 0.0 Immature Granulocytes # 0.050 H Neutrophils # 4.9 Lymphocytes # 0.9 Monocytes # 0.3 Eosinophils # 0.0 Basophils # 0.0 Nucleated Red Blood Cells # 0.0 Sodium Level 137 Potassium Level 4.6 Chloride Level 105 Carbon Dioxide Level 27 Anion Gap 5 Blood Urea Nitrogen 25 H Creatinine 1.19 Est Glomerular Filtrat Rate mL/min Glucose Level 143 Calcium Level 8.1 L Phosphorus Level 2.5 Magnesium Level 1.8 Medications Medication Current Medications Pantoprazole (Protonix Tab) 40 mg DAILY@06 PO Last administered on 03/01/19at 08:51; Admin Dose 40 MG; Start 02/28/19 at 06:00 Albuterol/ Ipratropium (Duoneb) 3 ml Q6H RESP THERAPY PRN HHN SHORTNESS OF BREATH; Start 02/28/19 at 06:00 Acetaminophen (Tylenol Tab) 650 mg Q6H PRN PO MILD PAIN(1-3)OR ELEVATED TEMP Last administered on 02/28/19at 10:45; Admin Dose 650 MG; Start 02/28/19 at 06:00 Bisacodyl (Dulcolax) 10 mg DAILY PRN PO CONSTIPATION; Start 02/28/19 at 06:00 Miscellaneous Information ([facility]) This patient lopez... PRN PRN XX WOUND CARE; Start 02/28/19 at 06:00 Calcium Carbonate (Ca Carbonate) 1,250 mg BID PO Last administered on 03/01/19at 20:39; Admin Dose 1,250 MG; Start 02/28/19 at 21:00 Ceftriaxone Sodium 50 ml @ 100 mls/hr Q24H IVPB ; Start 02/28/19 at 16:00 Bicalutamide (Casodex) 50 mg DAILY PO Last administered on 03/01/19at 08:52; Admin Dose 50 MG; Start 03/01/19 at 09:00 Hydromorphone HCl (Dilaudid) 1.5 mg Q4H PRN IV SEVERE PAIN LEVEL 7-10 Last administered on 03/01/19at 20:40; Admin Dose 1.5 MG; Start 03/01/19 at 15:30 Methadone HCl (Methadone Liq) 2 mg Q4 PO Last administered on 03/02/19at 06:22; Admin Dose 2 MG; Start 03/01/19 at 17:00 Ketorolac Tromethamine (Toradol) 30 mg Q6H IV ; Start 03/01/19 at 15:30; Stop 03/04/19 at 15:29 Lorazepam (Ativan) 0.5 mg Q6H PRN IV ANXIETY Last administered on 03/01/19at 23:04; Admin Dose 0.5 MG; Start 03/01/19 at 19:00 KENZIE RODRIGUEZ Mar 02, 2019 08:38
[2019-03-02] MEDS: CA CARBONATE (250 MG/ML) 5ML CUP PO SCH ×2 (08:55→20:59)
[2019-03-02] MEDS: BICALUTAMIDE 50 MG TAB PO SCH (08:55)
--- NOTE | 2019-03-02 12:28 | CONS ---
Consult Date/Type/Reason Admit Date/Time Feb 28, 2019 at 05:11 Initial Consult Date 03/01/19 Type of Consultation: Urology Reason for Consultation Metastatic prostate cancer Requesting Provider: MILLY LABOY MD Date/Time of Note DATE: 03/02/19 TIME: 12:22 Subjective Patient is very weak and cachectic. States that he has to push to urinate. Objective Vitals Vital Signs Date Temp Pulse Resp B/P (MAP) Pulse Ox O2 O2 Flow FiO2 Time Delivery Rate 03/02/19 98.4 71 18 124/66 95 Room Air 08:22 (85) Intake and Output 03/01/19 03/01/19 03/02/19 1515:00 23:00 07:00 IntakeIntake Total 480 ml 100 ml 100 ml OutputOutput Total 50 ml BalanceBalance 430 ml 100 ml 100 ml Exam The abdomen is soft and the bladder is not distended. He does have back pain, he is able to move all of his extremities Results/Medications Result Diagram: 03/02/19 0837 03/02/19 0837 Results 24 hrs Laboratory Tests Test 03/02/19 08:37 White Blood Count 4.3 #L Red Blood Count 4.15 #L Hemoglobin 10.8 #L Hematocrit 35.0 #L Mean Corpuscular Volume 84.3 Mean Corpuscular Hemoglobin 26.0 L Mean Corpuscular Hemoglobin Concent 30.9 L Red Cell Distribution Width 16.5 H Platelet Count 95 #L Mean Platelet Volume 11.7 #H Immature Granulocytes % 1.200 H Neutrophils % 72.5 Lymphocytes % 20.9 Monocytes % 5.2 Eosinophils % 0.0 Basophils % 0.2 Nucleated Red Blood Cells % 0.0 Immature Granulocytes # 0.050 H Neutrophils # 3.1 Lymphocytes # 0.9 Monocytes # 0.2 L Eosinophils # 0.0 Basophils # 0.0 Nucleated Red Blood Cells # 0.0 Sodium Level 140 Potassium Level 4.7 Chloride Level 106 Carbon Dioxide Level 22 Anion Gap 12 # Blood Urea Nitrogen 24 H Creatinine 0.95 Est Glomerular Filtrat Rate mL/min Glucose Level 68 #L Calcium Level 8.5 Home Meds No Active Prescriptions or Reported Meds Medications Current Medications Pantoprazole (Protonix Tab) 40 mg DAILY@06 PO Last administered on 03/01/19at 08:51; Admin Dose 40 MG; Start 02/28/19 at 06:00 Albuterol/ Ipratropium (Duoneb) 3 ml Q6H RESP THERAPY PRN HHN SHORTNESS OF BREATH; Start 02/28/19 at 06:00 Acetaminophen (Tylenol Tab) 650 mg Q6H PRN PO MILD PAIN(1-3)OR ELEVATED TEMP Last administered on 02/28/19at 10:45; Admin Dose 650 MG; Start 02/28/19 at 06:00 Bisacodyl (Dulcolax) 10 mg DAILY PRN PO CONSTIPATION; Start 02/28/19 at 06:00 Miscellaneous Information (Pending [facility] Order For Wound Care) This patient lopez... PRN PRN XX WOUND CARE; Start 02/28/19 at 06:00 Calcium Carbonate (Ca Carbonate) 1,250 mg BID PO Last administered on 03/02/19at 08:55; Admin Dose 1,250 MG; Start 02/28/19 at 21:00 Ceftriaxone Sodium 50 ml @ 100 mls/hr Q24H IVPB ; Start 02/28/19 at 16:00 Bicalutamide (Casodex) 50 mg DAILY PO Last administered on 03/02/19at 08:55; Admin Dose 50 MG; Start 03/01/19 at 09:00 Hydromorphone HCl (Dilaudid) 1.5 mg Q4H PRN IV SEVERE PAIN LEVEL 7-10 Last administered on 03/01/19at 20:40; Admin Dose 1.5 MG; Start 03/01/19 at 15:30 Methadone HCl (Methadone Liq) 2 mg Q4 PO Last administered on 03/02/19 10:24; Admin Dose 2 MG; Start 03/01/19 at 17:00 Ketorolac Tromethamine (Toradol) 30 mg Q6H IV Last administered on 03/02/19 08:57; Admin Dose 30 MG; Start 03/01/19 at 15:30; Stop 03/04/19 at 15:29 Lorazepam (Ativan) 0.5 mg Q6H PRN IV ANXIETY Last administered on 03/01/19 23:04; Admin Dose 0.5 MG; Start 03/01/19 at 19:00 Imaging 1. Diffuse metastasis to the liver as described above. Recommend contrast CT or MR to further evaluate. 2. Pathologic lymphadenopathy is noted in the retroperitoneum, the gastrohepatic gastrolienal and the portal triad with retroperitoneal lymphadenopathy noted at the aortic bifurcation. Incomplete evaluation without contrast on this study is noted. 3. Anterior mid abdominal mass measuring 5.8 cm transverse by 3.2 cm in AP dimensions. 4. Bilateral renal cortical cysts with persistent mild left hydroureter nephrosis 5. Diffuse blastic and lytic skeletal metastasis and recommend MRI with contrast of the spine to evaluate for epidural extension is clinically indicated. 6. Mild abdominal and pelvic ascites 7. Mild gallbladder wall calcifications Assessment/Plan Hospital Course (Demo Recall) 73-year-old -[place] male was admitted here in August 2018. At that time his PSA was over at thousand and patient was assumed to have prostate cancer he was started on bicalutamide and at the time of discharge he was instructed to follow-up in the office for biopsy of the prostate to confirm the diagnosis of prostate cancer. However the patient did not follow up with any doctor and he went to [facility] because of increased back pain and weakness in addition to lower extremity pain and was transferred to [facility]. Patient underwent CT of the cervical thoracic and lumbar spine and was found to have metastatic disease. Patient states he does urinate 5-6 times at night and same during the day. He voids a small amount. He denies any gross hematuria. Presently the patient is very weak and the CT scan of the abdomen and pelvis showed: 1. Diffuse metastasis to the liver as described above. Recommend contrast CT or MR to further evaluate. 2. Pathologic lymphadenopathy is noted in the retroperitoneum, the gastrohepatic gastrolienal and the portal triad with retroperitoneal lymphadenopathy noted at the aortic bifurcation. Incomplete evaluation without contrast on this study is noted. 3. Anterior mid abdominal mass measuring 5.8 cm transverse by 3.2 cm in AP dimensions. 4. Bilateral renal cortical cysts with persistent mild left hydroureter nephrosis 5. Diffuse blastic and lytic skeletal metastasis and recommend MRI with contrast of the spine to evaluate for epidural extension is clinically indicated. 6. Mild abdominal and pelvic ascites 7. Mild gallbladder wall calcifications The patient is on bicalutamide and pain medications. His cancer is very advanced. Consideration have been made for group home and or hospice. The pa tient is still undecided. MAVIS MAI MD Mar 02, 2019 12:28
--- NOTE | 2019-03-02 14:47 | PN ---
Date/Time of Note Date/Time of Note DATE: 03/02/19 TIME: 14:38 Assessment/Plan VTE Prophylaxis Risk score (from Ns)>0 risk: 5 SCD applied (from Ns): Yes Pharmacological prophylaxis: NA/contraindicated Pharm contraindication: blood coag disorder Lines/Catheters IV Catheter Type (from Rust): Saline Lock Urinary Cath still in place: No Assessment/Plan Hospital Course 1. Recurrent falls, failure to thrive, weight loss, generalized body aches, likely secondary to metastatic prostate cancer. The patient was here in August 2018. The patient was seen by multiple consultants including urology and oncology. The patient had a prostate specific antigen over 1000. The patient was deemed that he had capacity to make decisions. The patient was offered longterm; however, he left and went home. He never followed up with any appointments and likely has progression of disease. 2. History of falls with subdural hematomas. 3. Severe anemia. 4. Pancytopenia with a history of hepatitis C. 5. Alcoholism. 6. History of smoking. 7. Elevated alkaline phosphatase could be secondary to bony metastases. Metastatic disease. He is on Casodex 8. Edema with hypoalbuminemia. 9. Likely urinary tract infection. 10. cachexia. Malnourishment 11.Chronic pain and anxiety Assessment/Plan - gentle IV fluids, nutrition. -resume methadone -today is lethargic. later alert oriented 3 -consent prostate biopsy prepared -social service sen -communicated Brother, he requested full treatment, keep DNR and DNI -GI prophylaxis Protonix -code status is DNR/DNI, -Pain control. - Oncology consultation was seen. palliative care - consultation, seen -ordered PT eval. Result Diagram: 03/02/19 0837 03/02/19 0837 Results 24hrs Laboratory Tests Test 03/02/19 08:37 White Blood Count 4.3 #L Red Blood Count 4.15 #L Hemoglobin 10.8 #L Hematocrit 35.0 #L Mean Corpuscular Volume 84.3 Mean Corpuscular Hemoglobin 26.0 L Mean Corpuscular Hemoglobin Concent 30.9 L Red Cell Distribution Width 16.5 H Platelet Count 95 #L Mean Platelet Volume 11.7 #H Immature Granulocytes % 1.200 H Neutrophils % 72.5 Lymphocytes % 20.9 Monocytes % 5.2 Eosinophils % 0.0 Basophils % 0.2 Nucleated Red Blood Cells % 0.0 Immature Granulocytes # 0.050 H Neutrophils # 3.1 Lymphocytes # 0.9 Monocytes # 0.2 L Eosinophils # 0.0 Basophils # 0.0 Nucleated Red Blood Cells # 0.0 Sodium Level 140 Potassium Level 4.7 Chloride Level 106 Carbon Dioxide Level 22 Anion Gap 12 # Blood Urea Nitrogen 24 H Creatinine 0.95 Est Glomerular Filtrat Rate mL/min Glucose Level 68 #L Calcium Level 8.5 Subjective 24 Hr Interval Summary Free Text/Dictation severe pain, pt is lethargic ENT: no complaints, bleeding, pain, congestion, discharge, dysphagia, sore throat, other Gastrointestinal: no complaints, constipation, nausea; No pain, No blood, No decreased appetite, No diarrhea, No flatus, No passing stool, No vomiting, No other Musculoskeletal: back pain, bone/joint pain, neck pain, restricted range of motion Exam/Review of Systems Exam Vitals Vital Signs Date Temp Pulse Resp B/P (MAP) Pulse Ox O2 O2 Flow FiO2 Time Delivery Rate 03/02/19 98.4 71 18 124/66 95 Room Air 08:22 (85) Intake and Output 03/01/19 03/01/19 03/02/19 1515:00 23:00 07:00 IntakeIntake Total 480 ml 100 ml 100 ml OutputOutput Total 50 ml BalanceBalance 430 ml 100 ml 100 ml Constitutional: alert, oriented (x3) Eyes: nl conjunctiva ENMT: nl external ears & nose, mucosa pink and moist Neck: supple Respiratory: crackles/rales, diminished breath sounds, wheezing; No clear to auscultation, No normal air movement, No congested cough, No intercostal retraction, No labored breathing, No respirations, No tactile fremitus, No other Cardiovascular: regular rate and rhythm, jugular venous distention (JVD); No nl pulses, No bruits, No diastolic murmur, No edema, No gallop, No irregular rhythm, No murmurs/extra sounds, No rub, No systolic murmur, No S3, No S4, No other Gastrointestinal: soft Genitourinary - Male: CVA tenderness; No nl penis, No nl scrotum, No discharge, No other Extremities: normal pulses Results Results 24hrs Laboratory Tests Test 03/02/19 08:37 White Blood Count 4.3 #L Red Blood Count 4.15 #L Hemoglobin 10.8 #L Hematocrit 35.0 #L Mean Corpuscular Volume 84.3 Mean Corpuscular Hemoglobin 26.0 L Mean Corpuscular Hemoglobin Concent 30.9 L Red Cell Distribution Width 16.5 H Platelet Count 95 #L Mean Platelet Volume 11.7 #H Immature Granulocytes % 1.200 H Neutrophils % 72.5 Lymphocytes % 20.9 Monocytes % 5.2 Eosinophils % 0.0 Basophils % 0.2 Nucleated Red Blood Cells % 0.0 Immature Granulocytes # 0.050 H Neutrophils # 3.1 Lymphocytes # 0.9 Monocytes # 0.2 L Eosinophils # 0.0 Basophils # 0.0 Nucleated Red Blood Cells # 0.0 Sodium Level 140 Potassium Level 4.7 Chloride Level 106 Carbon Dioxide Level 22 Anion Gap 12 # Blood Urea Nitrogen 24 H Creatinine 0.95 Est Glomerular Filtrat Rate mL/min Glucose Level 68 #L Calcium Level 8.5 Medications Medication Current Medications Pantoprazole (Protonix Tab) 40 mg DAILY@06 PO Last administered on 03/01/19at 08:51; Admin Dose 40 MG; Start 02/28/19 at 06:00 Albuterol/ Ipratropium (Duoneb) 3 ml Q6H RESP THERAPY PRN HHN SHORTNESS OF BREATH; Start 02/28/19 at 06:00 Acetaminophen (Tylenol Tab) 650 mg Q6H PRN PO MILD PAIN(1-3)OR ELEVATED TEMP Last administered on 02/28/19at 10:45; Admin Dose 650 MG; Start 02/28/19 at 06:00 Bisacodyl (Dulcolax) 10 mg DAILY PRN PO CONSTIPATION; Start 02/28/19 at 06:00 Miscellaneous Information (Pending [facility] Order For Wound Care) This patient lopez... PRN PRN XX WOUND CARE; Start 02/28/19 at 06:00 Calcium Carbonate (Ca Carbonate) 1,250 mg BID PO Last administered on 03/02/19at 08:55; Admin Dose 1,250 MG; Start 02/28/19 at 21:00 Ceftriaxone Sodium 50 ml @ 100 mls/hr Q24H IVPB ; Start 02/28/19 at 16:00 Bicalutamide (Casodex) 50 mg DAILY PO Last administered on 03/02/19at 08:55; Admin Dose 50 MG; Start 03/01/19 at 09:00 Hydromorphone HCl (Dilaudid) 1.5 mg Q4H PRN IV SEVERE PAIN LEVEL 7-10 Last administered on 03/01/19at 20:40; Admin Dose 1.5 MG; Start 03/01/19 at 15:30 Methadone HCl (Methadone Liq) 2 mg Q4 PO Last administered on 03/02/19at 10:24; Admin Dose 2 MG; Start 03/01/19 at 17:00 Ketorolac Tromethamine (Toradol) 30 mg Q6H IV Last administered on 03/02/19at 08:57; Admin Dose 30 MG; Start 03/01/19 at 15:30; Stop 03/04/19 at 15:29 Lorazepam (Ativan) 0.5 mg Q6H PRN IV ANXIETY Last administered on 03/01/19at 23:04; Admin Dose 0.5 MG; Start 03/01/19 at 19:00 DENNIS YOON NP Mar 02, 2019 14:47
[2019-03-02] MEDS: CEFTRIAXONE 1 GM/50 ML (PMX) 50 ML IVPB SCH (15:54)
--- NOTE | 2019-03-02 15:54 | CONS ---
Assessment/Plan Assessment/Plan Assessment/Plan (Daily) #Metastatic prostate cancer -pt has disease diffusely throughout the liver, bones and lymph nodes -PSA is currently> 600 - Per Dr Pardo - pt should have a confirmatory prostate bx but given the high l ikelihood of prostate cancer and heavy disease burden, ideally patient should be started on upfront Taxotere chemotherapy with Casodex and Lupron -This was discussed with the patient who states he needs to "think about" starting any type of therapy -he could also be evaluated by radiation oncology as an out patient for his back pain as palliative XRT may help this issue -at the very least he should continue casodex for now -if he refuses all treatment, he should be referred for hospice evaluation Patient seen in collaboration with Dr Pardo. staff. Consultation Date/Type/Reason Admit Date/Time Feb 28, 2019 at 05:11 Initial Consult Date 03/01/19 Type of Consult ONCOLOGY/HEMATOLOGY Reason for Consultation Metastatic prostate cancer Requesting Provider: MILLY LABOY MD Date/Time of Note DATE: 03/02/19 TIME: 15:52 24 HR Interval Summary Free Text/Dictation Patient agreed for biopsy- will fu no new events last night Detailed Summary Eyes: no complaints ENT: no complaints Respiratory: no complaints Cardiovascular: no complaints Gastrointestinal: no complaints Genitourinary: dysuria Musculoskeletal: no complaints Skin: no complaints Neurologic: no complaints Psychological: nl mood/affect Exam/Review of Systems Exam Vitals Vital Signs Date Temp Pulse Resp B/P (MAP) Pulse Ox O2 O2 Flow FiO2 Time Delivery Rate 03/02/19 98.4 71 18 124/66 95 Room Air 08:22 (85) Intake and Output 03/01/19 03/01/19 03/02/19 1515:00 23:00 07:00 IntakeIntake Total 480 ml 100 ml 100 ml OutputOutput Total 50 ml BalanceBalance 430 ml 100 ml 100 ml Constitutional: alert, well developed, frail Psych: nl mood/affect Head: atraumatic Eyes: nl lids, nl sclera ENMT: nl external ears & nose Neck: non-tender Respiratory: clear to auscultation Cardiovascular: nl pulses, other (S1S2) Gastrointestinal: soft, non-tender Musculoskeletal: joint tenderness, muscle weakness Extremities: normal pulses Neurological: nl speech, other (alert/reponsive) Results Result Diagram: 03/02/19 0837 03/02/19 0837 Results 24hrs Laboratory Tests Test 03/02/19 08:37 White Blood Count 4.3 #L Red Blood Count 4.15 #L Hemoglobin 10.8 #L Hematocrit 35.0 #L Mean Corpuscular Volume 84.3 Mean Corpuscular Hemoglobin 26.0 L Mean Corpuscular Hemoglobin Concent 30.9 L Red Cell Distribution Width 16.5 H Platelet Count 95 #L Mean Platelet Volume 11.7 #H Immature Granulocytes % 1.200 H Neutrophils % 72.5 Lymphocytes % 20.9 Monocytes % 5.2 Eosinophils % 0.0 Basophils % 0.2 Nucleated Red Blood Cells % 0.0 Immature Granulocytes # 0.050 H Neutrophils # 3.1 Lymphocytes # 0.9 Monocytes # 0.2 L Eosinophils # 0.0 Basophils # 0.0 Nucleated Red Blood Cells # 0.0 Sodium Level 140 Potassium Level 4.7 Chloride Level 106 Carbon Dioxide Level 22 Anion Gap 12 # Blood Urea Nitrogen 24 H Creatinine 0.95 Est Glomerular Filtrat Rate mL/min Glucose Level 68 #L Calcium Level 8.5 Medications Medication Current Medications Pantoprazole (Protonix Tab) 40 mg DAILY@06 PO Last administered on 03/01/19at 08:51; Admin Dose 40 MG; Start 02/28/19 at 06:00 Albuterol/ Ipratropium (Duoneb) 3 ml Q6H RESP THERAPY PRN HHN SHORTNESS OF BR EATH; Start 02/28/19 at 06:00 Acetaminophen (Tylenol Tab) 650 mg Q6H PRN PO MILD PAIN(1-3)OR ELEVATED TEMP Last administered on 02/28/19at 10:45; Admin Dose 650 MG; Start 02/28/19 at 06:00 Bisacodyl (Dulcolax) 10 mg DAILY PRN PO CONSTIPATION; Start 02/28/19 at 06:00 Miscellaneous Information (Pending [facility] Order For Wound Care) This patient lopez... PRN PRN XX WOUND CARE; Start 02/28/19 at 06:00 Calcium Carbonate (Ca Carbonate) 1,250 mg BID PO Last administered on 03/02/19at 08:55; Admin Dose 1,250 MG; Start 02/28/19 at 21:00 Ceftriaxone Sodium 50 ml @ 100 mls/hr Q24H IVPB ; Start 02/28/19 at 16:00 Bicalutamide (Casodex) 50 mg DAILY PO Last administered on 03/02/19at 08:55; Admin Dose 50 MG; Start 03/01/19 at 09:00 Hydromorphone HCl (Dilaudid) 1.5 mg Q4H PRN IV SEVERE PAIN LEVEL 7-10 Last administered on 03/01/19at 20:40; Admin Dose 1.5 MG; Start 03/01/19 at 15:30 Methadone HCl (Methadone Liq) 2 mg Q4 PO Last administered on 03/02/19at 10:24; Admin Dose 2 MG; Start 03/01/19 at 17:00 Ketorolac Tromethamine (Toradol) 30 mg Q6H IV Last administered on 03/02/19at 08:57; Admin Dose 30 MG; Start 03/01/19 at 15:30; Stop 03/04/19 at 15:29 Lorazepam (Ativan) 0.5 mg Q6H PRN IV ANXIETY Last administered on 03/01/19at 23:04; Admin Dose 0.5 MG; Start 03/01/19 at 19:00 JOSE CHUN Mar 02, 2019 15:54
[2019-03-02 15:58] VITALS: BP 120/60; PULSE 64; RESP 18
[2019-03-02] MEDS ORDERED: METHADONE (1 MG/ML 5 ML PO UD SYG) PO SCH (18:00)
[2019-03-02 19:20] VITALS: BP 101/65; PULSE 78; RESP 18
[2019-03-02] MEDS: TAMSULOSIN (SR) 0.4 MG CAP PO SCH (20:59)
[2019-03-02] MEDS: LORAZEPAM 2 MG INJ IV PRN (23:29)
[2019-03-03 02:50] VITALS: BP 95/62; PULSE 101; RESP 20
[2019-03-03] MEDS: KETOROLAC 30 MG INJ IV SCH ×4 (03:27→21:08)
[2019-03-03] MEDS: METHADONE (1 MG/ML 5 ML PO UD SYG) PO SCH ×4 (05:43→23:30)
[2019-03-03] MEDS: PANTOPRAZOLE (EC) 40 MG TAB PO SCH (05:43)
[2019-03-03 07:55] VITALS: BP 119/68; PULSE 94; RESP 18
[2019-03-03] MEDS: CA CARBONATE (250 MG/ML) 5ML CUP PO SCH ×2 (09:25→21:08)
[2019-03-03] MEDS: BICALUTAMIDE 50 MG TAB PO SCH (09:26)
--- NOTE | 2019-03-03 14:56 | CONS ---
Assessment/Plan Assessment/Plan Assessment/Plan (Daily) #Metastatic prostate cancer -pt has disease diffusely throughout the liver, bones and lymph nodes -PSA is currently> 600 - Per Dr Pardo - pt should have a confirmatory prostate bx but given the high likelihood of prostate cancer and heavy disease burden, ideally patient should be started on upfront Taxotere chemotherapy with Casodex and Lupron -This was discussed with the patient who states he needs to "think about" starting any type of therapy -he could also be evaluated by radiation oncology as an out patient for his back pain as palliative XRT may help this issue -at the very least he should continue Casodex for now -if he refuses all treatment, he should be referred for hospice evaluatin. Patient seen in collaboration with Dr Pardo. staff. Consultation Date/Type/Reason Admit Date/Time Feb 28, 2019 at 05:11 Initial Consult Date 03/01/19 Type of Consult HEM/ONC Reason for Consultation Metastatic Prostate Cancer Requesting Provider: MILLY LABOY MD Date/Time of Note DATE: 03/03/19 TIME: 14:55 24 HR Interval Summary Free Text/Dictation Eating lunch, stated he loves to eat no new events reported last night Detailed Summary Eyes: no complaints ENT: no complaints Respiratory: no complaints Cardiovascular: no complaints Gastrointestinal: no complaints Genitourinary: no complaints Musculoskeletal: no complaints Skin: no complaints Exam/Review of Systems Exam Vitals Vital Signs Date Temp Pulse Resp B/P (MAP) Pulse Ox O2 O2 Flow FiO2 Time Delivery Rate 03/03/19 97.7 94 18 119/68 98 07:55 (85) 03/02/19 Room Air 15:58 Intake and Output 03/02/19 03/02/19 03/03/19 1515:00 23:00 07:00 IntakeIntake Total 200 ml 340 ml OutputOutput Total 150 ml 100 ml 600 ml BalanceBalance 50 ml 240 ml -600 ml Constitutional: alert, well developed, frail Psych: nl mood/affect Head: atraumatic Eyes: nl lids, nl sclera ENMT: nl external ears & nose Neck: non-tender Respiratory: clear to auscultation Cardiovascular: nl pulses, other (s1s2) Gastrointestinal: soft, non-tender Musculoskeletal: joint tenderness, muscle weakness Neurological: nl speech, other (alert/responsive) Results Result Diagram: 03/03/19 0443 03/03/19 0443 Results 24hrs Laboratory Tests Test 03/03/19 04:43 White Blood Count 4.7 L Red Blood Count 3.06 #L Hemoglobin 8.0 #L Hematocrit 26.2 #L Mean Corpuscular Volume 85.6 Mean Corpuscular Hemoglobin 26.1 L Mean Corpuscular Hemoglobin Concent 30.5 L Red Cell Distribution Width 16.5 H Platelet Count 111 L Mean Platelet Volume 10.0 Immature Granulocytes % 0.900 H Neutrophils % 75.7 Lymphocytes % 18.1 Monocytes % 4.7 Eosinophils % 0.6 Basophils % 0.0 Nucleated Red Blood Cells % 0.0 Immature Granulocytes # 0.040 H Neutrophils # 3.5 Lymphocytes # 0.8 Monocytes # 0.2 L Eosinophils # 0.0 Basophils # 0.0 Nucleated Red Blood Cells # 0.0 Prothrombin Time 14.9 Prothrombin Time Ratio 1.2 INR International Normalized Ratio 1.16 Sodium Level 138 Potassium Level 4.2 Chloride Level 105 Carbon Dioxide Level 26 Anion Gap 7 Blood Urea Nitrogen 26 H Creatinine 1.02 Est Glomerular Filtrat Rate mL/min Glucose Level 122 # Calcium Level 8.3 L Medications Medication Current Medications Pantoprazole (Protonix Tab) 40 mg DAILY@06 PO Last administered on 03/03/19at 05:43; Admin Dose 40 MG; Start 02/28/19 at 06:00 Albuterol/ Ipratropium (Duoneb) 3 ml Q6H RESP THERAPY PRN HHN SHORTNESS OF BREATH; Start 02/28/19 at 06:00 Acetaminophen (Tylenol Tab) 650 mg Q6H PRN PO MILD PAIN(1-3)OR ELEVATED TEMP Last administered on 02/28/19at 10:45; Admin Dose 650 MG; Start 02/28/19 at 06:00 Bisacodyl (Dulcolax) 10 mg DAILY PRN PO CONSTIPATION; Start 02/28/19 at 06:00 [facility] This patient lopez... PRN PRN XX WOUND CARE; Start 02/28/19 at 06:00 Calcium Carbonate (Ca Carbonate) 1,250 mg BID PO Last administered on 03/03/19at 09:25; Admin Dose 1,250 MG; Start 02/28/19 at 21:00 Ceftriaxone Sodium 50 ml @ 100 mls/hr Q24H IVPB Last administered on 03/02/19 15:54; Admin Dose 100 MLS/HR; Start 02/28/19 at 16:00 Bicalutamide (Casodex) 50 mg DAILY PO Last administered on 03/03/19 09:26; Admin Dose 50 MG; Start 03/01/19 at 09:00 Hydromorphone HCl (Dilaudid) 1.5 mg Q4H PRN IV SEVERE PAIN LEVEL 7-10 Last administered on 03/01/19 20:40; Admin Dose 1.5 MG; Start 03/01/19 at 15:30 Ketorolac Tromethamine (Toradol) 30 mg Q6H IV Last administered on 03/03/19 09:25; Admin Dose 30 MG; Start 03/01/19 at 15:30; Stop 03/04/19 at 15:29 Lorazepam (Ativan) 0.5 mg Q6H PRN IV ANXIETY Last administered on 03/02/19 23:29; Admin Dose 0.5 MG; Start 03/01/19 at 19:00 Methadone HCl (Methadone Liq) 2 mg Q6 PO Last administered on 03/03/19 12:42; Admin Dose 2 MG; Start 03/02/19 at 23:00 Tamsulosin HCl (Flomax) 0.4 mg HS PO Last administered on 03/02/19 20:59; Admin Dose 0.4 MG; Start 03/02/19 at 21:00 JOSE CHUN Mar 03, 2019 14:56
--- NOTE | 2019-03-03 15:18 | PN ---
Date/Time of Note Date/Time of Note DATE: 03/03/19 TIME: 15:13 Assessment/Plan VTE Prophylaxis Risk score (from Ns)>0 risk: 5 SCD applied (from Ns): Yes Pharmacological prophylaxis: NA/contraindicated Pharm contraindication: anticoag not tolerated Lines/Catheters [facility] Urinary Cath still in place: No Assessment/Plan Hospital Course 1. Recurrent falls, failure to thrive, weight loss, generalized body aches, likely secondary to metastatic prostate cancer. The patient was here in August 2018. The patient was seen by multiple consultants including urology and oncology. The patient had a prostate specific antigen over 1000. The patient was deemed that he had capacity to make decisions. The patient was offered alf; however, he left and went home. He never followed up with any appointments and likely has progression of disease. 2. History of falls with subdural hematomas. 3. Severe anemia. 4. Pancytopenia with a history of hepatitis C. 5. Alcoholism. 6. History of smoking. 7. Elevated alkaline phosphatase could be secondary to bony metastases. Metastatic disease. He is on Casodex 8. Edema with hypoalbuminemia. 9. Likely urinary tract infection. 10. cachexia. Malnourishment 11.Chronic pain and anxiety Assessment/Plan - IR requested surgeon to perform prostate biopsy -gentle nutrition. -c/w methadone =rn case mgr find a SNF -consent prostate biopsy signed -social service sen -GI prophylaxis Protonix -Pain control. - Oncology consultation was seen. palliative care - consultation, seen -ordered PT eval. Result Diagram: 03/03/19 0443 03/03/19 0443 Results 24hrs Laboratory Tests Test 03/03/19 04:43 White Blood Count 4.7 L Red Blood Count 3.06 #L Hemoglobin 8.0 #L Hematocrit 26.2 #L Mean Corpuscular Volume 85.6 Mean Corpuscular Hemoglobin 26.1 L Mean Corpuscular Hemoglobin Concent 30.5 L Red Cell Distribution Width 16.5 H Platelet Count 111 L Mean Platelet Volume 10.0 Immature Granulocytes % 0.900 H Neutrophils % 75.7 Lymphocytes % 18.1 Monocytes % 4.7 Eosinophils % 0.6 Basophils % 0.0 Nucleated Red Blood Cells % 0.0 Immature Granulocytes # 0.040 H Neutrophils # 3.5 Lymphocytes # 0.8 Monocytes # 0.2 L Eosinophils # 0.0 Basophils # 0.0 Nucleated Red Blood Cells # 0.0 Prothrombin Time 14.9 Prothrombin Time Ratio 1.2 INR International Normalized Ratio 1.16 Sodium Level 138 Potassium Level 4.2 Chloride Level 105 Carbon Dioxide Level 26 Anion Gap 7 Blood Urea Nitrogen 26 H Creatinine 1.02 Est Glomerular Filtrat Rate mL/min Glucose Level 122 # Calcium Level 8.3 L Subjective 24 Hr Interval Summary Free Text/Dictation tired Eyes: no complaints ENT: no complaints Respiratory: no complaints Musculoskeletal: back pain, bone/joint pain, restricted range of motion Neurologic: headache Exam/Review of Systems Exam Vitals Vital Signs Date Temp Pulse Resp B/P (MAP) Pulse Ox O2 O2 Flow FiO2 Time Delivery Rate 03/03/19 97.7 94 18 119/68 98 07:55 (85) 03/02/19 Room Air 15:58 Intake and Output 03/02/19 03/02/19 03/03/19 1515:00 23:00 07:00 IntakeIntake Total 200 ml 340 ml OutputOutput Total 150 ml 100 ml 600 ml BalanceBalance 50 ml 240 ml -600 ml Exam cachectic No acute distress, no events overnight. Eyes: anicteric, EOM's intact, no pallor Nose: no rhinorrhea Neck: supple, no thyromegaly, no carotid bruits Lungs: clear bilaterally, decreased. CVS: regular rate and rhythm, no murmurs Abdomen: soft, bowel sounds present, scaphoid. Rectal: differed. External genitalia: no lesions. Extremities: no edema, DP pulses are palpable Neuro: alert and oriented x 3 Gait: unable to assess Motor strenght:weak Sensory exam: normal Deep tendon reflexes: normal, Babisky reflexes are absent bilaterally Skin: no lesions Results Results 24hrs Laboratory Tests Test 03/03/19 04:43 White Blood Count 4.7 L Red Blood Count 3.06 #L Hemoglobin 8.0 #L Hematocrit 26.2 #L Mean Corpuscular Volume 85.6 Mean Corpuscular Hemoglobin 26.1 L Mean Corpuscular Hemoglobin Concent 30.5 L Red Cell Distribution Width 16.5 H Platelet Count 111 L Mean Platelet Volume 10.0 Immature Granulocytes % 0.900 H Neutrophils % 75.7 Lymphocytes % 18.1 Monocytes % 4.7 Eosinophils % 0.6 Basophils % 0.0 Nucleated Red Blood Cells % 0.0 Immature Granulocytes # 0.040 H Neutrophils # 3.5 Lymphocytes # 0.8 Monocytes # 0.2 L Eosinophils # 0.0 Basophils # 0.0 Nucleated Red Blood Cells # 0.0 Prothrombin Time 14.9 Prothrombin Time Ratio 1.2 INR International Normalized Ratio 1.16 Sodium Level 138 Potassium Level 4.2 Chloride Level 105 Carbon Dioxide Level 26 Anion Gap 7 Blood Urea Nitrogen 26 H Creatinine 1.02 Est Glomerular Filtrat Rate mL/min Glucose Level 122 # Calcium Level 8.3 L Medications Medication Current Medications Pantoprazole (Protonix Tab) 40 mg DAILY@06 PO Last administered on 03/03/19at 05:43; Admin Dose 40 MG; Start 02/28/19 at 06:00 Albuterol/ Ipratropium (Duoneb) 3 ml Q6H RESP THERAPY PRN HHN SHORTNESS OF BREATH; Start 02/28/19 at 06:00 Acetaminophen (Tylenol Tab) 650 mg Q6H PRN PO MILD PAIN(1-3)OR ELEVATED TEMP Last administered on 02/28/19at 10:45; Admin Dose 650 MG; Start 02/28/19 at 06:00 Bisacodyl (Dulcolax) 10 mg DAILY PRN PO CONSTIPATION; Start 02/28/19 at 06:00 Miscellaneous Information (Pending [facility] Order For Wound Care) This patient lopez... PRN PRN XX WOUND CARE; Start 02/28/19 at 06:00 Calcium Carbonate (Ca Carbonate) 1,250 mg BID PO Last administered on 03/03/19at 09:25; Admin Dose 1,250 MG; Start 02/28/19 at 21:00 Ceftriaxone Sodium 50 ml @ 100 mls/hr Q24H IVPB Last administered on 03/02/19at 15:54; Admin Dose 100 MLS/HR; Start 02/28/19 at 16:00 Bicalutamide (Casodex) 50 mg DAILY PO Last administered on 03/03/19 09:26; Admin Dose 50 MG; Start 03/01/19 at 09:00 Hydromorphone HCl (Dilaudid) 1.5 mg Q4H PRN IV SEVERE PAIN LEVEL 7-10 Last administered on 03/01/19at 20:40; Admin Dose 1.5 MG; Start 7/26/19 at 15:30 Ketorolac Tromethamine (Toradol) 30 mg Q6H IV Last administered on 03/03/19 09:25; Admin Dose 30 MG; Start 03/01/19 at 15:30; Stop 03/04/19 at 15:29 Lorazepam (Ativan) 0.5 mg Q6H PRN IV ANXIETY Last administered on 03/02/19at 23:29; Admin Dose 0.5 MG; Start 03/01/19 at 19:00 Methadone HCl (Methadone Liq) 2 mg Q6 PO Last administered on 03/03/19at 12:42; Admin Dose 2 MG; Start 03/02/19 at 23:00 Tamsulosin HCl (Flomax) 0.4 mg HS PO Last administered on 03/02/19at 20:59; Admin Dose 0.4 MG; Start 03/02/19 at 21:00 DENNIS YOON NP Mar 03, 2019 15:18
[2019-03-03 15:36] VITALS: BP 125/72; PULSE 80; RESP 18
[2019-03-03] MEDS: CEFTRIAXONE 1 GM/50 ML (PMX) 50 ML IVPB SCH (16:00)
[2019-03-03] MEDS: HYDROmorphONE 2 MG/ML SYG IV PRN (16:43)
--- NOTE | 2019-03-03 20:53 | CONS ---
Consult Date/Type/Reason Admit Date/Time Feb 28, 2019 at 05:11 Initial Consult Date 03/01/19 Type of Consultation: Urology Reason for Consultation Metastatic prostate cancer Requesting Provider: MILLY LABOY MD Date/Time of Note DATE: 03/03/19 TIME: 20:51 Subjective Patient complains of pain in his extremities and also when he urinates. Objective Vitals Vital Signs Date Temp Pulse Resp B/P (MAP) Pulse Ox O2 O2 Flow FiO2 Time Delivery Rate 03/03/19 98.8 80 18 125/72 99 15:36 (89) 03/02/19 Room Air 15:58 Intake and Output 03/02/19 03/02/19 03/03/19 1515:00 23:00 07:00 IntakeIntake Total 200 ml 340 ml OutputOutput Total 150 ml 100 ml 600 ml BalanceBalance 50 ml 240 ml -600 ml Exam He does have suprapubic tenderness. The bladder is not distended but on the CT scan that he had the bladder was full Results/Medications Result Diagram: 03/03/19 0443 03/03/19 0443 Results 24 hrs Laboratory Tests Test 03/03/19 04:43 White Blood Count 4.7 L Red Blood Count 3.06 #L Hemoglobin 8.0 #L Hematocrit 26.2 #L Mean Corpuscular Volume 85.6 Mean Corpuscular Hemoglobin 26.1 L Mean Corpuscular Hemoglobin Concent 30.5 L Red Cell Distribution Width 16.5 H Platelet Count 111 L Mean Platelet Volume 10.0 Immature Granulocytes % 0.900 H Neutrophils % 75.7 Lymphocytes % 18.1 Monocytes % 4.7 Eosinophils % 0.6 Basophils % 0.0 Nucleated Red Blood Cells % 0.0 Immature Granulocytes # 0.040 H Neutrophils # 3.5 Lymphocytes # 0.8 Monocytes # 0.2 L Eosinophils # 0.0 Basophils # 0.0 Nucleated Red Blood Cells # 0.0 Prothrombin Time 14.9 Prothrombin Time Ratio 1.2 INR International Normalized Ratio 1.16 Sodium Level 138 Potassium Level 4.2 Chloride Level 105 Carbon Dioxide Level 26 Anion Gap 7 Blood Urea Nitrogen 26 H Creatinine 1.02 Est Glomerular Filtrat Rate mL/min Glucose Level 122 # Calcium Level 8.3 L Home Meds No Active Prescriptions or Reported Meds Medications Current Medications Pantoprazole (Protonix Tab) 40 mg DAILY@06 PO Last administered on 03/03/19 05:43; Admin Dose 40 MG; Start 02/28/19 at 06:00 Albuterol/ Ipratropium (Duoneb) 3 ml Q6H RESP THERAPY PRN HHN SHORTNESS OF BREATH; Start 02/28/19 at 06:00 Acetaminophen (Tylenol Tab) 650 mg Q6H PRN PO MILD PAIN(1-3)OR ELEVATED TEMP Last administered on 02/28/19 10:45; Admin Dose 650 MG; Start 02/28/19 at 06:00 Bisacodyl (Dulcolax) 10 mg DAILY PRN PO CONSTIPATION; Start 02/28/19 at 06:00 [facility] This patient h a... PRN PRN XX WOUND CARE; Start 02/28/19 at 06:00 Calcium Carbonate (Ca Carbonate) 1,250 mg BID PO Last administered on 03/03/19 09:25; Admin Dose 1,250 MG; Start 02/28/19 at 21:00 Ceftriaxone Sodium 50 ml @ 100 mls/hr Q24H IVPB Last administered on 03/02/19 15:54; Admin Dose 100 MLS/HR; Start 02/28/19 at 16:00 Bicalutamide (Casodex) 50 mg DAILY PO Last administered on 03/03/19 09:26; Ad min Dose 50 MG; Start 03/01/19 at 09:00 Hydromorphone HCl (Dilaudid) 1.5 mg Q4H PRN IV SEVERE PAIN LEVEL 7-10 Last administered on 03/03/19 16:43; Admin Dose 1.5 MG; Start 03/01/19 at 15:30 Ketorolac Tromethamine (Toradol) 30 mg Q6H IV Last administered on 03/03/19 15:14; Admin Dose 30 MG; Start 03/01/19 at 15:30; Stop 03/04/19 at 15:29 Lorazepam (Ativan) 0.5 mg Q6H PRN IV ANXIETY Last administered on 03/02/19 23:29; Admin Dose 0.5 MG; Start 03/01/19 at 19:00 Methadone HCl (Methadone Liq) 2 mg Q6 PO Last administered on 03/03/19 18:46; Admin Dose 2 MG; Start 03/02/19 at 23:00 Tamsulosin HCl (Flomax) 0.4 mg HS PO Last administered on 03/02/19at 20:59; Admin Dose 0.4 MG; Start 03/02/19 at 21:00 Assessment/Plan Hospital Course (Demo Recall) 73-year-old -Citizen Of [place] male was admitted here in August 2018. At that time his PSA was over at thousand and patient was assumed to have prostate cancer he was started on bicalutamide and at the time of discharge he was instructed to follow-up in the office for biopsy of the prostate to confirm the diagnosis of prostate cancer. However the patient did not follow up with any doctor and he went to [facility] because of increased back pain and weakness in addition to lower extremity pain and was transferred to [facility]. Patient underwent CT of the cervical thoracic and lumbar spine and was found to have metastatic disease. Patient states he does urinate 5-6 times at night and same during the day. He voids a small amount. He denies any gross hematuria. Presently the patient is very weak and the CT scan of the abdomen and pelvis showed: 1. Diffuse metastasis to the liver as described above. Recommend contrast CT or MR to further evaluate. 2. Pathologic lymphadenopathy is noted in the retroperitoneum, the gastrohepatic gastrolienal and the portal triad with retroperitoneal lymphadenopathy noted at the aortic bifurcation. Incomplete evaluation without contrast on this study is noted. 3. Anterior mid abdominal mass measuring 5.8 cm transverse by 3.2 cm in AP dimensions. 4. Bilateral renal cortical cysts with persistent mild left hydroureter nephrosis 5. Diffuse blastic and lytic skeletal metastasis and recommend MRI with contrast of the spine to evaluate for epidural extension is clinically indicated. 6. Mild abdominal and pelvic ascites 7. Mild gallbladder wall calcifications The patient is on bicalutamide and pain medications. His cancer is very advanced. Consideration have been made for shelter and or hospice. The patient is still undecided. I inserted a 16 [place] catheter for him so he will be more comfortable and does not have to get up to go to the bathroom. The urine that drained was cloud y at the end and he may well have a urinary tract infection so a urine was sent for culture. MAVIS MAI MD Mar 03, 2019 20:53
[2019-03-03] MEDS: TAMSULOSIN (SR) 0.4 MG CAP PO SCH (21:08)
[2019-03-04] MEDS: LORAZEPAM 2 MG INJ IV PRN ×2 (01:03→14:33)
[2019-03-04] MEDS: KETOROLAC 30 MG INJ IV SCH ×2 (03:45→09:30)
[2019-03-04 04:53] VITALS: BP 138/79; PULSE 106; RESP 16
[2019-03-04] MEDS: METHADONE (1 MG/ML 5 ML PO UD SYG) PO SCH ×3 (05:37→19:12)
[2019-03-04] MEDS: PANTOPRAZOLE (EC) 40 MG TAB PO SCH (05:37)
[2019-03-04 07:58] VITALS: BP 117/73; PULSE 101; RESP 18
[2019-03-04] MEDS: CA CARBONATE (250 MG/ML) 5ML CUP PO SCH ×2 (09:00→21:07)
[2019-03-04] MEDS: BICALUTAMIDE 50 MG TAB PO SCH (09:00)
--- NOTE | 2019-03-04 11:45 | CONS ---
Assessment/Plan Assessment/Plan Hospital Course (Demo Recall) #Metastatic prostate cancer -pt has disease diffusely throughout the liver, bones and lymph nodes -PSA is currently> 600 - Per Dr Lake - pt should have a confirmatory prostate bx but given the high likelihood of prostate cancer and heavy disease burden, ideally patient should be started on upfront Taxotere chemotherapy with Casodex and Lupron -This was discussed with the patient who states he needs to "think about" starting any type of therapy -he could also be evaluated by radiation oncology as an out patient for his back pain as palliative XRT may help this issue -at the very least he should continue Casodex for now -if he refuses all treatment, he should be referred for hospice eval Thank you for the opportunity to participate in this patients care A total of 40 minutes of face to face time was spent speaking with the patient, of which greater than 50% was spent in counseling and coordination of care and the detailed question and answer session. Consultation Date/Type/Reason Admit Date/Time Feb 28, 2019 at 05:11 Initial Consult Date 03/01/19 Type of Consult oncology Reason for Consultation advanced prostate cancer Requesting Provider: MILLY LABOY MD Date/Time of Note DATE: 03/04/19 TIME: 11:42 24 HR Interval Summary Free Text/Dictation galeana in place. refusing treatments Exam/Review of Systems Exam Vitals Vital Signs Date Temp Pulse Resp B/P (MAP) Pulse Ox O2 O2 Flow FiO2 Time Delivery Rate 03/04/19 98.3 101 18 117/73 96 Room Air 07:58 (88) Intake and Output 03/03/19 03/03/19 03/04/19 1515:00 23:00 07:00 IntakeIntake Total 150 ml OutputOutput Total 100 ml BalanceBalance -100 ml 150 ml Constitutional: alert, oriented Psych: no complaints, anxiety, depression Head: normocephalic Eyes: nl conjunctiva ENMT: nl external ears & nose Neck: supple Respiratory: clear to auscultation Cardiovascular: regular rate and rhythm Gastrointestinal: soft Musculoskeletal: nl extremities to inspection Results Result Diagram: 03/04/19 0426 03/04/19 0441 Results 24hrs Laboratory Tests Test 03/03/19 21:00 03/04/19 04:26 03/04/19 04:41 Urine Color FARIHA Urine Clarity TURBID A Urine pH 6.0 Urine Specific [place] 1.013 Urine Ketones NEGATIVE Urine Nitrite NEGATIVE Urine Bilirubin NEGATIVE Urine Urobilinogen NEGATIVE Urine Leukocyte Esterase 2+ H Urine Microscopic RBC 17 H Urine Microscopic WBC > 182 H Urine Squamous Epithelial Cells FEW Urine Amorphous Crystals FEW A Urine Bacteria FEW A Urine Hemoglobin 2+ H Urine Glucose NEGATIVE Urine Total Protein 1+ H White Blood Count 4.4 L Red Blood Count 2.66 L Hemoglobin 7.1 L Hematocrit 22.8 L Mean Corpuscular Volume 85.7 Mean Corpuscular Hemoglobin 26.7 L Mean Corpuscular Hemoglobin Concent 31.1 L Red Cell Distribution Width 16.6 H Platelet Count 120 L Mean Platelet Volume 9.7 Immature Granulocytes % 1.600 H Neutrophils % 75.4 Lymphocytes % 18.2 Monocytes % 4.3 Eosinophils % 0.5 Basophils % 0.0 Nucleated Red Blood Cells % 0.0 Immature Granulocytes # 0.070 H Neutrophils # 3.3 Lymphocytes # 0.8 Monocytes # 0.2 L Eosinophils # 0.0 Basophils # 0.0 Nucleated Red Blood Cells # 0.0 Sodium Level 136 Potassium Level 4.5 Chloride Level 104 Carbon Dioxide Level 28 Anion Gap 4 L Blood Urea Nitrogen 24 H Creatinine 1.04 Est Glomerular Filtrat Rate mL/min Glucose Level 103 Calcium Level 8.1 L Medications Medication Current Medications Pantoprazole (Protonix Tab) 40 mg DAILY@06 PO Last administered on 03/04/19at 05:37; Admin Dose 40 MG; Start 02/28/19 at 06:00 Albuterol/ Ipratropium (Duoneb) 3 ml Q6H RESP THERAPY PRN HHN SHORTNESS OF BREATH; Start 02/28/19 at 06:00 Acetaminophen (Tylenol Tab) 650 mg Q6H PRN PO MILD PAIN(1-3)OR ELEVATED TEMP Last administered on 02/28/19at 10:45; Admin Dose 650 MG; Start 02/28/19 at 06:00 Bisacodyl (Dulcolax) 10 mg DAILY PRN PO CONSTIPATION; Start 02/28/19 at 06:00 Miscellaneous Information (Pending Santyl Order For Wound Care) This patient lopez... PRN PRN XX WOUND CARE; Start 02/28/19 at 06:00 Calcium Carbonate (Ca Carbonate) 1,250 mg BID PO Last administered on 03/04/19at 09:00; Admin Dose 1,250 MG; Start 02/28/19 at 21:00 Ceftriaxone Sodium 50 ml @ 100 mls/hr Q24H IVPB Last administered on 03/02/19 15:54; Admin Dose 100 MLS/HR; Start 02/28/19 at 16:00 Bicalutamide (Casodex) 50 mg DAILY PO Last administered on 03/04/19 09:00; Admin Dose 50 MG; Start 03/01/19 at 09:00 Hydromorphone HCl (Dilaudid) 1.5 mg Q4H PRN IV SEVERE PAIN LEVEL 7-10 Last administered on 03/03/19 16:43; Admin Dose 1.5 MG; Start 03/01/19 at 15:30 Ketorolac Tromethamine (Toradol) 30 mg Q6H IV Last administered on 03/04/19 03:45; Admin Dose 30 MG; Start 03/01/19 at 15:30; Stop 03/04/19 at 15:29 Lorazepam (Ativan) 0.5 mg Q6H PRN IV ANXIETY Last administered on 03/04/19 01:03; Admin Dose 0.5 MG; Start 03/01/19 at 19:00 Methadone HCl (Methadone Liq) 2 mg Q6 PO Last administered on 03/04/19 05:37; Admin Dose 2 MG; Start 03/02/19 at 23:00 Tamsulosin HCl (Flomax) 0.4 mg HS PO Last administered on 03/03/19 21:08; Admin Dose 0.4 MG; Start 03/02/19 at 21:00 NESTOR [place] M.D. Mar 04, 2019 11:45
[2019-03-04] MEDS: HYDROmorphONE 2 MG/ML SYG IV PRN ×3 (11:56→21:56)
--- NOTE | 2019-03-04 13:06 | PN ---
Date/Time of Note Date/Time of Note DATE: 03/04/19 TIME: 13:05 Assessment/Plan VTE Prophylaxis Risk score (from Ns)>0 risk: 5 SCD applied (from Ns): Yes Pharmacological prophylaxis: NA/contraindicated Pharm contraindication: low risk/ambulating Lines/Catheters [facility] Saline Lock Urinary Cath still in place: Yes Reason Cath still needed: urinary retention Assessment/Plan Assessment/Plan Hospital Course 1. Recurrent falls, failure to thrive, weight loss, generalized body aches, likely secondary to metastatic prostate cancer. The patient was here in August 2018. The patient was seen by multiple consultants including urology and oncology. The patient had a prostate specific antigen over 1000. The patient w as deemed that he had capacity to make decisions. The patient was offered penitentiary; however, he left and went home. He never followed up with any appointments and likely has progression of disease. Likely has metastatic prostate cancer 2. History of falls with subdural hematomas. 3. Severe anemia. 4. Pancytopenia with a history of hepatitis C. 5. Alcoholism. 6. History of smoking. 7. Elevated alkaline phosphatase could be secondary to bony metastases. Metastatic disease. He is on Casodex 8. Edema with hypoalbuminemia. 9. Likely urinary tract infection. 10. cachexia. Malnourishment 11.Chronic pain and anxiety Assessment/Plan -. Spoke to brother over the phone, he was concerned that he and patient did not know about the diagnosis and he was following for his brother at [facility] he was supposed to get biopsy tomorrow there. To him in great detail that patient was here in August he was seen by oncologist Dr. Fregoso and Dr. Frankie Armas multiple discussions were done with the patient and even in the discharge instructions that there was mention of metastatic prostate cancer and patient was told to follow-up and it was clearly stated in the discharge instruction to follow-up with oncology and also with urology as an outpatient -Talk to the brother who wanted all the treatment to be pursued for for however when I spoke to him and told him that if he is refusing treatments then want to do, he said to offer him the treatment and if he refuses then he refuses and then in that case would wait for him to come on March 12, -Very talk to the patient about the chemotherapy starting on Casodex/Lupron -Follow-up with Dr. Nguyen and Dr. alves recommendations -c/w methadone/dilaudid/toradol for pain - now has galeana - cw iv abx fo UTI - Nutrition - montior HB 7 TODAY - social service consult Result Diagram: 03/04/19 0426 03/04/19 0441 Results 24hrs Laboratory Tests Test 03/03/19 21:00 03/04/19 04:26 03/04/19 04:41 Urine Color FARIHA Urine Clarity TURBID A Urine pH 6.0 Urine Specific [place] 1.013 Urine Ketones NEGATIVE Urine Nitrite NEGATIVE Urine Bilirubin NEGATIVE Urine Urobilinogen NEGATIVE Urine Leukocyte Esterase 2+ H Urine Microscopic RBC 17 H Urine Microscopic WBC > 182 H Urine Squamous Epithelial Cells FEW Urine Amorphous Crystals FEW A Urine Bacteria FEW A Urine Hemoglobin 2+ H Urine Glucose NEGATIVE Urine Total Protein 1+ H White Blood Count 4.4 L Red Blood Count 2.66 L Hemoglobin 7.1 L Hematocrit 22.8 L Mean Corpuscular Volume 85.7 Mean Corpuscular Hemoglobin 26.7 L Mean Corpuscular Hemoglobin Concent 31.1 L Red Cell Distribution Width 16.6 H Platelet Count 120 L Mean Platelet Volume 9.7 Immature Granulocytes % 1.600 H Neutrophils % 75.4 Lymphocytes % 18.2 Monocytes % 4.3 Eosinophils % 0.5 Basophils % 0.0 Nucleated Red Blood Cells % 0.0 Immature Granulocytes # 0.070 H Neutrophils # 3.3 Lymphocytes # 0.8 Monocytes # 0.2 L Eosinophils # 0.0 Basophils # 0.0 Nucleated Red Blood Cells # 0.0 Sodium Level 136 Potassium Level 4.5 Chloride Level 104 Carbon Dioxide Level 28 Anion Gap 4 L Blood Urea Nitrogen 24 H Creatinine 1.04 Est Glomerular Filtrat Rate mL/min Glucose Level 103 Calcium Level 8.1 L Subjective 24 Hr Interval Summary Free Text/Dictation galeana in place and is patient is a lot of pain is not controlled Exam/Review of Systems Exam Vitals Vital Signs Date Temp Pulse Resp B/P (MAP) Pulse Ox O2 O2 Flow FiO2 Time Delivery Rate 03/04/19 98.3 101 18 117/73 96 Room Air 07:58 (88) Intake and Output 03/03/19 03/03/19 03/04/19 1515:00 23:00 07:00 IntakeIntake Total 150 ml OutputOutput Total 100 ml BalanceBalance -100 ml 150 ml Exam No acute distress, no events overnight. Eyes: anicteric, EOM's intact, no pallor Nose: no rhinorrhea Neck: supple, no thyromegaly, no carotid bruits Lungs: clear bilaterally, decreased. CVS: regular rate and rhythm, no murmurs Abdomen: soft, bowel sounds present, scaphoid. Rectal: differed. External genitalia: no lesions. Extremities: no edema, DP pulses are palpable Neuro: alert and oriented x 3 Gait: unable to assess Motor strenght:weak Sensory exam: normal Deep tendon reflexes: normal, Babisky reflexes are absent bilaterally Skin: no lesions Results Results 24hrs Laboratory Tests Test 03/03/19 21:00 03/04/19 04:26 03/04/19 04:41 Urine Color FARIHA Urine Clarity TURBID A Urine pH 6.0 Urine Specific [place] 1.013 Urine Ketones NEGATIVE Urine Nitrite NEGATIVE Urine Bilirubin NEGATIVE Urine Urobilinogen NEGATIVE Urine Leukocyte Esterase 2+ H Urine Microscopic RBC 17 H Urine Microscopic WBC > 182 H Urine Squamous Epithelial Cells FEW Urine Amorphous Crystals FEW A Urine Bacteria FEW A Urine Hemoglobin 2+ H Urine Glucose NEGATIVE Urine Total Protein 1+ H White Blood Count 4.4 L Red Blood Count 2.66 L Hemoglobin 7.1 L Hematocrit 22.8 L Mean Corpuscular Volume 85.7 Mean Corpuscular Hemoglobin 26.7 L Mean Corpuscular Hemoglobin Concent 31.1 L Red Cell Distribution Width 16.6 H Platelet Count 120 L Mean Platelet Volume 9.7 Immature Granulocytes % 1.600 H Neutrophils % 75.4 Lymphocytes % 18.2 Monocytes % 4.3 Eosinophils % 0.5 Basophils % 0.0 Nucleated Red Blood Cells % 0.0 Immature Granulocytes # 0.070 H Neutrophils # 3.3 Lymphocytes # 0.8 Monocytes # 0.2 L Eosinophils # 0.0 Basophils # 0.0 Nucleated Red Blood Cells # 0.0 Sodium Level 136 Potassium Level 4.5 Chloride Level 104 Carbon Dioxide Level 28 Anion Gap 4 L Blood Urea Nitrogen 24 H Creatinine 1.04 Est Glomerular Filtrat Rate mL/min Glucose Level 103 Calcium Level 8.1 L Medications Medication Current Medications Pantoprazole (Protonix Tab) 40 mg DAILY@06 PO Last administered on 03/04/19at 05:37; Admin Dose 40 MG; Start 02/28/19 at 06:00 Albuterol/ Ipratropium (Duoneb) 3 ml Q6H RESP THERAPY PRN HHN SHORTNESS OF BREATH; Start 02/28/19 at 06:00 Acetaminophen (Tylenol Tab) 650 mg Q6H PRN PO MILD PAIN(1-3)OR ELEVATED TEMP Last administered on 02/28/19at 10:45; Admin Dose 650 MG; Start 02/28/19 at 06:00 Bisacodyl (Dulcolax) 10 mg DAILY PRN PO CONSTIPATION; Start 02/28/19 at 06:00 Miscellaneous Information (Pending Santyl Order For Wound Care) This patient lopez... PRN PRN XX WOUND CARE; Start 02/28/19 at 06:00 Calcium Carbonate (Ca Carbonate) 1,250 mg BID PO Last administered on 03/04/19 09:00; Admin Dose 1,250 MG; Start 02/28/19 at 21:00 Ceftriaxone Sodium 50 ml @ 100 mls/hr Q24H IVPB Last administered on 03/02/19 15:54; Admin Dose 100 MLS/HR; Start 02/28/19 at 16:00 Bicalutamide (Casodex) 50 mg DAILY PO Last administered on 03/04/19 09:00; Admin Dose 50 MG; Start 03/01/19 at 09:00 Hydromorphone HCl (Dilaudid) 1.5 mg Q4H PRN IV SEVERE PAIN LEVEL 7-10 Last administered on 03/04/19 11:56; Admin Dose 1.5 MG; Start 03/01/19 at 15:30 Ketorolac Tromethamine (Toradol) 30 mg Q6H IV Last administered on 03/04/19 03:45; Admin Dose 30 MG; Start 03/01/19 at 15:30; Stop 03/04/19 at 15:29 Lorazepam (Ativan) 0.5 mg Q6H PRN IV ANXIETY Last administered on 03/04/19 01:03; Admin Dose 0.5 MG; Start 03/01/19 at 19:00 Methadone HCl (Methadone Liq) 2 mg Q6 PO Last administered on 03/04/19 12:48; Admin Dose 2 MG; Start 03/02/19 at 23:00 Tamsulosin HCl (Flomax) 0.4 mg HS PO Last administered on 03/03/19at 21:08; Admin Dose 0.4 MG; Start 03/02/19 at 21:00 VALDO HERNANDEZ MD Mar 04, 2019 13:06
--- NOTE | 2019-03-04 13:33 | PN ---
Date/Time of Note Date/Time of Note DATE: 03/04/19 TIME: 13:33 Assessment/Plan VTE Prophylaxis Risk score (from [facility])>0 risk: 5 SCD applied (from [facility]): Yes SCD contraindicated: low risk/ambulating Pharmacological prophylaxis: NA/contraindicated Pharm contraindication: low risk/ambulating Lines/Catheters IV [facility] Type (from [facility]): Saline Lock Central line still needed: Yes Urinary Cath still in place: Yes Reason Cath still needed: urinary retention Assessment/Plan Assessment/Plan duplivtae Result Diagram: 03/04/19 0426 03/04/19 0441 Results 24hrs Laboratory Tests Test 03/03/19 21:00 03/04/19 04:26 03/04/19 04:41 Urine Color FARIHA Urine Clarity TURBID A Urine pH 6.0 Urine Specific [place] 1.013 Urine Ketones NEGATIVE Urine Nitrite NEGATIVE Urine Bilirubin NEGATIVE Urine Urobilinogen NEGATIVE Urine Leukocyte Esterase 2+ H Urine Microscopic RBC 17 H Urine Microscopic WBC > 182 H Urine Squamous Epithelial Cells FEW Urine Amorphous Crystals FEW A Urine Bacteria FEW A Urine Hemoglobin 2+ H Urine Glucose NEGATIVE Urine Total Protein 1+ H White Blood Count 4.4 L Red Blood Count 2.66 L Hemoglobin 7.1 L Hematocrit 22.8 L Mean Corpuscular Volume 85.7 Mean Corpuscular Hemoglobin 26.7 L Mean Corpuscular Hemoglobin Concent 31.1 L Red Cell Distribution Width 16.6 H Platelet Count 120 L Mean Platelet Volume 9.7 Immature Granulocytes % 1.600 H Neutrophils % 75.4 Lymphocytes % 18.2 Monocytes % 4.3 Eosinophils % 0.5 Basophils % 0.0 Nucleated Red Blood Cells % 0.0 Immature Granulocytes # 0.070 H Neutrophils # 3.3 Lymphocytes # 0.8 Monocytes # 0.2 L Eosinophils # 0.0 Basophils # 0.0 Nucleated Red Blood Cells # 0.0 Sodium Level 136 Potassium Level 4.5 Chloride Level 104 Carbon Dioxide Level 28 Anion Gap 4 L Blood Urea Nitrogen 24 H Creatinine 1.04 Est Glomerular Filtrat Rate mL/min Glucose Level 103 Calcium Level 8.1 L Subjective 24 Hr Interval Summary Free Text/Dictation dupplicate Exam/Review of Systems Exam Vitals Vital Signs Date Temp Pulse Resp B/P (MAP) Pulse Ox O2 O2 Flow FiO2 Time Delivery Rate 03/04/19 98.3 101 18 117/73 96 Room Air 07:58 (88) Intake and Output 03/03/19 03/03/19 03/04/19 1515:00 23:00 07:00 IntakeIntake Total 150 ml OutputOutput Total 100 ml BalanceBalance -100 ml 150 ml Exam duplicate Results Results 24hrs Laboratory Tests Test 03/03/19 21:00 03/04/19 04:26 03/04/19 04:41 Urine Color FARIHA Urine Clarity TURBID A Urine pH 6.0 Urine Specific [place] 1.013 Urine Ketones NEGATIVE Urine Nitrite NEGATIVE Urine Bilirubin NEGATIVE Urine Urobilinogen NEGATIVE Urine Leukocyte Esterase 2+ H Urine Microscopic RBC 17 H Urine Microscopic WBC > 182 H Urine Squamous Epithelial Cells FEW Urine Amorphous Crystals FEW A Urine Bacteria FEW A Urine Hemoglobin 2+ H Urine Glucose NEGATIVE Urine Total Protein 1+ H White Blood Count 4.4 L Red Blood Count 2.66 L Hemoglobin 7.1 L Hematocrit 22.8 L Mean Corpuscular Volume 85.7 Mean Corpuscular Hemoglobin 26.7 L Mean Corpuscular Hemoglobin Concent 31.1 L Red Cell Distribution Width 16.6 H Platelet Count 120 L Mean Platelet Volume 9.7 Immature Granulocytes % 1.600 H Neutrophils % 75.4 Lymphocytes % 18.2 Monocytes % 4.3 Eosinophils % 0.5 Basophils % 0.0 Nucleated Red Blood Cells % 0.0 Immature Granulocytes # 0.070 H Neutrophils # 3.3 Lymphocytes # 0.8 Monocytes # 0.2 L Eosinophils # 0.0 Basophils # 0.0 Nucleated Red Blood Cells # 0.0 Sodium Level 136 Potassium Level 4.5 Chloride Level 104 Carbon Dioxide Level 28 Anion Gap 4 L Blood Urea Nitrogen 24 H Creatinine 1.04 Est Glomerular Filtrat Rate mL/min Glucose Level 103 Calcium Level 8.1 L Medications Medication Current Medications Pantoprazole (Protonix Tab) 40 mg DAILY@06 PO Last administered on 03/04/19at 05:37; Admin Dose 40 MG; Start 02/28/19 at 06:00 Albuterol/ Ipratropium (Duoneb) 3 ml Q6H RESP THERAPY PRN HHN SHORTNESS OF BREATH; Start 02/28/19 at 06:00 Acetaminophen (Tylenol Tab) 650 mg Q6H PRN PO MILD PAIN(1-3)OR ELEVATED TEMP Last administered on 02/28/19at 10:45; Admin Dose 650 MG; Start 02/28/19 at 06:00 Bisacodyl (Dulcolax) 10 mg DAILY PRN PO CONSTIPATION; Start 02/28/19 at 06:00 [facility] This patient lopez... PRN PRN XX WOUND CARE; Start 02/28/19 at 06:00 Calcium Carbonate (Ca Carbonate) 1,250 mg BID PO Last administered on 03/04/19 09:00; Admin Dose 1,250 MG; Start 02/28/19 at 21:00 Ceftriaxone Sodium 50 ml @ 100 mls/hr Q24H IVPB Last administered on 03/02/19 15:54; Admin Dose 100 MLS/HR; Start 02/28/19 at 16:00 Bicalutamide (Casodex) 50 mg DAILY PO Last administered on 03/04/19 09:00; Admin Dose 50 MG; Start 03/01/19 at 09:00 Hydromorphone HCl (Dilaudid) 1.5 mg Q4H PRN IV SEVERE PAIN LEVEL 7-10 Last administered on 03/04/19 11:56; Admin Dose 1.5 MG; Start 03/01/19 at 15:30 Ketorolac Tromethamine (Toradol) 30 mg Q6H IV Last administered on 03/04/19 03:45; Admin Dose 30 MG; Start 03/01/19 at 15:30; Stop 03/04/19 at 15:29 Lorazepam (Ativan) 0.5 mg Q6H PRN IV ANXIETY Last administered on 03/04/19 01:03; Admin Dose 0.5 MG; Start 03/01/19 at 19:00 Methadone HCl (Methadone Liq) 2 mg Q6 PO Last administered on 03/04/19 12:48; Admin Dose 2 MG; Start 03/02/19 at 23:00 Tamsulosin HCl (Flomax) 0.4 mg HS PO Last administered on 03/03/19 21:08; Admin Dose 0.4 MG; Start 03/02/19 at 21:00 VALDO HERNANDEZ MD Mar 04, 2019 13:33
--- NOTE | 2019-03-04 13:51 | CONS ---
Consult Date/Type/Reason Admit Date/Time Feb 28, 2019 at 05:11 Initial Consult Date 03/01/19 Type of Consultation: Urology Reason for Consultation Metastatic prostate cancer Requesting Provider: MILLY LABOY MD Date/Time of Note DATE: 03/04/19 TIME: 13:49 Subjective Patient complaining of back pain. Has discomfort from the Sanderson catheter. Objective Vitals Vital Signs Date Temp Pulse Resp B/P (MAP) Pulse Ox O2 O2 Flow FiO2 Time Delivery Rate 03/04/19 98.3 101 18 117/73 96 Room Air 07:58 (88) Intake and Output 03/03/19 03/03/19 03/04/19 1515:00 23:00 07:00 IntakeIntake Total 150 ml OutputOutput Total 100 ml BalanceBalance -100 ml 150 ml Exam Sanderson catheter draining clear urine. The urine culture showing 100,000 gram- negative rods Results/Medications Result Diagram: 03/04/19 0426 03/04/19 0441 Results 24 hrs Laboratory Tests Test 03/03/19 21:00 03/04/19 04:26 03/04/19 04:41 Urine Color FARIHA Urine Clarity TURBID A Urine pH 6.0 Urine Specific [place] 1.013 Urine Ketones NEGATIVE Urine Nitrite NEGATIVE Urine Bilirubin NEGATIVE Urine Urobilinogen NEGATIVE Urine Leukocyte Esterase 2+ H Urine Microscopic RBC 17 H Urine Microscopic WBC > 182 H Urine Squamous Epithelial Cells FEW Urine Amorphous Crystals FEW A Urine Bacteria FEW A Urine Hemoglobin 2+ H Urine Glucose NEGATIVE Urine Total Protein 1+ H White Blood Count 4.4 L Red Blood Count 2.66 L Hemoglobin 7.1 L Hematocrit 22.8 L Mean Corpuscular Volume 85.7 Mean Corpuscular Hemoglobin 26.7 L Mean Corpuscular Hemoglobin Concent 31.1 L Red Cell Distribution Width 16.6 H Platelet Count 120 L Mean Platelet Volume 9.7 Immature Granulocytes % 1.600 H Neutrophils % 75.4 Lymphocytes % 18.2 Monocytes % 4.3 Eosinophils % 0.5 Basophils % 0.0 Nucleated Red Blood Cells % 0.0 Immature Granulocytes # 0.070 H Neutrophils # 3.3 Lymphocytes # 0.8 Monocytes # 0.2 L Eosinophils # 0.0 Basophils # 0.0 Nucleated Red Blood Cells # 0.0 Sodium Level 136 Potassium Level 4.5 Chloride Level 104 Carbon Dioxide Level 28 Anion Gap 4 L Blood Urea Nitrogen 24 H Creatinine 1.04 Est Glomerular Filtrat Rate mL/min Glucose Level 103 Calcium Level 8.1 L Home Meds No Active Prescriptions or Reported Meds Medications Current Medications Pantoprazole (Protonix Tab) 40 mg DAILY@06 PO Last administered on 03/04/19 05:37; Admin Dose 40 MG; Start 02/28/19 at 06:00 Albuterol/ Ipratropium (Duoneb) 3 ml Q6H RESP THERAPY PRN HHN SHORTNESS OF BREATH; Start 02/28/19 at 06:00 Acetaminophen (Tylenol Tab) 650 mg Q6H PRN PO MILD PAIN(1-3)OR ELEVATED TEMP Last administered on 02/28/19 10:45; Admin Dose 650 MG; Start 02/28/19 at 06:00 Bisacodyl (Dulcolax) 10 mg DAILY PRN PO CONSTIPATION; Start 02/28/19 at 06:00 [facility] This patient lopez... PRN PRN XX WOUND CARE; Start 02/28/19 at 06:00 Calcium Carbonate (Ca Carbonate) 1,250 mg BID PO Last administered on 03/04/19 09:00; Admin Dose 1,250 MG; Start 02/28/19 at 21:00 Ceftriaxone Sodium 50 ml @ 100 mls/hr Q24H IVPB Last administered on 03/02/19 15:54; Admin Dose 100 MLS/HR; Start 02/28/19 at 16:00 Bicalutamide (Casodex) 50 mg DAILY PO Last administered on 03/04/19 09:00; Admin Dose 50 MG; Start 03/01/19 at 09:00 Hydromorphone HCl (Dilaudid) 1.5 mg Q4H PRN IV SEVERE PAIN LEVEL 7-10 Last administered on 03/04/19 11:56; Admin Dose 1.5 MG; Start 03/01/19 at 15:30 Ketorolac Tromethamine (Toradol) 30 mg Q6H IV Last administered on 03/04/19 03:45; Admin Dose 30 MG; Start 03/01/19 at 15:30; Stop 03/04/19 at 15:29 Lorazepam (Ativan) 0.5 mg Q6H PRN IV ANXIETY Last administered on 7/29/19at 01:03; Admin Dose 0.5 MG; Start 03/01/19 at 19:00 Methadone HCl (Methadone Liq) 2 mg Q6 PO Last administered on 03/04/19at 12:48; Admin Dose 2 MG; Start 03/02/19 at 23:00 Tamsulosin HCl (Flomax) 0.4 mg HS PO Last administered on 03/03/19at 21:08; Admin Dose 0.4 MG; Start 03/02/19 at 21:00 Assessment/Plan Hospital Course (Demo Recall) 73-year-old -[place] male was admitted here in August 2018. At that time his PSA was over at thousand and patient was assumed to have prostate c ancer he was started on bicalutamide and at the time of discharge he was instructed to follow-up in the office for biopsy of the prostate to confirm the diagnosis of prostate cancer. However the patient did not follow up with any doctor and he went to [facility] because of increased back pain and weakness in addition to lower extremity pain and was transferred to [facility]. Patient underwent CT of the cervical thoracic and lumbar spine and was found to have metastatic disease. Patient states he does urinate 5-6 times at night and same during the day. He voids a small amount. He denies any gross hematuria. Presently the patient is very weak and the CT scan of the abdomen and pelvis showed: 1. Diffuse metastasis to the liver as described above. Recommend contrast CT or MR to further evaluate. 2. Pathologic lymphadenopathy is noted in the retroperitoneum, the gastrohepatic gastrolienal and the portal triad with retroperitoneal lymphaden opathy noted at the aortic bifurcation. Incomplete evaluation without contrast on this study is noted. 3. Anterior mid abdominal mass measuring 5.8 cm transverse by 3.2 cm in AP dimensions. 4. Bilateral renal cortical cysts with persistent mild left hydroureter nephrosis 5. Diffuse blastic and lytic skeletal metastasis and recommend MRI with contrast of the spine to evaluate for epidural extension is clinically indicated. 6. Mild abdominal and pelvic ascites 7. Mild gallbladder wall calcifications The patient is on bicalutamide and pain medications. His cancer is very advanced. Consideration have been made for half-way and or hospice. The patient is still undecided. I inserted a 16 [place] Sanderson catheter for him last night and sent urine for culture and sensitivity. It grew 100,000 gram-negative rods. As there is an issue with the patient decision and he may be in the hospital for a while I did order 7.5 mg Lupron Depot to be given IM. And once the patient is discharged t hen depending on where he goes that may be continued either in an office setting or half-way or if he goes on hospice only make him comfortable. MAVIS MAI MD Mar 04, 2019 13:51
[2019-03-04 14:21] VITALS: BP 121/78; PULSE 102; RESP 18
--- NOTE | 2019-03-04 14:40 | CONS ---
Consultation Date/Type/Reason Admit Date/Time Feb 28, 2019 at 05:11 Date/Time of Note DATE: 03/04/19 TIME: 14:39 Hx of Present Illness dictation to follow Past Medical History Medical History: cancer (Of prostate based on the PSA. Has not been confirmed by biopsy), hepatitis (C), hypertension, other (Anemia, hepatitis C, weight loss, history of falls and gastritis, history of subdural hematoma) Home Meds No Active Prescriptions or Reported Meds Medications Current Medications Pantoprazole (Protonix Tab) 40 mg DAILY@06 PO Last administered on 03/04/19at 05:37; Admin Dose 40 MG; Start 02/28/19 at 06:00 Albuterol/ Ipratropium (Duoneb) 3 ml Q6H RESP THERAPY PRN HHN SHORTNESS OF BREATH; Start 02/28/19 at 06:00 Acetaminophen (Tylenol Tab) 650 mg Q6H PRN PO MILD PAIN(1-3)OR ELEVATED TEMP Last administered on 02/28/19at 10:45; Admin Dose 650 MG; Start 02/28/19 at 06:00 Bisacodyl (Dulcolax) 10 mg DAILY PRN PO CONSTIPATION; Start 02/28/19 at 06:00 Miscellaneous Information (Pending [facility] Order For Wound Care) This patient lopez... PRN PRN XX WOUND CARE; Start 02/28/19 at 06:00 Calcium Carbonate (Ca Carbonate) 1,250 mg BID PO Last administered on 03/04/19at 09:00; Admin Dose 1,250 MG; Start 02/28/19 at 21:00 Ceftriaxone Sodium 50 ml @ 100 mls/hr Q24H IVPB Last administered on 03/02/19at 15:54; Admin Dose 100 MLS/HR; Start 02/28/19 at 16:00 Bicalutamide (Casodex) 50 mg DAILY PO Last administered on 03/04/19at 09:00; Admin Dose 50 MG; Start 03/01/19 at 09:00 Hydromorphone HCl (Dilaudid) 1.5 mg Q4H PRN IV SEVERE PAIN LEVEL 7-10 Last administered on 03/04/19at 11:56; Admin Dose 1.5 MG; Start 03/01/19 at 15:30 Ketorolac Tromethamine (Toradol) 30 mg Q6H IV Last administered on 03/04/19at 03:45; Admin Dose 30 MG; Start 03/01/19 at 15:30; Stop 03/04/19 at 15:29 Lorazepam (Ativan) 0.5 mg Q6H PRN IV ANXIETY Last administered on 03/04/19at 14:33; Admin Dose 0.5 MG; Start 03/01/19 at 19:00 Methadone HCl (Methadone Liq) 2 mg Q6 PO Last administered on 03/04/19at 12:48; Admin Dose 2 MG; Start 03/02/19 at 23:00 Tamsulosin HCl (Flomax) 0.4 mg HS PO Last administered on 03/03/19at 21:08; Admin Dose 0.4 MG; Start 03/02/19 at 21:00 Miscellaneous Information (* Miscellaneous Pharmacy Order) 7.5 ea ONCE IM ; Sta rt 03/04/19 at 14:00; Status UNV Allergies: Coded Allergies: No Known Allergy (Unverified , 08/17/18) Past Surgical History Past Surgical Hx: no surgical history Social History Alcohol Use: occasionally Smoking Status: Former smoker Drug Use: none, other (unknown) Exam/Review of Systems Exam Vitals Vital Signs Date Temp Pulse Resp B/P (MAP) Pulse Ox O2 O2 Flow FiO2 Time Delivery Rate 03/04/19 98.3 102 18 121/78 99 Room Air 14:21 (92) Intake and Output 03/03/19 03/03/19 03/04/19 1515:00 23:00 07:00 IntakeIntake Total 150 ml OutputOutput Total 100 ml BalanceBalance -100 ml 150 ml Results Result Diagram: 03/04/19 0426 03/04/19 0441 Results 24hrs Laboratory Tests Test 03/03/19 21:00 03/04/19 04:26 03/04/19 04:41 Urine Color FARIHA Urine Clarity TURBID A Urine pH 6.0 Urine Specific [place] 1.013 Urine Ketones NEGATIVE Urine Nitrite NEGATIVE Urine Bilirubin NEGATIVE Urine Urobilinogen NEGATIVE Urine Leukocyte Esterase 2+ H Urine Microscopic RBC 17 H Urine Microscopic WBC > 182 H Urine Squamous Epithelial Cells FEW Urine Amorphous Crystals FEW A Urine Bacteria FEW A Urine Hemoglobin 2+ H Urine Glucose NEGATIVE Urine Total Protein 1+ H White Blood Count 4.4 L Red Blood Count 2.66 L Hemoglobin 7.1 L Hematocrit 22.8 L Mean Corpuscular Volume 85.7 Mean Corpuscular Hemoglobin 26.7 L Mean Corpuscular Hemoglobin Concent 31.1 L Red Cell Distribution Width 16.6 H Platelet Count 120 L Mean Platelet Volume 9.7 Immature Granulocytes % 1.600 H Neutrophils % 75.4 Lymphocytes % 18.2 Monocytes % 4.3 Eosinophils % 0.5 Basophils % 0.0 Nucleated Red Blood Cells % 0.0 Immature Granulocytes # 0.070 H Neutrophils # 3.3 Lymphocytes # 0.8 Monocytes # 0.2 L Eosinophils # 0.0 Basophils # 0.0 Nucleated Red Blood Cells # 0.0 Sodium Level 136 Potassium Level 4.5 Chloride Level 104 Carbon Dioxide Level 28 Anion Gap 4 L Blood Urea Nitrogen 24 H Creatinine 1.04 Est Glomerular Filtrat Rate mL/min Glucose Level 103 Calcium Level 8.1 L Medications Medication Current Medications Pantoprazole (Protonix Tab) 40 mg DAILY@06 PO Last administered on 03/04/19at 05:37; Admin Dose 40 MG; Start 02/28/19 at 06:00 Albuterol/ Ipratropium (Duoneb) 3 ml Q6H RESP THERAPY PRN HHN SHORTNESS OF BREATH; Start 02/28/19 at 06:00 Acetaminophen (Tylenol Tab) 650 mg Q6H PRN PO MILD PAIN(1-3)OR ELEVATED TEMP Last administered on 02/28/19at 10:45; Admin Dose 650 MG; Start 02/28/19 at 06:00 Bisacodyl (Dulcolax) 10 mg DAILY PRN PO CONSTIPATION; Start 02/28/19 at 06:00 Miscellaneous Information (Pending [facility] Order For Wound Care) This patient lopez... PRN PRN XX WOUND CARE; Start 02/28/19 at 06:00 Calcium Carbonate (Ca Carbonate) 1,250 mg BID PO Last administered on 03/04/19at 09:00; Admin Dose 1,250 MG; Start 02/28/19 at 21:00 Ceftriaxone Sodium 50 ml @ 100 mls/hr Q24H IVPB Last administered on 03/02/19at 15:54; Admin Dose 100 MLS/HR; Start 02/28/19 at 16:00 Bicalutamide (Casodex) 50 mg DAILY PO Last administered on 03/04/19 09:00; Admin Dose 50 MG; Start 03/01/19 at 09:00 Hydromorphone HCl (Dilaudid) 1.5 mg Q4H PRN IV SEVERE PAIN LEVEL 7-10 Last administered on 03/04/19 11:56; Admin Dose 1.5 MG; Start 03/01/19 at 15:30 Ketorolac Tromethamine (Toradol) 30 mg Q6H IV Last administered on 03/04/19 03:45; Admin Dose 30 MG; Start 03/01/19 at 15:30; Stop 03/04/19 at 15:29 Lorazepam (Ativan) 0.5 mg Q6H PRN IV ANXIETY Last administered on 03/04/19 14:33; Admin Dose 0.5 MG; Start 03/01/19 at 19:00 Methadone HCl (Methadone Liq) 2 mg Q6 PO Last administered on 03/04/19at 12:48; Admin Dose 2 MG; Start 03/02/19 at 23:00 Tamsulosin HCl (Flomax) 0.4 mg HS PO Last administered on 03/03/19at 21:08; Admin Dose 0.4 MG; Start 03/02/19 at 21:00 Miscellaneous Information (* Miscellaneous Pharmacy Order) 7.5 ea ONCE IM ; Start 03/04/19 at 14:00; Status KENZIE BATISTA Mar 04, 2019 14:40
[2019-03-04] MEDS: CEFTRIAXONE 1 GM/50 ML (PMX) 50 ML IVPB SCH (16:00)
[2019-03-04 19:11] VITALS: BP 116/64; PULSE 111; RESP 18
[2019-03-04] MEDS: TAMSULOSIN (SR) 0.4 MG CAP PO SCH (21:08)
[2019-03-05] MEDS: METHADONE (1 MG/ML 5 ML PO UD SYG) PO SCH ×5 (00:08→23:41)
[2019-03-05] MEDS: HYDROmorphONE 2 MG/ML SYG IV PRN ×3 (03:08→20:03)
[2019-03-05 04:31] VITALS: BP 118/69; PULSE 114; RESP 18
[2019-03-05] MEDS: PANTOPRAZOLE (EC) 40 MG TAB PO SCH (05:40)
[2019-03-05 07:24] VITALS: BP 112/70; PULSE 104; RESP 16
[2019-03-05] MEDS: CA CARBONATE (250 MG/ML) 5ML CUP PO SCH ×2 (08:38→20:03)
[2019-03-05] MEDS: BICALUTAMIDE 50 MG TAB PO SCH (08:38)
--- NOTE | 2019-03-05 08:39 | CONS ---
Consult Date/Type/Reason Admit Date/Time Feb 28, 2019 at 05:11 Initial Consult Date 03/01/19 Type of Consultation: Urology Reason for Consultation Metastatic prostate cancer Requesting Provider: MILLY LABOY MD Date/Time of Note DATE: 03/05/19 TIME: 08:35 Subjective Patient is weak and complains of pain in his back and lower extremities Objective Vitals Vital Signs Date Temp Pulse Resp B/P (MAP) Pulse Ox O2 O2 Flow FiO2 Time Delivery Rate 03/05/19 98.3 104 16 112/70 98 07:24 (84) 03/05/19 Room Air 04:31 Intake and Output 03/04/19 03/04/19 03/05/19 1515:00 23:00 07:00 IntakeIntake Total 650 ml 50 ml 200 ml OutputOutput Total 300 ml 600 ml BalanceBalance 350 ml 50 ml -400 ml Exam Sanderson catheter is draining clear urine, the abdomen is soft Results/Medications Result Diagram: 03/05/19 0436 03/04/19 0441 Results 24 hrs Laboratory Tests Test 03/05/19 04:36 White Blood Count 5.1 Red Blood Count 2.95 L Hemoglobin 7.8 L Hematocrit 25.2 L Mean Corpuscular Volume 85.4 Mean Corpuscular Hemoglobin 26.4 L Mean Corpuscular Hemoglobin Concent 31.0 L Red Cell Distribution Width 16.8 H Platelet Count 155 # Mean Platelet Volume 9.8 Immature Granulocytes % 2.200 H Neutrophils % 75.5 Lymphocytes % 15.8 Monocytes % 6.1 Eosinophils % 0.2 Basophils % 0.2 Nucleated Red Blood Cells % 0.0 Immature Granulocytes # 0.110 H Neutrophils # 3.8 Lymphocytes # 0.8 Monocytes # 0.3 Eosinophils # 0.0 Basophils # 0.0 Nucleated Red Blood Cells # 0.0 Home Meds No Active Prescriptions or Reported Meds Medications Current Medications Pantoprazole (Protonix Tab) 40 mg DAILY@06 PO Last administered on 03/04/19at 05:37; Admin Dose 40 MG; Start 02/28/19 at 06:00 Albuterol/ Ipratropium (Duoneb) 3 ml Q6H RESP THERAPY PRN HHN SHORTNESS OF BREATH; Start 02/28/19 at 06:00 Acetaminophen (Tylenol Tab) 650 mg Q6H PRN PO MILD PAIN(1-3)OR ELEVATED TEMP Last administered on 02/28/19 10:45; Admin Dose 650 MG; Start 02/28/19 at 06:00 Bisacodyl (Dulcolax) 10 mg DAILY PRN PO CONSTIPATION; Start 02/28/19 at 06:00 [facility]isc[facility] This patient lopez... PRN PRN XX WOUND CARE; Start 02/28/19 at 06:00 Calcium Carbonate (Ca Carbonate) 1,250 mg BID PO Last administered on 03/04/19 21:07; Admin Dose 1,250 MG; Start 02/28/19 at 21:00 Ceftriaxone Sodium 50 ml @ 100 mls/hr Q24H IVPB Last administered on 03/02/19 15:54; Admin Dose 100 MLS/HR; Start 02/28/19 at 16:00 Bicalutamide (Casodex) 50 mg DAILY PO Last administered on 03/04/19 09:00; Admin Dose 50 MG; Start 03/01/19 at 09:00 Hydromorphone HCl (Dilaudid) 1.5 mg Q4H PRN IV SEVERE PAIN LEVEL 7-10 Last administered on 03/05/19 03:08; Admin Dose 1.5 MG; Start 03/01/19 at 15:30 Lorazepam (Ativan) 0.5 mg Q6H PRN IV ANXIETY Last administered on 03/04/19 14:33; Admin Dose 0.5 MG; Start 03/01/19 at 19:00 Methadone HCl (Methadone Liq) 2 mg Q6 PO Last administered on 03/05/19 05:35; Admin Dose 2 MG; Start 03/02/19 at 23:00 Tamsulosin HCl (Flomax) 0.4 mg HS PO Last administered on 03/04/19 21:08; Admin Dose 0.4 MG; Start 03/02/19 at 21:00 Non-Formulary Medication 1 dose ONCE SC ; Start 03/05/19 at 16:30; Stop 03/05/19 at 23:45; Status UNV Assessment/Plan Hospital Course (Demo Recall) 73-year-old -[place] male was admitted here in August 2018. At that time his PSA was over at thousand and patient was assumed to have prostate cancer he was started on bicalutamide and at the time of discharge he was instructed to follow-up in the office for biopsy of the prostate to confirm the diagnosis of prostate cancer. However the patient did not follow up with any doctor and he went to [facility] because of increased back pain and weakness in addition to lower extremity pain and was transferred to [facility]. Patient underwent CT of the cervical thoracic and lumbar spine and was found to have metastatic disease. Patient states he does urinate 5-6 times at night and same during the day. He voids a small amount. He denies any gross hematuria. Presently the patient is very weak and the CT scan of the abdomen and pelvis showed: 1. Diffuse metastasis to the liver as described above. Recommend contrast CT or MR to further evaluate. 2. Pathologic lymphadenopathy is noted in the retroperitoneum, the gastrohepatic gastrolienal and the portal triad with retroperitoneal lymphadenopathy noted at the aortic bifurcation. Incomplete evaluation without contrast on this study is noted. 3. Anterior mid abdominal mass measuring 5.8 cm transverse by 3.2 cm in AP dimensions. 4. Bilateral renal cortical cysts with persistent mild left hydroureter nephrosis 5. Diffuse blastic and lytic skeletal metastasis and recommend MRI with contrast of the spine to evaluate for epidural extension is clinically indicated. 6. Mild abdominal and pelvic ascites 7. Mild gallbladder wall calcifications The patient is on bicalutamide and pain medications. His cancer is very advanced. Consideration have been made for care home and or hospice. The Sanderson catheter is draining clear urine and urine culture did grew gram-negative rods. Sensitivities pending. I did order Leuprolide acetate 7.5 mg and that will be given once the pharmacy delivers it. MAVIS MAI MD Mar 05, 2019 08:39
--- NOTE | 2019-03-05 08:43 | CONS ---
Assessment/Plan Assessment/Plan Assessment/Plan (Daily) Spoke with Dr. Wong. Issues remain, and with widespread prostate cancer with mets to bone with severe pain secondary to the above. She has been seen by urology and oncology consultations, patient is not able to make decisions on his own behalf. Patient cannot go home there are no 24 7-day a week caregivers Has had multiple falls at home prior to this hospitalization Status post subdural hematoma secondary to falls Pancytopenia secondary to hepatitis C Prior history of noncompliance with medical recommendations Malnutrition Cachexia Family members were either uninformed or unable to take care of patient at home and unwilling to assist and have made recommendations for transfer to another facility, more work-up, more aggressive therapy. Recommendation made by Dr. Jones for Taxotere, Casodex and Lupron Pain is controlled with combination of methadone and as needed short acting opioids I will assist Dr. Wong and speak with family members concerning goals of care patient is a DO NOT RESUSCITATE however in my opinion the best only safe option is [facility] unit admission, continue present pain management. Patient has no past medical history of IV drug abuse so there should be an issue of patient being transferred to a [facility] unit on methadone and short acting opioids for treatment of acute pain from his malignancy. Success social work service to assist with all appropriate discharge commendations. Consultation Date/Type/Reason Admit Date/Time Feb 28, 2019 at 05:11 Date/Time of Note DATE: 03/05/19 TIME: 08:40 Past Medical History Medical History: cancer (Of prostate based on the PSA. Has not been confirmed by biopsy), hepatitis (C), hypertension, other (Anemia, hepatitis C, weight loss, history of falls and gastritis, history of subdural hematoma) Home Meds No Active Prescriptions or Reported Meds Medications Current Medications Pantoprazole (Protonix Tab) 40 mg DAILY@06 PO Last administered on 03/04/19at 05:37; Admin Dose 40 MG; Start 02/28/19 at 06:00 Albuterol/ Ipratropium (Duoneb) 3 ml Q6H RESP THERAPY PRN HHN SHORTNESS OF BREATH; Start 02/28/19 at 06:00 Acetaminophen (Tylenol Tab) 650 mg Q6H PRN PO MILD PAIN(1-3)OR ELEVATED TEMP Last administered on 02/28/19at 10:45; Admin Dose 650 MG; Start 02/28/19 at 06:00 Bisacodyl (Dulcolax) 10 mg DAILY PRN PO CONSTIPATION; Start 02/28/19 at 06:00 Miscellaneous [facility] This patient lopez... PRN PRN XX WOUND CARE; Start 02/28/19 at 06:00 Calcium Carbonate (Ca Carbonate) 1,250 mg BID PO Last administered on 03/04/19at 21:07; Admin Dose 1,250 MG; Start 02/28/19 at 21:00 Ceftriaxone Sodium 50 ml @ 100 mls/hr Q24H IVPB Last administered on 03/02/19at 15:54; Admin Dose 100 MLS/HR; Start 02/28/19 at 16:00 Bicalutamide (Casodex) 50 mg DAILY PO Last administered on 03/04/19at 09:00; Admin Dose 50 MG; Start 03/01/19 at 09:00 Hydromorphone HCl (Dilaudid) 1.5 mg Q4H PRN IV SEVERE PAIN LEVEL 7-10 Last administered on 03/05/19at 03:08; Admin Dose 1.5 MG; Start 03/01/19 at 15:30 Lorazepam (Ativan) 0.5 mg Q6H PRN IV ANXIETY Last administered on 03/04/19at 14:33; Admin Dose 0.5 MG; Start 03/01/19 at 19:00 Methadone HCl (Methadone Liq) 2 mg Q6 PO Last administered on 03/05/19at 05:35; Admin Dose 2 MG; Start 03/02/19 at 23:00 Tamsulosin HCl (Flomax) 0.4 mg HS PO Last administered on 03/04/19at 21:08; Admin Dose 0.4 MG; Start 03/02/19 at 21:00 Non-Formulary Medication 1 dose ONCE SC ; Start 03/05/19 at 16:30; Stop 03/05/19 at 23:45; Status UNV Allergies: Coded Allergies: No Known Allergy (Unverified , 08/17/18) Past Surgical History Past Surgical Hx: no surgical history Social History Alcohol Use: occasionally Smoking Status: Former smoker Drug Use: none, other (unknown) Exam/Review of Systems Exam Vitals Vital Signs Date Temp Pulse Resp B/P (MAP) Pulse Ox O2 O2 Flow FiO2 Time Delivery Rate 03/05/19 98.3 104 16 112/70 98 07:24 (84) 03/05/19 Room Air 04:31 Intake and Output 03/04/19 03/04/19 03/05/19 1515:00 23:00 07:00 IntakeIntake Total 650 ml 50 ml 200 ml OutputOutput Total 300 ml 600 ml BalanceBalance 350 ml 50 ml -400 ml Results Result Diagram: 03/05/19 0436 03/04/19 0441 Results 24hrs Laboratory Tests Test 03/05/19 04:36 White Blood Count 5.1 Red Blood Count 2.95 L Hemoglobin 7.8 L Hematocrit 25.2 L Mean Corpuscular Volume 85.4 Mean Corpuscular Hemoglobin 26.4 L Mean Corpuscular Hemoglobin Concent 31.0 L Red Cell Distribution Width 16.8 H Platelet Count 155 # Mean Platelet Volume 9.8 Immature Granulocytes % 2.200 H Neutrophils % 75.5 Lymphocytes % 15.8 Monocytes % 6.1 Eosinophils % 0.2 Basophils % 0.2 Nucleated Red Blood Cells % 0.0 Immature Granulocytes # 0.110 H Neutrophils # 3.8 Lymphocytes # 0.8 Monocytes # 0.3 Eosinophils # 0.0 Basophils # 0.0 Nucleated Red Blood Cells # 0.0 Medications Medication Current Medications Pantoprazole (Protonix Tab) 40 mg DAILY@06 PO Last administered on 03/04/19at 05:37; Admin Dose 40 MG; Start 02/28/19 at 06:00 Albuterol/ Ipratropium (Duoneb) 3 ml Q6H RESP THERAPY PRN HHN SHORTNESS OF BREATH; Start 02/28/19 at 06:00 Acetaminophen (Tylenol Tab) 650 mg Q6H PRN PO MILD PAIN(1-3)OR ELEVATED TEMP Last administered on 02/28/19at 10:45; Admin Dose 650 MG; Start 02/28/19 at 06:00 Bisacodyl (Dulcolax) 10 mg DAILY PRN PO CONSTIPATION; Start 02/28/19 at 06:00 Miscellaneous Information ([facility] This patient lopez... PRN PRN XX WOUND CARE; Start 02/28/19 at 06:00 Calcium Carbonate (Ca Carbonate) 1,250 mg BID PO Last administered on 03/04/19 21:07; Admin Dose 1,250 MG; Start 02/28/19 at 21:00 Ceftriaxone Sodium 50 ml @ 100 mls/hr Q24H IVPB Last administered on 03/02/19 15:54; Admin Dose 100 MLS/HR; Start 02/28/19 at 16:00 Bicalutamide (Casodex) 50 mg DAILY PO Last administered on 03/04/19 09:00; Admin Dose 50 MG; Start 03/01/19 at 09:00 Hydromorphone HCl (Dilaudid) 1.5 mg Q4H PRN IV SEVERE PAIN LEVEL 7-10 Last administered on 03/05/19 03:08; Admin Dose 1.5 MG; Start 03/01/19 at 15:30 Lorazepam (Ativan) 0.5 mg Q6H PRN IV ANXIETY Last administered on 03/04/19 14:33; Admin Dose 0.5 MG; Start 03/01/19 at 19:00 Methadone HCl (Methadone Liq) 2 mg Q6 PO Last administered on 03/05/19 05:35; Admin Dose 2 MG; Start 03/02/19 at 23:00 Tamsulosin HCl (Flomax) 0.4 mg HS PO Last administered on 03/04/19 21:08; Admin Dose 0.4 MG; Start 03/02/19 at 21:00 Non-Formulary Medication 1 dose ONCE SC ; Start 03/05/19 at 16:30; Stop 03/05/19 at 23:45; Status UNV KENZIE RODRIGUEZ Mar 05, 2019 08:43
[2019-03-05] MEDS ORDERED: ENOXAPARIN 40 MG/0.4 ML SYG SC ONE (12:00)
--- NOTE | 2019-03-05 12:02 | PN ---
Date/Time of Note Date/Time of Note DATE: 03/05/19 TIME: 11:58 Assessment/Plan VTE Prophylaxis Risk score (from Ns)>0 risk: 6 SCD applied (from Ns): Yes Pharmacological prophylaxis: NA/contraindicated Pharm contraindication: low risk/ambulating Lines/Catheters IV [facility]from [facility] Urinary Cath still in place: Yes Reason Cath still needed: urinary retention Assessment/Plan Assessment/Plan 1 Recurrent falls, failure to thrive, weight loss, generalized body aches, likely secondary to metastatic prostate cancer. The patient was here in August 2018. The patient was seen by multiple consultants including urology and oncology. The patient had a prostate specific antigen over 1000. The patient was deemed that he had capacity to make decisions. The patient was offered correction; however, he left and went home. He never followed up with any appointments and likely has progression of disease. Likely has metastatic prostate cancer now on casodex and lupron 2. History of falls with subdural hematomas. 3. Severe anemia. 4. Pancytopenia with a history of hepatitis C. 5. Alcoholism. 6. History of smoking. 7. Elevated alkaline phosphatase could be secondary to bony metastases. Metastatic disease. He is on Casodex 8. Edema with hypoalbuminemia. 9. Likely urinary tract infection. 10. cachexia. Malnourishment 11.Chronic pain and anxiety Assessment/Plan -Talk to the brother who wanted all the treatment to be pursued for for however when I spoke to him and told him that if he is refusing treatments then want to do, he said to offer him the treatment and if he refuses then he refuses and then in that case would wait for him to come on March 12, - cw casodex. lupron not given yet -Follow-up with Dr. Nguyen and Dr. alves recommendations -c/w methadone/dilaudid/toradol for pain fu dr rooney - now has galeana - cw iv abx fo UTI - Nutrition - montior HB 7> 7.8 TODAY - social service consult - scd It is very challenging case. Patient apparently was supposed to sign hospice but did not sign it when spoke to the brother had spoken to the brother and he wanted full treatment as if of yesterday. Patient is in pain and is currently on oral Casodex methadone Lupron and is yet to be given. In case the family decided not to be on hospital and patient goes to correction we have to check with the correction if they takes case Casodex and methadone Result Diagram: 03/05/19 0436 03/04/19 0441 Results 24hrs Laboratory Tests Test 03/05/19 04:36 White Blood Count 5.1 Red Blood Count 2.95 L Hemoglobin 7.8 L Hematocrit 25.2 L Mean Corpuscular Volume 85.4 Mean Corpuscular Hemoglobin 26.4 L Mean Corpuscular Hemoglobin Concent 31.0 L Red Cell Distribution Width 16.8 H Platelet Count 155 # Mean Platelet Volume 9.8 Immature Granulocytes % 2.200 H Neutrophils % 75.5 Lymphocytes % 15.8 Monocytes % 6.1 Eosinophils % 0.2 Basophils % 0.2 Nucleated Red Blood Cells % 0.0 Immature Granulocytes # 0.110 H Neutrophils # 3.8 Lymphocytes # 0.8 Monocytes # 0.3 Eosinophils # 0.0 Basophils # 0.0 Nucleated Red Blood Cells # 0.0 Subjective 24 Hr Interval Summary Free Text/Dictation Pain is everywhere currently managed by Dr Rooney Exam/Review of Systems Exam Vitals Vital Signs Date Temp Pulse Resp B/P (MAP) Pulse Ox O2 O2 Flow FiO2 Time Delivery Rate 03/05/19 98.3 104 16 112/70 98 07:24 (84) 03/05/19 Room Air 04:31 Intake and Output 03/04/19 03/04/19 03/05/19 1515:00 23:00 07:00 IntakeIntake Total 650 ml 50 ml 200 ml OutputOutput Total 300 ml 600 ml BalanceBalance 350 ml 50 ml -400 ml Exam No acute distress, no events overnight. Eyes: anicteric, EOM's intact, no pallor Nose: no rhinorrhea Neck: supple, no thyromegaly, no carotid bruits Lungs: clear bilaterally, decreased. CVS: regular rate and rhythm, no murmurs Abdomen: soft, bowel sounds present, scaphoid. Rectal: differed. External genitalia: no lesions. Extremities: no edema, DP pulses are palpable Neuro: alert and oriented x 3 Gait: unable to assess Motor strenght:weak Sensory exam: normal Deep tendon reflexes: normal, Babisky reflexes are absent bilaterally Results Results 24hrs Laboratory Tests Test 03/05/19 04:36 White Blood Count 5.1 Red Blood Count 2.95 L Hemoglobin 7.8 L Hematocrit 25.2 L Mean Corpuscular Volume 85.4 Mean Corpuscular Hemoglobin 26.4 L Mean Corpuscular Hemoglobin Concent 31.0 L Red Cell Distribution Width 16.8 H Platelet Count 155 # Mean Platelet Volume 9.8 Immature Granulocytes % 2.200 H Neutrophils % 75.5 Lymphocytes % 15.8 Monocytes % 6.1 Eosinophils % 0.2 Basophils % 0.2 Nucleated Red Blood Cells % 0.0 Immature Granulocytes # 0.110 H Neutrophils # 3.8 Lymphocytes # 0.8 Monocytes # 0.3 Eosinophils # 0.0 Basophils # 0.0 Nucleated Red Blood Cells # 0.0 Medications Medication Current Medications Pantoprazole (Protonix Tab) 40 mg DAILY@06 PO Last administered on 03/04/19at 05:37; Admin Dose 40 MG; Start 02/28/19 at 06:00 Albuterol/ Ipratropium (Duoneb) 3 ml Q6H RESP THERAPY PRN HHN SHORTNESS OF BREATH; Start 02/28/19 at 06:00 Acetaminophen (Tylenol Tab) 650 mg Q6H PRN PO MILD PAIN(1-3)OR ELEVATED TEMP Last administered on 02/28/19at 10:45; Admin Dose 650 MG; Start 02/28/19 at 06:00 Bisacodyl (Dulcolax) 10 mg DAILY PRN PO CONSTIPATION; Start 02/28/19 at 06:00 Miscellaneous Information (Pending [facility] Order For Wound Care) This patient h a... PRN PRN XX WOUND CARE; Start 02/28/19 at 06:00 Calcium Carbonate (Ca Carbonate) 1,250 mg BID PO Last administered on 03/05/19at 08:38; Admin Dose 1,250 MG; Start 02/28/19 at 21:00 Ceftriaxone Sodium 50 ml @ 100 mls/hr Q24H IVPB Last administered on 03/02/19at 15:54; Admin Dose 100 MLS/HR; Start 02/28/19 at 16:00 Bicalutamide (Casodex) 50 mg DAILY PO Last administered on 03/05/19at 08:38; Ad min Dose 50 MG; Start 03/01/19 at 09:00 Hydromorphone HCl (Dilaudid) 1.5 mg Q4H PRN IV SEVERE PAIN LEVEL 7-10 Last administered on 03/05/19at 03:08; Admin Dose 1.5 MG; Start 03/01/19 at 15:30 Lorazepam (Ativan) 0.5 mg Q6H PRN IV ANXIETY Last administered on 03/04/19at 14:33; Admin Dose 0.5 MG; Start 03/01/19 at 19:00 Methadone HCl (Methadone Liq) 2 mg Q6 PO Last administered on 03/05/19at 05:35; Admin Dose 2 MG; Start 03/02/19 at 23:00 Tamsulosin HCl (Flomax) 0.4 mg HS PO Last administered on 03/04/19at 21:08; Admin Dose 0.4 MG; Start 03/02/19 at 21:00 Non-Formulary Medication 1 dose ONCE SC ; Start 03/05/19 at 16:30; Stop 03/05/19 at 23:45; Status UNV Enoxaparin Sodium (Lovenox) 40 mg DAILY ONCE SC ; Start 03/05/19 at 12:00; Stop 03/05/19 at 12:01; Status UNV VALDO HERNANDEZ MD Mar 05, 2019 12:02
[2019-03-05 14:00] VITALS: BP 113/78; PULSE 103; RESP 16
--- NOTE | 2019-03-05 14:08 | CONS ---
Assessment/Plan Assessment/Plan Hospital Course (Demo Recall) #Metastatic prostate cancer -pt has disease diffusely throughout the liver, bones and lymph nodes -PSA is currently> 600 - Per Dr Pardo - pt should have a confirmatory prostate bx but given the high likelihood of prostate cancer and heavy disease burden, ideally patient should be started on upfront Taxotere chemotherapy with Casodex and Lupron -This was discussed with the patient who states he needs to "think about" starting any type of therapy -he could also be evaluated by radiation oncology as an out patient for his back pain as palliative XRT may help this issue -at the very least he should continue Casodex for now -if he refuses all treatment, he should be referred for hospice eval Thank you for the opportunity to participate in this patients care A total of 40 minutes of face to face time was spent speaking with the patient, of which greater than 50% was spent in counseling and coordination of care and the detailed question and answer session. Consultation Date/Type/Reason Admit Date/Time Feb 28, 2019 at 05:11 Initial Consult Date 03/01/19 Type of Consult oncology Reason for Consultation metastatic prostate cancer Requesting Provider: MILLY LABOY MD Date/Time of Note DATE: 03/05/19 TIME: 14:07 24 HR Interval Summary Free Text/Dictation plan is to send to SNF. pt continues to refuse care Exam/Review of Systems Exam Vitals Vital Signs Date Temp Pulse Resp B/P (MAP) Pulse Ox O2 O2 Flow FiO2 Time Delivery Rate 03/05/19 98.3 104 16 112/70 98 07:24 (84) 03/05/19 Room Air 04:31 Intake and Output 03/04/19 03/04/19 03/05/19 1515:00 23:00 07:00 IntakeIntake Total 650 ml 50 ml 200 ml OutputOutput Total 300 ml 600 ml BalanceBalance 350 ml 50 ml -400 ml Constitutional: alert, oriented, distress, frail Psych: anxiety Head: normocephalic Eyes: nl conjunctiva ENMT: nl external ears & nose Neck: supple Respiratory: clear to auscultation Cardiovascular: regular rate and rhythm Gastrointestinal: soft Musculoskeletal: nl extremities to inspection Extremities: normal pulses Results Result Diagram: 03/05/19 0436 03/04/19 0441 Results 24hrs Laboratory Tests Test 03/05/19 04:36 White Blood Count 5.1 Red Blood Count 2.95 L Hemoglobin 7.8 L Hematocrit 25.2 L Mean Corpuscular Volume 85.4 Mean Corpuscular Hemoglobin 26.4 L Mean Corpuscular Hemoglobin Concent 31.0 L Red Cell Distribution Width 16.8 H Platelet Count 155 # Mean Platelet Volume 9.8 Immature Granulocytes % 2.200 H Neutrophils % 75.5 Lymphocytes % 15.8 Monocytes % 6.1 Eosinophils % 0.2 Basophils % 0.2 Nucleated Red Blood Cells % 0.0 Immature Granulocytes # 0.110 H Neutrophils # 3.8 Lymphocytes # 0.8 Monocytes # 0.3 Eosinophils # 0.0 Basophils # 0.0 Nucleated Red Blood Cells # 0.0 Medications Medication Current Medications Pantoprazole (Protonix Tab) 40 mg DAILY@06 PO Last administered on 03/04/19at 05:37; Admin Dose 40 MG; Start 02/28/19 at 06:00 Albuterol/ Ipratropium (Duoneb) 3 ml Q6H RESP THERAPY PRN HHN SHORTNESS OF BREATH; Start 02/28/19 at 06:00 Acetaminophen (Tylenol Tab) 650 mg Q6H PRN PO MILD PAIN(1-3)OR ELEVATED TEMP Last administered on 02/28/19at 10:45; Admin Dose 650 MG; Start 02/28/19 at 06:00 Bisacodyl (Dulcolax) 10 mg DAILY PRN PO CONSTIPATION; Start 02/28/19 at 06:00 Miscellaneous Information (Pending [facility] Order For Wound Care) This patient lopez... PRN PRN XX WOUND CARE; Start 02/28/19 at 06:00 Calcium Carbonate (Ca Carbonate) 1,250 mg BID PO Last administered on 03/05/19at 08:38; Admin Dose 1,250 MG; Start 02/28/19 at 21:00 Ceftriaxone Sodium 50 ml @ 100 mls/hr Q24H IVPB Last administered on 03/02/19at 15:54; Admin Dose 100 MLS/HR; Start 02/28/19 at 16:00 Bicalutamide (Casodex) 50 mg DAILY PO Last administered on 03/05/19at 08:38; Admin Dose 50 MG; Start 03/01/19 at 09:00 Hydromorphone HCl (Dilaudid) 1.5 mg Q4H PRN IV SEVERE PAIN LEVEL 7-10 Last administered on 03/05/19at 13:48; Admin Dose 1.5 MG; Start 03/01/19 at 15:30 Lorazepam (Ativan) 0.5 mg Q6H PRN IV ANXIETY Last administered on 03/04/19at 14:33; Admin Dose 0.5 MG; Start 03/01/19 at 19:00 Methadone HCl (Methadone Liq) 2 mg Q6 PO Last administered on 03/05/19at 12:34; Admin Dose 2 MG; Start 03/02/19 at 23:00 Tamsulosin HCl (Flomax) 0.4 mg HS PO Last administered on 03/04/19at 21:08; Admin Dose 0.4 MG; Start 03/02/19 at 21:00 Non-Formulary Medication 1 dose ONCE SC ; Start 03/06/19 at 16:30; Stop 03/06/19 at 23:45; Status UNV Enoxaparin Sodium (Lovenox) 40 mg DAILY ONCE SC ; Start 03/05/19 at 12:00; Stop 03/05/19 at 12:01; Status UNV NESTOR PARDO M.D. Mar 05, 2019 14:08
[2019-03-05] MEDS: ACETAMINOPHEN 325 MG TAB PO PRN (15:29)
[2019-03-05] MEDS: CEFTRIAXONE 1 GM/50 ML (PMX) 50 ML IVPB SCH (15:30)
[2019-03-05 19:48] VITALS: BP 114/74; PULSE 98; RESP 16
[2019-03-05] MEDS: TAMSULOSIN (SR) 0.4 MG CAP PO SCH (20:03)
[2019-03-05] MEDS: LORAZEPAM 2 MG INJ IV PRN (23:42)
[2019-03-06] MEDS: HYDROmorphONE 2 MG/ML SYG IV PRN ×3 (01:37→16:30)
[2019-03-06 02:00] VITALS: BP 118/76; PULSE 92; RESP 18
[2019-03-06] MEDS: PANTOPRAZOLE (EC) 40 MG TAB PO SCH (05:40)
[2019-03-06] MEDS: METHADONE (1 MG/ML 5 ML PO UD SYG) PO SCH ×4 (05:41→23:43)
[2019-03-06 06:21] VITALS: BP 111/64; PULSE 74; RESP 18
[2019-03-06 07:54] VITALS: BP 110/73; PULSE 92; RESP 18
--- NOTE | 2019-03-06 08:58 | CONS ---
Assessment/Plan Assessment/Plan Assessment/Plan (Daily) Brief note I spoke with case management yesterday and asked him to aggressively assist with ongoing goals of care. Family members essentially are deferring discharge asking for patient to be transferred to another facility or to "have different" care. Have reviewed notes from Dr. Berman and Dr Wong. Consultation Date/Type/Reason Admit Date/Time Feb 28, 2019 at 05:11 Date/Time of Note DATE: 03/06/19 TIME: 08:56 Past Medical History Medical History: cancer (Of prostate based on the PSA. Has not been confirmed by biopsy), hepatitis (C), hypertension, other (Anemia, hepatitis C, weight loss, history of falls and gastritis, history of subdural hematoma) Home Meds No Active Prescriptions or Reported Meds Medications Current Medications Pantoprazole (Protonix Tab) 40 mg DAILY@06 PO Last administered on 03/06/19at 05:40; Admin Dose 40 MG; Start 02/28/19 at 06:00 Albuterol/ Ipratropium (Duoneb) 3 ml Q6H RESP THERAPY PRN HHN SHORTNESS OF BREATH; Start 02/28/19 at 06:00 Acetaminophen (Tylenol Tab) 650 mg Q6H PRN PO MILD PAIN(1-3)OR ELEVATED TEMP Last administered on 03/05/19at 15:29; Admin Dose 650 MG; Start 02/28/19 at 06:00 Bisacodyl (Dulcolax) 10 mg DAILY PRN PO CONSTIPATION; Start 02/28/19 at 06:00 Miscellaneous Information (Pending [facility] Order For Wound Care) This patient lopez... PRN PRN XX WOUND CARE; Start 02/28/19 at 06:00 Calcium Carbonate (Ca Carbonate) 1,250 mg BID PO Last administered on 03/05/19at 20:03; Admin Dose 1,250 MG; Start 02/28/19 at 21:00 Ceftriaxone Sodium 50 ml @ 100 mls/hr Q24H IVPB Last administered on 03/05/19at 15:30; Admin Dose 100 MLS/HR; Start 02/28/19 at 16:00 Bicalutamide (Casodex) 50 mg DAILY PO Last administered on 03/05/19at 08:38; Admin Dose 50 MG; Start 03/01/19 at 09:00 Hydromorphone HCl (Dilaudid) 1.5 mg Q4H PRN IV SEVERE PAIN LEVEL 7-10 Last administered on 03/06/19at 01:37; Admin Dose 1.5 MG; Start 03/01/19 at 15:30 Lorazepam (Ativan) 0.5 mg Q6H PRN IV ANXIETY Last administered on 03/05/19at 23:42; Admin Dose 0.5 MG; Start 03/01/19 at 19:00 Methadone HCl (Methadone Liq) 2 mg Q6 PO Last administered on 03/06/19at 05:41; Admin Dose 2 MG; Start 03/02/19 at 23:00 Tamsulosin HCl (Flomax) 0.4 mg HS PO Last administered on 03/05/19at 20:03; Admin Dose 0.4 MG; Start 03/02/19 at 21:00 Non-Formulary Medication 1 dose ONCE SC ; Start 03/06/19 at 16:30; Stop 03/06/19 at 23:45; Status UNV Allergies: Coded Allergies: No Known Allergy (Unverified , 08/17/18) Past Surgical History Past Surgical Hx: no surgical history Social History Alcohol Use: occasionally Smoking Status: Former smoker Drug Use: none, other (unknown) Exam/Review of Systems Exam Vitals Vital Signs Date Temp Pulse Resp B/P (MAP) Pulse Ox O2 O2 Flow FiO2 Time Delivery Rate 03/06/19 97.8 92 18 110/73 97 Room Air 07:54 (85) Intake and Output 03/05/19 03/05/19 03/06/19 1515:00 23:00 07:00 IntakeIntake Total 740 ml 440 ml 350 ml OutputOutput Total 350 ml 450 ml BalanceBalance 740 ml 90 ml -100 ml Results Result Diagram: 03/06/19 0654 03/04/19 0441 Results 24hrs Laboratory Tests Test 03/06/19 05:08 03/06/19 06:54 White Blood Count 4.4 L Red Blood Count 2.44 L Hemoglobin 6.5 *L 7.2 L Hematocrit 20.8 L 23.3 L Mean Corpuscular Volume 85.2 Mean Corpuscular Hemoglobin 26.6 L Mean Corpuscular Hemoglobin Concent 31.3 L Red Cell Distribution Width 16.7 H Platelet Count 152 Mean Platelet Volume 9.6 Immature Granulocytes % 2.700 H Neutrophils % 68.6 Segmented Neutrophils % (Manual) 74 Lymphocytes % 19.9 Lymphocytes % (Manual) 17 Reactive Lymphocytes % (Manual) 1 H Monocytes % 7.4 Monocytes % (Manual) 5 Eosinophils % 0.9 Basophils % 0.5 Basophils % (Manual) 1 Metamyelocytes % (manual) 1 H Myelocytes % (Manual) 1 H Nucleated Red Blood Cells % 0.0 Immature Granulocytes # 0.120 H Neutrophils # 3.0 Lymphocytes (Manual) 0.7 L Lymphocytes # 0.9 Reactive Lymphocytes # 0.0 Monocytes # 0.3 Monocytes # (Manual) 0.2 L Eosinophils # 0.0 Basophils # 0.0 Basophils # (Manual) 0.0 Metamyelocytes # 0.0 Myelocytes # 0.0 Nucleated Red Blood Cells # 0.0 Platelet Estimate NORMAL Polychromasia 3+ Poikilocytosis 2+ Anisocytosis 2+ Microcytosis 2+ Tear Drop Cells 1+ Elliptocytes 1+ Medications Medication Current Medications Pantoprazole (Protonix Tab) 40 mg DAILY@06 PO Last administered on 03/06/19at 05:40; Admin Dose 40 MG; Start 02/28/19 at 06:00 Albuterol/ Ipratropium (Duoneb) 3 ml Q6H RESP THERAPY PRN HHN SHORTNESS OF BREATH; Start 02/28/19 at 06:00 Acetaminophen (Tylenol Tab) 650 mg Q6H PRN PO MILD PAIN(1-3)OR ELEVATED TEMP Last administered on 03/05/19at 15:29; Admin Dose 650 MG; Start 02/28/19 at 06:00 Bisacodyl (Dulcolax) 10 mg DAILY PRN PO CONSTIPATION; Start 02/28/19 at 06:00 Miscellaneous Information (Pending [facility] Order For Wound Care) This patient lopez... PRN PRN XX WOUND CARE; Start 02/28/19 at 06:00 Calcium Carbonate (Ca Carbonate) 1,250 mg BID PO Last administered on 03/05/19at 20:03; Admin Dose 1,250 MG; Start 02/28/19 at 21:00 Ceftriaxone Sodium 50 ml @ 100 mls/hr Q24H IVPB Last administered on 03/05/19at 15:30; Admin Dose 100 MLS/HR; Start 02/28/19 at 16:00 Bicalutamide (Casodex) 50 mg DAILY PO Last administered on 03/05/19at 08:38; Admin Dose 50 MG; Start 03/01/19 at 09:00 Hydromorphone HCl (Dilaudid) 1.5 mg Q4H PRN IV SEVERE PAIN LEVEL 7-10 Last administered on 03/06/19at 01:37; Admin Dose 1.5 MG; Start 03/01/19 at 15:30 Lorazepam (Ativan) 0.5 mg Q6H PRN IV ANXIETY Last administered on 03/05/19at 23: 42; Admin Dose 0.5 MG; Start 03/01/19 at 19:00 Methadone HCl (Methadone Liq) 2 mg Q6 PO Last administered on 03/06/19at 05:41; Admin Dose 2 MG; Start 03/02/19 at 23:00 Tamsulosin HCl (Flomax) 0.4 mg HS PO Last administered on 03/05/19at 20:03; Admin Dose 0.4 MG; Start 03/02/19 at 21:00 Non-Formulary Medication 1 dose ONCE SC ; Start 03/06/19 at 16:30; Stop 03/06/19 at 23:45; Status UNV KENZIE RODRIGUEZ Mar 06, 2019 08:58
[2019-03-06] MEDS: CA CARBONATE (250 MG/ML) 5ML CUP PO SCH ×2 (09:14→21:08)
[2019-03-06] MEDS: BICALUTAMIDE 50 MG TAB PO SCH (09:16)
--- NOTE | 2019-03-06 13:55 | CONS ---
Consult Date/Type/Reason Admit Date/Time Feb 28, 2019 at 05:11 Initial Consult Date 03/01/19 Type of Consultation: Urology Reason for Consultation Metastatic prostate cancer Requesting Provider: MILLY LABOY MD Date/Time of Note DATE: 03/06/19 TIME: 13:51 Subjective Patient complains of pain all over his body Objective Vitals Vital Signs Date Temp Pulse Resp B/P (MAP) Pulse Ox O2 O2 Flow FiO2 Time Delivery Rate 03/06/19 97.8 92 18 110/73 97 Room Air 07:54 (85) Intake and Output 03/05/19 03/05/19 03/06/19 1515:00 23:00 07:00 IntakeIntake Total 740 ml 440 ml 350 ml OutputOutput Total 350 ml 450 ml BalanceBalance 740 ml 90 ml -100 ml Exam Patient is cachectic. Sanderson catheter is draining clear urine Urine culture showed: ENTEROBACTER CLOACAE COLONY COUNT 10,000 - 20,000 CFU/ml E CLOACAE M.I.C. RX --------- --- CEFOTAXIME S CIPROFLOXACIN 1 S GENTAMICIN <=1 S LEVOFLOXACIN 1 S NITROFURANTOIN <=16 S TOBRAMYCIN <=1 S TRIMETHOPRIM/SULFAMETHOXAZOLE >=320 R Results/Medications Result Diagram: 03/06/19 0654 03/04/19 0441 Results 24 hrs Laboratory Tests Test 03/06/19 05:08 03/06/19 06:54 White Blood Count 4.4 L Red Blood Count 2.44 L Hemoglobin 6.5 *L 7.2 L Hematocrit 20.8 L 23.3 L Mean Corpuscular Volume 85.2 Mean Corpuscular Hemoglobin 26.6 L Mean Corpuscular Hemoglobin Concent 31.3 L Red Cell Distribution Width 16.7 H Platelet Count 152 Mean Platelet Volume 9.6 Immature Granulocytes % 2.700 H Neutrophils % 68.6 Segmented Neutrophils % (Manual) 74 Lymphocytes % 19.9 Lymphocytes % (Manual) 17 Reactive Lymphocytes % (Manual) 1 H Monocytes % 7.4 Monocytes % (Manual) 5 Eosinophils % 0.9 Basophils % 0.5 Basophils % (Manual) 1 Metamyelocytes % (manual) 1 H Myelocytes % (Manual) 1 H Nucleated Red Blood Cells % 0.0 Immature Granulocytes # 0.120 H Neutrophils # 3.0 Lymphocytes (Manual) 0.7 L Lymphocytes # 0.9 Reactive Lymphocytes # 0.0 Monocytes # 0.3 Monocytes # (Manual) 0.2 L Eosinophils # 0.0 Basophils # 0.0 Basophils # (Manual) 0.0 Metamyelocytes # 0.0 Myelocytes # 0.0 Nucleated Red Blood Cells # 0.0 Platelet Estimate NORMAL Polychromasia 3+ Poikilocytosis 2+ Anisocytosis 2+ Microcytosis 2+ Tear Drop Cells 1+ Elliptocytes 1+ Home Meds No Active Prescriptions or Reported Meds Medications Current Medications Pantoprazole (Protonix Tab) 40 mg DAILY@06 PO Last administered on 03/06/19 05:40; Admin Dose 40 MG; Start 02/28/19 at 06:00 Albuterol/ Ipratropium (Duoneb) 3 ml Q6H RESP THERAPY PRN HHN SHORTNESS OF BREATH; Start 02/28/19 at 06:00 Acetaminophen (Tylenol Tab) 650 mg Q6H PRN PO MILD PAIN(1-3)OR ELEVATED TEMP Last administered on 03/05/19 15:29; Admin Dose 650 MG; Start 02/28/19 at 06:00 Bisacodyl (Dulcolax) 10 mg DAILY PRN PO CONSTIPATION; Start 02/28/19 at 06:00 Miscellaneous Information (Pending [facility] Order For Wound Care) This patient lopez... PRN PRN XX WOUND CARE; Start 02/28/19 at 06:00 Calcium Carbonate (Ca Carbonate) 1,250 mg BID PO Last administered on 03/06/19 09:14; Admin Dose 1,250 MG; Start 02/28/19 at 21:00 Ceftriaxone Sodium 50 ml @ 100 mls/hr Q24H IVPB Last administered on 03/05/19 15:30; Admin Dose 100 MLS/HR; Start 02/28/19 at 16:00 Bicalutamide (Casodex) 50 mg DAILY PO Last administered on 03/06/19 09:16; Admin Dose 50 MG; Start 03/01/19 at 09:00 Hydromorphone HCl (Dilaudid) 1.5 mg Q4H PRN IV SEVERE PAIN LEVEL 7-10 Last administered on 03/06/19 10:58; Admin Dose 1.5 MG; Start 03/01/19 at 15:30 Lorazepam (Ativan) 0.5 mg Q6H PRN IV ANXIETY Last administered on 03/05/19at 23:42; Admin Dose 0.5 MG; Start 03/01/19 at 19:00 Methadone HCl (Methadone Liq) 2 mg Q6 PO Last administered on 03/06/19at 12:49; Admin Dose 2 MG; Start 03/02/19 at 23:00 Tamsulosin HCl (Flomax) 0.4 mg HS PO Last administered on 03/05/19at 20:03; Admin Dose 0.4 MG; Start 03/02/19 at 21:00 Leuprolide Acetate 7.5 mg ONCE SC Last administered on 03/06/19at 13:36; Admin Dose 7.5 MG; Start 03/06/19 at 15:00; Stop 03/06/19 at 19:00 Assessment/Plan Hospital Course (Demo Recall) 73-year-old -[place] male was admitted here in August 2018. At that time his PSA was over at thousand and patient was assumed to have prostate cancer he was started on bicalutamide and at the time of discharge he was instructed to follow-up in the office for biopsy of the prostate to confirm the diagnosis of prostate cancer. However the patient did not follow up with any doctor and he went to [facility] because of increased back pain and weakness in addition to lower extremity pain and was transferred to [facility]. Patient underwent CT of the cervical thoracic and lumbar spine and was found to have metastatic disease. Patient states he does urinate 5-6 times at night and same during the day. He voids a small amount. He denies any gross hematuria. Presently the patient is very weak and the CT scan of the abdomen and pelvis showed: 1. Diffuse metastasis to the liver as described above. Recommend contrast CT or MR to further evaluate. 2. Pathologic lymphadenopathy is noted in the retroperitoneum, the gastrohepatic gastrolienal and the portal triad with retroperitoneal lymphadenopathy noted at the aortic bifurcation. Incomplete evaluation without contrast on this study is noted. 3. Anterior mid abdominal mass measuring 5.8 cm transverse by 3.2 cm in AP dimensions. 4. Bilateral renal cortical cysts with persistent mild left hydroureter nephrosis 5. Diffuse blastic and lytic skeletal metastasis and recommend MRI with contrast of the spine to evaluate for epidural extension is clinically indicated. 6. Mild abdominal and pelvic ascites 7. Mild gallbladder wall calcifications The patient is on bicalutamide and pain medications. His cancer is very advanced. Consideration have been made for [place] [facility] and or hospice. The Sanderson catheter is draining clear urine and urine culture did grew: ENTEROBACTER CLOACAE COLONY COUNT 10,000 - 20,000 CFU/ml E CLOACAE M.I.C. RX --------- --- CEFOTAXIME S CIPROFLOXACIN 1 S GENTAMICIN <=1 S LEVOFLOXACIN 1 S NITROFURANTOIN <=16 S TOBRAMYCIN <=1 S TRIMETHOPRIM/SULFAMETHOXAZOLE >=320 R I will put him on Cipro 250 mg twice a day. Also I gave him 7.5 mg leuprolide acetate injection into his right arm area. MAVIS MAI MD Mar 06, 2019 13:55
[2019-03-06 14:00] VITALS: BP 117/69; PULSE 82; RESP 18
--- NOTE | 2019-03-06 14:10 | PN ---
Date/Time of Note Date/Time of Note DATE: 03/06/19 TIME: 14:07 Assessment/Plan VTE Prophylaxis Risk score (from Nsg)>0 risk: 6 SCD applied (from Ns): Yes Pharmacological prophylaxis: NA/contraindicated Pharm contraindication: low risk/ambulating Lines/Catheters IV [facility]from [facility] Saline Lock Urinary Cath still in place: Yes Reason Cath still needed: urinary retention Assessment/Plan Assessment/Plan 1 Recurrent falls, failure to thrive, weight loss, generalized body aches, likely secondary to metastatic prostate cancer. The patient was here in August 2018. The patient was seen by multiple consultants including urology and oncology. The patient had a prostate specific antigen over 1000. The patient was deemed that he had capacity to make decisions. The patient was offered jail; however, he left and went home. He never followed up with any appointments and likely has progression of disease. Likely has metastatic prostate cancer now on casodex and lupron 2. History of falls with subdural hematomas. 3. Severe anemia. 4. Pancytopenia with a history of hepatitis C. 5. Alcoholism. 6. History of smoking. 7. Elevated alkaline phosphatase could be secondary to bony metastases. Metastatic disease. He is on Casodex 8. Edema with hypoalbuminemia. 9. Likely urinary tract infection. 10. cachexia. Malnourishment 11.Chronic pain and anxiety Assessment/Plan -Status post Lupron today, CW CASODEX per urology with cold sore -Repeat hemoglobin was 7.2. Hold off of blood thinners due to severe anemia, SCDs were put put on however patient had been refusing it -Talk to the brother who wanted all the treatment to be pursued for for however when I spoke to him and told him that if he is refusing treatments then want to do, he said to offer him the treatment and if he refuses then he refuses and then in that case would wait for him to come on March 12, -Follow-up with Dr. Nguyen and Dr. alves recommendations -c/w methadone/dilaudid/toradol for pain fu dr rooney - now has galeana - cw iv abx fo UTI - Nutrition - montior HB 7> 7.8>7.2 TODAY - social service consult - scd It is very challenging case. Patient apparently was supposed to sign hospice but did not sign it when spoke to the brother had spoken to the brother and he wanted full treatment as if of yesterday. Patient is in pain and is currently on oral Casodex methadone Lupron was give . In case the family decided not to be on hospital and patient goes to jail we have to check with the nursi ng home if they takes case Casodex and methadone, checked with the SNF they do not take Casodex and methadone per the casework supervisor Stepan Result Diagram: 03/06/19 0654 03/04/19 0441 Results 24hrs Laboratory Tests Test 03/06/19 05:08 03/06/19 06:54 White Blood Count 4.4 L Red Blood Count 2.44 L Hemoglobin 6.5 *L 7.2 L Hematocrit 20.8 L 23.3 L Mean Corpuscular Volume 85.2 Mean Corpuscular Hemoglobin 26.6 L Mean Corpuscular Hemoglobin Concent 31.3 L Red Cell Distribution Width 16.7 H Platelet Count 152 Mean Platelet Volume 9.6 Immature Granulocytes % 2.700 H Neutrophils % 68.6 Segmented Neutrophils % (Manual) 74 Lymphocytes % 19.9 Lymphocytes % (Manual) 17 Reactive Lymphocytes % (Manual) 1 H Monocytes % 7.4 Monocytes % (Manual) 5 Eosinophils % 0.9 Basophils % 0.5 Basophils % (Manual) 1 Metamyelocytes % (manual) 1 H Myelocytes % (Manual) 1 H Nucleated Red Blood Cells % 0.0 Immature Granulocytes # 0.120 H Neutrophils # 3.0 Lymphocytes (Manual) 0.7 L Lymphocytes # 0.9 Reactive Lymphocytes # 0.0 Monocytes # 0.3 Monocytes # (Manual) 0.2 L Eosinophils # 0.0 Basophils # 0.0 Basophils # (Manual) 0.0 Metamyelocytes # 0.0 Myelocytes # 0.0 Nucleated Red Blood Cells # 0.0 Platelet Estimate NORMAL Polychromasia 3+ Poikilocytosis 2+ Anisocytosis 2+ Microcytosis 2+ Tear Drop Cells 1+ Elliptocytes 1+ Subjective 24 Hr Interval Summary Free Text/Dictation And is still complaining of pain. Hemoglobin was 6.5 but the repeat was 7.2 so 6.5 was in error Exam/Review of Systems Exam Vitals Vital Signs Date Temp Pulse Resp B/P (MAP) Pulse Ox O2 O2 Flow FiO2 Time Delivery Rate 03/06/19 97.8 92 18 110/73 97 Room Air 07:54 (85) Intake and Output 03/05/19 03/05/19 03/06/19 1515:00 23:00 07:00 IntakeIntake Total 740 ml 440 ml 350 ml OutputOutput Total 350 ml 450 ml BalanceBalance 740 ml 90 ml -100 ml Exam No acute distress, no events overnight. Eyes: anicteric, EOM's intact, no pallor Nose: no rhinorrhea Neck: supple, no thyromegaly, no carotid bruits Lungs: clear bilaterally, decreased. CVS: regular rate and rhythm, no murmurs Abdomen: soft, bowel sounds present, scaphoid. Rectal: differed. External genitalia: no lesions. Extremities: no edema, DP pulses are palpable Neuro: alert and oriented x 3 Gait: unable to assess Motor strenght:weak Sensory exam: normal Deep tendon reflexes: normal, Babisky reflexes are absent bilaterally Results Results 24hrs Laboratory Tests Test 03/06/19 05:08 03/06/19 06:54 White Blood Count 4.4 L Red Blood Count 2.44 L Hemoglobin 6.5 *L 7.2 L Hematocrit 20.8 L 23.3 L Mean Corpuscular Volume 85.2 Mean Corpuscular Hemoglobin 26.6 L Mean Corpuscular Hemoglobin Concent 31.3 L Red Cell Distribution Width 16.7 H Platelet Count 152 Mean Platelet Volume 9.6 Immature Granulocytes % 2.700 H Neutrophils % 68.6 Segmented Neutrophils % (Manual) 74 Lymphocytes % 19.9 Lymphocytes % (Manual) 17 Reactive Lymphocytes % (Manual) 1 H Monocytes % 7.4 Monocytes % (Manual) 5 Eosinophils % 0.9 Basophils % 0.5 Basophils % (Manual) 1 Metamyelocytes % (manual) 1 H Myelocytes % (Manual) 1 H Nucleated Red Blood Cells % 0.0 Immature Granulocytes # 0.120 H Neutrophils # 3.0 Lymphocytes (Manual) 0.7 L Lymphocytes # 0.9 Reactive Lymphocytes # 0.0 Monocytes # 0.3 Monocytes # (Manual) 0.2 L Eosinophils # 0.0 Basophils # 0.0 Basophils # (Manual) 0.0 Metamyelocytes # 0.0 Myelocytes # 0.0 Nucleated Red Blood Cells # 0.0 Platelet Estimate NORMAL Polychromasia 3+ Poikilocytosis 2+ Anisocytosis 2+ Microcytosis 2+ Tear Drop Cells 1+ Elliptocytes 1+ Medications Medication Current Medications Pantoprazole (Protonix Tab) 40 mg DAILY@06 PO Last administered on 03/06/19 05:40; Admin Dose 40 MG; Start 02/28/19 at 06:00 Albuterol/ Ipratropium (Duoneb) 3 ml Q6H RESP THERAPY PRN HHN SHORTNESS OF BREATH; Start 02/28/19 at 06:00 Acetaminophen (Tylenol Tab) 650 mg Q6H PRN PO MILD PAIN(1-3)OR ELEVATED TEMP Last administered on 03/05/19 15:29; Admin Dose 650 MG; Start 02/28/19 at 06:00 Bisacodyl (Dulcolax) 10 mg DAILY PRN PO CONSTIPATION; Start 02/28/19 at 06:00 Miscellaneous Information ([facility] This patient lopez... PRN PRN XX WOUND CARE; Start 02/28/19 at 06:00 Calcium Carbonate (Ca Carbonate) 1,250 mg BID PO Last administered on 03/06/19 09:14; Admin Dose 1,250 MG; Start 02/28/19 at 21:00 Ceftriaxone Sodium 50 ml @ 100 mls/hr Q24H IVPB Last administered on 03/05/19 15:30; Admin Dose 100 MLS/HR; Start 02/28/19 at 16:00 Bicalutamide (Casodex) 50 mg DAILY PO Last administered on 03/06/19 09:16; Admin Dose 50 MG; Start 03/01/19 at 09:00 Hydromorphone HCl (Dilaudid) 1.5 mg Q4H PRN IV SEVERE PAIN LEVEL 7-10 Last administered on 03/06/19 10:58; Admin Dose 1.5 MG; Start 03/01/19 at 15:30 Lorazepam (Ativan) 0.5 mg Q6H PRN IV ANXIETY Last administered on 03/05/19 23:42; Admin Dose 0.5 MG; Start 03/01/19 at 19:00 Methadone HCl (Methadone Liq) 2 mg Q6 PO Last administered on 03/06/19 12:49; Admin Dose 2 MG; Start 03/02/19 at 23:00 Tamsulosin HCl (Flomax) 0.4 mg HS PO Last administered on 03/05/19at 20:03; Admin Dose 0.4 MG; Start 03/02/19 at 21:00 Leuprolide Acetate 7.5 mg ONCE SC Last administered on 03/06/19at 13:36; Admin Dose 7.5 MG; Start 03/06/19 at 15:00; Stop 03/06/19 at 19:00 Ciprofloxacin (Cipro) 250 mg BID@06,18 PO ; Start 03/06/19 at 18:00 VALDO HERNANDEZ MD Mar 06, 2019 14:10
[2019-03-06] MEDS ORDERED: LEUPROLIDE 7.5 MG INJ SC SCH (15:00)
[2019-03-06] MEDS: CEFTRIAXONE 1 GM/50 ML (PMX) 50 ML IVPB SCH (16:30)
[2019-03-06] MEDS ORDERED: CIPROFLOXACIN 250 MG TAB PO SCH (18:00)
[2019-03-06 20:20] VITALS: BP 111/69; PULSE 64; RESP 19
[2019-03-06] MEDS: TAMSULOSIN (SR) 0.4 MG CAP PO SCH (21:08)
[2019-03-06] MEDS: LORAZEPAM 2 MG INJ IV PRN (22:06)
[2019-03-07 02:30] VITALS: BP 110/66; PULSE 102; RESP 18
[2019-03-07] MEDS: HYDROmorphONE 2 MG/ML SYG IV PRN (04:11)
[2019-03-07] MEDS: PANTOPRAZOLE (EC) 40 MG TAB PO SCH (05:25)
[2019-03-07] MEDS: METHADONE (1 MG/ML 5 ML PO UD SYG) PO SCH (05:26)
[2019-03-07 07:40] VITALS: BP 111/66; PULSE 68; RESP 18
--- NOTE | 2019-03-07 07:45 | CONS ---
Assessment/Plan Assessment/Plan Assessment/Plan (Daily) Metastatic prostate cancer Metastasis to bones excruciating pain secondary to the above Lumbosacral spine pain secondary to metastasis Noncompliant with prior recommendations for treatment Multiple falls at home secondary to weakness weight loss Failure to thrive Malnutrition Hypertension I did not hear back from case management yesterday. Reviewed notes from Dr. Wong, senior care facility will not accept patient on Casodex or methadone. This is unfortunate because methadone is the best drug for metastatic disease with bony metastasis. I have made changes to his pain control and discontinue the methadone and added on MS Contin 15 mg twice daily continue with the PRN doses of Dilaudid but change to p.o.. Pain is controlled. Consultation Date/Type/Reason Admit Date/Time Feb 28, 2019 at 05:11 Initial Consult Date 03/01/19 Requesting Provider: MILLY LABOY MD Date/Time of Note DATE: 03/07/19 TIME: 07:40 Exam/Review of Systems Exam Vitals Vital Signs Date Temp Pulse Resp B/P (MAP) Pulse Ox O2 O2 Flow FiO2 Time Delivery Rate 03/07/19 97.8 102 18 110/66 98 02:30 (81) 03/06/19 Room Air 14:00 Intake and Output 03/06/19 03/06/19 03/07/19 1515:00 23:00 07:00 IntakeIntake Total 730 ml 320 ml OutputOutput Total 650 ml 700 ml BalanceBalance 80 ml -380 ml Constitutional: alert, oriented, well developed Psych: confusion Neck: supple, non-tender Neurological: M[employer] SUPER[employer]OR II-XII intact, nl mental status, nl speech, nl strength; No confused, No DTR's symmetric, No focal weakness, No lethargic, No n umbness, No reflexes, No unresponsive, No other Results Result Diagram: 03/07/191 03/04/19 0441 Results 24hrs Laboratory Tests Test 03/07/19 04:41 White Blood Count 4.6 L Red Blood Count 2.80 L Hemoglobin 7.3 L Hematocrit 24.4 L Mean Corpuscular Volume 87.1 Mean Corpuscular Hemoglobin 26.1 L Mean Corpuscular Hemoglobin Concent 29.9 L Red Cell Distribution Width 16.8 H Platelet Count 171 Mean Platelet Volume 9.7 Immature Granulocytes % 3.900 H Neutrophils % 69.0 Lymphocytes % 19.5 Monocytes % 7.0 Eosinophils % 0.4 Basophils % 0.2 Nucleated Red Blood Cells % 0.0 Immature Granulocytes # 0.180 H Neutrophils # 3.2 Lymphocytes # 0.9 Monocytes # 0.3 Eosinophils # 0.0 Basophils # 0.0 Nucleated Red Blood Cells # 0.0 Medications Medication Current Medications Pantoprazole (Protonix Tab) 40 mg DAILY@06 PO Last administered on 03/07/19 05:25; Admin Dose 40 MG; Start 02/28/19 at 06:00 Albuterol/ Ipratropium (Duoneb) 3 ml Q6H RESP THERAPY PRN HHN SHORTNESS OF BREATH; Start 02/28/19 at 06:00 Acetaminophen (Tylenol Tab) 650 mg Q6H PRN PO MILD PAIN(1-3)OR ELEVATED TEMP Last administered on 03/05/19 15:29; Admin Dose 650 MG; Start 02/28/19 at 06:00 Bisacodyl (Dulcolax) 10 mg DAILY PRN PO CONSTIPATION; Start 02/28/19 at 06:00 Miscellaneous Information (Pending [facility] Order For Wound Care) This patient lopez... PRN PRN XX WOUND CARE; Start 02/28/19 at 06:00 Calcium Carbonate (Ca Carbonate) 1,250 mg BID PO Last administered on 03/06/19 21:08; Admin Dose 1,250 MG; Start 02/28/19 at 21:00 Ceftriaxone Sodium 50 ml @ 100 mls/hr Q24H IVPB Last administered on 03/06/19 16:30; Admin Dose 100 MLS/HR; Start 02/28/19 at 16:00 Bicalutamide (Casodex) 50 mg DAILY PO Last administered on 03/06/19 09:16; Admin Dose 50 MG; Start 03/01/19 at 09:00 Hydromorphone HCl (Dilaudid) 1.5 mg Q4H PRN IV SEVERE PAIN LEVEL 7-10 Last administered on 03/07/19 04:11; Admin Dose 1.5 MG; Start 03/01/19 at 15:30 Lorazepam (Ativan) 0.5 mg Q6H PRN IV ANXIETY Last administered on 03/06/19 22:06; Admin Dose 0.5 MG; Start 03/01/19 at 19:00 Tamsulosin HCl (Flomax) 0.4 mg HS PO Last administered on 03/06/19at 21:08; Admin Dose 0.4 MG; Start 03/02/19 at 21:00 Morphine Sulfate (Ms Contin (Er)) 15 mg BID PO ; Start 03/07/19 at 09:00 KENZIE RODRIGUEZ Mar 07, 2019 07:44
--- NOTE | 2019-03-07 07:47 | CONS ---
Consultation Date/Type/Reason Admit Date/Time Feb 28, 2019 at 05:11 Initial Consult Date 03/01/19 Type of Consult Oncology Reason for Consultation Metastatic Prostate Cancer Requesting Provider: MILLY LABOY MD Date/Time of Note DATE: 03/06/19 TIME: 16:00 24 HR Interval Summary Free Text/Dictation #Metastatic prostate cancer -pt has disease diffusely throughout the liver, bones and lymph nodes -PSA is currently> 600 - Per Dr Pardo - pt should have a confirmatory prostate bx but given the high likelihood of prostate cancer and heavy disease burden, ideally patient should be started on upfront Taxotere chemotherapy with Casodex and Lupron -This was discussed with the patient who states he needs to "think about" starting any type of therapy -Today Dr. Nguyen started patient on Lupron and is continuing Casodex daily -he could also be evaluated by radiation oncology as an out patient for his back pain as palliative XRT may help this issue -if he refuses all treatment, he should be referred for hospice eval but at this time brother is actively involved in making decisions with the patient and heard that he does not want hospice for the patient. So, I will arrange a meeting with the brother and the patient to decide on the treatment. #Anemia -Hgb 7.2, standing order is present to transfuse 1 unit for hgb below 7.0 -will continue to monitor Thank you for the opportunity to participate in this patients care A total of 40 minutes of face to face time was spent speaking with the patient, of which greater than 50% was spent in counseling and coordination of care and the detailed question and answer session. Seen in collaboration with Dr. Pardo. Exam/Review of Systems Exam Vitals Vital Signs Date Temp Pulse Resp B/P (MAP) Pulse Ox O2 O2 Flow FiO2 Time Delivery Rate 03/07/19 97.8 102 18 110/66 98 02:30 (81) 03/06/19 Room Air 14:00 Intake and Output 03/06/19 03/06/19 03/07/19 1515:00 23:00 07:00 IntakeIntake Total 730 ml 320 ml OutputOutput Total 650 ml 700 ml BalanceBalance 80 ml -380 ml Results Result Diagram: 03/07/19 0441 03/04/19 0441 Results 24hrs Laboratory Tests Test 03/07/19 04:41 White Blood Count 4.6 L Red Blood Count 2.80 L Hemoglobin 7.3 L Hematocrit 24.4 L Mean Corpuscular Volume 87.1 Mean Corpuscular Hemoglobin 26.1 L Mean Corpuscular Hemoglobin Concent 29.9 L Red Cell Distribution Width 16.8 H Platelet Count 171 Mean Platelet Volume 9.7 Immature Granulocytes % 3.900 H Neutrophils % 69.0 Lymphocytes % 19.5 Monocytes % 7.0 Eosinophils % 0.4 Basophils % 0.2 Nucleated Red Blood Cells % 0.0 Immature Granulocytes # 0.180 H Neutrophils # 3.2 Lymphocytes # 0.9 Monocytes # 0.3 Eosinophils # 0.0 Basophils # 0.0 Nucleated Red Blood Cells # 0.0 Medications Medication Current Medications Pantoprazole (Protonix Tab) 40 mg DAILY@06 PO Last administered on 03/07/19at 05:25; Admin Dose 40 MG; Start 02/28/19 at 06:00 Albuterol/ Ipratropium (Duoneb) 3 ml Q6H RESP THERAPY PRN HHN SHORTNESS OF BREATH; Start 02/28/19 at 06:00 Acetaminophen (Tylenol Tab) 650 mg Q6H PRN PO MILD PAIN(1-3)OR ELEVATED TEMP Last administered on 03/05/19at 15:29; Admin Dose 650 MG; Start 02/28/19 at 06:00 Bisacodyl (Dulcolax) 10 mg DAILY PRN PO CONSTIPATION; Start 02/28/19 at 06:00 Miscellaneous Information (Pending [facility] Order For Wound Care) This patient lopez... PRN PRN XX WOUND CARE; Start 02/28/19 at 06:00 Calcium Carbonate (Ca Carbonate) 1,250 mg BID PO Last administered on 03/06/19at 21:08; Admin Dose 1,250 MG; Start 02/28/19 at 21:00 Ceftriaxone Sodium 50 ml @ 100 mls/hr Q24H IVPB Last administered on 03/06/19at 16:30; Admin Dose 100 MLS/HR; Start 02/28/19 at 16:00 Bicalutamide (Casodex) 50 mg DAILY PO Last administered on 03/06/19at 09:16; Admin Dose 50 MG; Start 03/01/19 at 09:00 Hydromorphone HCl (Dilaudid) 1.5 mg Q4H PRN IV SEVERE PAIN LEVEL 7-10 Last administered on 03/07/19at 04:11; Admin Dose 1.5 MG; Start 03/01/19 at 15:30 Lorazepam (Ativan) 0.5 mg Q6H PRN IV ANXIETY Last administered on 03/06/19at 22:06; Admin Dose 0.5 MG; Start 03/01/19 at 19:00 Tamsulosin HCl (Flomax) 0.4 mg HS PO Last administered on 03/06/19at 21:08; Admin Dose 0.4 MG; Start 03/02/19 at 21:00 Morphine Sulfate (Ms Contin (Er)) 15 mg BID PO ; Start 03/07/19 at 09:00 CRISTO MARLEY NP Mar 07, 2019 07:47
[2019-03-07] MEDS: morphine (ER) 15 MG TAB PO SCH ×2 (08:02→21:21)
[2019-03-07] MEDS: CA CARBONATE (250 MG/ML) 5ML CUP PO SCH ×2 (08:02→21:23)
[2019-03-07] MEDS: BICALUTAMIDE 50 MG TAB PO SCH (08:03)
[2019-03-07] MEDS: LORAZEPAM 2 MG INJ IV PRN (09:57)
--- NOTE | 2019-03-07 11:48 | CONS ---
Assessment/Plan Assessment/Plan Hospital Course (Demo Recall) #Metastatic prostate cancer -pt has disease diffusely throughout the liver, bones and lymph nodes -PSA is currently> 600 - Per Dr Pardo - pt should have a confirmatory prostate bx but given the high likelihood of prostate cancer and heavy disease burden, ideally patient should be started on upfront Taxotere chemotherapy with Casodex and Lupron. He may also be a candidate for upfront therapy with Abiraterone which would start as an out patient -This was discussed with the patient who states he needs to "think about" starting any type of therapy -he could also be evaluated by radiation oncology as an out patient for his back pain as palliative XRT may help this issue -at the very least he should continue Casodex for now -if he refuses all treatment, he should be referred for hospice eval Thank you for the opportunity to participate in this patients care A total of 40 minutes of face to face time was spent speaking with the patient, of which greater than 50% was spent in counseling and coordination of care and the detailed question and answer session. Consultation Date/Type/Reason Admit Date/Time Feb 28, 2019 at 05:11 Initial Consult Date 03/01/19 Type of Consult oncology Reason for Consultation metastatic prostate cancer Requesting Provider: MILLY LABOY MD Date/Time of Note DATE: 03/07/19 TIME: 11:42 24 HR Interval Summary Free Text/Dictation pt's brother states he does not want his brother to go to hospice and wants his brother to continue treatment. pt himself is still not complaint with all therapies but is currently taking casodex and received lupron yesterday Exam/Review of Systems Exam Vitals Vital Signs Date Temp Pulse Resp B/P (MAP) Pulse Ox O2 O2 Flow FiO2 Time Delivery Rate 03/07/19 98.0 68 18 111/66 94 Room Air 07:40 (81) Intake and Output 03/06/19 03/06/19 03/07/19 1515:00 23:00 07:00 IntakeIntake Total 730 ml 320 ml OutputOutput Total 650 ml 700 ml BalanceBalance 80 ml -380 ml Constitutional: alert, distress, frail Psych: anxiety, confusion, depression Head: normocephalic Eyes: nl conjunctiva ENMT: nl external ears & nose Neck: supple Respiratory: clear to auscultation Cardiovascular: regular rate and rhythm Gastrointestinal: soft Musculoskeletal: nl extremities to inspection Results Result Diagram: 03/07/19 0441 03/04/19 0441 Results 24hrs Laboratory Tests Test 03/07/19 04:41 White Blood Count 4.6 L Red Blood Count 2.80 L Hemoglobin 7.3 L Hematocrit 24.4 L Mean Corpuscular Volume 87.1 Mean Corpuscular Hemoglobin 26.1 L Mean Corpuscular Hemoglobin Concent 29.9 L Red Cell Distribution Width 16.8 H Platelet Count 171 Mean Platelet Volume 9.7 Immature Granulocytes % 3.900 H Neutrophils % 69.0 Lymphocytes % 19.5 Monocytes % 7.0 Eosinophils % 0.4 Basophils % 0.2 Nucleated Red Blood Cells % 0.0 Immature Granulocytes # 0.180 H Neutrophils # 3.2 Lymphocytes # 0.9 Monocytes # 0.3 Eosinophils # 0.0 Basophils # 0.0 Nucleated Red Blood Cells # 0.0 Medications Medication Current Medications Pantoprazole (Protonix Tab) 40 mg DAILY@06 PO Last administered on 03/07/19at 05:25; Admin Dose 40 MG; Start 02/28/19 at 06:00 Albuterol/ Ipratropium (Duoneb) 3 ml Q6H RESP THERAPY PRN HHN SHORTNESS OF BREATH; Start 02/28/19 at 06:00 Acetaminophen (Tylenol Tab) 650 mg Q6H PRN PO MILD PAIN(1-3)OR ELEVATED TEMP Last administered on 03/05/19at 15:29; Admin Dose 650 MG; Start 02/28/19 at 06:00 Bisacodyl (Dulcolax) 10 mg DAILY PRN PO CONSTIPATION; Start 02/28/19 at 06:00 Miscellaneous [facility] This patient h a... PRN PRN XX WOUND CARE; Start 02/28/19 at 06:00 Calcium Carbonate (Ca Carbonate) 1,250 mg BID PO Last administered on 03/07/19at 08:02; Admin Dose 1,250 MG; Start 02/28/19 at 21:00 Ceftriaxone Sodium 50 ml @ 100 mls/hr Q24H IVPB Last administered on 03/06/19at 16:30; Admin Dose 100 MLS/HR; Start 02/28/19 at 16:00 Bicalutamide (Casodex) 50 mg DAILY PO Last administered on 03/07/19at 08:03; Admi n Dose 50 MG; Start 03/01/19 at 09:00 Lorazepam (Ativan) 0.5 mg Q6H PRN IV ANXIETY Last administered on 03/07/19at 09:57; Admin Dose 0.5 MG; Start 03/01/19 at 19:00 Tamsulosin HCl (Flomax) 0.4 mg HS PO Last administered on 03/06/19at 21:08; Admin Dose 0.4 MG; Start 03/02/19 at 21:00 Morphine Sulfate (Ms Contin (Er)) 15 mg BID PO Last administered on 03/07/19at 08:02; Admin Dose 15 MG; Start 03/07/19 at 09:00 Hydromorphone HCl (Dilaudid) 2 mg Q4H PRN PO SEVERE PAIN LEVEL 7-10; Start 03/07/19 at 08:00 NESTOR PARDO M.D. Mar 07, 2019 11:48
[2019-03-07] MEDS: HYDROmorphONE 2 MG TAB PO PRN ×3 (13:03→23:49)
[2019-03-07 15:32] VITALS: BP 116/70; PULSE 80; RESP 18
[2019-03-07] MEDS: CEFTRIAXONE 1 GM/50 ML (PMX) 50 ML IVPB SCH (16:00)
[2019-03-07] MEDS: CIPROFLOXACIN 500 MG TAB PO SCH (18:00)
--- NOTE | 2019-03-07 18:23 | PN ---
Date/Time of Note Date/Time of Note DATE: 03/07/19 TIME: 18:19 Assessment/Plan VTE Prophylaxis Risk score (from Nsg)>0 risk: 4 SCD applied (from Ns): Yes Pharmacological prophylaxis: NA/contraindicated Pharm contraindication: low risk/ambulating Lines/Catheters IV Catheter Type (from Nrsg): Saline Lock Urinary Cath still in place: Yes Reason Cath still needed: urinary retention Assessment/Plan Assessment/Plan 1 Recurrent falls, failure to thrive, weight loss, generalized body aches, likely secondary to metastatic prostate cancer. The patient was here in August 2018. The patient was seen by multiple consultants including urology and oncology. The patient had a prostate specific antigen over 1000. The patient was deemed that he had capacity to make decisions. The patient was offered group home; however, he left and went home. He never followed up with any appointments and likely has progression of disease. Likely has metastatic prostate cancer now on casodex and lupron 2. History of falls with subdural hematomas. 3. Severe anemia. 4. Pancytopenia with a history of hepatitis C. 5. Alcoholism. 6. History of smoking. 7. Elevated alkaline phosphatase could be secondary to bony metastases. Metastatic disease. He is on Casodex 8. Edema with hypoalbuminemia. 9. Likely urinary tract infection. 10. cachexia. Malnourishment 11.Chronic pain and anxiety Assessment/Plan -cw casoden, sp lupron -Repeat hemoglobin stable Hold off of blood thinners due to severe anemia, SCDs were put put on however patient had been refusing it - ? capacity> [facility] -Talk to the brother who wanted all the treatment to be pursued for for however when I spoke to him and told him that if he is refusing treatments then want to do, he said to offer him the treatment and if he refuses then he refuses and then in that case would wait for him to come on March 12, -Follow-up with Dr. Nguyen and Dr. alves recommendations - switched to MS contin and dilaudid po> will see if pain is controlled -c/w oradol for pain fu dr rooney - now has galeana - cw abx for UTI - Nutrition - social service consult - scd It is very challenging case. Patient apparently was supposed to sign hospice but did not sign it when spoke to the brother had spoken to the brother and he wanted full treatment as if of yesterday. Patient is in pain and is currently on oral Casodex methadone Lupron was give . In case the family decided not to be on hospital and patient goes to group home we have to check with the nursing h, Pt accepted at [facility] , will see pain is controlled today on current regimen Result Diagram: Result Diagram: 03/07/19 0441 03/04/19 0441 Results 24hrs Laboratory Tests Test 03/07/19 04:41 White Blood Count 4.6 L Red Blood Count 2.80 L Hemoglobin 7.3 L Hematocrit 24.4 L Mean Corpuscular Volume 87.1 Mean Corpuscular Hemoglobin 26.1 L Mean Corpuscular Hemoglobin Concent 29.9 L Red Cell Distribution Width 16.8 H Platelet Count 171 Mean Platelet Volume 9.7 Immature Granulocytes % 3.900 H Neutrophils % 69.0 Lymphocytes % 19.5 Monocytes % 7.0 Eosinophils % 0.4 Basophils % 0.2 Nucleated Red Blood Cells % 0.0 Immature Granulocytes # 0.180 H Neutrophils # 3.2 Lymphocytes # 0.9 Monocytes # 0.3 Eosinophils # 0.0 Basophils # 0.0 Nucleated Red Blood Cells # 0.0 Subjective 24 Hr Interval Summary Free Text/Dictation PT lying corner of bed, taking his clothes off awake,alert Exam/Review of Systems Exam Vitals Vital Signs Date Temp Pulse Resp B/P (MAP) Pulse Ox O2 O2 Flow FiO2 Time Delivery Rate 03/07/19 97.8 80 18 116/70 90 Room Air 15:32 (85) Intake and Output 03/06/19 03/06/19 03/07/19 1515:00 23:00 07:00 IntakeIntake Total 730 ml 320 ml OutputOutput Total 650 ml 700 ml BalanceBalance 80 ml -380 ml Exam awake,alert turned side of bed Eyes: anicteric, EOM's intact, no pallor Nose: no rhinorrhea Neck: supple, no thyromegaly, no carotid bruits Lungs: clear bilaterally, decreased. CVS: regular rate and rhythm, no murmurs Abdomen: soft, bowel sounds present, scaphoid. Rectal: differed. External genitalia: no lesions. Extremities: no edema, DP pulses are palpable Neuro: alert and oriented x 3 Gait: unable to assess Motor strenght:weak Sensory exam: normal Deep tendon reflexes: normal, Babisky reflexes are absent bilaterally Results Results Results 24hrs Laboratory Tests Test 03/07/19 04:41 White Blood Count 4.6 L Red Blood Count 2.80 L Hemoglobin 7.3 L Hematocrit 24.4 L Mean Corpuscular Volume 87.1 Mean Corpuscular Hemoglobin 26.1 L Mean Corpuscular Hemoglobin Concent 29.9 L Red Cell Distribution Width 16.8 H Platelet Count 171 Mean Platelet Volume 9.7 Immature Granulocytes % 3.900 H Neutrophils % 69.0 Lymphocytes % 19.5 Monocytes % 7.0 Eosinophils % 0.4 Basophils % 0.2 Nucleated Red Blood Cells % 0.0 Immature Granulocytes # 0.180 H Neutrophils # 3.2 Lymphocytes # 0.9 Monocytes # 0.3 Eosinophils # 0.0 Basophils # 0.0 Nucleated Red Blood Cells # 0.0 Medications Medication Current Medications Pantoprazole (Protonix Tab) 40 mg DAILY@06 PO Last administered on 03/07/19at 05:25; Admin Dose 40 MG; Start 02/28/19 at 06:00 Albuterol/ Ipratropium (Duoneb) 3 ml Q6H RESP THERAPY PRN HHN SHORTNESS OF BREATH; Start 02/28/19 at 06:00 Acetaminophen (Tylenol Tab) 650 mg Q6H PRN PO MILD PAIN(1-3)OR ELEVATED TEMP Last administered on 03/05/19at 15:29; Admin Dose 650 MG; Start 02/28/19 at 06:00 Bisacodyl (Dulcolax) 10 mg DAILY PRN PO CONSTIPATION; Start 02/28/19 at 06:00 [facility] This patient lopez... PRN PRN XX WOUND CARE; Start 02/28/19 at 06:00 Calcium Carbonate (Ca Carbonate) 1,250 mg BID PO Last administered on 03/07/19at 08:02; Admin Dose 1,250 MG; Start 02/28/19 at 21:00 Bicalutamide (Casodex) 50 mg DAILY PO Last administered on 03/07/19 08:03; Admin Dose 50 MG; Start 03/01/19 at 09:00 Lorazepam (Ativan) 0.5 mg Q6H PRN IV ANXIETY Last administered on 03/07/19at 09:57; Admin Dose 0.5 MG; Start 03/01/19 at 19:00 Tamsulosin HCl (Flomax) 0.4 mg HS PO Last administered on 03/06/19at 21:08; Admin Dose 0.4 MG; Start 03/02/19 at 21:00 Morphine Sulfate (Ms Contin (Er)) 15 mg BID PO Last administered on 03/07/19at 08:02; Admin Dose 15 MG; Start 03/07/19 at 09:00 Hydromorphone HCl (Dilaudid) 2 mg Q4H PRN PO SEVERE PAIN LEVEL 7-10 Last administered on 03/07/19at 13:03; Admin Dose 2 MG; Start 03/07/19 at 08:00 Ciprofloxacin (Cipro) 500 mg BID@,18 PO ; Start 03/07/19 at 18:00 VALDO HERNANDEZ MD Mar 07, 2019 18:23
[2019-03-07 19:20] VITALS: BP 122/78; PULSE 94; RESP 20
[2019-03-07] MEDS: TAMSULOSIN (SR) 0.4 MG CAP PO SCH (21:20)
[2019-03-07] MEDS: ACETAMINOPHEN 325 MG TAB PO PRN (22:54)
[2019-03-08] MEDS: LORAZEPAM 2 MG INJ IV PRN (00:44)
[2019-03-08 02:10] VITALS: BP 117/58; PULSE 89; RESP 18
[2019-03-08] MEDS: PANTOPRAZOLE (EC) 40 MG TAB PO SCH (05:26)
[2019-03-08] MEDS: CIPROFLOXACIN 500 MG TAB PO SCH ×2 (05:26→18:55)
[2019-03-08] MEDS: HYDROmorphONE 2 MG TAB PO PRN ×2 (05:27→13:40)
[2019-03-08 07:41] VITALS: BP 109/78; PULSE 93; RESP 19
[2019-03-08] MEDS: morphine (ER) 15 MG TAB PO SCH ×2 (09:45→20:42)
[2019-03-08] MEDS: CA CARBONATE (250 MG/ML) 5ML CUP PO SCH ×2 (09:45→20:41)
[2019-03-08] MEDS: BICALUTAMIDE 50 MG TAB PO SCH (09:46)
--- NOTE | 2019-03-08 10:04 | PSY ---
Date/Time of Note Date/Time of Note DATE: 03/08/19 TIME: 10:02 Psychiatric Subjective Eval Consent Pt consented to telemedicine: No Subjective Evaluation Patient location: inpatient History of present illness Patient is a 73-year-old male admitted prostate cancer. Patient has history of subdural hematoma, and hepatitis C. on a [id number] evaluation patient is alert but with periods of disorganized thoughts Mini-Mental status exam done and patient scored very poorly he did not answer half of the questions states got every question he answered wrong. Based on my evaluation he has no capacity at this time to make decisions. He denies any history of depression denies suicidal ideation denies feeling hopeless denies feeling helpless and contracted for safety. However patient is somewhat anxious and his moving around in bed,states he is very uncomfortable Past psychiatric history Denies Hospitalization: other Allergies: Coded Allergies: No Known Allergy (Unverified , 08/17/18) Substance Abuse Substance use: other Substance abuse history: No Prior substance abuse treatmen: No Social History Marital status: other DPA/Conservatorship: No Psychiatric Objective Eval Review of Systems: Review of Systems: Not Applicable Physical Examination: Physical Examination: Not Applicable Appetite: Decreased Energy: Decreased Mental Status Examination: Eye Contact: Fair Psychomotor Activity: Slow Behavior: Cooperative Speech: Soft AFFECT: Constricted Mood: Anxious Orientation: x1 Insight: Moderate Judgement: Moderate Attention Span: Distractible Laboratory Results Laboratory Tests Test 03/07/19 04:41 03/08/19 08:11 03/08/19 08:12 White Blood Count 4.6 10^3/ul 3.7 10^3/ul Red Blood Count 2.80 10^6/ul 2.73 10^6/ul Hemoglobin 7.3 g/dl 7.2 g/dl Hematocrit 24.4 % 23.3 % Mean Corpuscular Volume 87.1 fl 85.3 fl Mean Corpuscular Hemoglobin 26.1 pg 26.4 pg Mean Corpuscular 29.9 g/dl 30.9 g/dl Hemoglobin Concent Red Cell Distribution Width 16.8 % 16.8 % Platelet Count 171 10^3/UL 163 10^3/UL Mean Platelet Volume 9.7 fl 9.8 fl Immature Granulocytes % 3.900 % 2.700 % Neutrophils % 69.0 % 66.4 % Lymphocytes % 19.5 % 20.4 % Monocytes % 7.0 % 9.5 % Eosinophils % 0.4 % 0.5 % Basophils % 0.2 % 0.5 % Nucleated Red Blood Cells % 0.0 /100WBC 0.0 /100WBC Immature Granulocytes # 0.180 10^3/ul 0.100 10^3/ul Neutrophils # 3.2 10^3/ul 2.4 10^3/ul Lymphocytes # 0.9 10^3/ul 0.8 10^3/ul Monocytes # 0.3 10^3/ul 0.4 10^3/ul Eosinophils # 0.0 10^3/ul 0.0 10^3/ul Basophils # 0.0 10^3/ul 0.0 10^3/ul Nucleated Red Blood Cells # 0.0 10^3/ul 0.0 10^3/ul Sodium Level 134 mmol/L Potassium Level 4.5 mmol/L Chloride Level 102 mmol/L Carbon Dioxide Level 27 mmol/L Anion Gap 5 Blood Urea Nitrogen 14 mg/dl Creatinine 0.89 mg/dl Est Glomerular Filtrat Rate mL/min mL/min Glucose Level 75 mg/dl Calcium Level 7.9 mg/dl Phosphorus Level 3.5 mg/dl Magnesium Level 1.9 mg/dl Assessment and Plan Recommendation/Plan Medication Management Ativan 0.5 mg IV every 6 hours for anxiety Multiple antipsychotics: No Psychotherapy Provide supportive therapy Discharge Disposition: Other Legal Status: Voluntary (Does not meet criteria for 5150 hold) GARLAND RODRÍGUEZ NP Mar 08, 2019 10:04
--- NOTE | 2019-03-08 11:01 | CONS ---
Assessment/Plan Assessment/Plan Hospital Course (Demo Recall) #Metastatic prostate cancer -pt has disease diffusely throughout the liver, bones and lymph nodes -PSA is currently> 600 - Per Dr Pardo - pt should have a confirmatory prostate bx but given the high likelihood of prostate cancer and heavy disease burden, ideally patient should be started on upfront Taxotere chemotherapy with Casodex and Lupron. He may also be a candidate for upfront therapy with Abiraterone which would start as an out patient -This was discussed with the patient who states he needs to "think about" starting any type of therapy -he could also be evaluated by radiation oncology as an out patient for his back pain as palliative XRT may help this issue -at the very least he should continue Casodex for now -if he refuses all treatment, he should be referred for hospice eval Thank you for the opportunity to participate in this patients care A total of 40 minutes of face to face time was spent speaking with the patient, of which greater than 50% was spent in counseling and coordination of care and the detailed question and answer session. Consultation Date/Type/Reason Admit Date/Time Feb 28, 2019 at 05:11 Initial Consult Date 03/01/19 Type of Consult oncology Reason for Consultation metastatic prostate cancer Requesting Provider: MILLY LABOY MD Date/Time of Note DATE: 03/08/19 TIME: 11:01 24 HR Interval Summary Free Text/Dictation continues on casodex and lupron Exam/Review of Systems Exam Vitals Vital Signs Date Temp Pulse Resp B/P (MAP) Pulse Ox O2 O2 Flow FiO2 Time Delivery Rate 03/08/19 97.3 93 19 109/78 100 Room Air 07:41 (88) Intake and Output 03/07/19 03/07/19 03/08/19 1515:00 23:00 07:00 IntakeIntake Total 200 ml 100 ml OutputOutput Total 500 ml 800 ml BalanceBalance 200 ml -400 ml -800 ml Constitutional: alert, distress, frail Psych: anxiety, confusion, depression Head: normocephalic Eyes: nl conjunctiva ENMT: nl external ears & nose Neck: supple Respiratory: clear to auscultation Cardiovascular: regular rate and rhythm Gastrointestinal: soft Musculoskeletal: nl extremities to inspection Extremities: normal pulses Results Result Diagram: 03/08/19 0811 03/08/19 0812 Results 24hrs Laboratory Tests Test 03/08/19 08:11 03/08/19 08:12 White Blood Count 3.7 L Red Blood Count 2.73 L Hemoglobin 7.2 L Hematocrit 23.3 L Mean Corpuscular Volume 85.3 Mean Corpuscular Hemoglobin 26.4 L Mean Corpuscular Hemoglobin Concent 30.9 L Red Cell Distribution Width 16.8 H Platelet Count 163 Mean Platelet Volume 9.8 Immature Granulocytes % 2.700 H Neutrophils % 66.4 Lymphocytes % 20.4 Monocytes % 9.5 Eosinophils % 0.5 Basophils % 0.5 Nucleated Red Blood Cells % 0.0 Immature Granulocytes # 0.100 H Neutrophils # 2.4 Lymphocytes # 0.8 Monocytes # 0.4 Eosinophils # 0.0 Basophils # 0.0 Nucleated Red Blood Cells # 0.0 Sodium Level 134 L Potassium Level 4.5 Chloride Level 102 Carbon Dioxide Level 27 Anion Gap 5 Blood Urea Nitrogen 14 Creatinine 0.89 Est Glomerular Filtrat Rate mL/min Glucose Level 75 Calcium Level 7.9 L Phosphorus Level 3.5 Magnesium Level 1.9 Medications Medication Current Medications Pantoprazole (Protonix Tab) 40 mg DAILY@06 PO Last administered on 03/08/19at 05:26; Admin Dose 40 MG; Start 02/28/19 at 06:00 Albuterol/ Ipratropium (Duoneb) 3 ml Q6H RESP THERAPY PRN HHN SHORTNESS OF BREATH; Start 02/28/19 at 06:00 Acetaminophen (Tylenol Tab) 650 mg Q6H PRN PO MILD PAIN(1-3)OR ELEVATED TEMP Last administered on 03/07/19at 22:54; Admin Dose 650 MG; Start 02/28/19 at 06:00 Bisacodyl (Dulcolax) 10 mg DAILY PRN PO CONSTIPATION; Start 02/28/19 at 06:00 Miscellaneous [facility] ([facility] This patient lopez... PRN PRN XX WOUND CARE; Start 02/28/19 at 06:00 Calcium Carbonate (Ca Carbonate) 1,250 mg BID PO Last administered on 03/08/19at 09:45; Admin Dose 1,250 MG; Start 02/28/19 at 21:00 Bicalutamide (Casodex) 50 mg DAILY PO Last administered on 03/08/19at 09:46; Admin Dose 50 MG; Start 03/01/19 at 09:00 Lorazepam (Ativan) 0.5 mg Q6H PRN IV ANXIETY Last administered on 03/08/19at 00:44; Admin Dose 0.5 MG; Start 03/01/19 at 19:00 Tamsulosin HCl (Flomax) 0.4 mg HS PO Last administered on 03/07/19at 21:20; Admin Dose 0.4 MG; Start 03/02/19 at 21:00 Morphine Sulfate (Ms Contin (Er)) 15 mg BID PO Last administered on 03/08/19at 09:45; Admin Dose 15 MG; Start 03/07/19 at 09:00 Hydromorphone HCl (Dilaudid) 2 mg Q4H PRN PO SEVERE PAIN LEVEL 7-10 Last administered on 03/08/19at 05:27; Admin Dose 2 MG; Start 03/07/19 at 08:00 Ciprofloxacin (Cipro) 500 mg BID@06,18 PO Last administered on 03/08/19 05:26; Admin Dose 500 MG; Start 03/07/19 at 18:00 NESTOR PARDO M.D. Mar 08, 2019 11:01
[2019-03-08 11:26] VITALS: BP 99/62; PULSE 86; RESP 19
[2019-03-08] MEDS ORDERED: SOD CHLORIDE 0.9% 250 ML IV* ONE (14:52)
[2019-03-08 15:39] VITALS: BP 115/72; PULSE 92; RESP 20
--- NOTE | 2019-03-08 17:03 | PN ---
Date/Time of Note Date/Time of Note DATE: 03/08/19 TIME: 17:01 Assessment/Plan VTE Prophylaxis Risk score (from [facility])>0 risk: 6 SCD applied (from [facility]): No SCD contraindicated: patient refusal Pharmacological prophylaxis: NA/contraindicated Pharm contraindication: thrombocytopenia, anticoag not tolerated Lines/Catheters IV Catheter Type (from [facility]): Saline Lock Urinary Cath still in place: Yes Reason Cath still needed: urinary retention Assessment/Plan Hospital Course 1. Recurrent falls, failure to thrive, weight loss, generalized body aches, likely secondary to metastatic prostate cancer. The patient was here in August 2018. The patient was seen by multiple consultants including urology and oncology. The patient had a prostate specific antigen over 1000. The patient was deemed that he had capacity to make decisions. The patient was offered fdc; however, he left and went home. He never followed up with any appointments and likely has progression of disease. 2. History of falls with subdural hematomas. 3. Severe anemia. 4. Pancytopenia with a history of hepatitis C. 5. Alcoholism. 6. History of smoking. 7. Elevated alkaline phosphatase could be secondary to bony metastases. Metastatic disease. He is on Casodex 8. Edema with hypoalbuminemia. 9. Likely urinary tract infection. 10. cachexia. Malnourishment 11.Chronic pain and anxiety Assessment/Plan -cw Casodex, s/p Lupron -blood transfusion -d.c pending - social service consult seen - scd -do not remove galeana cath Result Diagram: 03/08/19 0811 03/08/19 0812 Results 24hrs Laboratory Tests Test 03/08/19 08:11 03/08/19 08:12 White Blood Count 3.7 L Red Blood Count 2.73 L Hemoglobin 7.2 L Hematocrit 23.3 L Mean Corpuscular Volume 85.3 Mean Corpuscular Hemoglobin 26.4 L Mean Corpuscular Hemoglobin Concent 30.9 L Red Cell Distribution Width 16.8 H Platelet Count 163 Mean Platelet Volume 9.8 Immature Granulocytes % 2.700 H Neutrophils % 66.4 Lymphocytes % 20.4 Monocytes % 9.5 Eosinophils % 0.5 Basophils % 0.5 Nucleated Red Blood Cells % 0.0 Immature Granulocytes # 0.100 H Neutrophils # 2.4 Lymphocytes # 0.8 Monocytes # 0.4 Eosinophils # 0.0 Basophils # 0.0 Nucleated Red Blood Cells # 0.0 Sodium Level 134 L Potassium Level 4.5 Chloride Level 102 Carbon Dioxide Level 27 Anion Gap 5 Blood Urea Nitrogen 14 Creatinine 0.89 Est Glomerular Filtrat Rate mL/min Glucose Level 75 Calcium Level 7.9 L Phosphorus Level 3.5 Magnesium Level 1.9 Subjective 24 Hr Interval Summary Musculoskeletal: bone/joint pain Exam/Review of Systems Exam Vitals Vital Signs Date Temp Pulse Resp B/P (MAP) Pulse Ox O2 O2 Flow FiO2 Time Delivery Rate 03/08/19 98.3 92 20 115/72 100 Room Air 15:39 (86) Intake and Output 03/07/19 03/07/19 03/08/19 1414:59 22:59 06:59 IntakeIntake Total 200 ml 100 ml OutputOutput Total 500 ml 800 ml BalanceBalance 200 ml -400 ml -800 ml Exam frail Constitutional: alert, oriented Head: normocephalic, atraumatic Respiratory: diminished breath sounds Cardiovascular: regular rate and rhythm Gastrointestinal: soft, bowel sounds Genitourinary - Male: other (galeana) Extremities: normal pulses Results Results 24hrs Laboratory Tests Test 03/08/19 08:11 03/08/19 08:12 White Blood Count 3.7 L Red Blood Count 2.73 L Hemoglobin 7.2 L Hematocrit 23.3 L Mean Corpuscular Volume 85.3 Mean Corpuscular Hemoglobin 26.4 L Mean Corpuscular Hemoglobin Concent 30.9 L Red Cell Distribution Width 16.8 H Platelet Count 163 Mean Platelet Volume 9.8 Immature Granulocytes % 2.700 H Neutrophils % 66.4 Lymphocytes % 20.4 Monocytes % 9.5 Eosinophils % 0.5 Basophils % 0.5 Nucleated Red Blood Cells % 0.0 Immature Granulocytes # 0.100 H Neutrophils # 2.4 Lymphocytes # 0.8 Monocytes # 0.4 Eosinophils # 0.0 Basophils # 0.0 Nucleated Red Blood Cells # 0.0 Sodium Level 134 L Potassium Level 4.5 Chloride Level 102 Carbon Dioxide Level 27 Anion Gap 5 Blood Urea Nitrogen 14 Creatinine 0.89 Est Glomerular Filtrat Rate mL/min Glucose Level 75 Calcium Level 7.9 L Phosphorus Level 3.5 Magnesium Level 1.9 Medications Medication Current Medications Pantoprazole (Protonix Tab) 40 mg DAILY@06 PO Last administered on 03/08/19at 05:26; Admin Dose 40 MG; Start 02/28/19 at 06:00 Albuterol/ Ipratropium (Duoneb) 3 ml Q6H RESP THERAPY PRN HHN SHORTNESS OF BREATH; Start 02/28/19 at 06:00 Acetaminophen (Tylenol Tab) 650 mg Q6H PRN PO MILD PAIN(1-3)OR ELEVATED TEMP Last administered on 03/07/19 22:54; Admin Dose 650 MG; Start 02/28/19 at 06:00 Bisacodyl (Dulcolax) 10 mg DAILY PRN PO CONSTIPATION; Start 02/28/19 at 06:00 Miscellaneous Information (Pending Santyl Order For Wound Care) This patient lopez... PRN PRN XX WOUND CARE; Start 02/28/19 at 06:00 Calcium Carbonate (Ca Carbonate) 1,250 mg BID PO Last administered on 03/08/19 09:45; Admin Dose 1,250 MG; Start 02/28/19 at 21:00 Bicalutamide (Casodex) 50 mg DAILY PO Last administered on 03/08/19 09:46; Admin Dose 50 MG; Start 03/01/19 at 09:00 Lorazepam (Ativan) 0.5 mg Q6H PRN IV ANXIETY Last administered on 03/08/19 00:44; Admin Dose 0.5 MG; Start 03/01/19 at 19:00 Tamsulosin HCl (Flomax) 0.4 mg HS PO Last administered on 03/07/19 21:20; Admin Dose 0.4 MG; Start 03/02/19 at 21:00 Morphine Sulfate (Ms Contin (Er)) 15 mg BID PO Last administered on 03/08/19 09:45; Admin Dose 15 MG; Start 03/07/19 at 09:00 Hydromorphone HCl (Dilaudid) 2 mg Q4H PRN PO SEVERE PAIN LEVEL 7-10 Last administered on 03/08/19 13:40; Admin Dose 2 MG; Start 03/07/19 at 08:00 Ciprofloxacin (Cipro) 500 mg BID@18 PO Last administered on 03/08/19 05:26; Admin Dose 500 MG; Start 03/07/19 at 18:00 DENNIS YOON NP Mar 08, 2019 17:03
--- NOTE | 2019-03-08 17:08 | PDOCDIS ---
Discharge Instructions DIAGNOSIS Discharge Diagnosis prostate cancer metastatic disease CONDITION [id number] Patient Condition: [id number] Stable HOME CARE INSTRUCTIONS: [id number] Diet Instructions: [id number] y Rest between Activity Avoid heavy lifting FOLLOW UP/APPOINTMENTS Follow-up Plan dr Alberto urology 2 dr Schilling oncology 2 weeks c/w DENNIS Rincon NP Mar 08, 2019 17:08
--- NOTE | 2019-03-08 17:14 | DS ---
VIRIDIANADENNIS LUONG CHRISTINA 03/08/19 1714: Date/Time of Note Date/Time of Note DATE: 03/08/19 TIME: 17:14 Discharge Summary Admission/Discharge Info Admit Date/Time Feb 28, 2019 at 05:11 Discharge Date/Time Discharge Diagnosis prostate cancer metastatic disease Patient Condition: Stable Consults dr Nguyen, urology, dr Schilling, oncology, dr Puentes, palliative care Hospital Course This is a 73-year-old male who was initially admitted here in August 2018 secondary to AMS, lymphadenopathy with elevated PSA. The patient also had severe anemia, recent weight loss. Also had history of subdural hematoma and history of hepatitis C. The patient was, at that time, seen by urology consultation by Dr. Nguyen and was thought to have prostate cancer and also was seen by Dr. Fregoso at that time. Urologically the plan was initially to send to senior living; however, the patient refused. Urologically, plan was to continue with Casodex and once out of the hospital to start him on Lupron. The patient was also seen by Dr. Fregoso and was recommended to follow up as an outpatient; however, the patient said that after he went home and he never really followed up with anybody. According to him, he got a new PCP. He does not believe that he had cancer. According to the patient, he has been living with his brother. He has been feeling increasingly weak, has been having weight loss. He has fallen also a couple of times. When the patient went to [facility], temperature was 36.9, blood pressure was 99/73, afebrile, heart rate 86. White count was 4.9, hemoglobin 9.0, platelet count was 212, albumin was 3, ALT 10, total bilirubin 0.7. Had a CT of the brain that showed left frontotemporal and left frontal isodense subdural collections are new since the prior study, likely represents subacute subdural hematomas. Also had a ch est x-ray that showed normal, slight appearance of cardiomegaly. Demonstrated nodular densities in the bilateral lungs consistent with metastatic disease. The patient also had a CT of the cervical, thoracic, and lumbar spine that showed patient had diffuse permeative process of the visualized osseous structures concerning for metastatic disease and the patient was transferred her e due to insurance reasons. PAST MEDICAL HISTORY: 1. Likely metastatic prostate cancer. 2. Severe anemia. 3. History of subdural hematoma. 4. History of hepatitis C. 5. History of alcoholism. 6. Hypertension. 7. History of chronic gastritis. Ds: 1. Recurrent falls, failure to thrive, weight loss, generalized body aches, likely secondary to metastatic prostate cancer. The patient was here in August 2018. The patient was seen by multiple consultants including urology and oncology. The patient had a prostate specific antigen over 1000. The patient was deemed that he had capacity to make decisions. The patient was offered senior living; however, he left and went home. He never followed up with any appointments and likely has progression of disease. 2. History of falls with subdural hematomas. 3. Severe anemia. 4. Pancytopenia with a history of hepatitis C. 5. Alcoholism. 6. History of smoking. 7. Elevated alkaline phosphatase could be secondary to bony metastases. Metastatic disease. He is on Casodex 8. Edema with hypoalbuminemia. 9. Likely urinary tract infection. 10. cachexia. Malnourishment 11.Chronic pain and anxiety During hospitalization patient was seen by numerous specialists. Dr. Nguyen was his urology consult. We followed his recommendations, he recommended to c/w Casodex and insert galeana catheter. Patient pain was controlled by dr Puentes, he ordered high doses of dilaudid and Methadone. Prior starting therapy pt was asked about his code status, He was alert and oriented x 4, he was very sharp, he said he does not want any treatment of cancer, just relief of his pain, he said he does not want any tubes , or being intubated, Denied resuscitation, he signed a POLST as DNR/DNI. We offered his a hospice and he initially agreed but then refused to sign any papers. We contacted his brother Jessica who was on vacation, but remotely controls the treatment. Jessica requested full treatment and said he will influence his brother. technical services representative also was involved, they were questioning a capacity of the patient. We called psychiatry [employer] Breonna that reported poor mental exam and no capacity to make decisions. Definately narcotics influence his ability to think. Daily we inform Jessica , who is pt health care decision maker about progress of his brother hospitalization. Eventually after their conversation over the phone one day Mr Barboza agreed on biopsy of prostate. Dr Schilling was oncology consult. She ordered Lupron injection once, pt received it. She recommended a biopsy of prostate, pt signed a consent but radiology was hesitant to perform it without a surgeon. During hospitalization his pain was controlled, we changed pain medications for a few times, once in accordance to SNF coverage to avoid pt copayment. Additionally pt was treated for UTI with IV a/b. We also transfused a blood due to severe anemia. Patient is not clinically improved, he complained on pain in all extremities and only after high doses of narcotics reported some relief. His brother Jessica was out of town and asked to keep patient in hospital and treat him until his arrival March 12, but he said he is unable to take care for him at home. During first days of hospitalization patient is hesitant for any radiation treatment, he said , that he needs to think about it daily during hospitalization to many providers. He was eating but still look cachectic and frail. We were looking for him SNF that was able to provide him with necessary level of care, it was challenging with his coverage. Patient was not able to tolerate regular diet, we gave him Ensure per dietary recommendations, he was not able to ambulate, he stays in bed, and he required an additional oxygenation. Plan of care was discussed with Dr. Hernandez. In stable condition patient was discharged to SNF. Patient was instructed to continue all medications. Patient was instructed to see his oncology in [facility] for continuation of the treatment, he had incoming appointment. All questions were answered and all problems were addressed. Family was agreed for the transfer during the phone conversation. Home Meds No Active Prescriptions or Reported Meds Follow-up Plan dr Alberto urology 2 dr Schilling oncology 2 weeks c/w anthony Primary Care Provider Care Physician No Primary Time spent on discharge: < 30 minutes Pending Labs Laboratory Tests Test 03/08/19 08:11 03/08/19 08:12 White Blood Count 3.7 10^3/ul (4.8-10.8) Red Blood Count 2.73 10^6/ul (4.70-6.10) Hemoglobin 7.2 g/dl (14.0-18.0) Hematocrit 23.3 % (42.0-52.0) Mean Corpuscular Volume 85.3 fl (82.0-101.0) Mean Corpuscular Hemoglobin 26.4 pg (29.0-33.0) Mean Corpuscular 30.9 g/dl (32.0-37.0) Hemoglobin Concent Red Cell Distribution Width 16.8 % (11.5-14.5) Platelet Count 163 10^3/UL (140-415) Mean Platelet Volume 9.8 fl (7.4-10.4) Immature Granulocytes % 2.700 % (0.001-0.429) Neutrophils % 66.4 % (39.0-77.0) Lymphocytes % 20.4 % (15.0-51.0) Monocytes % 9.5 % (0.0-11.0) Eosinophils % 0.5 % (0.0-7.0) Basophils % 0.5 % (0.0-2.0) Nucleated Red Blood Cells % 0.0 /100WBC (0.0-0.0) Immature Granulocytes # 0.100 10^3/ul (0.0-0.031) Neutrophils # 2.4 10^3/ul (1.6-7.5) Lymphocytes # 0.8 10^3/ul (0.8-2.9) Monocytes # 0.4 10^3/ul (0.3-0.9) Eosinophils # 0.0 10^3/ul (0.0-0.5) Basophils # 0.0 10^3/ul (0.0-0.1) Nucleated Red Blood Cells # 0.0 10^3/ul (0.0-0.0) Sodium Level 134 mmol/L (135-144) Potassium Level 4.5 mmol/L (3.5-5.1) Chloride Level 102 mmol/L (97-110) Carbon Dioxide Level 27 mmol/L (21-31) Anion Gap 5 (5-13) Blood Urea Nitrogen 14 mg/dl (7-20) Creatinine 0.89 mg/dl (0.61-1.24) Est Glomerular Filtrat mL/min (>60) Rate mL/min Glucose Level 75 mg/dl (70-220) Calcium Level 7.9 mg/dl (8.4-10.2) Phosphorus Level 3.5 mg/dl (2.5-4.9) Magnesium Level 1.9 mg/dl (1.7-2.5) VALDO HERNANDEZ MD 03/27/19 1337: Discharge Summary Admission/Discharge Info Hospital Course pt was given option of fu Dr Fregoso/dr schilling as OPD spoke to brother jessica and informed about diagnosis and follow ups pt was also seen by dr nguyen and his recs were followed Home Meds No Active Prescriptions or Reported Meds DENNIS YOON NP Mar 08, 2019 17:14 VALDO HERNANDEZ MD Mar 27, 2019 13:37
--- NOTE | 2019-03-08 18:11 | CONS ---
Consult Date/Type/Reason Admit Date/Time Feb 28, 2019 at 05:11 Initial Consult Date 03/01/19 Type of Consultation: Urology Reason for Consultation Metastatic prostate cancer Requesting Provider: MILLY LABOY MD Date/Time of Note DATE: 03/08/19 TIME: 18:08 Subjective Patient is very weak and complains of generalized pain. Objective Vitals Vital Signs Date Temp Pulse Resp B/P (MAP) Pulse Ox O2 O2 Flow FiO2 Time Delivery Rate 03/08/19 98.3 92 20 115/72 100 Room Air 15:39 (86) Intake and Output 03/07/19 03/07/19 03/08/19 1515:00 23:00 07:00 IntakeIntake Total 200 ml 100 ml OutputOutput Total 500 ml 800 ml BalanceBalance 200 ml -400 ml -800 ml Exam The Sanderson catheter is draining clear urine. Patient did receive 7.5 mg leuprolide acetate yesterday. Results/Medications Result Diagram: 03/08/19 0811 03/08/19 0812 Results 24 hrs Laboratory Tests Test 03/08/19 08:11 03/08/19 08:12 White Blood Count 3.7 L Red Blood Count 2.73 L Hemoglobin 7.2 L Hematocrit 23.3 L Mean Corpuscular Volume 85.3 Mean Corpuscular Hemoglobin 26.4 L Mean Corpuscular Hemoglobin Concent 30.9 L Red Cell Distribution Width 16.8 H Platelet Count 163 Mean Platelet Volume 9.8 Immature Granulocytes % 2.700 H Neutrophils % 66.4 Lymphocytes % 20.4 Monocytes % 9.5 Eosinophils % 0.5 Basophils % 0.5 Nucleated Red Blood Cells % 0.0 Immature Granulocytes # 0.100 H Neutrophils # 2.4 Lymphocytes # 0.8 Monocytes # 0.4 Eosinophils # 0.0 Basophils # 0.0 Nucleated Red Blood Cells # 0.0 Sodium Level 134 L Potassium Level 4.5 Chloride Level 102 Carbon Dioxide Level 27 Anion Gap 5 Blood Urea Nitrogen 14 Creatinine 0.89 Est Glomerular Filtrat Rate mL/min Glucose Level 75 Calcium Level 7.9 L Phosphorus Level 3.5 Magnesium Level 1.9 Home Meds No Active Prescriptions or Reported Meds Medications Current Medications Pantoprazole (Protonix Tab) 40 mg DAILY@06 PO Last administered on 03/08/19at 05:26; Admin Dose 40 MG; Start 02/28/19 at 06:00 Albuterol/ Ipratropium (Duoneb) 3 ml Q6H RESP THERAPY PRN HHN SHORTNESS OF BREATH; Start 02/28/19 at 06:00 Acetaminophen (Tylenol Tab) 650 mg Q6H PRN PO MILD PAIN(1-3)OR ELEVATED TEMP Last administered on 03/07/19 22:54; Admin Dose 650 MG; Start 02/28/19 at 06:00 Bisacodyl (Dulcolax) 10 mg DAILY PRN PO CONSTIPATION; Start 02/28/19 at 06:00 Miscellaneous Information (Pending Santyl Order For Wound Care) This patient lopez... PRN PRN XX WOUND CARE; Start 02/28/19 at 06:00 Calcium Carbonate (Ca Carbonate) 1,250 mg BID PO Last administered on 03/08/19 09:45; Admin Dose 1,250 MG; Start 02/28/19 at 21:00 Bicalutamide (Casodex) 50 mg DAILY PO Last administered on 03/08/19 09:46; Admin Dose 50 MG; Start 03/01/19 at 09:00 Lorazepam (Ativan) 0.5 mg Q6H PRN IV ANXIETY Last administered on 03/08/19 00:44; Admin Dose 0.5 MG; Start 03/01/19 at 19:00 Tamsulosin HCl (Flomax) 0.4 mg HS PO Last administered on 03/07/19 21:20; Admin Dose 0.4 MG; Start 03/02/19 at 21:00 Morphine Sulfate (Ms Contin (Er)) 15 mg BID PO Last administered on 03/08/19 09:45; Admin Dose 15 MG; Start 03/07/19 at 09:00 Hydromorphone HCl (Dilaudid) 2 mg Q4H PRN PO SEVERE PAIN LEVEL 7-10 Last administered on 03/08/19 13:40; Admin Dose 2 MG; Start 03/07/19 at 08:00 Ciprofloxacin (Cipro) 500 mg BID@,18 PO Last administered on 03/08/19 05:26; Admin Dose 500 MG; Start 03/07/19 at 18:00 Assessment/Plan Hospital Course (Demo Recall) 73-year-old -[place] male was admitted here in August 2018. At that time his PSA was over at thousand and patient was assumed to have prostate cancer he was started on bicalutamide and at the time of discharge he was instructed to follow-up in the office for biopsy of the prostate to confirm the diagnosis of prostate cancer. However the patient did not follow up with any doctor and he went to [facility] because of increased back pain and weakness in addition to lower extremity pain and was transferred to [facility]. Patient underwent CT of the cervical thoracic and lumbar spine and was found to have metastatic disease. Patient states he does urinate 5-6 times at night and same during the day. He voids a small amount. He denies any gross hematuria. Presently the patient is very weak and the CT scan of the abdomen and pelvis showed: 1. Diffuse metastasis to the liver as described above. Recommend contrast CT or MR to further evaluate. 2. Pathologic lymphadenopathy is noted in the retroperitoneum, the gastrohepatic gastrolienal and the portal triad with retroperitoneal lymph adenopathy noted at the aortic bifurcation. Incomplete evaluation without contrast on this study is noted. 3. Anterior mid abdominal mass measuring 5.8 cm transverse by 3.2 cm in AP dimensions. 4. Bilateral renal cortical cysts with persistent mild left hydroureter nephrosis 5. Diffuse blastic and lytic skeletal metastasis and recommend MRI with contrast of the spine to evaluate for epidural extension is clinically indicated. 6. Mild abdominal and pelvic ascites 7. Mild gallbladder wall calcifications The patient is on bicalutamide and pain medications. His cancer is very advanced. Consideration have been made for usp and or hospice. The Sanderson catheter is draining clear urine and urine culture did grew: ENTEROBACTER CLOACAE COLONY COUNT 10,000 - 20,000 CFU/ml E CLOACAE M.I.C. RX --------- --- CEFOTAXIME S CIPROFLOXACIN 1 S GENTAMICIN <=1 S LEVOFLOXACIN 1 S NITROFURANTOIN <=16 S TOBRAMYCIN <=1 S TRIMETHOPRIM/SULFAMETHOXAZOLE >=320 R I will put him on Cipro 250 mg twice a day. On 03/07/2019 he received 7.5 mg leuprolide acetate injection into his right arm area. Patient is also on bicalutamide. Continue present treatment. MAVIS MAI MD Mar 08, 2019 18:11
[2019-03-08 20:00] VITALS: BP 116/72; PULSE 91; RESP 18
[2019-03-08] MEDS: TAMSULOSIN (SR) 0.4 MG CAP PO SCH (20:42)
[2019-03-08 23:45] VITALS: BP 105/69; PULSE 92; RESP 17
[2019-03-09 00:45] VITALS: BP 119/74; PULSE 94; RESP 18
[2019-03-09] MEDS: LORAZEPAM 2 MG INJ IV PRN (01:06)
[2019-03-09 02:00] VITALS: BP 116/72; PULSE 101; RESP 18
[2019-03-09] MEDS: CIPROFLOXACIN 500 MG TAB PO SCH (05:25)
[2019-03-09] MEDS: PANTOPRAZOLE (EC) 40 MG TAB PO SCH (05:25)
[2019-03-09 07:33] VITALS: BP 110/69; PULSE 94; RESP 18
[2019-03-09] MEDS: morphine (ER) 15 MG TAB PO SCH (09:18)
[2019-03-09] MEDS: BICALUTAMIDE 50 MG TAB PO SCH (09:19)
[2019-03-09] MEDS: CA CARBONATE (250 MG/ML) 5ML CUP PO SCH (09:19)
--- NOTE | 2019-03-09 12:41 | CONS ---
Assessment/Plan Assessment/Plan Assessment/Plan (Daily) #Metastatic prostate cancer -pt has disease diffusely throughout the liver, bones and lymph nodes -PSA is currently> 600 - Per Dr Pardo - pt should have a confirmatory prostate bx but given the high l ikelihood of prostate cancer and heavy disease burden, ideally patient should be started on upfront Taxotere chemotherapy with Casodex and Lupron. He may also be a candidate for upfront therapy with Abiraterone which would start as an out patient -This was discussed with the patient who states he needs to "think about" starting any type of therapy -he could also be evaluated by radiation oncology as an out patient for his back pain as palliative XRT may help this issue -at the very least he should continue Casodex for now -if he refuses all treatment, he should be referred for hospice eval Patient seen in collaboration with Dr Pardo. staff. Consultation Date/Type/Reason Admit Date/Time Feb 28, 2019 at 05:11 Initial Consult Date 03/01/19 Type of Consult HEM/ONC Reason for Consultation Metastatic Prostate Cancer Requesting Provider: MILLY LABOY MD Date/Time of Note DATE: 03/09/19 TIME: 12:40 24 HR Interval Summary Free Text/Dictation Cont Casodex and [place] no events reported last night Constitutional: requiring O2 Detailed Summary Eyes: no complaints ENT: no complaints Respiratory: no complaints Cardiovascular: no complaints Gastrointestinal: no complaints Genitourinary: no complaints Musculoskeletal: no complaints Skin: no complaints Neurologic: no complaints Lymphatic: no complaints Psychological: nl mood/affect Exam/Review of Systems Exam Vitals Vital Signs Date Temp Pulse Resp B/P (MAP) Pulse Ox O2 O2 Flow FiO2 Time Delivery Rate 03/09/19 98.3 94 18 110/69 97 07:33 (83) 03/08/19 Room Air 15:39 Intake and Output 03/08/19 03/08/19 03/09/19 1515:00 23:00 07:00 IntakeIntake Total 1120 ml 470 ml OutputOutput Total 300 ml 250 ml 650 ml BalanceBalance -300 ml 870 ml -180 ml Constitutional: alert, well developed Psych: nl mood/affect Head: atraumatic Eyes: nl lids, nl sclera ENMT: nl external ears & nose Neck: non-tender Respiratory: clear to auscultation Cardiovascular: nl pulses, other (s1s2) Gastrointestinal: soft, non-tender Musculoskeletal: muscle weakness Extremities: normal pulses Neurological: nl speech Lymph: nontender Results Result Diagram: 03/08/19 0811 03/08/19 0812 Results 24hrs Laboratory Tests Test 03/09/19 08:05 Lab Scanned Report BLOOD TRANSFUSION Medications Medication Current Medications Pantoprazole (Protonix Tab) 40 mg DAILY@06 PO Last administered on 03/09/19 05:25; Admin Dose 40 MG; Start 02/28/19 at 06:00 Albuterol/ Ipratropium (Duoneb) 3 ml Q6H RESP THERAPY PRN HHN SHORTNESS OF BREATH; Start 02/28/19 at 06:00 Acetaminophen (Tylenol Tab) 650 mg Q6H PRN PO MILD PAIN(1-3)OR ELEVATED TEMP Last administered on 03/07/19at 22:54; Admin Dose 650 MG; Start 02/28/19 at 06:00 Bisacodyl (Dulcolax) 10 mg DAILY PRN PO CONSTIPATION; Start 02/28/19 at 06:00 [facility]iscellaneous Information [facility] This patient lopez... PRN PRN XX WOUND CARE; Start 02/28/19 at 06:00 Calcium Carbonate (Ca Carbonate) 1,250 mg BID PO Last administered on 03/09/19 09:19; Admin Dose 1,250 MG; Start 02/28/19 at 21:00 Bicalutamide (Casodex) 50 mg DAILY PO Last administered on 03/09/19 09:19; Admin Dose 50 MG; Start 03/01/19 at 09:00 Lorazepam (Ativan) 0.5 mg Q6H PRN IV ANXIETY Last administered on 03/09/19 01:06; Admin Dose 0.5 MG; Start 03/01/19 at 19:00 Tamsulosin HCl (Flomax) 0.4 mg HS PO Last administered on 03/08/19at 20:42; Admin Dose 0.4 MG; Start 03/02/19 at 21:00 Morphine Sulfate (Ms Contin (Er)) 15 mg BID PO Last administered on 03/09/19 09:18; Admin Dose 15 MG; Start 03/07/19 at 09:00 Hydromorphone HCl (Dilaudid) 2 mg Q4H PRN PO SEVERE PAIN LEVEL 7-10 Last administered on 03/08/19at 13:40; Admin Dose 2 MG; Start 03/07/19 at 08:00 Ciprofloxacin (Cipro) 500 mg BID@06,18 PO Last administered on 03/09/19at 05:25; Admin Dose 500 MG; Start 03/07/19 at 18:00 JOSE CHUN Mar 09, 2019 12:41
== END 2019-03-09 13:17 | DRG 723 ==
LOC: 6WM 05:11 → MS1 21:22
PROVIDERS: ADMIT Internal Medicine Nephrology; ATTEND Internal Medicine Nephrology
PROC: 30233N1 Transfusion of Nonautologous Red Blood Cells into Peripheral Vein, Percutaneous Approach (ICD-10-PCS; principal; 2019-03-08)
DX: C61 Malignant neoplasm of prostate (principal); D61.818 Other pancytopenia; E46 Unspecified protein-calorie malnutrition; Z68.1 Body mass index [BMI] 19.9 or less, adult; R64 Cachexia; N39.0 Urinary tract infection, site not specified; C78.7 Secondary malignant neoplasm of liver and intrahepatic bile duct; C79.51 Secondary malignant neoplasm of bone; C77.2 Secondary and unspecified malignant neoplasm of intra-abdominal lymph nodes; N13.30 Unspecified hydronephrosis; R62.7 Adult failure to thrive; F10.20 Alcohol dependence, uncomplicated; F17.200 Nicotine dependence, unspecified, uncomplicated; G89.3 Neoplasm related pain (acute) (chronic); F41.9 Anxiety disorder, unspecified; N28.1 Cyst of kidney, acquired; Z91.19 Patient's noncompliance with other medical treatment and regimen; Z91.81 History of falling; Z86.19 Personal history of other infectious and parasitic diseases; Z66 Do not resuscitate
CPT/HCPCS: 36430; 74176; 80048; 80053; 81001; 83735; 84100; 84153; 84154; 85014; 85018; 85025; 85610; 86850; 86900; 86901; 86920; 87081; 87086; 97162; 97530; J0696; J1170; J1885; J2060; J7030; J7040; P9016